=== PATIENT | female | born 1950 | race African-American/Black ===

== ENCOUNTER 2016-08-09 09:29 | Inpatient (IN) | payer OTHER ==
[~2016-08-09] VITALS: Ht 160 cm; Wt 117.0 kg
[~2016-08-09 09:29] MED LIST: AMLO10TA2 PO; AMOX1TAB61 PO; CARV25TA2 PO; CEFAZOLIN 2GM PREMIX 50 ML IV PRN; FERR-26 PO; FURO-68 PO; GABA-586 PO; HYDR-2868 PO; IBUP-1060 PO; INSU100I27 SQ; LISI-334 PO; LOVA20TA2 PO; OLME1TAB5 PO; POTA10CA53 PO
[2016-08-09] MEDS ORDERED: CYCL10TA2 PO (09:41)
[2016-08-09] MEDS ORDERED: INSU100V13 SQ (09:43)
[2016-08-09] MEDS ORDERED: INSU100C4 SQ (09:43)
[2016-08-09] MEDS ORDERED: RANI150T6 PO (09:46)
[2016-08-09] MEDS ORDERED: PRED20TA PO (09:46)
[2016-08-09] MEDS ORDERED: SULF1TAB23 PO (09:47)
[2016-08-09] MEDS ORDERED: ACET160S PO (09:47)
[2016-08-09] MEDS ORDERED: VENTOLIN HFA18 GM INH (09:49)
[2016-08-09] MEDS ORDERED: NEOSTIGMINE METHYLSULFATE 5 MG/5 ML SYRINGE. ONE (11:46)
[2016-08-09] MEDS ORDERED: ONDANSETRON PF 4 MG/2 ML VIAL. ONE (11:46)
[2016-08-09] MEDS ORDERED: DEXAMETHASONE SOD PHOS 20 MG/5 ML VIAL. ONE (11:46)
[2016-08-09] MEDS ORDERED: ROCURONIUM 50 MG/5 ML VIAL. ONE ×2 (11:46→14:39)
[2016-08-09] MEDS ORDERED: PROPOFOL 20 ML IV ONE (11:46)
[2016-08-09] MEDS ORDERED: LIDOCAINE 2% 100 MG/5 ML DISP.SYRIN. ONE (11:46)
[2016-08-09] MEDS ORDERED: FENTANYL PF 100 MCG/2 ML VIAL. ONE ×2 (11:46→17:26)
[2016-08-09] MEDS ORDERED: GLYCOPYRROLATE 1 MG/5 ML VIAL. ONE (11:48)
[2016-08-09] MEDS ORDERED: SURGICEL HEMOSTAT 4X8 EACH. ONE (12:09)
[2016-08-09] MEDS ORDERED: ESTROGENS, CONJ VAGINAL CREAM 30GM TUBE. ONE (12:09)
[2016-08-09] MEDS ORDERED: LIDOCAINE 1%/EPI 1:100,000 20 ML VIAL. ONE (12:09)
[2016-08-09] MEDS ORDERED: BUPIVACAINE-EPI 0.25%-1:200000 MPF 30 ML VIAL. ONE (12:09)
[2016-08-09] MEDS ORDERED: INSULIN ASPART 100 UNIT/ML 10ML VIAL. SQ ONE (13:00)
[2016-08-09 13:15] LABS: BASO # 0.1 x10^3/uL (0.0-0.2); BASO % 1 % (0-3); EOS % 1 % (0-3); HEMATOCRIT 34.7 % (36.0-47.0); LYMPH # 0.7 x10^3/uL (1.0-4.8); LYMPH % 9 % (24-48); MEAN CORPUSCULAR HEMOGLOBIN 28 pg (25-35); MEAN CORPUSCULAR HGB CONC 32 g/dL (31-37); MEAN CORPUSCULAR VOLUME 89 fL (79-100); MONO % 5 % (0-9); NEUT % 85 % (31-73); PLATELET COUNT 212 x10^3/uL (140-400); RED BLOOD COUNT 3.89 x10^6/uL (3.50-5.40); RED CELL DISTRIBUTION WIDTH 15.7 % (11.5-14.5); WHITE BLOOD COUNT 8.1 x10^3/uL (4.0-11.0)
[2016-08-09] MEDS ORDERED: ESMOLOL 100 MG/10 ML VIAL. IV ONE (13:52)
[2016-08-09] MEDS ORDERED: INSULIN REGULAR 100 UNIT/ML 10ML VIAL. ONE (14:23)
[2016-08-09] MEDS ORDERED: EPHEDRINE PF IN SALINE 50 MG/5 ML DISP.SYRIN. IV ONE (16:12)
[2016-08-09] MEDS ORDERED: DESFLURANE > 120 MINUTES IH ONE (16:24)
--- NOTE | 2016-08-09 16:43 | PDOC ---
BRIEF OPERATIVE NOTE Pre-Op Diagnosis PMB Post-Op Diagnosis SAme + fibroids and multiple adhesions Procedure Performed SANTHOSH & BSO Surgeon Dr. Vázquez Anesthesia Type: General Blood Loss 400 ml Specimens Obtained uterus, cervix, ольга. fallopian tubes and ovaries Findings enlarged, fibroid uterus, multiple abd wall and pelvic sidewall adhesions. Complications none Additional Remarks pt. ALEXANDRU Carbajal Jr, MD Aug 09, 2016 16:43
[2016-08-09] MEDS ORDERED: ONDANSETRON PF 4 MG/2 ML VIAL. IV PRN ×2 (16:45→17:45)
[2016-08-09] MEDS ORDERED: SIMETHICONE 80 MG TAB.CHEW PO PRN (16:45)
[2016-08-09] MEDS ORDERED: DIPHENHYDRAMINE HCL 25 MG CAPSULE PO PRN (16:45)
[2016-08-09] MEDS ORDERED: DEXTROSE 50% 25 GM / 50ML DISP.SYRIN. IV PRN ×2 (16:45)
[2016-08-09] MEDS ORDERED: 0.9 % SODIUM CHLORIDE 10 ML DISP.SYRIN. IV PRN (16:45)
[2016-08-09] MEDS ORDERED: DIPHENHYDRAMINE 50 MG/ML VIAL IV PRN (16:45)
[2016-08-09] MEDS ORDERED: ZOLPIDEM 5 MG TABLET. PO PRN (16:45)
[2016-08-09] MEDS ORDERED: PROCHLORPERAZINE 10 MG/2 ML VIAL. IV PRN ×2 (16:45→17:45)
[2016-08-09] MEDS: IV NORMAL SALINE 1000ML BAG 1,000 ML IV SCH ×2 (17:30→21:46)
[2016-08-09] MEDS ORDERED: IV RINGERS,LACTATED 1000ML 1,000 ML IV SCH (17:32)
[2016-08-09] MEDS: FENTANYL PF 100 MCG/2 ML VIAL. IV PRN ×2 (17:38→17:53)
[2016-08-09] MEDS: INSULIN ASPART 300 UNITS/3 ML INSULN.PEN SQ SCH (17:41)
[2016-08-09] MEDS ORDERED: LIDOCAINE 1% 1 ML SYRINGE. ID PRN (17:45)
[2016-08-09] MEDS ORDERED: MORPHINE SULFATE 2 MG/ML DISP.SYRIN. IV PRN (17:45)
[2016-08-09] MEDS ORDERED: FENTANYL PF 100 MCG/2 ML VIAL. IV PRN (17:45)
[2016-08-09] MEDS ORDERED: HYDROMORPHONE 2 MG/ML VIAL. IV PRN (17:45)
[2016-08-09 18:15] VITALS: BP 142/67
[2016-08-09 18:20] VITALS: BP 132/78
[2016-08-09] MEDS: KETOROLAC TROMETHAMINE 30 MG/ML SYRINGE. IV PRN (19:16)
[2016-08-09] MEDS: GABAPENTIN 300 MG CAPSULE. PO SCH (21:34)
[2016-08-09] MEDS: OXYCODONE/APAP 5/325 TABLET. PO PRN (21:35)
--- NOTE | 2016-08-09 22:19 | OP ---
DATE OF SURGERY: PREOPERATIVE DIAGNOSIS: Postmenopausal bleeding. POSTOPERATIVE DIAGNOSES: Postmenopausal bleeding plus fibroids and multiple abdominal adhesions. PROCEDURE: SANTHOSH and BSO. SURGEON: Alexandru Vázquez MD ANESTHESIA: GETA. ESTIMATED BLOOD LOSS: 400 mL COMPLICATIONS: None. FINDINGS: Enlarged fibroid uterus, multiple abdominal wall and pelvic sidewall adhesions. SUMMARY: A 66-year-old female who had postmenopausal bleeding and negative endometrial biopsy, requiring hysterectomy. The patient was counseled on LVH BSO. Risks, benefits and expectations and voiced a clear understanding to proceed. DESCRIPTION OF PROCEDURE: The patient was taken to surgery suite and placed in dorsal lithotomy position. She was prepped with Betadine solution for vaginal prep and ChloraPrep for abdominal prep. After adequate anesthesia, bivalve speculum was placed vaginally. The anterior lip of the cervix was grasped with a single tooth tenaculum. The PlayWith uterine manipulator was then placed through the cervix. The bivalve speculum was removed. Attention was then placed on the abdomen. A small transverse skin incision was made 3 fingerbreadths below the left costal margin with a scalpel. The Veress needle was then placed through the infraumbilical incision site. The abdomen was insufflated with 1 liter of CO2 gas. The 5-mm trocar was placed, however, we had difficulty entering into the abdominal cavity due to some adhesions that appeared to be present and did not appear to be intra-abdominal at that point. We also used the Visiport to make sure not to cause any type of bowel injury. The trocar was then removed. That incision site was reapproximated using 4-0 Vicryl suture in a subcuticular manner. Marcaine 0.25% with epinephrine was injected at that incision site. Decision was made to proceed vaginally. The bivalve speculum and single tooth tenaculum were removed. Yvette clamps were placed on the anterior and posterior lip of the cervix. Cervix was injected with 1% lidocaine with epinephrine in a circumferential manner. Bovie cautery was utilized to circumscribe the cervix. The vaginal mucosa was then dissected away from the lower uterine segment using a moist Ray-Lisha. The parametrial tissue was clamped bilaterally using curved Hermann clamps, cut and suture tied with 2-0 Vicryl suture. The posterior cul-de-sac was then entered sharply using curved [place] scissors. The long weighted speculum was placed. Uterosacral ligaments were clamped bilaterally, cut, and suture ligated. The cardinal ligaments were clamped bilaterally, cut, and suture ligated. Due to the size of the uterus and poor visibility, we then decided to proceed with abdominal route. A vertical skin incision was made 2 fingerbreadths above the pubic symphysis up to the umbilicus with the scalpel down to the fascia. The fascia was entered and excised using Bovie cautery along with curved [place]inas scissors. The peritoneum was grasped with 2 hemostats and entered sharply with Metzenbaum scissors. This incision was extended superiorly as well as inferiorly. There were multiple abdominal wall adhesions to the bowel which were meticulously dissected to free up the bowel as well as to free up the uterus. The uterus was a 16-week size uterus with multiple fibroids. There were multiple pelvic sidewall adhesions that were meticulously taken down with the Metzenbaum scissors. The Gualberto ring retractor was placed. The right round ligament was clamped with curved Hermann clamps, cut, and suture ligated. The right infundibulopelvic ligament was isolated, clamped twice with curved Hermann clamps, cut and suture ligated with 2-0 Vicryl suture. The left round ligament was then isolated, clamped, cut with curved Salinas scissors and suture ligated with 2-0 Vicryl suture. The left infundibulopelvic ligament was isolated, clamped with two Hermann clamps, cut and suture tied with 2-0 Vicryl suture as well. Additional adhesions were removed from the bowel as well as around the bladder area. The broad ligament was further dissected with sharp dissection. Two additional pedicles were clamped just adjacent to the uterus, cut and suture ligated. A portion of the uterus was removed for better visibility. One additional pedicle was taken just adjacent to the lower uterine segment bilaterally, cut, and suture ligated. The remaining part of the cervix and lower uterine segment were removed. A bubbaj-ef-nahig suture was placed on the left uterine artery for better hemostasis. Dr. Becerril was consulted and recommended no further dissection of the adhesions since they are not causing any type of bowel obstruction. The area was evaluated for any type of bleeding. There was good hemostasis. We were unable to close the vaginal cuff from above due to poor visibility. Therefore, the ring retractor was removed and mass closure using 0 looped PDS suture was performed incorporating the peritoneum and fascia. Subcutaneous tissue was reapproximated using 2-0 Vicryl suture in an interrupted fashion. The skin was reapproximated using sue. The Prevena wound VAC was then placed. Short weighted speculum and curved [place] was placed vaginally. The anterior and posterior vaginal cuff were grasped with long Allis clamps. The vaginal cuff was reapproximated using 2-0 Vicryl suture in a [id number] manner. Moist vaginal packing was placed. The patient tolerated the procedure well. During the intra-abdominal procedure, the ureters were palpated and no evidence of injury. The urine remained clear and good urine production throughout the case. Sponge and needle counts correct x 3. The patient was taken to recovery room in stable condition. AELXANDRU VÁZQUEZ MD DR: CHRISTIANA/graciela JOB#: [id number] / [id number]
[2016-08-09] MEDS: ALBUTEROL SULFATE 2.5 MG/3 ML NEBU. NEB PRN (22:48)
[2016-08-09 23:06] VITALS: BP 133/79
[2016-08-10] VITALS (8 sets, daily range): BP systolic 95–130; BP diastolic 46–74
[2016-08-10] MEDS: KETOROLAC TROMETHAMINE 30 MG/ML SYRINGE. IV PRN (01:12)
[2016-08-10] MEDS: IV NORMAL SALINE 1000ML BAG 1,000 ML IV SCH ×2 (01:37→06:27)
[2016-08-10] MEDS: GABAPENTIN 300 MG CAPSULE. PO SCH ×3 (06:30→21:15)
[2016-08-10] MEDS: OXYCODONE/APAP 5/325 TABLET. PO PRN ×3 (06:31→14:41)
[2016-08-10] MEDS: ALBUTEROL SULFATE 2.5 MG/3 ML NEBU. NEB PRN (06:51)
[2016-08-10 07:08] LABS: BASO % 0 % (0-3); EOS % 0 % (0-3); HEMATOCRIT 26.8 % (36.0-47.0); HEMOGLOBIN 8.1 g/dL (12.0-15.5); LYMPH % 8 % (24-48); MEAN CORPUSCULAR HEMOGLOBIN 28 pg (25-35); MEAN CORPUSCULAR HGB CONC 30 g/dL (31-37); MEAN CORPUSCULAR VOLUME 92 fL (79-100); MONO % 5 % (0-9); NEUT % 87 % (31-73); PLATELET COUNT 176 x10^3/uL (140-400); RED BLOOD COUNT 2.91 x10^6/uL (3.50-5.40); RED CELL DISTRIBUTION WIDTH 16.6 % (11.5-14.5); WHITE BLOOD COUNT 12.7 x10^3/uL (4.0-11.0)
[2016-08-10 07:21] LABS: CALCIUM 8.5 mg/dL (8.5-10.1); GFR 30.3; POTASSIUM 4.8 mmol/L (3.5-5.1)
--- NOTE | 2016-08-10 07:35 | PDOC ---
SURGICAL PROGRESS NOTE Subjective Pt. feeling well. She is tolerating liquids. Pain controlled. Discussed surgical findings. Vital Signs Vital Signs Date Time Temp Pulse Resp B/P Pulse Ox O2 Delivery O2 Flow Rate FiO2 08/10/16 06:51 98 Room Air 08/10/16 06:15 98.6 83 20 114/61 2.5 98.6 I&O Intake and Output 08/10/16 07:00 Intake Total 7250 ml Output Total 1520 ml Balance 5730 ml Intake Oral 500 ml IV Total 4200 ml Other 2550 ml Output Urine Total 1120 ml Estimated Blood Loss 400 ml PATIENT HAS A HANSON: Yes General: Alert, Oriented X3, Cooperative HEENT: Atraumatic Lungs: Clear to auscultation Heart: Regular rate Abdomen: Soft, No masses, Other (mild tenderness; hypoactive bowel sounds; Wound vac in place.) Extremities: No edema Psych/Mental Status: Mental status NL Labs Laboratory Tests Test 08/09/16 12:49 08/09/16 13:05 08/09/16 14:20 08/09/16 16:08 Glucose (Fingerstick) 269mg/dL (70-99) 286mg/dL (70-99) 270mg/dL (70-99) White Blood Count 8.1x10^3/uL (4.0-11.0) Red Blood Count 3.89x10^6/uL (3.50-5.40) Hemoglobin 11.0g/dL (12.0-15.5) Hematocrit 34.7% (36.0-47.0) Mean Corpuscular Volume 89fL (79-100) Mean Corpuscular Hemoglobin 28pg (25-35) Mean Corpuscular Hemoglobin Concent 32g/dL (31-37) Red Cell Distribution Width 15.7% (11.5-14.5) Platelet Count 212x10^3/uL (140-400) Neutrophils (%) (Auto) 85% (31-73) Lymphocytes (%) (Auto) 9% (24-48) Monocytes (%) (Auto) 5% (0-9) Eosinophils (%) (Auto) 1% (0-3) Basophils (%) (Auto) 1% (0-3) Neutrophils # (Auto) 6.9x10^3uL (1.8-7.7) Lymphocytes # (Auto) 0.7x10^3/uL (1.0-4.8) Monocytes # (Auto) 0.4x10^3/uL (0.0-1.1) Eosinophils # (Auto) 0.0x10^3/uL (0.0-0.7) Basophils # (Auto) 0.1x10^3/uL (0.0-0.2) Test 08/09/16 17:16 08/09/16 21:12 08/10/16 06:40 Glucose (Fingerstick) 195mg/dL (70-99) 170mg/dL (70-99) White Blood Count 12.7x10^3/uL (4.0-11.0) Red Blood Count 2.91x10^6/uL (3.50-5.40) Hemoglobin 8.1g/dL (12.0-15.5) Hematocrit 26.8% (36.0-47.0) Mean Corpuscular Volume 92fL (79-100) Mean Corpuscular Hemoglobin 28pg (25-35) Mean Corpuscular Hemoglobin Concent 30g/dL (31-37) Red Cell Distribution Width 16.6% (11.5-14.5) Platelet Count 176x10^3/uL (140-400) Neutrophils (%) (Auto) 87% (31-73) Lymphocytes (%) (Auto) 8% (24-48) Monocytes (%) (Auto) 5% (0-9) Eosinophils (%) (Auto) 0% (0-3) Basophils (%) (Auto) 0% (0-3) Neutrophils # (Auto) 11.0x10^3uL (1.8-7.7) Lymphocytes # (Auto) 1.0x10^3/uL (1.0-4.8) Monocytes # (Auto) 0.7x10^3/uL (0.0-1.1) Eosinophils # (Auto) 0.0x10^3/uL (0.0-0.7) Basophils # (Auto) 0.0x10^3/uL (0.0-0.2) Sodium Level 143mmol/L (136-145) Potassium Level 4.8mmol/L (3.5-5.1) Chloride Level 108mmol/L (98-107) Carbon Dioxide Level 26mmol/L (21-32) Anion Gap 9 (6-14) Blood Urea Nitrogen 25mg/dL (7-20) Creatinine 2.0mg/dL (0.6-1.0) Estimated GFR (Cockcroft-Gault) 30.3 Glucose Level 232mg/dL (70-99) Calcium Level 8.5mg/dL (8.5-10.1) Laboratory Tests Test 08/09/16 12:49 08/09/16 13:05 08/09/16 14:20 08/09/16 16:08 Glucose (Fingerstick) 269mg/dL (70-99) 286mg/dL (70-99) 270mg/dL (70-99) White Blood Count 8.1x10^3/uL (4.0-11.0) Red Blood Count 3.89x10^6/uL (3.50-5.40) Hemoglobin 11.0g/dL (12.0-15.5) Hematocrit 34.7% (36.0-47.0) Mean Corpuscular Volume 89fL (79-100) Mean Corpuscular Hemoglobin 28pg (25-35) Mean Corpuscular Hemoglobin Concent 32g/dL (31-37) Red Cell Distribution Width 15.7% (11.5-14.5) Platelet Count 212x10^3/uL (140-400) Neutrophils (%) (Auto) 85% (31-73) Lymphocytes (%) (Auto) 9% (24-48) Monocytes (%) (Auto) 5% (0-9) Eosinophils (%) (Auto) 1% (0-3) Basophils (%) (Auto) 1% (0-3) Neutrophils # (Auto) 6.9x10^3uL (1.8-7.7) Lymphocytes # (Auto) 0.7x10^3/uL (1.0-4.8) Monocytes # (Auto) 0.4x10^3/uL (0.0-1.1) Eosinophils # (Auto) 0.0x10^3/uL (0.0-0.7) Basophils # (Auto) 0.1x10^3/uL (0.0-0.2) Test 08/09/16 17:16 08/09/16 21:12 08/10/16 06:40 Glucose (Fingerstick) 195mg/dL (70-99) 170mg/dL (70-99) White Blood Count 12.7x10^3/uL (4.0-11.0) Red Blood Count 2.91x10^6/uL (3.50-5.40) Hemoglobin 8.1g/dL (12.0-15.5) Hematocrit 26.8% (36.0-47.0) Mean Corpuscular Volume 92fL (79-100) Mean Corpuscular Hemoglobin 28pg (25-35) Mean Corpuscular Hemoglobin Concent 30g/dL (31-37) Red Cell Distribution Width 16.6% (11.5-14.5) Platelet Count 176x10^3/uL (140-400) Neutrophils (%) (Auto) 87% (31-73) Lymphocytes (%) (Auto) 8% (24-48) Monocytes (%) (Auto) 5% (0-9) Eosinophils (%) (Auto) 0% (0-3) Basophils (%) (Auto) 0% (0-3) Neutrophils # (Auto) 11.0x10^3uL (1.8-7.7) Lymphocytes # (Auto) 1.0x10^3/uL (1.0-4.8) Monocytes # (Auto) 0.7x10^3/uL (0.0-1.1) Eosinophils # (Auto) 0.0x10^3/uL (0.0-0.7) Basophils # (Auto) 0.0x10^3/uL (0.0-0.2) Sodium Level 143mmol/L (136-145) Potassium Level 4.8mmol/L (3.5-5.1) Chloride Level 108mmol/L (98-107) Carbon Dioxide Level 26mmol/L (21-32) Anion Gap 9 (6-14) Blood Urea Nitrogen 25mg/dL (7-20) Creatinine 2.0mg/dL (0.6-1.0) Estimated GFR (Cockcroft-Gault) 30.3 Glucose Level 232mg/dL (70-99) Calcium Level 8.5mg/dL (8.5-10.1) Problem List Problems Medical Problems: (1) Fibroid uterus Status: Acute (2) Post-menopausal bleeding Status: Acute Assessment/Plan A: POD#1 s/p SANTHOSH & BSO P: Continue post op -care. Consult Dr. Hurt for diabetes and blood pressure management. Monitor urine output. Problems: ALEXANDRU NUNEZ Jr, MD Aug 10, 2016 07:35
[2016-08-10] MEDS: INSULIN ASPART 300 UNITS/3 ML INSULN.PEN SQ SCH ×3 (08:34→17:21)
[2016-08-10] MEDS: FUROSEMIDE 20 MG TABLET PO SCH ×2 (08:41→14:56)
[2016-08-10 15:21] LABS: ANISOCYTOSIS SLIGHT; HYPOCHROMIA SLIGHT; PLT ESTIMATE ADEQUATE (ADEQUATE); POLYCHROMASIA SLIGHT; TOXIC GRANULATION SLIGHT
[2016-08-10] MEDS ORDERED: FUROSEMIDE 20 MG/2 ML VIAL IVP ONE (16:15)
--- NOTE | 2016-08-10 16:22 | PDOC2 ---
CONSULT Date of Consult Date of Consult DATE: 08/10/16 TIME: 16:22 Past Medical History Cardiovascular: HTN, Hyperlipidemia Pulmonary: No pertinent hx CENTRAL NERVOUS SYSTEM: Other GI: Diverticulosis Heme/Onc: No pertinent hx Hepatobiliary: No pertinent hx Psych: No pertinent hx Musculoskeletal: Osteoarthritis Rheumatologic: No pertinent hx Infectious disease: No pertinent hx Renal/: No pertinent hx Endocrine: Diabetes Past Surgical History Past Surgical History: Colon Resection Family History Family History: Coronary Artery Disease Social History ALCOHOL: none Drugs: None Lives: with Family Current Problem List Problem List Problems Medical Problems: (1) Fibroid uterus Status: Acute (2) Post-menopausal bleeding Status: Acute Current Medications Current Medications Current Medications Cefazolin Sodium/ Dextrose 50 ml @ 100 mls/hr 1X PREOP PRN IV PRIOR TO PROCEDURE Last administered on 08/09/16 13:30; Start 08/09/16 at 06:00; Stop at 18:00; Status DC Sodium Chloride (Iv Sodium Chloride 0.9% 1000ml Bag) 1,000 ml @ 75 mls/hr [id number] IV Last administered on 08/10/16 06:27; Start 08/09/16 at 11:00 Dexamethasone Sodium Phosphate (Decadron) 20 mg STK-MED ONCE .ROUTE ; Start at 11:46; Stop 08/09/16 at 18:48; Status DC Ondansetron HCl 4 mg 4 mg STK-MED ONCE .ROUTE ; Start 08/09/16 at 11:46; Stop at 18:48; Status DC Propofol (Diprivan) 20 ml @ As Directed STK-MED ONCE IV ; Start 08/09/16 at 11: 46; Stop 08/09/16 at 18:48; Status DC Lidocaine HCl 100 mg STK-MED ONCE .ROUTE ; Start 08/09/16 at 11:46; Stop at 18:48; Status DC Fentanyl Citrate (Fentanyl 2ml Vial) 100 mcg STK-MED ONCE .ROUTE ; Start at 11:46; Stop 08/09/16 at 18:48; Status DC Neostigmine Methylsulfate 5 mg STK-MED ONCE .ROUTE ; Start 08/09/16 at 11:46; Stop 08/09/16 at 18:48; Status DC Rocuronium Buckner (Zemuron) 50 mg STK-MED ONCE .ROUTE ; Start 08/09/16 at 11:46 ; Stop 08/09/16 at 18:48; Status DC Glycopyrrolate (Robinul) 1 mg STK-MED ONCE .ROUTE ; Start 08/09/16 at 11:48; Stop 08/09/16 at 18:48; Status DC Cellulose 1 each STK-MED ONCE .ROUTE ; Start 08/09/16 at 12:09; Stop 08/09/16 at 18:48; Status DC Lidocaine/ Epinephrine (Xylocaine 1%-Epi 1:100,000) 20 ml STK-MED ONCE .ROUTE Last administered on 08/09/16 13:45; Start 08/09/16 at 12:09; Stop 08/09/16 at 18:48; Status DC Bupivacaine HCl/ Epinephrine Bitart (Sensorcaine-Epi 0.25%-1:264764 Mpf) 30 ml STK-MED ONCE .ROUTE Last administered on 08/09/16 13:45; Start 08/09/16 at 12: 09; Stop 08/09/16 at 18:48; Status DC Estrogens Conjugated (Premarin) 30 sohan STK-MED ONCE .ROUTE ; Start 08/09/16 at 12:09; Stop 08/09/16 at 18:48; Status DC Insulin Aspart (Novolog Vial) 4 unit 1X ONCE SQ Last administered on 12:58; Start 08/09/16 at 13:00; Stop 08/09/16 at 13:01; Status DC Esmolol HCl (Brevibloc) 100 mg STK-MED ONCE IV ; Start 08/09/16 at 13:52; Stop 08/09/16 at 18:48; Status DC Insulin Human Regular (Novolin R Vial) 100 unit STK-MED ONCE .ROUTE ; Start at 14:23; Stop 08/09/16 at 18:48; Status DC Rocuronium Buckner (Zemuron) 50 mg STK-MED ONCE .ROUTE ; Start 08/09/16 at 14:39 ; Stop 08/09/16 at 18:48; Status DC Ephedrine Sulfate 50 mg STK-MED ONCE IV ; Start 08/09/16 at 16:12; Stop at 18:48; Status DC Desflurane (Suprane) 90 ml STK-MED ONCE IH ; Start 08/09/16 at 16:24; Stop 08/09 at 18:48; Status DC Calcium Carbonate/ Glycine (Tums) 500 mg PRN Q3HRS PRN PO HEARTBURN / GAS; Start 08/09/16 at 16:45 Simethicone (Gas-X) 80 mg PRN AFTMEALHC PRN PO GAS / BLOATING; Start 08/09/16 at 16:45 Zolpidem Tartrate (Ambien) 5 mg PRN QHS PRN PO INSOMNIA, MAY REPEAT IN 1HR; Start 08/09/16 at 16:45 Diphenhydramine HCl (Benadryl) 25 mg PRN Q6HRS PRN PO ITCHING; Start 08/09/16 at 16:45 Diphenhydramine HCl (Benadryl) 25 mg PRN Q6HRS PRN IV ITCHING; Start 08/09/16 at 16:45 Sodium Chloride (Normal Saline Flush) 3 ml QSHIFT PRN IV AFTER MEDS AND BLOOD DRAWS; Start 08/09/16 at 16:45 Dextrose 12.5 gm PRN Q15MIN PRN IV SEE COMMENTS; Start 08/09/16 at 16:45; Status Cancel Oxycodone/ Acetaminophen (Percocet 5/325) 2 tab PRN Q4HRS PRN PO MODERATE PAIN , SEVERE PAIN Last administered on 08/10/16 14:41; Start 08/09/16 at 16:45 Ketorolac Tromethamine (Toradol) 30 mg PRN Q6HRS PRN IV PAIN Last administered on 08/10/16 01:12; Start 08/09/16 at 16:45; Stop 08/14/16 at 16:44 Gabapentin (Neurontin) 600 mg Q8HRS PO Last administered on 08/10/16 14:56; Start 08/09/16 at 17:00 Ondansetron HCl (Zofran) 4 mg PRN Q6HRS PRN IV NAUESA, 1ST CHOICE; Start at 16:45; Stop 08/09/16 at 18:48; Status DC Prochlorperazine Edisylate (Compazine) 5 mg PRN Q6HRS PRN IV N/V, 2nd Choice, MR X1; Start 08/09/16 at 16:45 Insulin Aspart (Novolog) 0-9 UNITS TIDWMEALS SQ Last administered on 08/10/16t 12:29; Start 08/09/16 at 17:00 Dextrose 12.5 gm PRN Q15MIN PRN IV SEE COMMENTS; Start 08/09/16 at 16:45 Fentanyl Citrate (Fentanyl 2ml Vial) 100 mcg STK-MED ONCE .ROUTE ; Start at 17:26; Stop 08/09/16 at 18:48; Status DC Ondansetron HCl (Zofran) 4 mg PRN Q6HRS PRN IV Nausea; Start 08/09/16 at 17:45 ; Stop 08/10/16 at 17:44 Fentanyl Citrate (Fentanyl 2ml Vial) 25 mcg PRN Q5MIN PRN IV MILD PAIN; Start 08/09/16 at 17:45; Stop 08/09/16 at 18:48; Status DC Fentanyl Citrate (Fentanyl 2ml Vial) 50 mcg PRN Q5MIN PRN IV MODERATE PAIN Last administered on 08/09/16t 17:53; Start 08/09/16 at 17:45; Stop 08/09/16 at 18:48; Status DC Morphine Sulfate 1 mg 1 mg PRN Q10MIN PRN IV SEVERE PAIN; Start 08/09/16 at 17: 45; Stop 08/09/16 at 18:48; Status DC Lactated Ringer's (Iv Lactated Ringers) 1,000 ml @ 0 mls/hr Q0M IV ; Start at 17:32; Stop 08/10/16 at 05:31; Status DC Lidocaine HCl 2 ml 1X PRN PRN ID IV START; Start 08/09/16 at 17:45; Stop at 18:48; Status DC Hydromorphone HCl (Dilaudid) 0.5 mg PRN Q10MIN PRN IV SEV PAIN,Second choice; Start 08/09/16 at 17:45; Stop 08/09/16 at 18:48; Status DC Prochlorperazine Edisylate (Compazine) 5 mg PACU PRN PRN IV NAUSEA; Start 08/09 at 17:45; Stop 08/09/16 at 18:48; Status DC Albuterol Sulfate (Ventolin Neb Soln) 2.5 mg PRN Q4HRS PRN NEB SHORTNESS OF BREATH Last administered on 08/10/16 06:51; Start 08/09/16 at 21:30 Furosemide (Lasix) 20 mg [id number] PO Last administered on 08/10/16 14:56; Start 08/10/16 at 09:00 Furosemide (Lasix) 20 mg 1X ONCE IVP ; Start 08/10/16 at 16:15; Stop 08/10/16 at 16:17; Status DC Active Scripts Active Klor-Con Sprinkle (Potassium Chloride) 10 Meq Capsule.er 20 Meq PO DAILY Lisinopril 20 Mg Tablet 1 Tab PO BID Ferrous Sulfate 325 Mg Tablet 325 Tab PO DAILY Gabapentin 300 Mg Capsule 600 Mg PO TID Lasix (Furosemide) 40 Mg Tablet 40 Mg PO BID Hydralazine Hcl 25 Mg Tablet 1 Tab PO TID Reported Ventolin Hfa Inhaler (Albuterol Sulfate) 18 Gm Hfa.aer.ad 2 Puff INH QID Acetaminophen 160 Mg/5 Ml Solution 325 Mg PO QID Bactrim 400-80 Mg Tablet (Sulfamethoxazole/Trimethoprim) 1 Each Tablet 1 Tab PO BID Zantac (Ranitidine Hcl) 150 Mg Tablet 150 Mg PO DAILY Prednisone 20 Mg Tablet 20 Mg PO DAILY Novolog (Insulin Aspart) 100 Unit/1 Ml Cartridge 8 Unit SQ TIDAC Levemir (Insulin Detemir) 100 Unit/1 Ml Vial 36 Unit SQ HS Cyclobenzaprine Hcl 10 Mg Tablet 10 Mg PO TID Amlodipine Besylate 10 Mg Tablet 10 Mg PO DAILY Ibuprofen 800 Mg Tablet 800 Mg PO PRN Q6HRS PRN Lovastatin 20 Mg Tablet 20 Mg PO HS Allergies Allergies: Coded Allergies: No Known Drug Allergies (Unverified , 04/02/16) Vitals VITALS Vital Signs Date Time Temp Pulse Resp B/P Pulse Ox O2 Delivery O2 Flow Rate FiO2 08/10/16 14:41 20 08/10/16 14:28 98.3 90 115/51 91 Nasal Cannula 2.0 98.3 Labs Labs Laboratory Tests Test 08/09/16 12:49 08/09/16 13:05 08/09/16 14:20 08/09/16 16:08 Glucose (Fingerstick) 269mg/dL (70-99) 286mg/dL (70-99) 270mg/dL (70-99) White Blood Count 8.1x10^3/uL (4.0-11.0) Red Blood Count 3.89x10^6/uL (3.50-5.40) Hemoglobin 11.0g/dL (12.0-15.5) Hematocrit 34.7% (36.0-47.0) Mean Corpuscular Volume 89fL (79-100) Mean Corpuscular Hemoglobin 28pg (25-35) Mean Corpuscular Hemoglobin Concent 32g/dL (31-37) Red Cell Distribution Width 15.7% (11.5-14.5) Platelet Count 212x10^3/uL (140-400) Neutrophils (%) (Auto) 85% (31-73) Lymphocytes (%) (Auto) 9% (24-48) Monocytes (%) (Auto) 5% (0-9) Eosinophils (%) (Auto) 1% (0-3) Basophils (%) (Auto) 1% (0-3) Neutrophils # (Auto) 6.9x10^3uL (1.8-7.7) Lymphocytes # (Auto) 0.7x10^3/uL (1.0-4.8) Monocytes # (Auto) 0.4x10^3/uL (0.0-1.1) Eosinophils # (Auto) 0.0x10^3/uL (0.0-0.7) Basophils # (Auto) 0.1x10^3/uL (0.0-0.2) Test 08/09/16 17:16 08/09/16 21:12 08/10/16 06:40 08/10/16 07:28 Glucose (Fingerstick) 195mg/dL (70-99) 170mg/dL (70-99) 245mg/dL (70-99) White Blood Count 12.7x10^3/uL (4.0-11.0) Red Blood Count 2.91x10^6/uL (3.50-5.40) Hemoglobin 8.1g/dL (12.0-15.5) Hematocrit 26.8% (36.0-47.0) Mean Corpuscular Volume 92fL (79-100) Mean Corpuscular Hemoglobin 28pg (25-35) Mean Corpuscular Hemoglobin Concent 30g/dL (31-37) Red Cell Distribution Width 16.6% (11.5-14.5) Platelet Count 176x10^3/uL (140-400) Neutrophils (%) (Auto) 87% (31-73) Lymphocytes (%) (Auto) 8% (24-48) Monocytes (%) (Auto) 5% (0-9) Eosinophils (%) (Auto) 0% (0-3) Basophils (%) (Auto) 0% (0-3) Neutrophils # (Auto) 11.0x10^3uL (1.8-7.7) Lymphocytes # (Auto) 1.0x10^3/uL (1.0-4.8) Monocytes # (Auto) 0.7x10^3/uL (0.0-1.1) Eosinophils # (Auto) 0.0x10^3/uL (0.0-0.7) Basophils # (Auto) 0.0x10^3/uL (0.0-0.2) Segmented Neutrophils % 76% (35-66) Band Neutrophils % 14% (0-9) Lymphocytes % 4% (24-48) Monocytes % 6% (0-10) Toxic Granulation Slight Platelet Estimate Adequate (ADEQUATE) Polychromasia Slight Hypochromasia Slight Anisocytosis Slight Sodium Level 143mmol/L (136-145) Potassium Level 4.8mmol/L (3.5-5.1) Chloride Level 108mmol/L (98-107) Carbon Dioxide Level 26mmol/L (21-32) Anion Gap 9 (6-14) Blood Urea Nitrogen 25mg/dL (7-20) Creatinine 2.0mg/dL (0.6-1.0) Estimated GFR (Cockcroft-Gault) 30.3 Glucose Level 232mg/dL (70-99) Calcium Level 8.5mg/dL (8.5-10.1) Test 08/10/16 11:37 Glucose (Fingerstick) 258mg/dL (70-99) Laboratory Tests Test 08/09/16 17:16 08/09/16 21:12 08/10/16 06:40 08/10/16 07:28 Glucose (Fingerstick) 195mg/dL (70-99) 170mg/dL (70-99) 245mg/dL (70-99) White Blood Count 12.7x10^3/uL (4.0-11.0) Red Blood Count 2.91x10^6/uL (3.50-5.40) Hemoglobin 8.1g/dL (12.0-15.5) Hematocrit 26.8% (36.0-47.0) Mean Corpuscular Volume 92fL (79-100) Mean Corpuscular Hemoglobin 28pg (25-35) Mean Corpuscular Hemoglobin Concent 30g/dL (31-37) Red Cell Distribution Width 16.6% (11.5-14.5) Platelet Count 176x10^3/uL (140-400) Neutrophils (%) (Auto) 87% (31-73) Lymphocytes (%) (Auto) 8% (24-48) Monocytes (%) (Auto) 5% (0-9) Eosinophils (%) (Auto) 0% (0-3) Basophils (%) (Auto) 0% (0-3) Neutrophils # (Auto) 11.0x10^3uL (1.8-7.7) Lymphocytes # (Auto) 1.0x10^3/uL (1.0-4.8) Monocytes # (Auto) 0.7x10^3/uL (0.0-1.1) Eosinophils # (Auto) 0.0x10^3/uL (0.0-0.7) Basophils # (Auto) 0.0x10^3/uL (0.0-0.2) Segmented Neutrophils % 76% (35-66) Band Neutrophils % 14% (0-9) Lymphocytes % 4% (24-48) Monocytes % 6% (0-10) Toxic Granulation Slight Platelet Estimate Adequate (ADEQUATE) Polychromasia Slight Hypochromasia Slight Anisocytosis Slight Sodium Level 143mmol/L (136-145) Potassium Level 4.8mmol/L (3.5-5.1) Chloride Level 108mmol/L (98-107) Carbon Dioxide Level 26mmol/L (21-32) Anion Gap 9 (6-14) Blood Urea Nitrogen 25mg/dL (7-20) Creatinine 2.0mg/dL (0.6-1.0) Estimated GFR (Cockcroft-Gault) 30.3 Glucose Level 232mg/dL (70-99) Calcium Level 8.5mg/dL (8.5-10.1) Test 08/10/16 11:37 Glucose (Fingerstick) 258mg/dL (70-99) TIFFANI MATHEW MD Aug 10, 2016 16:22
--- NOTE | 2016-08-10 16:30 | RAD ---
Examination: Single frontal view chest History: History of hypoxia, wheezing Comparison: 04/12/2016 Findings: Unchanged moderate cardiomegaly. There is prominence of bilateral interstitial lung markings likely congestive changes. Opacity identified in the right hilum grossly appears similar to prior exam. Impression: 1. Moderate cardiomegaly with mild prominent bilateral interstitial lung markings likely congestive changes. 2. Right hilar opacity likely known mass similar to prior exam.
[2016-08-10 17:11] LABS: BASO % 0 % (0-3); EOS % 0 % (0-3); HEMATOCRIT 24.7 % (36.0-47.0); HEMOGLOBIN 7.7 g/dL (12.0-15.5); LYMPH % 9 % (24-48); MEAN CORPUSCULAR HEMOGLOBIN 28 pg (25-35); MEAN CORPUSCULAR HGB CONC 31 g/dL (31-37); MEAN CORPUSCULAR VOLUME 91 fL (79-100); MONO % 5 % (0-9); NEUT % 85 % (31-73); PLATELET COUNT 171 x10^3/uL (140-400); RED BLOOD COUNT 2.72 x10^6/uL (3.50-5.40); WHITE BLOOD COUNT 11.5 x10^3/uL (4.0-11.0)
[2016-08-10 17:40] LABS: ALBUMIN 2.4 g/dL (3.4-5.0); ALBUMIN/GLOBULIN RATIO 0.8 (1.0-1.7); CALCIUM 8.3 mg/dL (8.5-10.1); CREATININE 2.4 mg/dL (0.6-1.0); GFR 24.5; POTASSIUM 4.4 mmol/L (3.5-5.1); TOTAL BILIRUBIN 0.2 mg/dL (0.2-1.0); TOTAL PROTEIN 5.5 g/dL (6.4-8.2)
[2016-08-10 17:41] LABS: MAGNESIUM 1.6 mg/dL (1.8-2.4); PHOSPHORUS 5.7 mg/dL (2.6-4.7)
[2016-08-10] MEDS: INSULIN DETEMIR 300 UNITS/3 ML INSULN.PEN. SQ SCH (21:20)
--- NOTE | 2016-08-11 00:01 | CONS ---
DATE OF CONSULTATION: REASON FOR CONSULTATION: Shortness of breath. HISTORY OF PRESENT ILLNESS: The patient is a 66-year-old -[place] woman with multiple medical problems including diastolic CHF, sarcoidosis, diabetes mellitus, hypertension, who presented initially for elective SANTHOSH/BSO. Procedure was undertaken yesterday by Dr. Vázquez without any complications. The patient tolerated the procedure well. However, in postop course today, she was noted to become progressively more short of breath with rhonchorous breath sounds, hypoxia, clear phlegm production. A consult was therefore called for acute hypoxic respiratory distress. PAST MEDICAL HISTORY: Diastolic CHF, recent echo with an EF of 60-65% in March, sarcoidosis diagnosed by lung biopsy in 03/2016, hypertension, hyperlipidemia, diabetes mellitus, borderline control, history of severe iron deficiency anemia. FAMILY HISTORY: Positive for CAD. SOCIAL HISTORY: No toxic habits. ALLERGIES: No known drug allergies. MEDICATIONS: MAR reviewed. REVIEW OF SYSTEMS: Positive for shortness of breath, cough with clear phlegm production. Denies any chest pain, any abdominal pain. Her pelvic incision is healing well. Denies any problems from there. Rest of organ system review was essentially negative. PHYSICAL EXAMINATION: VITAL SIGNS: From today show a blood pressure of 115/51, heart rate of 90, respiratory rate of 16. She is afebrile. Pulse ox at 91% on 2 liters. Of note, the pulse ox had been at 98-99 earlier today on the same setting. Blood pressure at admission 167/78. GENERAL: This is an obese 66-year-old -[place] woman, awake, alert, in no acute distress. HEENT: Shows no scleral icterus. NECK: Thick and short. LUNGS: Rhonchorous. No rales could be discerned. HEART: Has regular rate and rhythm. ABDOMEN: Has positive bowel sounds, soft. No tenderness in the upper quadrant. Incision is covered. EXTREMITIES: Show no edema, no clubbing, no cyanosis. SKIN: Warm, soft and dry. LABORATORY DATA: CBC from today with a WBC of 12.7, hemoglobin 8.1. Of note, preop hemoglobin had been 11.1, platelets of 176. Chemistries with a BUN and creatinine of 25 and 2; once again, preop work was 17 and 0.8. Electrolytes within normal limits, mildly elevated potassium at 4.8, glucose poorly controlled at 232 this morning, in the 200s since. ASSESSMENT AND PLAN: The patient is a 66-year-old woman undergoing elective total abdominal hysterectomy and bilateral salpingo-oophorectomy, which was successfully accomplished. Now, unfortunately, she has complications relating to her other chronic medical issues. Her breath sounds sound rather wet. We will obtain chest x-ray JEFF. Fluid status currently is about 6 liters positive. We will give her IV Lasix. Monitor creatinine closely as this is significantly above her usual baseline, but suspect related to diastolic congestive heart failure. The patient has a recent diagnosis of sarcoidosis for which she is on steroids and prophylactic Bactrim. We will continue that for the time being. She follows with Dr. Storey and Dr. Paul on an outpatient basis. We will notify in the a.m. Diabetes mellitus currently is very poorly controlled, most likely due to the addition of steroids. We will have to try to titrate her insulin regimen. Acute renal failure is most likely related to congestive heart failure. Should this not reverse, a Renal consult will be called in the morning. With further Lasix therapy, I suspect her hypokalemia will correct as well. Because the medical issues are rather complicated, we will transfer the patient to , admit to tele for closer monitoring and management. Thank you so much, Dr. Vázquez for consulting us. We will follow along with you. SANTY TANG MD DR: UR/nts JOB#: [id number] / [id number] Kip Bentley MD, DONALD MD MTDD
[2016-08-11 03:00] VITALS: BP 166/80
[2016-08-11 07:25] VITALS: BP 141/65
[2016-08-11] MEDS: INSULIN ASPART 300 UNITS/3 ML INSULN.PEN SQ SCH ×3 (08:00→17:05)
[2016-08-11 08:14] LABS: BASO % 0 % (0-3); EOS % 2 % (0-3); HEMATOCRIT 27.4 % (36.0-47.0); HEMOGLOBIN 8.5 g/dL (12.0-15.5); LYMPH % 10 % (24-48); MEAN CORPUSCULAR HEMOGLOBIN 28 pg (25-35); MEAN CORPUSCULAR HGB CONC 31 g/dL (31-37); MEAN CORPUSCULAR VOLUME 91 fL (79-100); MONO % 5 % (0-9); NEUT % 84 % (31-73); PLATELET COUNT 172 x10^3/uL (140-400); RED BLOOD COUNT 3.02 x10^6/uL (3.50-5.40); RED CELL DISTRIBUTION WIDTH 15.8 % (11.5-14.5); WHITE BLOOD COUNT 10.6 x10^3/uL (4.0-11.0)
[2016-08-11] MEDS ORDERED: ACETAMINOPHEN 325 MG TABLET. PO PRN (08:30)
[2016-08-11] MEDS ORDERED: MAGNESIUM SULFATE 2GM 50 ML IV ONE (08:30)
[2016-08-11 08:39] LABS: CALCIUM 8.3 mg/dL (8.5-10.1); CREATININE 2.1 mg/dL (0.6-1.0); GFR 28.6; MAGNESIUM 1.8 mg/dL (1.8-2.4); POTASSIUM 4.2 mmol/L (3.5-5.1)
[2016-08-11] MEDS: FUROSEMIDE 20 MG TABLET PO SCH ×2 (09:00→16:07)
[2016-08-11] MEDS: GABAPENTIN 300 MG CAPSULE. PO SCH (09:00)
--- NOTE | 2016-08-11 09:19 | RAD ---
Indication: Fever. Technique: Upright portable chest radiograph was obtained and compared to a study from one day earlier. Findings: There is increased right perihilar and infrahilar opacity. Interstitial prominence may be slightly improved. Heart is upper limits of normal in size. Leads overlie the patient. Impression: Increasing right perihilar and infrahilar opacity, likely pneumonia. Follow-up to document resolution is required.
[2016-08-11] MEDS: PIPERACILLIN/TAZOBACTAM 3.375 GM in IV NORMAL SALINE 50ML 50 ML IV SCH ×3 (09:55→18:11)
--- NOTE | 2016-08-11 10:18 | PDOC ---
PROGRESS NOTES Chief Complaint Chief Complaint - shortness of breath, acute hypoxic respiratory distress - post operative fever - uterine fibroids, post menopausal bleeding; s/p total abdominal hysterectomy bilateral salpingo-oopherectomy 08/09 - diastolic CHF, EF 60-65% - sarcoidosis - diabetes mellitus - hypertension History of Present Illness History of Present Illness Patient sitting up in bed when evaluated this AM. She was in no acute distress, but has had fevers through the night and morning. Temp of 102.9 when evaluated this AM. Pt O2 sat of 89% on BiPAP/CPAP. Discussed case with RN. Vitals Vitals Vital Signs Date Time Temp Pulse Resp B/P Pulse Ox O2 Delivery O2 Flow Rate FiO2 08/11/16 07:25 102.9 119 24 141/65 89 BiPAP/CPAP 2.0 102.9 Physical Exam General: Alert, Oriented X3, Cooperative Heart: Regular rate Lungs: Wheezing Abdomen: Soft, No masses, Other (mild tenderness; hypoactive bowel sounds; Wound vac in place.) Extremities: No edema Skin: No significant lesion Labs LABS Laboratory Tests Test 08/10/16 11:37 08/10/16 16:49 08/10/16 17:00 08/10/16 20:57 Glucose (Fingerstick) 258mg/dL (70-99) 223mg/dL (70-99) 222mg/dL (70-99) White Blood Count 11.5x10^3/uL (4.0-11.0) Red Blood Count 2.72x10^6/uL (3.50-5.40) Hemoglobin 7.7g/dL (12.0-15.5) Hematocrit 24.7% (36.0-47.0) Mean Corpuscular Volume 91fL (79-100) Mean Corpuscular Hemoglobin 28pg (25-35) Mean Corpuscular Hemoglobin Concent 31g/dL (31-37) Red Cell Distribution Width 16.0% (11.5-14.5) Platelet Count 171x10^3/uL (140-400) Neutrophils (%) (Auto) 85% (31-73) Lymphocytes (%) (Auto) 9% (24-48) Monocytes (%) (Auto) 5% (0-9) Eosinophils (%) (Auto) 0% (0-3) Basophils (%) (Auto) 0% (0-3) Neutrophils # (Auto) 9.8x10^3uL (1.8-7.7) Lymphocytes # (Auto) 1.0x10^3/uL (1.0-4.8) Monocytes # (Auto) 0.6x10^3/uL (0.0-1.1) Eosinophils # (Auto) 0.1x10^3/uL (0.0-0.7) Basophils # (Auto) 0.0x10^3/uL (0.0-0.2) Sodium Level 137mmol/L (136-145) Potassium Level 4.4mmol/L (3.5-5.1) Chloride Level 102mmol/L (98-107) Carbon Dioxide Level 26mmol/L (21-32) Anion Gap 9 (6-14) Blood Urea Nitrogen 28mg/dL (7-20) Creatinine 2.4mg/dL (0.6-1.0) Estimated GFR (Cockcroft-Gault) 24.5 BUN/Creatinine Ratio 12 (6-20) Glucose Level 249mg/dL (70-99) Calcium Level 8.3mg/dL (8.5-10.1) Phosphorus Level 5.7mg/dL (2.6-4.7) Magnesium Level 1.6mg/dL (1.8-2.4) Total Bilirubin 0.2mg/dL (0.2-1.0) Aspartate Amino Transf (AST/SGOT) 13U/L (15-37) Alanine Aminotransferase (ALT/SGPT) 20U/L (14-59) Alkaline Phosphatase 50U/L (46-116) Total Protein 5.5g/dL (6.4-8.2) Albumin 2.4g/dL (3.4-5.0) Albumin/Globulin Ratio 0.8 (1.0-1.7) Test 08/11/16 07:35 08/11/16 07:42 White Blood Count 10.6x10^3/uL (4.0-11.0) Red Blood Count 3.02x10^6/uL (3.50-5.40) Hemoglobin 8.5g/dL (12.0-15.5) Hematocrit 27.4% (36.0-47.0) Mean Corpuscular Volume 91fL (79-100) Mean Corpuscular Hemoglobin 28pg (25-35) Mean Corpuscular Hemoglobin Concent 31g/dL (31-37) Red Cell Distribution Width 15.8% (11.5-14.5) Platelet Count 172x10^3/uL (140-400) Neutrophils (%) (Auto) 84% (31-73) Lymphocytes (%) (Auto) 10% (24-48) Monocytes (%) (Auto) 5% (0-9) Eosinophils (%) (Auto) 2% (0-3) Basophils (%) (Auto) 0% (0-3) Neutrophils # (Auto) 8.9x10^3uL (1.8-7.7) Lymphocytes # (Auto) 1.0x10^3/uL (1.0-4.8) Monocytes # (Auto) 0.5x10^3/uL (0.0-1.1) Eosinophils # (Auto) 0.2x10^3/uL (0.0-0.7) Basophils # (Auto) 0.0x10^3/uL (0.0-0.2) Sodium Level 138mmol/L (136-145) Potassium Level 4.2mmol/L (3.5-5.1) Chloride Level 101mmol/L (98-107) Carbon Dioxide Level 27mmol/L (21-32) Anion Gap 10 (6-14) Blood Urea Nitrogen 29mg/dL (7-20) Creatinine 2.1mg/dL (0.6-1.0) Estimated GFR (Cockcroft-Gault) 28.6 Glucose Level 205mg/dL (70-99) Calcium Level 8.3mg/dL (8.5-10.1) Magnesium Level 1.8mg/dL (1.8-2.4) Glucose (Fingerstick) 206mg/dL (70-99) Review of Systems Review of Systems + fevers (T 102.9) + shortness of breath, cough productive of clear phlegm denies chest pain, palpitations Assessment and Plan Assessmemt and Plan ASSESSMENT: - shortness of breath, acute hypoxic respiratory distress - post operative fever; now 102.9 - uterine fibroids, post menopausal bleeding; s/p total abdominal hysterectomy bilateral salpingo-oopherectomy 3/16 - diastolic CHF, EF 60-65% - sarcoidosis - diabetes mellitus - hypertension PLAN: - consulting Pulmonology for respiratory symptoms and ID for post-op fevers (T 102.9) - CXR performed showing congestive changes, interstitial lung marking; r hilar opacity likely known mass similar to previous exam - cont Lasix - cont Zosyn; await ID input - cultures pending - repeat daily labs - PTOT - appreciate being asked to see the pt and for all subspecialist input Problems: Comment Review of Relevant I have reviewed the following items robert (where applicable) has been applied. Labs Laboratory Tests Test 08/09/16 12:49 08/09/16 13:05 08/09/16 14:20 08/09/16 16:08 Glucose (Fingerstick) 269mg/dL (70-99) 286mg/dL (70-99) 270mg/dL (70-99) White Blood Count 8.1x10^3/uL (4.0-11.0) Red Blood Count 3.89x10^6/uL (3.50-5.40) Hemoglobin 11.0g/dL (12.0-15.5) Hematocrit 34.7% (36.0-47.0) Mean Corpuscular Volume 89fL (79-100) Mean Corpuscular Hemoglobin 28pg (25-35) Mean Corpuscular Hemoglobin Concent 32g/dL (31-37) Red Cell Distribution Width 15.7% (11.5-14.5) Platelet Count 212x10^3/uL (140-400) Neutrophils (%) (Auto) 85% (31-73) Lymphocytes (%) (Auto) 9% (24-48) Monocytes (%) (Auto) 5% (0-9) Eosinophils (%) (Auto) 1% (0-3) Basophils (%) (Auto) 1% (0-3) Neutrophils # (Auto) 6.9x10^3uL (1.8-7.7) Lymphocytes # (Auto) 0.7x10^3/uL (1.0-4.8) Monocytes # (Auto) 0.4x10^3/uL (0.0-1.1) Eosinophils # (Auto) 0.0x10^3/uL (0.0-0.7) Basophils # (Auto) 0.1x10^3/uL (0.0-0.2) Test 08/09/16 17:16 08/09/16 21:12 08/10/16 06:40 08/10/16 07:28 Glucose (Fingerstick) 195mg/dL (70-99) 170mg/dL (70-99) 245mg/dL (70-99) White Blood Count 12.7x10^3/uL (4.0-11.0) Red Blood Count 2.91x10^6/uL (3.50-5.40) Hemoglobin 8.1g/dL (12.0-15.5) Hematocrit 26.8% (36.0-47.0) Mean Corpuscular Volume 92fL (79-100) Mean Corpuscular Hemoglobin 28pg (25-35) Mean Corpuscular Hemoglobin Concent 30g/dL (31-37) Red Cell Distribution Width 16.6% (11.5-14.5) Platelet Count 176x10^3/uL (140-400) Neutrophils (%) (Auto) 87% (31-73) Lymphocytes (%) (Auto) 8% (24-48) Monocytes (%) (Auto) 5% (0-9) Eosinophils (%) (Auto) 0% (0-3) Basophils (%) (Auto) 0% (0-3) Neutrophils # (Auto) 11.0x10^3uL (1.8-7.7) Lymphocytes # (Auto) 1.0x10^3/uL (1.0-4.8) Monocytes # (Auto) 0.7x10^3/uL (0.0-1.1) Eosinophils # (Auto) 0.0x10^3/uL (0.0-0.7) Basophils # (Auto) 0.0x10^3/uL (0.0-0.2) Segmented Neutrophils % 76% (35-66) Band Neutrophils % 14% (0-9) Lymphocytes % 4% (24-48) Monocytes % 6% (0-10) Toxic Granulation Slight Platelet Estimate Adequate (ADEQUATE) Polychromasia Slight Hypochromasia Slight Anisocytosis Slight Sodium Level 143mmol/L (136-145) Potassium Level 4.8mmol/L (3.5-5.1) Chloride Level 108mmol/L (98-107) Carbon Dioxide Level 26mmol/L (21-32) Anion Gap 9 (6-14) Blood Urea Nitrogen 25mg/dL (7-20) Creatinine 2.0mg/dL (0.6-1.0) Estimated GFR (Cockcroft-Gault) 30.3 Glucose Level 232mg/dL (70-99) Calcium Level 8.5mg/dL (8.5-10.1) Test 08/10/16 11:37 08/10/16 16:49 08/10/16 17:00 08/10/16 20:57 Glucose (Fingerstick) 258mg/dL (70-99) 223mg/dL (70-99) 222mg/dL (70-99) White Blood Count 11.5x10^3/uL (4.0-11.0) Red Blood Count 2.72x10^6/uL (3.50-5.40) Hemoglobin 7.7g/dL (12.0-15.5) Hematocrit 24.7% (36.0-47.0) Mean Corpuscular Volume 91fL (79-100) Mean Corpuscular Hemoglobin 28pg (25-35) Mean Corpuscular Hemoglobin Concent 31g/dL (31-37) Red Cell Distribution Width 16.0% (11.5-14.5) Platelet Count 171x10^3/uL (140-400) Neutrophils (%) (Auto) 85% (31-73) Lymphocytes (%) (Auto) 9% (24-48) Monocytes (%) (Auto) 5% (0-9) Eosinophils (%) (Auto) 0% (0-3) Basophils (%) (Auto) 0% (0-3) Neutrophils # (Auto) 9.8x10^3uL (1.8-7.7) Lymphocytes # (Auto) 1.0x10^3/uL (1.0-4.8) Monocytes # (Auto) 0.6x10^3/uL (0.0-1.1) Eosinophils # (Auto) 0.1x10^3/uL (0.0-0.7) Basophils # (Auto) 0.0x10^3/uL (0.0-0.2) Sodium Level 137mmol/L (136-145) Potassium Level 4.4mmol/L (3.5-5.1) Chloride Level 102mmol/L (98-107) Carbon Dioxide Level 26mmol/L (21-32) Anion Gap 9 (6-14) Blood Urea Nitrogen 28mg/dL (7-20) Creatinine 2.4mg/dL (0.6-1.0) Estimated GFR (Cockcroft-Gault) 24.5 BUN/Creatinine Ratio 12 (6-20) Glucose Level 249mg/dL (70-99) Calcium Level 8.3mg/dL (8.5-10.1) Phosphorus Level 5.7mg/dL (2.6-4.7) Magnesium Level 1.6mg/dL (1.8-2.4) Total Bilirubin 0.2mg/dL (0.2-1.0) Aspartate Amino Transf (AST/SGOT) 13U/L (15-37) Alanine Aminotransferase (ALT/SGPT) 20U/L (14-59) Alkaline Phosphatase 50U/L (46-116) Total Protein 5.5g/dL (6.4-8.2) Albumin 2.4g/dL (3.4-5.0) Albumin/Globulin Ratio 0.8 (1.0-1.7) Test 08/11/16 07:35 08/11/16 07:42 White Blood Count 10.6x10^3/uL (4.0-11.0) Red Blood Count 3.02x10^6/uL (3.50-5.40) Hemoglobin 8.5g/dL (12.0-15.5) Hematocrit 27.4% (36.0-47.0) Mean Corpuscular Volume 91fL (79-100) Mean Corpuscular Hemoglobin 28pg (25-35) Mean Corpuscular Hemoglobin Concent 31g/dL (31-37) Red Cell Distribution Width 15.8% (11.5-14.5) Platelet Count 172x10^3/uL (140-400) Neutrophils (%) (Auto) 84% (31-73) Lymphocytes (%) (Auto) 10% (24-48) Monocytes (%) (Auto) 5% (0-9) Eosinophils (%) (Auto) 2% (0-3) Basophils (%) (Auto) 0% (0-3) Neutrophils # (Auto) 8.9x10^3uL (1.8-7.7) Lymphocytes # (Auto) 1.0x10^3/uL (1.0-4.8) Monocytes # (Auto) 0.5x10^3/uL (0.0-1.1) Eosinophils # (Auto) 0.2x10^3/uL (0.0-0.7) Basophils # (Auto) 0.0x10^3/uL (0.0-0.2) Sodium Level 138mmol/L (136-145) Potassium Level 4.2mmol/L (3.5-5.1) Chloride Level 101mmol/L (98-107) Carbon Dioxide Level 27mmol/L (21-32) Anion Gap 10 (6-14) Blood Urea Nitrogen 29mg/dL (7-20) Creatinine 2.1mg/dL (0.6-1.0) Estimated GFR (Cockcroft-Gault) 28.6 Glucose Level 205mg/dL (70-99) Calcium Level 8.3mg/dL (8.5-10.1) Magnesium Level 1.8mg/dL (1.8-2.4) Glucose (Fingerstick) 206mg/dL (70-99) Laboratory Tests Test 08/10/16 11:37 08/10/16 16:49 08/10/16 17:00 08/10/16 20:57 Glucose (Fingerstick) 258mg/dL (70-99) 223mg/dL (70-99) 222mg/dL (70-99) White Blood Count 11.5x10^3/uL (4.0-11.0) Red Blood Count 2.72x10^6/uL (3.50-5.40) Hemoglobin 7.7g/dL (12.0-15.5) Hematocrit 24.7% (36.0-47.0) Mean Corpuscular Volume 91fL (79-100) Mean Corpuscular Hemoglobin 28pg (25-35) Mean Corpuscular Hemoglobin Concent 31g/dL (31-37) Red Cell Distribution Width 16.0% (11.5-14.5) Platelet Count 171x10^3/uL (140-400) Neutrophils (%) (Auto) 85% (31-73) Lymphocytes (%) (Auto) 9% (24-48) Monocytes (%) (Auto) 5% (0-9) Eosinophils (%) (Auto) 0% (0-3) Basophils (%) (Auto) 0% (0-3) Neutrophils # (Auto) 9.8x10^3uL (1.8-7.7) Lymphocytes # (Auto) 1.0x10^3/uL (1.0-4.8) Monocytes # (Auto) 0.6x10^3/uL (0.0-1.1) Eosinophils # (Auto) 0.1x10^3/uL (0.0-0.7) Basophils # (Auto) 0.0x10^3/uL (0.0-0.2) Sodium Level 137mmol/L (136-145) Potassium Level 4.4mmol/L (3.5-5.1) Chloride Level 102mmol/L (98-107) Carbon Dioxide Level 26mmol/L (21-32) Anion Gap 9 (6-14) Blood Urea Nitrogen 28mg/dL (7-20) Creatinine 2.4mg/dL (0.6-1.0) Estimated GFR (Cockcroft-Gault) 24.5 BUN/Creatinine Ratio 12 (6-20) Glucose Level 249mg/dL (70-99) Calcium Level 8.3mg/dL (8.5-10.1) Phosphorus Level 5.7mg/dL (2.6-4.7) Magnesium Level 1.6mg/dL (1.8-2.4) Total Bilirubin 0.2mg/dL (0.2-1.0) Aspartate Amino Transf (AST/SGOT) 13U/L (15-37) Alanine Aminotransferase (ALT/SGPT) 20U/L (14-59) Alkaline Phosphatase 50U/L (46-116) Total Protein 5.5g/dL (6.4-8.2) Albumin 2.4g/dL (3.4-5.0) Albumin/Globulin Ratio 0.8 (1.0-1.7) Test 08/11/16 07:35 08/11/16 07:42 White Blood Count 10.6x10^3/uL (4.0-11.0) Red Blood Count 3.02x10^6/uL (3.50-5.40) Hemoglobin 8.5g/dL (12.0-15.5) Hematocrit 27.4% (36.0-47.0) Mean Corpuscular Volume 91fL (79-100) Mean Corpuscular Hemoglobin 28pg (25-35) Mean Corpuscular Hemoglobin Concent 31g/dL (31-37) Red Cell Distribution Width 15.8% (11.5-14.5) Platelet Count 172x10^3/uL (140-400) Neutrophils (%) (Auto) 84% (31-73) Lymphocytes (%) (Auto) 10% (24-48) Monocytes (%) (Auto) 5% (0-9) Eosinophils (%) (Auto) 2% (0-3) Basophils (%) (Auto) 0% (0-3) Neutrophils # (Auto) 8.9x10^3uL (1.8-7.7) Lymphocytes # (Auto) 1.0x10^3/uL (1.0-4.8) Monocytes # (Auto) 0.5x10^3/uL (0.0-1.1) Eosinophils # (Auto) 0.2x10^3/uL (0.0-0.7) Basophils # (Auto) 0.0x10^3/uL (0.0-0.2) Sodium Level 138mmol/L (136-145) Potassium Level 4.2mmol/L (3.5-5.1) Chloride Level 101mmol/L (98-107) Carbon Dioxide Level 27mmol/L (21-32) Anion Gap 10 (6-14) Blood Urea Nitrogen 29mg/dL (7-20) Creatinine 2.1mg/dL (0.6-1.0) Estimated GFR (Cockcroft-Gault) 28.6 Glucose Level 205mg/dL (70-99) Calcium Level 8.3mg/dL (8.5-10.1) Magnesium Level 1.8mg/dL (1.8-2.4) Glucose (Fingerstick) 206mg/dL (70-99) Medications Current Medications Cefazolin Sodium/ Dextrose 50 ml @ 100 mls/hr 1X PREOP PRN IV PRIOR TO PROCEDURE Last administered on 08/09/16t 13:30; Start 08/09/16 at 06:00; Stop at 18:00; Status DC Sodium Chloride (Iv Sodium Chloride 0.9% 1000ml Bag) 1,000 ml @ 75 mls/hr [id number] IV Last administered on 08/10/16 06:27; Start 08/09/16 at 11:00; Stop 08/10/16 at 17:53; Status DC Dexamethasone Sodium Phosphate (Decadron) 20 mg STK-MED ONCE .ROUTE ; Start at 11:46; Stop 08/09/16 at 18:48; Status DC Ondansetron HCl 4 mg 4 mg STK-MED ONCE .ROUTE ; Start 08/09/16 at 11:46; Stop at 18:48; Status DC Propofol (Diprivan) 20 ml @ As Directed STK-MED ONCE IV ; Start 08/09/16 at 11: 46; Stop 08/09/16 at 18:48; Status DC Lidocaine HCl 100 mg STK-MED ONCE .ROUTE ; Start 08/09/16 at 11:46; Stop at 18:48; Status DC Fentanyl Citrate (Fentanyl 2ml Vial) 100 mcg STK-MED ONCE .ROUTE ; Start at 11:46; Stop 08/09/16 at 18:48; Status DC Neostigmine Methylsulfate 5 mg STK-MED ONCE .ROUTE ; Start 08/09/16 at 11:46; Stop 08/09/16 at 18:48; Status DC Rocuronium Dawson (Zemuron) 50 mg STK-MED ONCE .ROUTE ; Start 08/09/16 at 11:46 ; Stop 08/09/16 at 18:48; Status DC Glycopyrrolate (Robinul) 1 mg STK-MED ONCE .ROUTE ; Start 08/09/16 at 11:48; Stop 08/09/16 at 18:48; Status DC Cellulose 1 each STK-MED ONCE .ROUTE ; Start 08/09/16 at 12:09; Stop 08/09/16 at 18:48; Status DC Lidocaine/ Epinephrine (Xylocaine 1%-Epi 1:100,000) 20 ml STK-MED ONCE .ROUTE Last administered on 08/09/16 13:45; Start 08/09/16 at 12:09; Stop 08/09/16 at 18:48; Status DC Bupivacaine HCl/ Epinephrine Bitart (Sensorcaine-Epi 0.25%-1:112888 Mpf) 30 ml STK-MED ONCE .ROUTE Last administered on 08/09/16 13:45; Start 08/09/16 at 12: 09; Stop 08/09/16 at 18:48; Status DC Estrogens Conjugated (Premarin) 30 sohan STK-MED ONCE .ROUTE ; Start 08/09/16 at 12:09; Stop 08/09/16 at 18:48; Status DC Insulin Aspart (Novolog Vial) 4 unit 1X ONCE SQ Last administered on 12:58; Start 08/09/16 at 13:00; Stop 08/09/16 at 13:01; Status DC Esmolol HCl (Brevibloc) 100 mg STK-MED ONCE IV ; Start 08/09/16 at 13:52; Stop 08/09/16 at 18:48; Status DC Insulin Human Regular (Novolin R Vial) 100 unit STK-MED ONCE .ROUTE ; Start at 14:23; Stop 08/09/16 at 18:48; Status DC Rocuronium Dawson (Zemuron) 50 mg STK-MED ONCE .ROUTE ; Start 08/09/16 at 14:39 ; Stop 08/09/16 at 18:48; Status DC Ephedrine Sulfate 50 mg STK-MED ONCE IV ; Start 08/09/16 at 16:12; Stop at 18:48; Status DC Desflurane (Suprane) 90 ml STK-MED ONCE IH ; Start 08/09/16 at 16:24; Stop 08/09 at 18:48; Status DC Calcium Carbonate/ Glycine (Tums) 500 mg PRN Q3HRS PRN PO HEARTBURN / GAS; Start 08/09/16 at 16:45 Simethicone (Gas-X) 80 mg PRN AFTMEALHC PRN PO GAS / BLOATING; Start 08/09/16 at 16:45 Zolpidem Tartrate (Ambien) 5 mg PRN QHS PRN PO INSOMNIA, MAY REPEAT IN 1HR; Start 08/09/16 at 16:45 Diphenhydramine HCl (Benadryl) 25 mg PRN Q6HRS PRN PO ITCHING; Start 08/09/16 at 16:45 Diphenhydramine HCl (Benadryl) 25 mg PRN Q6HRS PRN IV ITCHING; Start 08/09/16 at 16:45 Sodium Chloride (Normal Saline Flush) 3 ml QSHIFT PRN IV AFTER MEDS AND BLOOD DRAWS; Start 08/09/16 at 16:45 Dextrose 12.5 gm PRN Q15MIN PRN IV SEE COMMENTS; Start 08/09/16 at 16:45; Status Cancel Oxycodone/ Acetaminophen (Percocet 5/325) 2 tab PRN Q4HRS PRN PO MODERATE PAIN , SEVERE PAIN Last administered on 08/10/16 14:41; Start 08/09/16 at 16:45 Ketorolac Tromethamine (Toradol) 30 mg PRN Q6HRS PRN IV PAIN Last administered on 08/10/16 01:12; Start 08/09/16 at 16:45; Stop 08/14/16 at 16:44 Gabapentin (Neurontin) 600 mg Q8HRS PO Last administered on 08/10/16 21:15; Start 08/09/16 at 17:00; Stop 08/10/16 at 22:59; Status DC Ondansetron HCl (Zofran) 4 mg PRN Q6HRS PRN IV NAUESA, 1ST CHOICE; Start at 16:45; Stop 08/09/16 at 18:48; Status DC Prochlorperazine Edisylate (Compazine) 5 mg PRN Q6HRS PRN IV N/V, 2nd Choice, MR X1; Start 08/09/16 at 16:45 Insulin Aspart (Novolog) 0-9 UNITS TIDWMEALS SQ Last administered on 08/10/16 17:21; Start 08/09/16 at 17:00 Dextrose 12.5 gm PRN Q15MIN PRN IV SEE COMMENTS; Start 08/09/16 at 16:45 Fentanyl Citrate (Fentanyl 2ml Vial) 100 mcg STK-MED ONCE .ROUTE ; Start at 17:26; Stop 08/09/16 at 18:48; Status DC Ondansetron HCl (Zofran) 4 mg PRN Q6HRS PRN IV Nausea; Start 08/09/16 at 17:45 ; Stop 08/10/16 at 17:44; Status DC Fentanyl Citrate (Fentanyl 2ml Vial) 25 mcg PRN Q5MIN PRN IV MILD PAIN; Start 08/09/16 at 17:45; Stop 08/09/16 at 18:48; Status DC Fentanyl Citrate (Fentanyl 2ml Vial) 50 mcg PRN Q5MIN PRN IV MODERATE PAIN Last administered on 08/09/16 17:53; Start 08/09/16 at 17:45; Stop 08/09/16 at 18:48; Status DC Morphine Sulfate 1 mg 1 mg PRN Q10MIN PRN IV SEVERE PAIN; Start 08/09/16 at 17: 45; Stop 08/09/16 at 18:48; Status DC Lactated Ringer's (Iv Lactated Ringers) 1,000 ml @ 0 mls/hr Q0M IV ; Start at 17:32; Stop 08/10/16 at 05:31; Status DC Lidocaine HCl 2 ml 1X PRN PRN ID IV START; Start 08/09/16 at 17:45; Stop at 18:48; Status DC Hydromorphone HCl (Dilaudid) 0.5 mg PRN Q10MIN PRN IV SEV PAIN,Second choice; Start 08/09/16 at 17:45; Stop 08/09/16 at 18:48; Status DC Prochlorperazine Edisylate (Compazine) 5 mg PACU PRN PRN IV NAUSEA; Start 08/09 at 17:45; Stop 08/09/16 at 18:48; Status DC Albuterol Sulfate (Ventolin Neb Soln) 2.5 mg PRN Q4HRS PRN NEB SHORTNESS OF BREATH Last administered on 08/10/16 06:51; Start 08/09/16 at 21:30 Furosemide (Lasix) 20 mg [id number] PO Last administered on 08/10/16 14:56; Start 08/10/16 at 09:00 Furosemide (Lasix) 20 mg 1X ONCE IVP Last administered on 08/10/16 16:28; Start 08/10/16 at 16:15; Stop 08/10/16 at 16:17; Status DC Insulin Detemir (Levemir) 10 units QHS SQ Last administered on 08/10/16 21:20 ; Start 08/10/16 at 21:00 Gabapentin (Neurontin) 600 mg DAILY PO ; Start 08/11/16 at 09:00 Acetaminophen 650 mg 650 mg PRN Q6HRS PRN PO MILD PAIN / TEMP; Start 08/11/16 at 08:30 Magnesium Sulfate/ Dextrose 50 ml @ 25 mls/hr 1X ONCE IV ; Start 08/11/16 at 08 :30; Stop 08/11/16 at 10:29 Piperacillin Sod/ Tazobactam Sod/ Sodium Chloride (Zosyn/Iv Sodium Chloride 0.9 % 50ml) 50 ml @ 100 mls/hr Q6HRS IV Last administered on 08/11/16 09:55; Start 08/11/16 at 08:30 Acetaminophen (Tylenol) 650 mg PRN Q6HRS PRN [place] MILD PAIN / TEMP; Start at 10:15; Status UNV Active Scripts Active Klor-Con Sprinkle (Potassium Chloride) 10 Meq Capsule.er 20 Meq PO DAILY Lisinopril 20 Mg Tablet 1 Tab PO BID Ferrous Sulfate 325 Mg Tablet 325 Tab PO DAILY Gabapentin 300 Mg Capsule 600 Mg PO TID Lasix (Furosemide) 40 Mg Tablet 40 Mg PO BID Hydralazine Hcl 25 Mg Tablet 1 Tab PO TID Reported Ventolin Hfa Inhaler (Albuterol Sulfate) 18 Gm Hfa.aer.ad 2 Puff INH QID Acetaminophen 160 Mg/5 Ml Solution 325 Mg PO QID Bactrim 400-80 Mg Tablet (Sulfamethoxazole/Trimethoprim) 1 Each Tablet 1 Tab PO BID Zantac (Ranitidine Hcl) 150 Mg Tablet 150 Mg PO DAILY Prednisone 20 Mg Tablet 20 Mg PO DAILY Novolog (Insulin Aspart) 100 Unit/1 Ml Cartridge 8 Unit SQ TIDAC Levemir (Insulin Detemir) 100 Unit/1 Ml Vial 36 Unit SQ HS Cyclobenzaprine Hcl 10 Mg Tablet 10 Mg PO TID Amlodipine Besylate 10 Mg Tablet 10 Mg PO DAILY Ibuprofen 800 Mg Tablet 800 Mg PO PRN Q6HRS PRN Lovastatin 20 Mg Tablet 20 Mg PO HS Vitals/I & O Vital Sign - Last 24 Hours 08/10/16 08/10/16 08/10/16 08/10/16 10:41 10:41 14:28 14:41 Temp 98.0 98.3 98.0 98.3 Pulse 88 90 Resp 20 B/P 95/54 115/51 Pulse Ox 93 91 O2 Delivery Room Air Nasal Cannula Nasal Cannula O2 Flow Rate 2.0 2.0 08/10/16 08/10/16 08/10/16 08/10/16 17:04 18:57 19:00 21:54 Temp 98.4 98.3 98.8 98.4 98.3 98.8 Pulse 86 90 87 Resp B/P 116/46 119/58 126/61 Pulse Ox 97 98 95 O2 Delivery Nasal Cannula Nasal Cannula Nasal Cannula O2 Flow Rate 2.0 2.0 2.0 08/10/16 08/10/16 08/11/16 08/11/16 23:00 23:30 02:37 03:00 Temp 98.8 100.4 98.8 100.4 Pulse 82 100 Resp 18 B/P 130/74 166/80 Pulse Ox 97 93 94 94 O2 Delivery BiPAP/CPAP BiPAP/CPAP 08/11/16 08/11/16 06:05 07:25 Temp 102.9 102.9 Pulse 119 Resp 24 B/P 141/65 Pulse Ox 89 O2 Delivery BiPAP/CPAP BiPAP/CPAP O2 Flow Rate 2.0 Intake and Output 08/10/16 08/10/16 08/11/16 15:00 23:00 07:00 Intake Total 250 ml 3378 ml 120 ml Output Total 410 ml Balance 250 ml 2968 ml 120 ml DESTINEE SANCHEZ III DO Aug 11, 2016 10:18
[2016-08-11] MEDS: ACETAMINOPHEN 650 MG SUPP.RECT. PR PRN ×2 (10:23→23:11)
[2016-08-11 10:28] LABS: BILIRUBIN,URINE NEGATIVE (NEG); GLUCOSE,URINE NEGATIVE (NEG); NITRITE,URINE NEGATIVE (NEG); PROTEIN,URINE 30 mg/dL (NEG-TRACE); UROBILINOGEN,URINE 0.2 mg/dL (0.2 mg/dL)
--- NOTE | 2016-08-11 10:30 | PDOC ---
Provider Note Provider Note [id number] acute on chronic resp fail fever ? pneumonia acute bronchospasm abnl cxr see orders CHRIS FRANCISCO MD Aug 11, 2016 10:30
[2016-08-11 10:40] LABS: BACTERIA,URINE FEW /HPF (0-FEW); RBC,URINE 20-40 /HPF (0-2)
--- NOTE | 2016-08-11 10:58 | CONS ---
DATE OF CONSULTATION: 08/11/2016 I was asked to see this 66-year-old lady for acute respiratory failure. HISTORY OF PRESENT ILLNESS: She is a lifelong nonsmoker. She is currently on CPAP. Is confused and is not able to give me any information. All of the information was obtained from chart and nursing staff. She had an earlier admission in 03/2016, which was found to have right hilar mass and mediastinal lymphadenopathy. She was discharged and supposed to have follow up visit with Dr. Paul. I am not sure if it is done although the nurses said there is a diagnosis of sarcoidosis for the patient. I do not see any record of it in [facility] notes. She underwent total hysterectomy and bilateral oophorectomy on 08/09/2016. She became hypoxemic and confused. She was placed on her CPAP 10 cm water pressure. Her O2 saturation was 90% on my arrival to her room. She is confused, she does not answer any of my questions. I changed her immediately to BiPAP 16/, rate of 18, FiO2 30% to keep O2 saturation 90%. I will do an ABG in 1 hour. She was sent home on oxygen apparently in March. PAST MEDICAL HISTORY: POLY, anemia, status post IUD removal, chronic respiratory failure, abnormal CT of the chest as mentioned as above with right hilar mass, lung nodule, and mediastinal lymphadenopathy. I note that the bronchoscopy in March did not show any endobronchial lesions. Diabetes mellitus. She is suffering from acute kidney injury during this hospitalization. SOCIAL HISTORY: She is a nonsmoker. FAMILY HISTORY: Positive for hypertension. ALLERGIES: No known drug allergies. MEDICATIONS: Currently she is on IV fluid, Zosyn, albuterol p.r.n., calcium, Lasix was given one time. REVIEW OF SYSTEMS: As mentioned as above. I have discussed the patient with RN, she has been confused this last night. Other systems are otherwise negative. PHYSICAL EXAMINATION: GENERAL: An obese lady on BiPAP. VITAL SIGNS: Her O2 saturation is 94%, respiratory rate is 24, heart rate 119, temperature 102.9. HEENT: She is normocephalic and atraumatic. Pupils equal, round, reactive to light. She has a full face BiPAP mask on. NECK: There is no JVD, lymphadenopathy or thyromegaly. CARDIOVASCULAR: Tachycardic. CHEST: Inspection is normal. LUNGS: There are bibasilar crackles and expiratory wheezing. ABDOMEN: Soft and obese, bowel sounds are diminished. EXTREMITIES: There is edema. LYMPHATICS: There is no lymphadenopathy. NEUROLOGIC: She is not answering my questions. SKIN: Chronic changes. LABORATORY DATA: I reviewed the following lab data: Chest x-ray shows right hilar mass and perihilar infiltrate. WBC 10.6, hemoglobin 8.5, platelets 172. Blood gas on 04/09; pH 7.32, pCO2 of 62, pO2 64. Sodium 138, potassium 4.2, chloride 101, CO2 of 27, glucose 205. BUN 29, creatinine 2.1. IMPRESSION: 1. Acute on chronic hypoxemic respiratory failure, multifactorial in etiology. 2. Abnormal chest x-ray. 3. Fever ? pneumonia. 4. Acute bronchospasm. 5. Right hilar mass, pulmonary nodule and mediastinal lymphadenopathy ? etiology. PLAN: 1. I need to discuss with Dr. Paul and with Dr. Storey to see if any workup is done as an outpatient for this patient. 2. Change CPAP to BiPAP 16/6, rate of 18, titrate FiO2 to keep her saturation 90%. Check ABG in 1 hour. 3. Monitor respiratory status very closely. We may need to transfer the patient to ICU. 4. Lower extremity venous Doppler. 5. I agree with antibiotics. 6. Panculture. 7. Starting bronchodilators. 8. Start inhaled corticosteroid. 9. Elevate head of bed. 10. The findings and recommendations were discussed with RN and RT. I will discuss with Dr. Hurt. Thank you very much for allowing me to participate in care of this very nice lady. CHRIS FRANCISCO M.D. : LAURO/graciela JOB#: [id number] / [id number] CARI
[2016-08-11] MEDS ORDERED: CEFTRIAXONE SODIUM 1 GM in IV NORMAL SALINE 50ML 50 ML IV SCH (11:00)
[2016-08-11] MEDS ORDERED: FUROSEMIDE 20 MG/2 ML VIAL IVP ONE (11:15)
[2016-08-11 11:25] VITALS: BP 113/58
[2016-08-11] MEDS: IPRATRPIUM/ALBUTEROL 0.5/2.5MG 3 ML NEBU. NEB SCH ×3 (12:00→21:53)
[2016-08-11] MEDS: BUDESONIDE 0.5 MG/2 ML NEBU NEB SCH ×2 (12:00→21:53)
[2016-08-11 12:27] LABS: HCO3 ABG 22 mmol/L (21-28); PCO2 ABG 43 mmHg (35-46); PH ABG 7.33 (7.35-7.45); PO2 ABG 62 mmHg (65-108); SAT O2 ABG 89 % (92-99)
[2016-08-11 12:29] LABS: FIO2 ABG 30
--- NOTE | 2016-08-11 13:18 | PDOC ---
Infectious Disease Note Vital Sign Vital Signs Vital Signs Date Time Temp Pulse Resp B/P Pulse Ox O2 Delivery O2 Flow Rate FiO2 08/11/16 12:01 93 BiPAP/CPAP 08/11/16 11:25 103.0 114 22 113/58 15.0 103.0 Labs Lab Laboratory Tests Test 08/10/16 16:49 08/10/16 17:00 08/10/16 20:57 08/11/16 07:35 Glucose (Fingerstick) 223mg/dL (70-99) 222mg/dL (70-99) White Blood Count 11.5x10^3/uL (4.0-11.0) 10.6x10^3/uL (4.0-11.0) Red Blood Count 2.72x10^6/uL (3.50-5.40) 3.02x10^6/uL (3.50-5.40) Hemoglobin 7.7g/dL (12.0-15.5) 8.5g/dL (12.0-15.5) Hematocrit 24.7% (36.0-47.0) 27.4% (36.0-47.0) Mean Corpuscular Volume 91fL (79-100) 91fL (79-100) Mean Corpuscular Hemoglobin 28pg (25-35) 28pg (25-35) Mean Corpuscular Hemoglobin Concent 31g/dL (31-37) 31g/dL (31-37) Red Cell Distribution Width 16.0% (11.5-14.5) 15.8% (11.5-14.5) Platelet Count 171x10^3/uL (140-400) 172x10^3/uL (140-400) Neutrophils (%) (Auto) 85% (31-73) 84% (31-73) Lymphocytes (%) (Auto) 9% (24-48) 10% (24-48) Monocytes (%) (Auto) 5% (0-9) 5% (0-9) Eosinophils (%) (Auto) 0% (0-3) 2% (0-3) Basophils (%) (Auto) 0% (0-3) 0% (0-3) Neutrophils # (Auto) 9.8x10^3uL (1.8-7.7) 8.9x10^3uL (1.8-7.7) Lymphocytes # (Auto) 1.0x10^3/uL (1.0-4.8) 1.0x10^3/uL (1.0-4.8) Monocytes # (Auto) 0.6x10^3/uL (0.0-1.1) 0.5x10^3/uL (0.0-1.1) Eosinophils # (Auto) 0.1x10^3/uL (0.0-0.7) 0.2x10^3/uL (0.0-0.7) Basophils # (Auto) 0.0x10^3/uL (0.0-0.2) 0.0x10^3/uL (0.0-0.2) Sodium Level 137mmol/L (136-145) 138mmol/L (136-145) Potassium Level 4.4mmol/L (3.5-5.1) 4.2mmol/L (3.5-5.1) Chloride Level 102mmol/L (98-107) 101mmol/L (98-107) Carbon Dioxide Level 26mmol/L (21-32) 27mmol/L (21-32) Anion Gap 9 (6-14) 10 (6-14) Blood Urea Nitrogen 28mg/dL (7-20) 29mg/dL (7-20) Creatinine 2.4mg/dL (0.6-1.0) 2.1mg/dL (0.6-1.0) Estimated GFR (Cockcroft-Gault) 24.5 28.6 BUN/Creatinine Ratio 12 (6-20) Glucose Level 249mg/dL (70-99) 205mg/dL (70-99) Calcium Level 8.3mg/dL (8.5-10.1) 8.3mg/dL (8.5-10.1) Phosphorus Level 5.7mg/dL (2.6-4.7) Magnesium Level 1.6mg/dL (1.8-2.4) 1.8mg/dL (1.8-2.4) Total Bilirubin 0.2mg/dL (0.2-1.0) Aspartate Amino Transf (AST/SGOT) 13U/L (15-37) Alanine Aminotransferase (ALT/SGPT) 20U/L (14-59) Alkaline Phosphatase 50U/L (46-116) Total Protein 5.5g/dL (6.4-8.2) Albumin 2.4g/dL (3.4-5.0) Albumin/Globulin Ratio 0.8 (1.0-1.7) Test 08/11/16 07:42 08/11/16 08:45 08/11/16 10:28 08/11/16 12:15 Glucose (Fingerstick) 206mg/dL (70-99) 225mg/dL (70-99) Urine Collection Type Unknown Urine Color Yellow Urine Clarity Clear Urine pH 5.0 Urine Specific [place] 1.015 Urine Protein 30mg/dL (NEG-TRACE) Urine Glucose (UA) Negativemg/dL (NEG) Urine Ketones (Stick) Negativemg/dL (NEG) Urine Blood Large (NEG) Urine Nitrite Negative (NEG) Urine Bilirubin Negative (NEG) Urine Urobilinogen Dipstick 0.2mg/dL (0.2 mg/dL) Urine Leukocyte Esterase Small (NEG) Urine RBC 20-40/HPF (0-2) Urine WBC 5-10/HPF (0-4) Urine Squamous Epithelial Cells None/LPF Urine Bacteria Few/HPF (0-FEW) O2 Saturation 89% (92-99) Arterial Blood pH 7.33 (7.35-7.45) Arterial Blood pCO2 at Patient Temp 43mmHg (35-46) Arterial Blood pO2 at Patient Temp 62mmHg (65-108) Arterial Blood HCO3 22mmol/L (21-28) Arterial Blood Base Excess -3mmol/L (-3-3) FiO2 30 Objective Assessment Fever. ? post-op vs infection Acute respiratory failure, on BiPAP. -hx hilar mass and lung nodules s/p bronch in Mar 2016 -hx sarcoidosis -hx POLY Acute kidney injury Acute encephalopathy s/p SANTHOSH and BSO, 08/09 Abdominal wound with vac in place Morbid obesity Plan Plan of Care Continue Zosyn Avoid vanc in light of renal failure f/u am labs and BC check lactic acid and procalcitonin d/w brother Thank you [id number] Attending Co-Sign The patient was seen and interviewed as well as examined at the bedside. The chart was reviewed. The case was discussed. Agree with the plan of care. add zyvox d/w family check cultures supportive care LANIEY REIS APRN Aug 11, 2016 13:18 AL DE LA TORRE MD Aug 11, 2016 14:18
[2016-08-11 15:00] VITALS: BP 145/63
--- NOTE | 2016-08-11 16:52 | RAD ---
PROCEDURE CT head without contrast. HISTORY New onset left arm weakness TECHNIQUE Noncontrast CT imaging was performed of the head. Exposure: One or more of the following individualized dose reduction techniques were utilized for this exam: 1. Automated exposure control. 2. Adjustment of the mA and/or kV according to patient size. 3. Use of iterative reconstruction technique. COMPARISON None FINDINGS No acute intracranial hemorrhage is identified. Lopez-white differentiation of the major vascular territories is preserved. There is no intra-axial mass effect, midline shift, extra-axial fluid collection. There is some irregularity of the left frontal calvarium likely on a old posttraumatic basis or due to previous surgery. There is likely very tiny lipoma along the anterior falx inferiorly. IMPRESSION 1. No acute intracranial abnormality is identified by CT. If there is suspicion for evolving or acute ischemia, followup CT or MRI may be beneficial. Critical results were called to patient's nurse Shari Meek August 11, 2016 at 16:51. Electronically signed by: Zurdo Lora MD (Aug 11, 2016 16:51:28)
--- NOTE | 2016-08-11 18:05 | RAD ---
PROCEDURE Bilateral lower extremity venous duplex ultrasound. HISTORY Lower extremity edema, short of air. TECHNIQUE Grayscale, color flow, and spectral waveform analysis was performed. COMPARISON None. FINDINGS All visualized vein segments are compressible with normal phasicity of waveform and augmentation. No thrombus or an grayscale or color imaging is apparent. IMPRESSION Exam is negative for deep vein thrombosis in either lower extremity. Electronically signed by: Mitchell Bowman MD (Aug 11, 2016 18:04:51)
[2016-08-11 19:00] VITALS: BP 115/56
[2016-08-11 22:58] VITALS: BP 110/52
[2016-08-11] MEDS: INSULIN DETEMIR 300 UNITS/3 ML INSULN.PEN. SQ SCH (23:19)
[2016-08-12] MEDS: PIPERACILLIN/TAZOBACTAM 3.375 GM in IV NORMAL SALINE 50ML 50 ML IV SCH ×5 (01:54→23:27)
[2016-08-12 03:00] VITALS: BP 115/50
[2016-08-12] MEDS: IPRATRPIUM/ALBUTEROL 0.5/2.5MG 3 ML NEBU. NEB SCH ×4 (06:02→19:53)
[2016-08-12] MEDS: BUDESONIDE 0.5 MG/2 ML NEBU NEB SCH ×2 (06:02→19:53)
[2016-08-12 07:00] VITALS: BP 148/70
[2016-08-12 07:49] LABS: BASO % 0 % (0-3); EOS % 1 % (0-3); HEMATOCRIT 26.4 % (36.0-47.0); LYMPH # 1.2 x10^3/uL (1.0-4.8); LYMPH % 7 % (24-48); MEAN CORPUSCULAR HEMOGLOBIN 28 pg (25-35); MEAN CORPUSCULAR HGB CONC 30 g/dL (31-37); MEAN CORPUSCULAR VOLUME 91 fL (79-100); MONO % 4 % (0-9); NEUT % 89 % (31-73); PLATELET COUNT 162 x10^3/uL (140-400); RED CELL DISTRIBUTION WIDTH 16.2 % (11.5-14.5); WHITE BLOOD COUNT 16.8 x10^3/uL (4.0-11.0)
--- NOTE | 2016-08-12 07:56 | PDOC ---
PROGRESS NOTES Chief Complaint Chief Complaint Persistent fevers Acute respiratory failure, on BiPAP. Chorinc Diastolic heart failure hx hilar mass and lung nodules s/p bronch in Mar 2016 hx sarcoidosis hx POLY Acute kidney injury Acute encephalopathy improving. s/p SANTHOSH and BSO, 08/09 Abdominal wound with vac in place Morbid obesity Plan on Zosyn and zyvox follow cx ID following Continue diuresis Monitor electrolytes PRN BIPAP Pulmonology following SSI DVT prophylaxis, Monitor WBC and hemoglobin Prognosis guarded. History of Present Illness History of Present Illness on bipap getting better no fever no chills. Vitals Vitals Vital Signs Date Time Temp Pulse Resp B/P Pulse Ox O2 Delivery O2 Flow Rate FiO2 08/12/16 06:03 BiPAP/CPAP 08/12/16 03:00 99.8 80 20 115/50 97 99.8 08/11/16 16:24 4.0 Physical Exam General: Alert, Oriented X3, Cooperative Heart: Regular rate Lungs: Wheezing Abdomen: Soft, No masses, Other (mild tenderness; hypoactive bowel sounds; Wound vac in place.) Extremities: No edema Skin: No significant lesion Labs LABS Laboratory Tests Test 08/11/16 08:45 08/11/16 10:28 08/11/16 12:15 08/11/16 14:28 Urine Collection Type Unknown Urine Color Yellow Urine Clarity Clear Urine pH 5.0 Urine Specific [place] 1.015 Urine Protein 30mg/dL (NEG-TRACE) Urine Glucose (UA) Negativemg/dL (NEG) Urine Ketones (Stick) Negativemg/dL (NEG) Urine Blood Large (NEG) Urine Nitrite Negative (NEG) Urine Bilirubin Negative (NEG) Urine Urobilinogen Dipstick 0.2mg/dL (0.2 mg/dL) Urine Leukocyte Esterase Small (NEG) Urine RBC 20-40/HPF (0-2) Urine WBC 5-10/HPF (0-4) Urine Squamous Epithelial Cells None/LPF Urine Bacteria Few/HPF (0-FEW) Glucose (Fingerstick) 225mg/dL (70-99) O2 Saturation 89% (92-99) Arterial Blood pH 7.33 (7.35-7.45) Arterial Blood pCO2 at Patient Temp 43mmHg (35-46) Arterial Blood pO2 at Patient Temp 62mmHg (65-108) Arterial Blood HCO3 22mmol/L (21-28) Arterial Blood Base Excess -3mmol/L (-3-3) FiO2 30 Lactic Acid Level 1.6mmol/L (0.4-2.0) Procalcitonin 6.80ng/mL (0.00-0.10) Test 08/11/16 16:55 Glucose (Fingerstick) 319mg/dL (70-99) Assessment and Plan Assessmemt and Plan Problems Medical Problems: (1) Fibroid uterus Status: Acute (2) Post-menopausal bleeding Status: Acute Problems: Comment Review of Relevant I have reviewed the following items robert (where applicable) has been applied. Labs Laboratory Tests Test 08/10/16 11:37 08/10/16 16:49 08/10/16 17:00 08/10/16 20:57 Glucose (Fingerstick) 258mg/dL (70-99) 223mg/dL (70-99) 222mg/dL (70-99) White Blood Count 11.5x10^3/uL (4.0-11.0) Red Blood Count 2.72x10^6/uL (3.50-5.40) Hemoglobin 7.7g/dL (12.0-15.5) Hematocrit 24.7% (36.0-47.0) Mean Corpuscular Volume 91fL (79-100) Mean Corpuscular Hemoglobin 28pg (25-35) Mean Corpuscular Hemoglobin Concent 31g/dL (31-37) Red Cell Distribution Width 16.0% (11.5-14.5) Platelet Count 171x10^3/uL (140-400) Neutrophils (%) (Auto) 85% (31-73) Lymphocytes (%) (Auto) 9% (24-48) Monocytes (%) (Auto) 5% (0-9) Eosinophils (%) (Auto) 0% (0-3) Basophils (%) (Auto) 0% (0-3) Neutrophils # (Auto) 9.8x10^3uL (1.8-7.7) Lymphocytes # (Auto) 1.0x10^3/uL (1.0-4.8) Monocytes # (Auto) 0.6x10^3/uL (0.0-1.1) Eosinophils # (Auto) 0.1x10^3/uL (0.0-0.7) Basophils # (Auto) 0.0x10^3/uL (0.0-0.2) Sodium Level 137mmol/L (136-145) Potassium Level 4.4mmol/L (3.5-5.1) Chloride Level 102mmol/L (98-107) Carbon Dioxide Level 26mmol/L (21-32) Anion Gap 9 (6-14) Blood Urea Nitrogen 28mg/dL (7-20) Creatinine 2.4mg/dL (0.6-1.0) Estimated GFR (Cockcroft-Gault) 24.5 BUN/Creatinine Ratio 12 (6-20) Glucose Level 249mg/dL (70-99) Calcium Level 8.3mg/dL (8.5-10.1) Phosphorus Level 5.7mg/dL (2.6-4.7) Magnesium Level 1.6mg/dL (1.8-2.4) Total Bilirubin 0.2mg/dL (0.2-1.0) Aspartate Amino Transf (AST/SGOT) 13U/L (15-37) Alanine Aminotransferase (ALT/SGPT) 20U/L (14-59) Alkaline Phosphatase 50U/L (46-116) Total Protein 5.5g/dL (6.4-8.2) Albumin 2.4g/dL (3.4-5.0) Albumin/Globulin Ratio 0.8 (1.0-1.7) Test 08/11/16 07:35 08/11/16 07:42 08/11/16 08:45 08/11/16 10:28 White Blood Count 10.6x10^3/uL (4.0-11.0) Red Blood Count 3.02x10^6/uL (3.50-5.40) Hemoglobin 8.5g/dL (12.0-15.5) Hematocrit 27.4% (36.0-47.0) Mean Corpuscular Volume 91fL (79-100) Mean Corpuscular Hemoglobin 28pg (25-35) Mean Corpuscular Hemoglobin Concent 31g/dL (31-37) Red Cell Distribution Width 15.8% (11.5-14.5) Platelet Count 172x10^3/uL (140-400) Neutrophils (%) (Auto) 84% (31-73) Lymphocytes (%) (Auto) 10% (24-48) Monocytes (%) (Auto) 5% (0-9) Eosinophils (%) (Auto) 2% (0-3) Basophils (%) (Auto) 0% (0-3) Neutrophils # (Auto) 8.9x10^3uL (1.8-7.7) Lymphocytes # (Auto) 1.0x10^3/uL (1.0-4.8) Monocytes # (Auto) 0.5x10^3/uL (0.0-1.1) Eosinophils # (Auto) 0.2x10^3/uL (0.0-0.7) Basophils # (Auto) 0.0x10^3/uL (0.0-0.2) Sodium Level 138mmol/L (136-145) Potassium Level 4.2mmol/L (3.5-5.1) Chloride Level 101mmol/L (98-107) Carbon Dioxide Level 27mmol/L (21-32) Anion Gap 10 (6-14) Blood Urea Nitrogen 29mg/dL (7-20) Creatinine 2.1mg/dL (0.6-1.0) Estimated GFR (Cockcroft-Gault) 28.6 Glucose Level 205mg/dL (70-99) Calcium Level 8.3mg/dL (8.5-10.1) Magnesium Level 1.8mg/dL (1.8-2.4) Glucose (Fingerstick) 206mg/dL (70-99) 225mg/dL (70-99) Urine Collection Type Unknown Urine Color Yellow Urine Clarity Clear Urine pH 5.0 Urine Specific [place] 1.015 Urine Protein 30mg/dL (NEG-TRACE) Urine Glucose (UA) Negativemg/dL (NEG) Urine Ketones (Stick) Negativemg/dL (NEG) Urine Blood Large (NEG) Urine Nitrite Negative (NEG) Urine Bilirubin Negative (NEG) Urine Urobilinogen Dipstick 0.2mg/dL (0.2 mg/dL) Urine Leukocyte Esterase Small (NEG) Urine RBC 20-40/HPF (0-2) Urine WBC 5-10/HPF (0-4) Urine Squamous Epithelial Cells None/LPF Urine Bacteria Few/HPF (0-FEW) Test 08/11/16 12:15 3/18/17 14:28 08/11/16 16:55 O2 Saturation 89% (92-99) Arterial Blood pH 7.33 (7.35-7.45) Arterial Blood pCO2 at Patient Temp 43mmHg (35-46) Arterial Blood pO2 at Patient Temp 62mmHg (65-108) Arterial Blood HCO3 22mmol/L (21-28) Arterial Blood Base Excess -3mmol/L (-3-3) FiO2 30 Lactic Acid Level 1.6mmol/L (0.4-2.0) Procalcitonin 6.80ng/mL (0.00-0.10) Glucose (Fingerstick) 319mg/dL (70-99) Laboratory Tests Test 08/11/16 08:45 08/11/16 10:28 08/11/16 12:15 08/11/16 14:28 Urine Collection Type Unknown Urine Color Yellow Urine Clarity Clear Urine pH 5.0 Urine Specific [place] 1.015 Urine Protein 30mg/dL (NEG-TRACE) Urine Glucose (UA) Negativemg/dL (NEG) Urine Ketones (Stick) Negativemg/dL (NEG) Urine Blood Large (NEG) Urine Nitrite Negative (NEG) Urine Bilirubin Negative (NEG) Urine Urobilinogen Dipstick 0.2mg/dL (0.2 mg/dL) Urine Leukocyte Esterase Small (NEG) Urine RBC 20-40/HPF (0-2) Urine WBC 5-10/HPF (0-4) Urine Squamous Epithelial Cells None/LPF Urine Bacteria Few/HPF (0-FEW) Glucose (Fingerstick) 225mg/dL (70-99) O2 Saturation 89% (92-99) Arterial Blood pH 7.33 (7.35-7.45) Arterial Blood pCO2 at Patient Temp 43mmHg (35-46) Arterial Blood pO2 at Patient Temp 62mmHg (65-108) Arterial Blood HCO3 22mmol/L (21-28) Arterial Blood Base Excess -3mmol/L (-3-3) FiO2 30 Lactic Acid Level 1.6mmol/L (0.4-2.0) Procalcitonin 6.80ng/mL (0.00-0.10) Test 08/11/16 16:55 Glucose (Fingerstick) 319mg/dL (70-99) Medications Current Medications Cefazolin Sodium/ Dextrose 50 ml @ 100 mls/hr 1X PREOP PRN IV PRIOR TO PROCEDURE Last administered on 08/09/16 13:30; Start 08/09/16 at 06:00; Stop at 18:00; Status DC Sodium Chloride (Iv Sodium Chloride 0.9% 1000ml Bag) 1,000 ml @ 75 mls/hr [id number] IV Last administered on 08/10/16 06:27; Start 08/09/16 at 11:00; Stop 08/10/16 at 17:53; Status DC Dexamethasone Sodium Phosphate (Decadron) 20 mg STK-MED ONCE .ROUTE ; Start at 11:46; Stop 08/09/16 at 18:48; Status DC Ondansetron HCl 4 mg 4 mg STK-MED ONCE .ROUTE ; Start 08/09/16 at 11:46; Stop at 18:48; Status DC Propofol (Diprivan) 20 ml @ As Directed STK-MED ONCE IV ; Start 08/09/16 at 11: 46; Stop 08/09/16 at 18:48; Status DC Lidocaine HCl 100 mg STK-MED ONCE .ROUTE ; Start 08/09/16 at 11:46; Stop at 18:48; Status DC Fentanyl Citrate (Fentanyl 2ml Vial) 100 mcg STK-MED ONCE .ROUTE ; Start at 11:46; Stop 08/09/16 at 18:48; Status DC Neostigmine Methylsulfate 5 mg STK-MED ONCE .ROUTE ; Start 08/09/16 at 11:46; Stop 08/09/16 at 18:48; Status DC Rocuronium [place] (Zemuron) 50 mg STK-MED ONCE .ROUTE ; Start 08/09/16 at 11:46 ; Stop 08/09/16 at 18:48; Status DC Glycopyrrolate (Robinul) 1 mg STK-MED ONCE .ROUTE ; Start 08/09/16 at 11:48; Stop 08/09/16 at 18:48; Status DC Cellulose 1 each STK-MED ONCE .ROUTE ; Start 08/09/16 at 12:09; Stop 08/09/16 at 18:48; Status DC Lidocaine/ Epinephrine (Xylocaine 1%-Epi 1:100,000) 20 ml STK-MED ONCE .ROUTE Last administered on 08/09/16 13:45; Start 08/09/16 at 12:09; Stop 08/09/16 at 18:48; Status DC Bupivacaine HCl/ Epinephrine Bitart (Sensorcaine-Epi 0.25%-1:[id number] Mpf) 30 ml STK-MED ONCE .ROUTE Last administered on 08/09/16 13:45; Start 08/09/16 at 12: 09; Stop 08/09/16 at 18:48; Status DC Estrogens Conjugated (Premarin) 30 sohan STK-MED ONCE .ROUTE ; Start 08/09/16 at 12:09; Stop 08/09/16 at 18:48; Status DC Insulin Aspart (Novolog Vial) 4 unit 1X ONCE SQ Last administered on 12:58; Start 08/09/16 at 13:00; Stop 08/09/16 at 13:01; Status DC Esmolol HCl (Brevibloc) 100 mg STK-MED ONCE IV ; Start 08/09/16 at 13:52; Stop 08/09/16 at 18:48; Status DC Insulin Human Regular (Novolin R Vial) 100 unit STK-MED ONCE .ROUTE ; Start at 14:23; Stop 08/09/16 at 18:48; Status DC Rocuronium [place] (Zemuron) 50 mg STK-MED ONCE .ROUTE ; Start 08/09/16 at 14:39 ; Stop 08/09/16 at 18:48; Status DC Ephedrine Sulfate 50 mg STK-MED ONCE IV ; Start 08/09/16 at 16:12; Stop at 18:48; Status DC Desflurane (Suprane) 90 ml STK-MED ONCE IH ; Start 08/09/16 at 16:24; Stop 08/09 at 18:48; Status DC Calcium Carbonate/ Glycine (Tums) 500 mg PRN Q3HRS PRN PO HEARTBURN / GAS; Start 08/09/16 at 16:45 Simethicone (Gas-X) 80 mg PRN AFTMEALHC PRN PO GAS / BLOATING; Start 08/09/16 at 16:45 Zolpidem Tartrate (Ambien) 5 mg PRN QHS PRN PO INSOMNIA, MAY REPEAT IN 1HR; Start 08/09/16 at 16:45 Diphenhydramine HCl (Benadryl) 25 mg PRN Q6HRS PRN PO ITCHING; Start 08/09/16 at 16:45 Diphenhydramine HCl (Benadryl) 25 mg PRN Q6HRS PRN IV ITCHING; Start 08/09/16 at 16:45 Sodium Chloride (Normal Saline Flush) 3 ml QSHIFT PRN IV AFTER MEDS AND BLOOD DRAWS; Start 08/09/16 at 16:45 Dextrose 12.5 gm PRN Q15MIN PRN IV SEE COMMENTS; Start 08/09/16 at 16:45; Status Cancel Oxycodone/ Acetaminophen (Percocet 5/325) 2 tab PRN Q4HRS PRN PO MODERATE PAIN , SEVERE PAIN Last administered on 08/10/16 14:41; Start 08/09/16 at 16:45 Ketorolac Tromethamine (Toradol) 30 mg PRN Q6HRS PRN IV PAIN Last administered on 08/10/16 01:12; Start 08/09/16 at 16:45; Stop 08/14/16 at 16:44 Gabapentin (Neurontin) 600 mg Q8HRS PO Last administered on 08/10/16 21:15; Start 08/09/16 at 17:00; Stop 08/10/16 at 22:59; Status DC Ondansetron HCl (Zofran) 4 mg PRN Q6HRS PRN IV NAUESA, 1ST CHOICE; Start at 16:45; Stop 08/09/16 at 18:48; Status DC Prochlorperazine Edisylate (Compazine) 5 mg PRN Q6HRS PRN IV N/V, 2nd Choice, MR X1; Start 08/09/16 at 16:45 Insulin Aspart (Novolog) 0-9 UNITS TIDWMEALS SQ Last administered on 08/11/16t 17:05; Start 08/09/16 at 17:00 Dextrose 12.5 gm PRN Q15MIN PRN IV SEE COMMENTS; Start 08/09/16 at 16:45 Fentanyl Citrate (Fentanyl 2ml Vial) 100 mcg STK-MED ONCE .ROUTE ; Start at 17:26; Stop 08/09/16 at 18:48; Status DC Ondansetron HCl (Zofran) 4 mg PRN Q6HRS PRN IV Nausea; Start 08/09/16 at 17:45 ; Stop 08/10/16 at 17:44; Status DC Fentanyl Citrate (Fentanyl 2ml Vial) 25 mcg PRN Q5MIN PRN IV MILD PAIN; Start 08/09/16 at 17:45; Stop 08/09/16 at 18:48; Status DC Fentanyl Citrate (Fentanyl 2ml Vial) 50 mcg PRN Q5MIN PRN IV MODERATE PAIN Last administered on 08/09/16 17:53; Start 08/09/16 at 17:45; Stop 08/09/16 at 18:48; Status DC Morphine Sulfate 1 mg 1 mg PRN Q10MIN PRN IV SEVERE PAIN; Start 08/09/16 at 17: 45; Stop 08/09/16 at 18:48; Status DC Lactated Ringer's (Iv Lactated Ringers) 1,000 ml @ 0 mls/hr Q0M IV ; Start at 17:32; Stop 08/10/16 at 05:31; Status DC Lidocaine HCl 2 ml 1X PRN PRN ID IV START; Start 08/09/16 at 17:45; Stop at 18:48; Status DC Hydromorphone HCl (Dilaudid) 0.5 mg PRN Q10MIN PRN IV SEV PAIN,Second choice; Start 08/09/16 at 17:45; Stop 08/09/16 at 18:48; Status DC Prochlorperazine Edisylate (Compazine) 5 mg PACU PRN PRN IV NAUSEA; Start 08/09 at 17:45; Stop 08/09/16 at 18:48; Status DC Albuterol Sulfate (Ventolin Neb Soln) 2.5 mg PRN Q4HRS PRN NEB SHORTNESS OF BREATH Last administered on 08/10/16 06:51; Start 08/09/16 at 21:30 Furosemide (Lasix) 20 mg [id number] PO Last administered on 08/11/16 16:07; Start 08/10/16 at 09:00 Furosemide (Lasix) 20 mg 1X ONCE IVP Last administered on 08/10/16 16:28; Start 08/10/16 at 16:15; Stop 08/10/16 at 16:17; Status DC Insulin Detemir (Levemir) 10 units QHS SQ Last administered on 08/11/16 23:19 ; Start 08/10/16 at 21:00 Gabapentin (Neurontin) 600 mg DAILY PO ; Start 08/11/16 at 09:00 Acetaminophen 650 mg 650 mg PRN Q6HRS PRN PO MILD PAIN / TEMP; Start 08/11/16 at 08:30 Magnesium Sulfate/ Dextrose 50 ml @ 25 mls/hr 1X ONCE IV ; Start 08/11/16 at 08 :30; Stop 08/11/16 at 11:07; Status DC Piperacillin Sod/ Tazobactam Sod/ Sodium Chloride (Zosyn/Iv Sodium Chloride 0.9 % 50ml) 50 ml @ 100 mls/hr Q6HRS IV Last administered on 08/12/16 06:35; Start 08/11/16 at 08:30 Acetaminophen (Tylenol) 650 mg PRN Q6HRS PRN MD MILD PAIN / TEMP Last administered on 08/11/16 23:11; Start 08/11/16 at 10:15 Albuterol/ Ipratropium (Duoneb) 3 ml RTQID NEB Last administered on 08/12/16 06:02; Start 08/11/16 at 12:00 Budesonide 0.5 mg 0.5 mg RTBID NEB Last administered on 08/12/16 06:02; Start 08/11/16 at 20:00 Ceftriaxone Sodium/Sodium Chloride (Rocephin/Iv Sodium Chloride 0.9% 50ml) 50 ml @ 100 mls/hr Q24H IV ; Start 08/11/16 at 11:00; Stop 08/11/16 at 11:00; Status DC Furosemide 20 mg 20 mg 1X ONCE IVP Last administered on 08/11/16 11:27; Start 08/11/16 at 11:15; Stop 08/11/16 at 11:20; Status DC Linezolid (Zyvox Premix) 300 ml @ 300 mls/hr Q12HR IV Last administered on 23:07; Start 08/11/16 at 14:30 Active Scripts Active Klor-Con Sprinkle (Potassium Chloride) 10 Meq Capsule.er 20 Meq PO DAILY Lisinopril 20 Mg Tablet 1 Tab PO BID Ferrous Sulfate 325 Mg Tablet 325 Tab PO DAILY Gabapentin 300 Mg Capsule 600 Mg PO TID Lasix (Furosemide) 40 Mg Tablet 40 Mg PO BID Hydralazine Hcl 25 Mg Tablet 1 Tab PO TID Reported Ventolin Hfa Inhaler (Albuterol Sulfate) 18 Gm Hfa.aer.ad 2 Puff INH QID Acetaminophen 160 Mg/5 Ml Solution 325 Mg PO QID Bactrim 400-80 Mg Tablet (Sulfamethoxazole/Trimethoprim) 1 Each Tablet 1 Tab PO BID Zantac (Ranitidine Hcl) 150 Mg Tablet 150 Mg PO DAILY Prednisone 20 Mg Tablet 20 Mg PO DAILY Novolog (Insulin Aspart) 100 Unit/1 Ml Cartridge 8 Unit SQ TIDAC Levemir (Insulin Detemir) 100 Unit/1 Ml Vial 36 Unit SQ HS Cyclobenzaprine Hcl 10 Mg Tablet 10 Mg PO TID Amlodipine Besylate 10 Mg Tablet 10 Mg PO DAILY Ibuprofen 800 Mg Tablet 800 Mg PO PRN Q6HRS PRN Lovastatin 20 Mg Tablet 20 Mg PO HS Vitals/I & O Vital Sign - Last 24 Hours 08/11/16 08/11/16 08/11/16 08/11/16 08:00 11:25 12:01 15:00 Temp 103.0 99.6 103.0 99.6 Pulse 114 100 Resp 22 16 B/P 113/58 145/63 Pulse Ox 94 93 3 O2 Delivery Bi-pap BiPAP/CPAP BiPAP/CPAP Nasal Cannula O2 Flow Rate 15.0 08/11/16 08/11/16 08/11/16 08/11/16 16:24 19:00 20:00 21:55 Temp 99.9 99.9 Pulse 105 Resp 20 B/P 115/56 Pulse Ox 92 93 O2 Delivery Nasal Cannula BiPAP/CPAP Bi-pap BiPAP/CPAP O2 Flow Rate 4.0 08/11/16 08/11/16 08/12/16 08/12/16 21:55 22:58 00:01 01:06 Temp 100.8 100.8 Pulse 103 Resp 20 B/P 110/52 Pulse Ox 93 94 93 O2 Delivery BiPAP/CPAP Room Air BiPAP/CPAP BiPAP/CPAP 3/19/08/12/16 08/12/16 08/12/16 03:00 03:26 05:04 06:03 Temp 99.8 99.8 Pulse 80 Resp 20 B/P 115/50 Pulse Ox 97 O2 Delivery BiPAP/CPAP BiPAP/CPAP BiPAP/CPAP BiPAP/CPAP Intake and Output 08/11/16 08/11/16 08/12/16 15:00 23:00 07:00 Intake Total 250 ml 565 ml 350 ml Output Total 250 ml Balance 250 ml 565 ml 100 ml TIFFANI MATHEW MD Aug 12, 2016 07:56
[2016-08-12] MEDS: INSULIN ASPART 300 UNITS/3 ML INSULN.PEN SQ SCH ×3 (08:00→17:13)
[2016-08-12 08:06] LABS: CALCIUM 8.5 mg/dL (8.5-10.1); CREATININE 2.6 mg/dL (0.6-1.0); GFR 22.4; POTASSIUM 4.6 mmol/L (3.5-5.1)
--- NOTE | 2016-08-12 08:42 | PDOC ---
PULMONARY PROGRESS NOTES Subjective on bipap, more alert, has sob, cough, abd pain Vitals Vital Signs Date Time Temp Pulse Resp B/P Pulse Ox O2 Delivery O2 Flow Rate FiO2 08/12/16 06:03 BiPAP/CPAP 08/12/16 03:00 99.8 80 20 115/50 97 99.8 08/11/16 16:24 4.0 Comments ros discussed w rn, as mentioned as above other sys otherwise neg General: Alert, No acute distress HEENT: Other (nc, at perrl, bipap mask on, ) Lungs: Wheezing Cardiovascular: S1, S2 Abdomen: Soft, Non-tender, Other (no mass) Neuro Exam: Alert Extremities: Other (edema) Skin: Warm Labs Laboratory Tests Test 08/10/16 11:37 08/10/16 16:49 08/10/16 17:00 08/10/16 20:57 Glucose (Fingerstick) 258mg/dL (70-99) 223mg/dL (70-99) 222mg/dL (70-99) White Blood Count 11.5x10^3/uL (4.0-11.0) Red Blood Count 2.72x10^6/uL (3.50-5.40) Hemoglobin 7.7g/dL (12.0-15.5) Hematocrit 24.7% (36.0-47.0) Mean Corpuscular Volume 91fL (79-100) Mean Corpuscular Hemoglobin 28pg (25-35) Mean Corpuscular Hemoglobin Concent 31g/dL (31-37) Red Cell Distribution Width 16.0% (11.5-14.5) Platelet Count 171x10^3/uL (140-400) Neutrophils (%) (Auto) 85% (31-73) Lymphocytes (%) (Auto) 9% (24-48) Monocytes (%) (Auto) 5% (0-9) Eosinophils (%) (Auto) 0% (0-3) Basophils (%) (Auto) 0% (0-3) Neutrophils # (Auto) 9.8x10^3uL (1.8-7.7) Lymphocytes # (Auto) 1.0x10^3/uL (1.0-4.8) Monocytes # (Auto) 0.6x10^3/uL (0.0-1.1) Eosinophils # (Auto) 0.1x10^3/uL (0.0-0.7) Basophils # (Auto) 0.0x10^3/uL (0.0-0.2) Sodium Level 137mmol/L (136-145) Potassium Level 4.4mmol/L (3.5-5.1) Chloride Level 102mmol/L (98-107) Carbon Dioxide Level 26mmol/L (21-32) Anion Gap 9 (6-14) Blood Urea Nitrogen 28mg/dL (7-20) Creatinine 2.4mg/dL (0.6-1.0) Estimated GFR (Cockcroft-Gault) 24.5 BUN/Creatinine Ratio 12 (6-20) Glucose Level 249mg/dL (70-99) Calcium Level 8.3mg/dL (8.5-10.1) Phosphorus Level 5.7mg/dL (2.6-4.7) Magnesium Level 1.6mg/dL (1.8-2.4) Total Bilirubin 0.2mg/dL (0.2-1.0) Aspartate Amino Transf (AST/SGOT) 13U/L (15-37) Alanine Aminotransferase (ALT/SGPT) 20U/L (14-59) Alkaline Phosphatase 50U/L (46-116) Total Protein 5.5g/dL (6.4-8.2) Albumin 2.4g/dL (3.4-5.0) Albumin/Globulin Ratio 0.8 (1.0-1.7) Test 08/11/16 07:35 08/11/16 07:42 08/11/16 08:45 08/11/16 10:28 White Blood Count 10.6x10^3/uL (4.0-11.0) Red Blood Count 3.02x10^6/uL (3.50-5.40) Hemoglobin 8.5g/dL (12.0-15.5) Hematocrit 27.4% (36.0-47.0) Mean Corpuscular Volume 91fL (79-100) Mean Corpuscular Hemoglobin 28pg (25-35) Mean Corpuscular Hemoglobin Concent 31g/dL (31-37) Red Cell Distribution Width 15.8% (11.5-14.5) Platelet Count 172x10^3/uL (140-400) Neutrophils (%) (Auto) 84% (31-73) Lymphocytes (%) (Auto) 10% (24-48) Monocytes (%) (Auto) 5% (0-9) Eosinophils (%) (Auto) 2% (0-3) Basophils (%) (Auto) 0% (0-3) Neutrophils # (Auto) 8.9x10^3uL (1.8-7.7) Lymphocytes # (Auto) 1.0x10^3/uL (1.0-4.8) Monocytes # (Auto) 0.5x10^3/uL (0.0-1.1) Eosinophils # (Auto) 0.2x10^3/uL (0.0-0.7) Basophils # (Auto) 0.0x10^3/uL (0.0-0.2) Sodium Level 138mmol/L (136-145) Potassium Level 4.2mmol/L (3.5-5.1) Chloride Level 101mmol/L (98-107) Carbon Dioxide Level 27mmol/L (21-32) Anion Gap 10 (6-14) Blood Urea Nitrogen 29mg/dL (7-20) Creatinine 2.1mg/dL (0.6-1.0) Estimated GFR (Cockcroft-Gault) 28.6 Glucose Level 205mg/dL (70-99) Calcium Level 8.3mg/dL (8.5-10.1) Magnesium Level 1.8mg/dL (1.8-2.4) Glucose (Fingerstick) 206mg/dL (70-99) 225mg/dL (70-99) Urine Collection Type Unknown Urine Color Yellow Urine Clarity Clear Urine pH 5.0 Urine Specific [place] 1.015 Urine Protein 30mg/dL (NEG-TRACE) Urine Glucose (UA) Negativemg/dL (NEG) Urine Ketones (Stick) Negativemg/dL (NEG) Urine Blood Large (NEG) Urine Nitrite Negative (NEG) Urine Bilirubin Negative (NEG) Urine Urobilinogen Dipstick 0.2mg/dL (0.2 mg/dL) Urine Leukocyte Esterase Small (NEG) Urine RBC 20-40/HPF (0-2) Urine WBC 5-10/HPF (0-4) Urine Squamous Epithelial Cells None/LPF Urine Bacteria Few/HPF (0-FEW) Test 08/11/16 12:15 08/11/16 14:28 08/11/16 16:55 08/12/16 06:40 O2 Saturation 89% (92-99) Arterial Blood pH 7.33 (7.35-7.45) Arterial Blood pCO2 at Patient Temp 43mmHg (35-46) Arterial Blood pO2 at Patient Temp 62mmHg (65-108) Arterial Blood HCO3 22mmol/L (21-28) Arterial Blood Base Excess -3mmol/L (-3-3) FiO2 30 Lactic Acid Level 1.6mmol/L (0.4-2.0) Procalcitonin 6.80ng/mL (0.00-0.10) Glucose (Fingerstick) 319mg/dL (70-99) White Blood Count 16.8x10^3/uL (4.0-11.0) Red Blood Count 2.90x10^6/uL (3.50-5.40) Hemoglobin 8.0g/dL (12.0-15.5) Hematocrit 26.4% (36.0-47.0) Mean Corpuscular Volume 91fL (79-100) Mean Corpuscular Hemoglobin 28pg (25-35) Mean Corpuscular Hemoglobin Concent 30g/dL (31-37) Red Cell Distribution Width 16.2% (11.5-14.5) Platelet Count 162x10^3/uL (140-400) Neutrophils (%) (Auto) 89% (31-73) Lymphocytes (%) (Auto) 7% (24-48) Monocytes (%) (Auto) 4% (0-9) Eosinophils (%) (Auto) 1% (0-3) Basophils (%) (Auto) 0% (0-3) Neutrophils # (Auto) 14.8x10^3uL (1.8-7.7) Lymphocytes # (Auto) 1.2x10^3/uL (1.0-4.8) Monocytes # (Auto) 0.6x10^3/uL (0.0-1.1) Eosinophils # (Auto) 0.1x10^3/uL (0.0-0.7) Basophils # (Auto) 0.0x10^3/uL (0.0-0.2) Sodium Level 140mmol/L (136-145) Potassium Level 4.6mmol/L (3.5-5.1) Chloride Level 105mmol/L (98-107) Carbon Dioxide Level 26mmol/L (21-32) Anion Gap 9 (6-14) Blood Urea Nitrogen 40mg/dL (7-20) Creatinine 2.6mg/dL (0.6-1.0) Estimated GFR (Cockcroft-Gault) 22.4 Glucose Level 207mg/dL (70-99) Calcium Level 8.5mg/dL (8.5-10.1) Test 08/12/16 07:49 Glucose (Fingerstick) 190mg/dL (70-99) Laboratory Tests Test 08/11/16 08:45 08/11/16 10:28 08/11/16 12:15 08/11/16 14:28 Urine Collection Type Unknown Urine Color Yellow Urine Clarity Clear Urine pH 5.0 Urine Specific [place] 1.015 Urine Protein 30mg/dL (NEG-TRACE) Urine Glucose (UA) Negativemg/dL (NEG) Urine Ketones (Stick) Negativemg/dL (NEG) Urine Blood Large (NEG) Urine Nitrite Negative (NEG) Urine Bilirubin Negative (NEG) Urine Urobilinogen Dipstick 0.2mg/dL (0.2 mg/dL) Urine Leukocyte Esterase Small (NEG) Urine RBC 20-40/HPF (0-2) Urine WBC 5-10/HPF (0-4) Urine Squamous Epithelial Cells None/LPF Urine Bacteria Few/HPF (0-FEW) Glucose (Fingerstick) 225mg/dL (70-99) O2 Saturation 89% (92-99) Arterial Blood pH 7.33 (7.35-7.45) Arterial Blood pCO2 at Patient Temp 43mmHg (35-46) Arterial Blood pO2 at Patient Temp 62mmHg (65-108) Arterial Blood HCO3 22mmol/L (21-28) Arterial Blood Base Excess -3mmol/L (-3-3) FiO2 30 Lactic Acid Level 1.6mmol/L (0.4-2.0) Procalcitonin 6.80ng/mL (0.00-0.10) Test 08/11/16 16:55 08/12/16 06:40 08/12/16 07:49 Glucose (Fingerstick) 319mg/dL (70-99) 190mg/dL (70-99) White Blood Count 16.8x10^3/uL (4.0-11.0) Red Blood Count 2.90x10^6/uL (3.50-5.40) Hemoglobin 8.0g/dL (12.0-15.5) Hematocrit 26.4% (36.0-47.0) Mean Corpuscular Volume 91fL (79-100) Mean Corpuscular Hemoglobin 28pg (25-35) Mean Corpuscular Hemoglobin Concent 30g/dL (31-37) Red Cell Distribution Width 16.2% (11.5-14.5) Platelet Count 162x10^3/uL (140-400) Neutrophils (%) (Auto) 89% (31-73) Lymphocytes (%) (Auto) 7% (24-48) Monocytes (%) (Auto) 4% (0-9) Eosinophils (%) (Auto) 1% (0-3) Basophils (%) (Auto) 0% (0-3) Neutrophils # (Auto) 14.8x10^3uL (1.8-7.7) Lymphocytes # (Auto) 1.2x10^3/uL (1.0-4.8) Monocytes # (Auto) 0.6x10^3/uL (0.0-1.1) Eosinophils # (Auto) 0.1x10^3/uL (0.0-0.7) Basophils # (Auto) 0.0x10^3/uL (0.0-0.2) Sodium Level 140mmol/L (136-145) Potassium Level 4.6mmol/L (3.5-5.1) Chloride Level 105mmol/L (98-107) Carbon Dioxide Level 26mmol/L (21-32) Anion Gap 9 (6-14) Blood Urea Nitrogen 40mg/dL (7-20) Creatinine 2.6mg/dL (0.6-1.0) Estimated GFR (Cockcroft-Gault) 22.4 Glucose Level 207mg/dL (70-99) Calcium Level 8.5mg/dL (8.5-10.1) Medications Active Scripts Medications Dose Route/Sig Days Date Category Ventolin Hfa Inhaler (Albuterol Sulfate) 18 Gm Hfa.aer.ad 2 Puff INH QID 08/09/16 Reported Acetaminophen 160 Mg/5 Ml Solution 325 Mg PO QID 08/09/16 Reported Bactrim 400-80 Mg Tablet (Sulfamethoxazole/Trimethoprim) 1 Each Tablet 1 Tab PO BID 08/09/16 Reported Zantac (Ranitidine Hcl) 150 Mg Tablet 150 Mg PO DAILY 08/09/16 Reported Prednisone 20 Mg Tablet 20 Mg PO DAILY 08/09/16 Reported Novolog (Insulin Aspart) 100 Unit/1 Ml Cartridge 8 Unit SQ TIDAC 08/09/16 Reported Levemir (Insulin Detemir) 100 Unit/1 Ml Vial 36 Unit SQ HS 08/09/16 Reported Cyclobenzaprine Hcl 10 Mg Tablet 10 Mg PO TID 08/09/16 Reported Klor-Con Sprinkle (Potassium Chloride) 10 Meq Capsule.er 20 Meq PO DAILY 04/06/16 Rx Lisinopril 20 Mg Tablet 1 Tab PO BID 04/06/16 Rx Ferrous Sulfate 325 Mg Tablet 325 Tab PO DAILY 04/06/16 Rx Gabapentin 300 Mg Capsule 600 Mg PO TID 04/06/16 Rx Lasix (Furosemide) 40 Mg Tablet 40 Mg PO BID 04/06/16 Rx Hydralazine Hcl 25 Mg Tablet 1 Tab PO TID 04/06/16 Rx Amlodipine Besylate 10 Mg Tablet 10 Mg PO DAILY 03/28/16 Reported Ibuprofen 800 Mg Tablet 800 Mg PO PRN Q6HRS PRN 03/28/16 Reported Lovastatin 20 Mg Tablet 20 Mg PO HS 03/28/16 Reported Comments cxr reviewed, Increasing right perihilar and infrahilar opacity, likely pneumonia. Impression . IMPRESSION: 1. Acute on chronic hypoxemic respiratory failure, multifactorial in etiology. 2. Abnormal chest x-ray. 3. Fever ? pneumonia. 4. Acute bronchospasm. 5. Right hilar mass, pulmonary nodule and mediastinal lymphadenopathy ? etiology. Plan . PLAN: 1. I need to discuss with Dr. Paul and with Dr. Storey to see if any workup is done as an outpatient for this patient. 2. cont BiPAP /, rate of 18, titrate FiO2 to keep her saturation 90%. 3. Monitor respiratory status very closely. 4. neg Lower extremity venous Doppler. 5. antibiotics. id on case 6. fu Panculture. 7. bronchodilators. 8. inhaled corticosteroid. 9. Elevate head of bed. 10. The findings and recommendations were discussed with RN and RT and her son in details. CHRIS FRANCISCO MD Aug 12, 2016 08:42
[2016-08-12] MEDS: GABAPENTIN 300 MG CAPSULE. PO SCH (09:00)
[2016-08-12] MEDS: FUROSEMIDE 20 MG TABLET PO SCH ×2 (10:00→14:55)
[2016-08-12 11:00] VITALS: BP 144/73
[2016-08-12] MEDS: OXYCODONE/APAP 5/325 TABLET. PO PRN ×2 (11:54→19:06)
--- NOTE | 2016-08-12 12:05 | PDOC ---
Infectious Disease Note Subjective Subjective c/o abdominal pain, nonspecific + fevers Remains on BiPAP. less O2 demand. FiO2 35% ROS ROS GEN: Denies chills CV: Denies chest pain RESP: Denies shortness of air, cough GI: Denies n/v/d Vital Sign Vital Signs Vital Signs Date Time Temp Pulse Resp B/P Pulse Ox O2 Delivery O2 Flow Rate FiO2 08/12/16 11:42 BiPAP/CPAP 08/12/16 07:00 100.0 95 14 148/70 96 3.0 100.0 Physical Exam PHYSICAL EXAM GENERAL: Propped up in bed, on BiPAP LUNGS: Congested HEART: S1S2, no gallop, no murmur ABD: Obese, hypoactive BS, soft, NT. Wound vac in place. No area redness or induration EXT: BLE trace edema PARTNER CCO: Sleepiy, decrease attention span, nods to questions SKIN: No rash IV: ok Labs Lab Laboratory Tests Test 08/11/16 12:15 08/11/16 14:28 08/11/16 16:55 08/12/16 06:40 O2 Saturation 89% (92-99) Arterial Blood pH 7.33 (7.35-7.45) Arterial Blood pCO2 at Patient Temp 43mmHg (35-46) Arterial Blood pO2 at Patient Temp 62mmHg (65-108) Arterial Blood HCO3 22mmol/L (21-28) Arterial Blood Base Excess -3mmol/L (-3-3) FiO2 30 Lactic Acid Level 1.6mmol/L (0.4-2.0) Procalcitonin 6.80ng/mL (0.00-0.10) Glucose (Fingerstick) 319mg/dL (70-99) White Blood Count 16.8x10^3/uL (4.0-11.0) Red Blood Count 2.90x10^6/uL (3.50-5.40) Hemoglobin 8.0g/dL (12.0-15.5) Hematocrit 26.4% (36.0-47.0) Mean Corpuscular Volume 91fL (79-100) Mean Corpuscular Hemoglobin 28pg (25-35) Mean Corpuscular Hemoglobin Concent 30g/dL (31-37) Red Cell Distribution Width 16.2% (11.5-14.5) Platelet Count 162x10^3/uL (140-400) Neutrophils (%) (Auto) 89% (31-73) Lymphocytes (%) (Auto) 7% (24-48) Monocytes (%) (Auto) 4% (0-9) Eosinophils (%) (Auto) 1% (0-3) Basophils (%) (Auto) 0% (0-3) Neutrophils # (Auto) 14.8x10^3uL (1.8-7.7) Lymphocytes # (Auto) 1.2x10^3/uL (1.0-4.8) Monocytes # (Auto) 0.6x10^3/uL (0.0-1.1) Eosinophils # (Auto) 0.1x10^3/uL (0.0-0.7) Basophils # (Auto) 0.0x10^3/uL (0.0-0.2) Sodium Level 140mmol/L (136-145) Potassium Level 4.6mmol/L (3.5-5.1) Chloride Level 105mmol/L (98-107) Carbon Dioxide Level 26mmol/L (21-32) Anion Gap 9 (6-14) Blood Urea Nitrogen 40mg/dL (7-20) Creatinine 2.6mg/dL (0.6-1.0) Estimated GFR (Cockcroft-Gault) 22.4 Glucose Level 207mg/dL (70-99) Calcium Level 8.5mg/dL (8.5-10.1) Test 08/12/16 07:49 08/12/16 11:34 Glucose (Fingerstick) 190mg/dL (70-99) 225mg/dL (70-99) Micro BLOOD CULTURE Preliminary NO GROWTH AFTER 1 DAY Objective Assessment Fever. ? post-op vs infection Leukocytosis Acute respiratory failure, on BiPAP. -hx hilar mass and lung nodules s/p bronch in Mar 2016 -hx sarcoidosis -hx POLY Acute kidney injury Acute encephalopathy s/p SANTHOSH and BSO, 08/09 Abdominal wound with vac in place Morbid obesity Plan Plan of Care Zyvox and Zosyn Avoid vanc in light of renal failure Monitor WBC, Cr and temp Lactic acid 1.8 Attending Co-Sign The patient was seen and interviewed as well as examined at the bedside. The chart was reviewed. The case was discussed. Agree with the plan of care. LAINEY RESI APRN Aug 12, 2016 12:05 AL DE LA TORRE MD Aug 12, 2016 12:22
[2016-08-12 15:00] VITALS: BP 133/59
--- NOTE | 2016-08-12 17:09 | CARD ---
APPROVED REPORT EXAM: Two-dimensional and M-mode echocardiogram with Doppler and color Doppler. Other Information Quality : Average INDICATION Hypoxia, R/O CHF 2D DIMENSIONS Left Atrium(2D)4.0 (1.6-4.0cm)IVSd1.2 (0.7-1.1cm) Aortic Root(2D)3.1 (2.0-3.7cm)LVDd4.4 (3.9-5.9cm) LVOT Diameter2.1 (1.8-2.4cm)PWd1.2 (0.7-1.1cm) LA Tlmkvo53 (18-58mL)LVDs2.7 (2.5-4.0cm) FS (%) 38.7 %SV60.8 ml LVEF(%)69.2 (>50%) M-Mode DIMENSIONS Aortic Cusp Exc1.48 (1.5-2.0cm) Aortic Valve AoV Peak Sergey.215.2cm/sAoV VTI32.9cm AO Peak GR.18.5mmHgAO Mean GR.12mmHg Mitral Valve MV E Cqfkrwyp85.0cm/sMV E Peak Gr.2mmHg MV DECEL [id number] A Gxbadlik90.3cm/s MV RUM10pmK/A Ratio0.8 MV A [id number] (PHT)3.79cm2 TDI Lateral E' P. V8.37cm/sMedial E' P. V5.53cm/s E/Lateral E'8.6E/Medial E'13.0 Pulmonary Valve PV Peak Yigyosdq454.4cm/s Tricuspid Valve TR P. [id number]/sTR Peak Gr.29mmHg LEFT VENTRICLE The left ventricle is normal size. There is borderline left ventricular hypertrophy. The left ventric ular systolic function is normal and the ejection fraction is within normal range. EF 65% There is no rmal LV segmental wall motion. Tissue Doppler imaging reveals mild left ventricular diastolic dysfunc tion. RIGHT VENTRICLE The right ventricle is normal size. There is normal right ventricular wall thickness. The right ventr icular systolic function is normal. ATRIA The left atrium size is normal. The right atrium size is normal. The interatrial septum is intact wit h no evidence for an atrial septal defect or patent foramen ovale as noted on 2-D or Doppler imaging. AORTIC VALVE The aortic valve is normal in structure and function. Doppler and Color Flow revealed no significant aortic regurgitation. There is no significant aortic valvular stenosis. There is no aortic valvular v egetation. MITRAL VALVE The mitral valve is normal in structure and function. There is no evidence of mitral valve prolapse. There is no mitral valve stenosis. Doppler and Color-flow revealed trace mitral regurgitation. TRICUSPID VALVE The tricuspid valve is normal in structure and function. Doppler and Color Flow revealed mild tricusp id regurgitation. There is no tricuspid valve prolapse or vegetation. There is no tricuspid valve boby nosis. PULMONIC VALVE Doppler and Color Flow revealed no pulmonic valvular regurgitation. There is no pulmonic valvular boby nosis. GREAT VESSELS The aortic root is normal in size. The ascending aorta is normal in size. The IVC is normal in size a nd collapses >50% with inspiration. PERICARDIAL EFFUSION There is no pleural effusion. There is no evidence of significant pericardial effusion. Critical Notification Critical Value: No <Conclusion> The left ventricular systolic function is normal and the ejection fraction is within normal range. EF 65% There is normal LV segmental wall motion. Tissue Doppler imaging reveals mild left ventricular diastolic dysfunction.
--- NOTE | 2016-08-12 18:56 | PDOC2 ---
NEUROLOGY CONSULT Date of Admission Date of Admission Full Report Dictated DATE: 08/12/16 TIME: 18:54 Current Medications Current Medications Current Medications Cefazolin Sodium/ Dextrose 50 ml @ 100 mls/hr 1X PREOP PRN IV PRIOR TO PROCEDURE Last administered on 08/09/16 13:30; Start 08/09/16 at 06:00; Stop at 18:00; Status DC Sodium Chloride (Iv Sodium Chloride 0.9% 1000ml Bag) 1,000 ml @ 75 mls/hr [id number] IV Last administered on 08/10/16 06:27; Start 08/09/16 at 11:00; Stop 08/10/16 at 17:53; Status DC Dexamethasone Sodium Phosphate (Decadron) 20 mg STK-MED ONCE .ROUTE ; Start at 11:46; Stop 08/09/16 at 18:48; Status DC Ondansetron HCl 4 mg 4 mg STK-MED ONCE .ROUTE ; Start 08/09/16 at 11:46; Stop at 18:48; Status DC Propofol (Diprivan) 20 ml @ As Directed STK-MED ONCE IV ; Start 08/09/16 at 11: 46; Stop 08/09/16 at 18:48; Status DC Lidocaine HCl 100 mg STK-MED ONCE .ROUTE ; Start 08/09/16 at 11:46; Stop at 18:48; Status DC Fentanyl Citrate (Fentanyl 2ml Vial) 100 mcg STK-MED ONCE .ROUTE ; Start at 11:46; Stop 08/09/16 at 18:48; Status DC Neostigmine Methylsulfate 5 mg STK-MED ONCE .ROUTE ; Start 08/09/16 at 11:46; Stop 08/09/16 at 18:48; Status DC Rocuronium [place] (Zemuron) 50 mg STK-MED ONCE .ROUTE ; Start 08/09/16 at 11:46 ; Stop 08/09/16 at 18:48; Status DC Glycopyrrolate (Robinul) 1 mg STK-MED ONCE .ROUTE ; Start 08/09/16 at 11:48; Stop 08/09/16 at 18:48; Status DC Cellulose 1 each STK-MED ONCE .ROUTE ; Start 08/09/16 at 12:09; Stop 08/09/16 at 18:48; Status DC Lidocaine/ Epinephrine (Xylocaine 1%-Epi 1:100,000) 20 ml STK-MED ONCE .ROUTE Last administered on 08/09/16 13:45; Start 08/09/16 at 12:09; Stop 08/09/16 at 18:48; Status DC Bupivacaine HCl/ Epinephrine Bitart (Sensorcaine-Epi 0.25%-1:752259 Mpf) 30 ml STK-MED ONCE .ROUTE Last administered on 08/09/16 13:45; Start 08/09/16 at 12: 09; Stop 08/09/16 at 18:48; Status DC Estrogens Conjugated (Premarin) 30 sohan STK-MED ONCE .ROUTE ; Start 08/09/16 at 12:09; Stop 08/09/16 at 18:48; Status DC Insulin Aspart (Novolog Vial) 4 unit 1X ONCE SQ Last administered on 12:58; Start 08/09/16 at 13:00; Stop 08/09/16 at 13:01; Status DC Esmolol HCl (Brevibloc) 100 mg STK-MED ONCE IV ; Start 08/09/16 at 13:52; Stop 08/09/16 at 18:48; Status DC Insulin Human Regular (Novolin R Vial) 100 unit STK-MED ONCE .ROUTE ; Start at 14:23; Stop 08/09/16 at 18:48; Status DC Rocuronium [place] (Zemuron) 50 mg STK-MED ONCE .ROUTE ; Start 08/09/16 at 14:39 ; Stop 08/09/16 at 18:48; Status DC Ephedrine Sulfate 50 mg STK-MED ONCE IV ; Start 08/09/16 at 16:12; Stop at 18:48; Status DC Desflurane (Suprane) 90 ml STK-MED ONCE IH ; Start 08/09/16 at 16:24; Stop 08/09 at 18:48; Status DC Calcium Carbonate/ Glycine (Tums) 500 mg PRN Q3HRS PRN PO HEARTBURN / GAS; Start 08/09/16 at 16:45 Simethicone (Gas-X) 80 mg PRN AFTMEALHC PRN PO GAS / BLOATING; Start 08/09/16 at 16:45 Zolpidem Tartrate (Ambien) 5 mg PRN QHS PRN PO INSOMNIA, MAY REPEAT IN 1HR; Start 08/09/16 at 16:45 Diphenhydramine HCl (Benadryl) 25 mg PRN Q6HRS PRN PO ITCHING; Start 08/09/16 at 16:45 Diphenhydramine HCl (Benadryl) 25 mg PRN Q6HRS PRN IV ITCHING; Start 08/09/16 at 16:45 Sodium Chloride (Normal Saline Flush) 3 ml QSHIFT PRN IV AFTER MEDS AND BLOOD DRAWS; Start 08/09/16 at 16:45 Dextrose 12.5 gm PRN Q15MIN PRN IV SEE COMMENTS; Start 08/09/16 at 16:45; Status Cancel Oxycodone/ Acetaminophen (Percocet 5/325) 2 tab PRN Q4HRS PRN PO MODERATE PAIN , SEVERE PAIN Last administered on 08/12/16 11:54; Start 08/09/16 at 16:45 Ketorolac Tromethamine (Toradol) 30 mg PRN Q6HRS PRN IV PAIN Last administered on 08/10/16 01:12; Start 08/09/16 at 16:45; Stop 08/14/16 at 16:44 Gabapentin (Neurontin) 600 mg Q8HRS PO Last administered on 08/10/16 21:15; Start 08/09/16 at 17:00; Stop 08/10/16 at 22:59; Status DC Ondansetron HCl (Zofran) 4 mg PRN Q6HRS PRN IV NAUESA, 1ST CHOICE; Start at 16:45; Stop 08/09/16 at 18:48; Status DC Prochlorperazine Edisylate (Compazine) 5 mg PRN Q6HRS PRN IV N/V, 2nd Choice, MR X1; Start 08/09/16 at 16:45 Insulin Aspart (Novolog) 0-9 UNITS TIDWMEALS SQ Last administered on 08/12/16 17:13; Start 08/09/16 at 17:00 Dextrose 12.5 gm PRN Q15MIN PRN IV SEE COMMENTS; Start 08/09/16 at 16:45 Fentanyl Citrate (Fentanyl 2ml Vial) 100 mcg STK-MED ONCE .ROUTE ; Start at 17:26; Stop 08/09/16 at 18:48; Status DC Ondansetron HCl (Zofran) 4 mg PRN Q6HRS PRN IV Nausea; Start 08/09/16 at 17:45 ; Stop 08/10/16 at 17:44; Status DC Fentanyl Citrate (Fentanyl 2ml Vial) 25 mcg PRN Q5MIN PRN IV MILD PAIN; Start 08/09/16 at 17:45; Stop 08/09/16 at 18:48; Status DC Fentanyl Citrate (Fentanyl 2ml Vial) 50 mcg PRN Q5MIN PRN IV MODERATE PAIN Last administered on 08/09/16 17:53; Start 08/09/16 at 17:45; Stop 08/09/16 at 18:48; Status DC Morphine Sulfate 1 mg 1 mg PRN Q10MIN PRN IV SEVERE PAIN; Start 08/09/16 at 17: 45; Stop 08/09/16 at 18:48; Status DC Lactated Ringer's (Iv Lactated Ringers) 1,000 ml @ 0 mls/hr Q0M IV ; Start at 17:32; Stop 08/10/16 at 05:31; Status DC Lidocaine HCl 2 ml 1X PRN PRN ID IV START; Start 08/09/16 at 17:45; Stop at 18:48; Status DC Hydromorphone HCl (Dilaudid) 0.5 mg PRN Q10MIN PRN IV SEV PAIN,Second choice; Start 08/09/16 at 17:45; Stop 08/09/16 at 18:48; Status DC Prochlorperazine Edisylate (Compazine) 5 mg PACU PRN PRN IV NAUSEA; Start 08/09 at 17:45; Stop 08/09/16 at 18:48; Status DC Albuterol Sulfate (Ventolin Neb Soln) 2.5 mg PRN Q4HRS PRN NEB SHORTNESS OF BREATH Last administered on 08/10/16 06:51; Start 08/09/16 at 21:30 Furosemide (Lasix) 20 mg [id number] PO Last administered on 08/12/16 14:55; Start 08/10/16 at 09:00 Furosemide (Lasix) 20 mg 1X ONCE IVP Last administered on 08/10/16 16:28; Start 08/10/16 at 16:15; Stop 08/10/16 at 16:17; Status DC Insulin Detemir (Levemir) 10 units QHS SQ Last administered on 08/11/16 23:19 ; Start 08/10/16 at 21:00 Gabapentin (Neurontin) 600 mg DAILY PO ; Start 08/11/16 at 09:00 Acetaminophen 650 mg 650 mg PRN Q6HRS PRN PO MILD PAIN / TEMP; Start 08/11/16 at 08:30 Magnesium Sulfate/ Dextrose 50 ml @ 25 mls/hr 1X ONCE IV ; Start 08/11/16 at 08 :30; Stop 08/11/16 at 11:07; Status DC Piperacillin Sod/ Tazobactam Sod/ Sodium Chloride (Zosyn/Iv Sodium Chloride 0.9 % 50ml) 50 ml @ 100 mls/hr Q6HRS IV Last administered on 08/12/16 18:11; Start 08/11/16 at 08:30 Acetaminophen (Tylenol) 650 mg PRN Q6HRS PRN ND MILD PAIN / TEMP Last administered on 08/11/16 23:11; Start 08/11/16 at 10:15 Albuterol/ Ipratropium (Duoneb) 3 ml RTQID NEB Last administered on 08/12/16 16:23; Start 08/11/16 at 12:00 Budesonide 0.5 mg 0.5 mg RTBID NEB Last administered on 08/12/16 06:02; Start 08/11/16 at 20:00 Ceftriaxone Sodium/Sodium Chloride (Rocephin/Iv Sodium Chloride 0.9% 50ml) 50 ml @ 100 mls/hr Q24H IV ; Start 08/11/16 at 11:00; Stop 08/11/16 at 11:00; Status DC Furosemide 20 mg 20 mg 1X ONCE IVP Last administered on 08/11/16 11:27; Start 08/11/16 at 11:15; Stop 08/11/16 at 11:20; Status DC Linezolid (Zyvox Premix) 300 ml @ 300 mls/hr Q12HR IV Last administered on 3/ 19/17at 09:30; Start 08/11/16 at 14:30 Active Scripts Active Klor-Con Sprinkle (Potassium Chloride) 10 Meq Capsule.er 20 Meq PO DAILY Lisinopril 20 Mg Tablet 1 Tab PO BID Ferrous Sulfate 325 Mg Tablet 325 Tab PO DAILY Gabapentin 300 Mg Capsule 600 Mg PO TID Lasix (Furosemide) 40 Mg Tablet 40 Mg PO BID Hydralazine Hcl 25 Mg Tablet 1 Tab PO TID Reported Ventolin Hfa Inhaler (Albuterol Sulfate) 18 Gm Hfa.aer.ad 2 Puff INH QID Acetaminophen 160 Mg/5 Ml Solution 325 Mg PO QID Bactrim 400-80 Mg Tablet (Sulfamethoxazole/Trimethoprim) 1 Each Tablet 1 Tab PO BID Zantac (Ranitidine Hcl) 150 Mg Tablet 150 Mg PO DAILY Prednisone 20 Mg Tablet 20 Mg PO DAILY Novolog (Insulin Aspart) 100 Unit/1 Ml Cartridge 8 Unit SQ TIDAC Levemir (Insulin Detemir) 100 Unit/1 Ml Vial 36 Unit SQ HS Cyclobenzaprine Hcl 10 Mg Tablet 10 Mg PO TID Amlodipine Besylate 10 Mg Tablet 10 Mg PO DAILY Ibuprofen 800 Mg Tablet 800 Mg PO PRN Q6HRS PRN Lovastatin 20 Mg Tablet 20 Mg PO HS Allergies Allergies: Coded Allergies: No Known Drug Allergies (Unverified , 04/02/16) Vitals VITALS Vital Signs Date Time Temp Pulse Resp B/P Pulse Ox O2 Delivery O2 Flow Rate FiO2 08/12/16 16:23 BiPAP/CPAP 08/12/16 15:00 98.8 88 14 133/59 100 3.0 98.8 Labs Labs Laboratory Tests Test 08/10/16 20:57 08/11/16 07:35 08/11/16 07:42 08/11/16 08:45 Glucose (Fingerstick) 222mg/dL (70-99) 206mg/dL (70-99) White Blood Count 10.6x10^3/uL (4.0-11.0) Red Blood Count 3.02x10^6/uL (3.50-5.40) Hemoglobin 8.5g/dL (12.0-15.5) Hematocrit 27.4% (36.0-47.0) Mean Corpuscular Volume 91fL (79-100) Mean Corpuscular Hemoglobin 28pg (25-35) Mean Corpuscular Hemoglobin Concent 31g/dL (31-37) Red Cell Distribution Width 15.8% (11.5-14.5) Platelet Count 172x10^3/uL (140-400) Neutrophils (%) (Auto) 84% (31-73) Lymphocytes (%) (Auto) 10% (24-48) Monocytes (%) (Auto) 5% (0-9) Eosinophils (%) (Auto) 2% (0-3) Basophils (%) (Auto) 0% (0-3) Neutrophils # (Auto) 8.9x10^3uL (1.8-7.7) Lymphocytes # (Auto) 1.0x10^3/uL (1.0-4.8) Monocytes # (Auto) 0.5x10^3/uL (0.0-1.1) Eosinophils # (Auto) 0.2x10^3/uL (0.0-0.7) Basophils # (Auto) 0.0x10^3/uL (0.0-0.2) Sodium Level 138mmol/L (136-145) Potassium Level 4.2mmol/L (3.5-5.1) Chloride Level 101mmol/L (98-107) Carbon Dioxide Level 27mmol/L (21-32) Anion Gap 10 (6-14) Blood Urea Nitrogen 29mg/dL (7-20) Creatinine 2.1mg/dL (0.6-1.0) Estimated GFR (Cockcroft-Gault) 28.6 Glucose Level 205mg/dL (70-99) Calcium Level 8.3mg/dL (8.5-10.1) Magnesium Level 1.8mg/dL (1.8-2.4) Urine Collection Type Unknown Urine Color Yellow Urine Clarity Clear Urine pH 5.0 Urine Specific [place] 1.015 Urine Protein 30mg/dL (NEG-TRACE) Urine Glucose (UA) Negativemg/dL (NEG) Urine Ketones (Stick) Negativemg/dL (NEG) Urine Blood Large (NEG) Urine Nitrite Negative (NEG) Urine Bilirubin Negative (NEG) Urine Urobilinogen Dipstick 0.2mg/dL (0.2 mg/dL) Urine Leukocyte Esterase Small (NEG) Urine RBC 20-40/HPF (0-2) Urine WBC 5-10/HPF (0-4) Urine Squamous Epithelial Cells None/LPF Urine Bacteria Few/HPF (0-FEW) Test 08/11/16 10:28 08/11/16 12:15 08/11/16 14:28 08/11/16 16:55 Glucose (Fingerstick) 225mg/dL (70-99) 319mg/dL (70-99) O2 Saturation 89% (92-99) Arterial Blood pH 7.33 (7.35-7.45) Arterial Blood pCO2 at Patient Temp 43mmHg (35-46) Arterial Blood pO2 at Patient Temp 62mmHg (65-108) Arterial Blood HCO3 22mmol/L (21-28) Arterial Blood Base Excess -3mmol/L (-3-3) FiO2 30 Lactic Acid Level 1.6mmol/L (0.4-2.0) Procalcitonin 6.80ng/mL (0.00-0.10) Test 08/12/16 06:40 08/12/16 07:49 08/12/16 11:34 08/12/16 16:21 White Blood Count 16.8x10^3/uL (4.0-11.0) Red Blood Count 2.90x10^6/uL (3.50-5.40) Hemoglobin 8.0g/dL (12.0-15.5) Hematocrit 26.4% (36.0-47.0) Mean Corpuscular Volume 91fL (79-100) Mean Corpuscular Hemoglobin 28pg (25-35) Mean Corpuscular Hemoglobin Concent 30g/dL (31-37) Red Cell Distribution Width 16.2% (11.5-14.5) Platelet Count 162x10^3/uL (140-400) Neutrophils (%) (Auto) 89% (31-73) Lymphocytes (%) (Auto) 7% (24-48) Monocytes (%) (Auto) 4% (0-9) Eosinophils (%) (Auto) 1% (0-3) Basophils (%) (Auto) 0% (0-3) Neutrophils # (Auto) 14.8x10^3uL (1.8-7.7) Lymphocytes # (Auto) 1.2x10^3/uL (1.0-4.8) Monocytes # (Auto) 0.6x10^3/uL (0.0-1.1) Eosinophils # (Auto) 0.1x10^3/uL (0.0-0.7) Basophils # (Auto) 0.0x10^3/uL (0.0-0.2) Sodium Level 140mmol/L (136-145) Potassium Level 4.6mmol/L (3.5-5.1) Chloride Level 105mmol/L (98-107) Carbon Dioxide Level 26mmol/L (21-32) Anion Gap 9 (6-14) Blood Urea Nitrogen 40mg/dL (7-20) Creatinine 2.6mg/dL (0.6-1.0) Estimated GFR (Cockcroft-Gault) 22.4 Glucose Level 207mg/dL (70-99) Calcium Level 8.5mg/dL (8.5-10.1) Glucose (Fingerstick) 190mg/dL (70-99) 225mg/dL (70-99) 194mg/dL (70-99) Laboratory Tests Test 08/12/16 06:40 08/12/16 07:49 08/12/16 11:34 08/12/16 16:21 White Blood Count 16.8x10^3/uL (4.0-11.0) Red Blood Count 2.90x10^6/uL (3.50-5.40) Hemoglobin 8.0g/dL (12.0-15.5) Hematocrit 26.4% (36.0-47.0) Mean Corpuscular Volume 91fL (79-100) Mean Corpuscular Hemoglobin 28pg (25-35) Mean Corpuscular Hemoglobin Concent 30g/dL (31-37) Red Cell Distribution Width 16.2% (11.5-14.5) Platelet Count 162x10^3/uL (140-400) Neutrophils (%) (Auto) 89% (31-73) Lymphocytes (%) (Auto) 7% (24-48) Monocytes (%) (Auto) 4% (0-9) Eosinophils (%) (Auto) 1% (0-3) Basophils (%) (Auto) 0% (0-3) Neutrophils # (Auto) 14.8x10^3uL (1.8-7.7) Lymphocytes # (Auto) 1.2x10^3/uL (1.0-4.8) Monocytes # (Auto) 0.6x10^3/uL (0.0-1.1) Eosinophils # (Auto) 0.1x10^3/uL (0.0-0.7) Basophils # (Auto) 0.0x10^3/uL (0.0-0.2) Sodium Level 140mmol/L (136-145) Potassium Level 4.6mmol/L (3.5-5.1) Chloride Level 105mmol/L (98-107) Carbon Dioxide Level 26mmol/L (21-32) Anion Gap 9 (6-14) Blood Urea Nitrogen 40mg/dL (7-20) Creatinine 2.6mg/dL (0.6-1.0) Estimated GFR (Cockcroft-Gault) 22.4 Glucose Level 207mg/dL (70-99) Calcium Level 8.5mg/dL (8.5-10.1) Glucose (Fingerstick) 190mg/dL (70-99) 225mg/dL (70-99) 194mg/dL (70-99) Assessment/Plan Assessment/Plan Taniya Ma is a 66-year-old woman who underwent a total abdominal hysterectomy bilateral salpingo-oophorectomy on August 09, 2016. The surgery was complicated by postoperative pneumonia. She appears encephalopathic and has asterixis. Response time is slow and she is very spacey. There was concern she may have left arm weakness. I do see weakness in the left shoulder but not necessarily in the rest of the arm. This may be a problem with the shoulder itself. CT scan of the head was negative. Her effort towards the exam is quite limited. Neurology can reevaluate and if symptoms persist a follow-up CAT scan can be performed at a time interval. GINGER RIOS MD Aug 12, 2016 18:56
[2016-08-12 19:00] VITALS: BP 125/52
[2016-08-12] MEDS ORDERED: OXYCODONE/APAP 5/325 TABLET. PO PRN (19:45)
[2016-08-12] MEDS: POLYETHYLENE GLYCOL 3350 17 GM PACKET. PO SCH (20:35)
[2016-08-12] MEDS: INSULIN DETEMIR 300 UNITS/3 ML INSULN.PEN. SQ SCH (20:57)
[2016-08-12 22:43] VITALS: BP 122/59
[2016-08-13] VITALS (10 sets, daily range): BP systolic 133–163; BP diastolic 68–91
[2016-08-13] MEDS: PIPERACILLIN/TAZOBACTAM 3.375 GM in IV NORMAL SALINE 50ML 50 ML IV SCH (06:05)
[2016-08-13 06:24] LABS: BASO % 0 % (0-3); EOS % 2 % (0-3); HEMOGLOBIN 7.3 g/dL (12.0-15.5); LYMPH # 0.7 x10^3/uL (1.0-4.8); LYMPH % 5 % (24-48); MEAN CORPUSCULAR HEMOGLOBIN 28 pg (25-35); MEAN CORPUSCULAR HGB CONC 32 g/dL (31-37); MEAN CORPUSCULAR VOLUME 87 fL (79-100); MONO % 3 % (0-9); NEUT % 90 % (31-73); PLATELET COUNT 170 x10^3/uL (140-400); RED BLOOD COUNT 2.64 x10^6/uL (3.50-5.40); RED CELL DISTRIBUTION WIDTH 15.7 % (11.5-14.5); WHITE BLOOD COUNT 12.2 x10^3/uL (4.0-11.0)
[2016-08-13 06:54] LABS: CALCIUM 8.6 mg/dL (8.5-10.1); CREATININE 2.2 mg/dL (0.6-1.0); GFR 27.1; POTASSIUM 4.5 mmol/L (3.5-5.1)
[2016-08-13] MEDS: BUDESONIDE 0.5 MG/2 ML NEBU NEB SCH ×2 (07:16→20:48)
[2016-08-13] MEDS: IPRATRPIUM/ALBUTEROL 0.5/2.5MG 3 ML NEBU. NEB SCH ×4 (07:16→20:48)
[2016-08-13] MEDS: OXYCODONE/APAP 5/325 TABLET. PO PRN (08:19)
--- NOTE | 2016-08-13 08:23 | CONS ---
DATE OF CONSULTATION: 08/12/2016 REASON FOR CONSULTATION: Evaluate for left arm weakness. REFERRING PHYSICIAN: Dr. Jovan Vázquez. HISTORY OF PRESENT ILLNESS: The patient is a 66-year-old woman who underwent a total abdominal hysterectomy, bilateral salpingo oophorectomy on 08/09/2016. She was having abnormal uterine bleeding. The surgery went without incident, although she has had progressive difficulty with breathing and very loud breath sounds. She had hypoxic respiratory distress and Pulmonary was consulted. The nurse noted yesterday that she was not moving her left arm quite as well. The patient has been somewhat lethargic since the surgery. Her daughter was present and did provide some history. The patient herself is slow to respond and not a very valuable historian. She denies that she has ever had a previous stroke. She did undergo a CT scan of her head, which did not reveal an acute process. PAST MEDICAL HISTORY: 1. Diastolic congestive heart failure. 2. Sarcoidosis, diagnosed by lung biopsy in 03/2016. 3. Hypertension. 4. Hyperlipidemia. 5. Diabetes mellitus. 6. Iron deficiency anemia. 7. Acute kidney injury this hospital stay. 8. Obstructive sleep apnea. 9. Abnormal chest CAT scan with right hilar mass and lung nodule and mediastinal lymphadenopathy. ALLERGIES: No known allergies to drugs. CURRENT MEDICATIONS: Pulmicort by nebulizer twice per day, linezolid every 12 hours, DuoNeb 4 times per day, Tylenol as needed, gabapentin 600 mg daily, piperacillin/tazobactam 3.375 grams every 6 hours, insulin, furosemide 20 mg twice per day, Ventolin nebulized every 4 hours as needed, Compazine as needed, Toradol as needed, oxycodone 5/325, two tablets every 4 hours as needed, Benadryl as needed, zolpidem as needed, simethicone as needed. FAMILY HISTORY: Pertinent for hypertension and coronary artery disease. SOCIAL HISTORY: She does not smoke tobacco or drink alcohol or use recreational drugs. Prior to the surgery, she lived alone. Occasionally, her granddaughter would live with her as well. She is a . REVIEW OF SYSTEMS: She does not complain of any headache or sudden change of vision. There has been no loss of hearing. She has had confusion and lethargy. She has had some shortness of breath. She has had a cough. She does not have chest pain. She does not complain of surgical pain at this time. She has had low-grade fever at times. She has not had a rash. She denies gastrointestinal or genitourinary complaints. She denies anxiety or depression. She denies confusion or hallucinations. She does have swelling in the feet and ankles. She is morbidly obese. She does not complain of numbness. She complains of feeling generalized weakness. PHYSICAL EXAMINATION: VITAL SIGNS: The blood pressure was 133/59, pulse 88, respirations 14, current temperature is 98.8 degrees axillary. Earlier today, she was 100 degrees axillary and on 08/11/2016, she had a peak temperature of 103 degrees axillary. Her weight was 258 pounds and height 63 inches with a calculated body mass index of 45.7. Oximetry was 100% on 3 liters nasal cannula at 3:00 p.m. today. GENERAL: She was sitting in a chair, semi-awake. Attention and concentration were impaired. Her fund of recent and remote knowledge was impaired. She appeared well groomed and well nourished. She was not oriented. There was delay when questions were asked to the answer and often had to be asked more than once to try to get her to respond or follow commands. NEUROLOGIC: Examination of the cranial nerves revealed visual whiting were full to confrontation. Extraocular movements were intact. The eyes were conjugate. Pursuit movements were smooth and saccadic eye movements were without dysmetria. Pupils were 3 mm and reactive. Funduscopic exam did not reveal papilledema, exudate or hemorrhage. Facial sensation was intact. The muscles of mastication and facial expression were powerful symmetrically. Hearing was intact to finger rub. The palate arches symmetrically and the tongue was midline with full range of motion. Sternocleidomastoid and trapezius were symmetric. Muscle bulk was symmetric. Tone was not spastic or rigid. She had prominent asterixis present bilaterally. She generally did not want to put out effort for power testing, but with coaching it was clear that she had good strength with supervisor sandblaster, finger abduction, elbow flexion and extension were fair and arm abduction was too fatiguing and she did not participate. She could raise both feet off the floor, but did not any longer participate in strength testing. Reflexes were diminished throughout. Toes were not upgoing. Coordination testing with fine motor tapping and foot tapping was symmetric. She did not participate for [id number]. Sensory exam was intact to pain, light touch, proprioception, graphesthesia, cold, thermal and vibration in the upper extremities. In the feet, she did perceive sharp, cold thermal and vibration. Gait was not testable. NECK: Auscultation of the carotid arteries was difficult due to loud upper airway noise. HEART: Rhythm was regular without a murmur. EXTREMITIES: Peripheral pulses were symmetric in the upper extremities. She had edema of the feet and ankles. It was difficult to feel pulses in the feet. REVIEW OF LABORATORY DATA: CBC revealed an elevated white count of 16.8 with low hemoglobin of 8, hematocrit 26.4 and platelet count normal. Chemistry revealed normal electrolytes. BUN was 40 and creatinine 2.6. Glucose elevated at 207. Calcium was normal. Urinalysis was performed on 08/11/2016 revealing a large amount of blood, 0.2 urobilinogen, small amount of leukocyte esterase, 20-40 red cells, 5-10 white cells and no epithelial cells with a few bacteria. IMPRESSION: The patient is a 66-year-old woman with morbid obesity, poorly controlled diabetes, hypertension and a febrile illness following surgery. There was a concern she may have left arm weakness, but really the only weakness is in the shoulder and may be due to a specific shoulder issue. She is generally weak and does have metabolic disturbance with asterixis. This can be a consequence of toxic, infectious as well as metabolic disturbance. She did undergo a CT scan of her head yesterday, which did not reveal an acute process. She is not a candidate for an MRI because of her recent surgery and sue. Chest x-ray revealed evidence to support pneumonia. She appears quite encephalopathic in addition to having asterixis. This is often a reversible process if the strain can be relieved, which in this situation would be the surgery, renal failure, hypoxia, pneumonia among other problems. RECOMMENDATIONS: I would continue with underlying supportive care. We can reevaluate and if there seems to be deficits that persist, a followup CAT scan can be performed with an interval of 3 days to look for a change. I appreciate being involved in her care. GINGER RIOS MD DR: AUTUMN/graciela JOB#: [id number] / [id number] YOGI Fabian MD, DONALD MD SHI, FERILYN MD
--- NOTE | 2016-08-13 08:27 | CONS ---
DATE OF CONSULTATION: 08/11/2016 REQUESTING PHYSICIAN: Dr. Hurt. REASON FOR CONSULTATION: Postop fever. HISTORY OF PRESENT ILLNESS: This patient is a 66-year-old -[place] female with history of morbid obesity with a BMI of 45.7, sarcoidosis and diastolic heart failure. She also has a history of postmenopausal bleeding with a negative endometrial biopsy. On 08/09/2016, she underwent a total abdominal hysterectomy and bilateral salpingo-oophorectomy. She was found to have enlarged fibroids and multiple abdominal wall and pelvic sidewall adhesions. Postoperatively, she developed acute confusion and hypoxia, requiring BiPAP. A chest x-ray showed mild prominent bilateral interstitial lung markings, likely congestive changes; as well as a right hilar opacity, likely known mass, similar to prior exam. The patient does have a history of a hilar mass with lung nodules, where she underwent a bronchoscopy in 03/2016. It is not clear whether or not she has had a pulmonary followup. Nevertheless, earlier this morning, she spiked a fever of 102.9. A repeat chest x-ray showed increased right perihilar and infrahilar opacity, concerning for pneumonia. The patient remains on BiPAP. She arouses easily to verbal stimuli. However, her attention span is decreased. She nods to a few questions and tries to speak, though her voice is muffled with the mask on. Denies headache. She has a little sore throat. Denies chest discomfort. Denies abdominal pain or nausea. Denies chills or aches. PAST MEDICAL HISTORY: Morbid obesity, diastolic heart failure, sarcoidosis, diabetes mellitus type 2, hypertension, iron deficiency, obstructive sleep apnea and arthritis. PAST SURGICAL HISTORY: 1. Partial colectomy. 2. Retained IUD, status post removal. FAMILY HISTORY: Positive for breast cancer, lung cancer, coronary artery disease and hypertension. SOCIAL HISTORY: Nonsmoker. ALLERGIES: No known drug allergies. MEDICATIONS: Piperacillin/tazobactam. A one-time dose of dexamethasone, 08/09/2016. Other medications are available and have been reviewed on the J[facility]. PHYSICAL EXAMINATION: GENERAL: An -[place] female, propped up in bed, on BiPAP. VITAL SIGNS: Temperature is 103.0, blood pressure 113/58, heart rate 114, respiratory rate 22, pulse oximetry is 93% on BiPAP. Weight is 258 pounds. HEENT: Normal conjunctivae. Oral mucosa is dry. LUNGS: Diminished aeration. Nonlabored. HEART: Normal S1 and S2. ABDOMEN: Obese, hypoactive bowel sounds, soft, and nontender. Abdominal wound VAC in place. GENITOURINARY: Keys in place. EXTREMITIES: Bilateral lower extremity trace edema. No cyanosis. NEUROLOGIC: Arouses to verbal stimuli. Nods to a few questions. Attention span decreased. SKIN: Without rash. Warm to touch. LABORATORY DATA: Today's WBC is 10.6, hemoglobin 8.5 and platelet count 172,000. Electrolytes are unremarkable, creatinine 2.1, BUN 29, glucose 205, total bilirubin 0.2, AST 13, ALT 20 and albumin 2.4. Urinalysis unremarkable for infection. Blood cultures pending. Chest x-ray per HPI. IMPRESSION: 1. Fever. 2. Acute respiratory failure. 3. Acute kidney injury. 4. Acute encephalopathy. 5. Status post total abdominal hysterectomy and bilateral salpingo-oophorectomy on 08/09/2016. 6. Abdominal wound. PLAN: Continue the Piperacillin/tazobactam. Avoid vancomycin in light of renal failure. Monitor laboratory values and await blood cultures. Check lactic acid. Supportive care. Thank you, Dr. Hurt, for asking us to participate in this patient's care. Should you have further questions or concerns, please call. AL DE LA TORRE MD DR: [email or web address]/graciela JOB#: [id number] / [id number]
[2016-08-13] MEDS: INSULIN ASPART 300 UNITS/3 ML INSULN.PEN SQ SCH ×3 (08:28→17:05)
[2016-08-13] MEDS: FUROSEMIDE 20 MG TABLET PO SCH ×2 (09:18→14:13)
[2016-08-13] MEDS: GABAPENTIN 300 MG CAPSULE. PO SCH (09:18)
[2016-08-13] MEDS: POLYETHYLENE GLYCOL 3350 17 GM PACKET. PO SCH ×2 (09:18→21:20)
--- NOTE | 2016-08-13 10:44 | PDOC ---
Infectious Disease Note Subjective Subjective feeling better ROS ROS GEN: Denies fevers, chills, sweats HEENT: Denies blurred vision, sore throat CV: Denies chest pain RESP: Denies shortness of air, cough GI: Denies n/v/d NEURO: Denies confusion, dizziness Vital Sign Vital Signs Vital Signs Date Time Temp Pulse Resp B/P Pulse Ox O2 Delivery O2 Flow Rate FiO2 08/13/16 07:17 98 BiPAP/CPAP 08/13/16 07:00 98.8 84 20 150/72 98.8 08/12/16 15:00 3.0 Physical Exam PHYSICAL EXAM GENERAL: NAD, Alert HEENT: PERRL, OC/OP NECK: Supple, no JVD, no LN LUNGS: Clear HEART: S1S2, no gallop, no murmur ABD: Soft, NT, no organomegaly, no rebound EXT: No edema, no cyanosis SOUS [employer]: Alert, oriented x 3, no focal neurologic deficit SKIN: No rash IV: ok Labs Lab Laboratory Tests Test 08/12/16 11:34 08/12/16 16:21 08/12/16 20:52 08/13/16 05:50 Glucose (Fingerstick) 225mg/dL (70-99) 194mg/dL (70-99) 204mg/dL (70-99) White Blood Count 12.2x10^3/uL (4.0-11.0) Red Blood Count 2.64x10^6/uL (3.50-5.40) Hemoglobin 7.3g/dL (12.0-15.5) Hematocrit 23.0% (36.0-47.0) Mean Corpuscular Volume 87fL (79-100) Mean Corpuscular Hemoglobin 28pg (25-35) Mean Corpuscular Hemoglobin Concent 32g/dL (31-37) Red Cell Distribution Width 15.7% (11.5-14.5) Platelet Count 170x10^3/uL (140-400) Neutrophils (%) (Auto) 90% (31-73) Lymphocytes (%) (Auto) 5% (24-48) Monocytes (%) (Auto) 3% (0-9) Eosinophils (%) (Auto) 2% (0-3) Basophils (%) (Auto) 0% (0-3) Neutrophils # (Auto) 10.9x10^3uL (1.8-7.7) Lymphocytes # (Auto) 0.7x10^3/uL (1.0-4.8) Monocytes # (Auto) 0.4x10^3/uL (0.0-1.1) Eosinophils # (Auto) 0.2x10^3/uL (0.0-0.7) Basophils # (Auto) 0.0x10^3/uL (0.0-0.2) Sodium Level 144mmol/L (136-145) Potassium Level 4.5mmol/L (3.5-5.1) Chloride Level 104mmol/L (98-107) Carbon Dioxide Level 30mmol/L (21-32) Anion Gap 10 (6-14) Blood Urea Nitrogen 37mg/dL (7-20) Creatinine 2.2mg/dL (0.6-1.0) Estimated GFR (Cockcroft-Gault) 27.1 Glucose Level 183mg/dL (70-99) Calcium Level 8.6mg/dL (8.5-10.1) Test 08/13/16 07:30 Glucose (Fingerstick) 164mg/dL (70-99) Micro culture neg Objective Assessment Fever. ? post-op vs infection Leukocytosis Acute respiratory failure, on BiPAP. -hx hilar mass and lung nodules s/p bronch in Mar 2016 -hx sarcoidosis -hx POLY Acute kidney injury Acute encephalopathy s/p SANTHOSH and BSO, 08/09 Abdominal wound with vac in place Morbid obesity Plan Plan of Care change antibiotics to po augmentin pt/ot up in chair d/c AL Rascon MD Aug 13, 2016 10:44
[2016-08-13] MEDS: KETOROLAC TROMETHAMINE 30 MG/ML SYRINGE. IV PRN (11:00)
--- NOTE | 2016-08-13 12:17 | PDOC ---
PROGRESS NOTES Assessment Problems Medical Problems: (1) Fibroid uterus Status: Acute (2) Post-menopausal bleeding Status: Acute Metabolic encephalopathy, much better today. This may be due to the pneumonia and post-operative status Plan No additional logical studies at this time Will follow Subjective No complaints Objective Vital Signs Date Time Temp Pulse Resp B/P Pulse Ox O2 Delivery O2 Flow Rate FiO2 08/13/16 11:17 97 Nasal Cannula 4.0 08/13/16 10:52 98.8 99 20 150/77 98.8 Intake and Output 08/13/16 07:00 Intake Total 940 ml Output Total 1800 ml Balance -860 ml Intake Oral 240 ml IV Total 700 ml Output Urine Total 1800 ml PHYSICAL EXAM Alert. Oriented to time, place and person. PERRL. EOMI. CN: no focal findings. Muscle tone: normal. Muscle strength: 5/5 DTR: 1+ Plantar reflex: flexor Gait: not examined in bed. Sensory exam: no abnormal findings. No cerebellar signs elicited. No asterixis. Review of Relevant I have reviewed the following items robert (where applicable) has been applied. Labs Laboratory Tests Test 08/11/16 12:15 08/11/16 14:28 08/11/16 16:55 08/12/16 06:40 O2 Saturation 89% (92-99) Arterial Blood pH 7.33 (7.35-7.45) Arterial Blood pCO2 at Patient Temp 43mmHg (35-46) Arterial Blood pO2 at Patient Temp 62mmHg (65-108) Arterial Blood HCO3 22mmol/L (21-28) Arterial Blood Base Excess -3mmol/L (-3-3) FiO2 30 Lactic Acid Level 1.6mmol/L (0.4-2.0) Procalcitonin 6.80ng/mL (0.00-0.10) Glucose (Fingerstick) 319mg/dL (70-99) White Blood Count 16.8x10^3/uL (4.0-11.0) Red Blood Count 2.90x10^6/uL (3.50-5.40) Hemoglobin 8.0g/dL (12.0-15.5) Hematocrit 26.4% (36.0-47.0) Mean Corpuscular Volume 91fL (79-100) Mean Corpuscular Hemoglobin 28pg (25-35) Mean Corpuscular Hemoglobin Concent 30g/dL (31-37) Red Cell Distribution Width 16.2% (11.5-14.5) Platelet Count 162x10^3/uL (140-400) Neutrophils (%) (Auto) 89% (31-73) Lymphocytes (%) (Auto) 7% (24-48) Monocytes (%) (Auto) 4% (0-9) Eosinophils (%) (Auto) 1% (0-3) Basophils (%) (Auto) 0% (0-3) Neutrophils # (Auto) 14.8x10^3uL (1.8-7.7) Lymphocytes # (Auto) 1.2x10^3/uL (1.0-4.8) Monocytes # (Auto) 0.6x10^3/uL (0.0-1.1) Eosinophils # (Auto) 0.1x10^3/uL (0.0-0.7) Basophils # (Auto) 0.0x10^3/uL (0.0-0.2) Sodium Level 140mmol/L (136-145) Potassium Level 4.6mmol/L (3.5-5.1) Chloride Level 105mmol/L (98-107) Carbon Dioxide Level 26mmol/L (21-32) Anion Gap 9 (6-14) Blood Urea Nitrogen 40mg/dL (7-20) Creatinine 2.6mg/dL (0.6-1.0) Estimated GFR (Cockcroft-Gault) 22.4 Glucose Level 207mg/dL (70-99) Calcium Level 8.5mg/dL (8.5-10.1) Test 08/12/16 07:49 08/12/16 11:34 08/12/16 16:21 08/12/16 20:52 Glucose (Fingerstick) 190mg/dL (70-99) 225mg/dL (70-99) 194mg/dL (70-99) 204mg/dL (70-99) Test 08/13/16 05:50 08/13/16 07:30 08/13/16 11:26 White Blood Count 12.2x10^3/uL (4.0-11.0) Red Blood Count 2.64x10^6/uL (3.50-5.40) Hemoglobin 7.3g/dL (12.0-15.5) Hematocrit 23.0% (36.0-47.0) Mean Corpuscular Volume 87fL (79-100) Mean Corpuscular Hemoglobin 28pg (25-35) Mean Corpuscular Hemoglobin Concent 32g/dL (31-37) Red Cell Distribution Width 15.7% (11.5-14.5) Platelet Count 170x10^3/uL (140-400) Neutrophils (%) (Auto) 90% (31-73) Lymphocytes (%) (Auto) 5% (24-48) Monocytes (%) (Auto) 3% (0-9) Eosinophils (%) (Auto) 2% (0-3) Basophils (%) (Auto) 0% (0-3) Neutrophils # (Auto) 10.9x10^3uL (1.8-7.7) Lymphocytes # (Auto) 0.7x10^3/uL (1.0-4.8) Monocytes # (Auto) 0.4x10^3/uL (0.0-1.1) Eosinophils # (Auto) 0.2x10^3/uL (0.0-0.7) Basophils # (Auto) 0.0x10^3/uL (0.0-0.2) Sodium Level 144mmol/L (136-145) Potassium Level 4.5mmol/L (3.5-5.1) Chloride Level 104mmol/L (98-107) Carbon Dioxide Level 30mmol/L (21-32) Anion Gap 10 (6-14) Blood Urea Nitrogen 37mg/dL (7-20) Creatinine 2.2mg/dL (0.6-1.0) Estimated GFR (Cockcroft-Gault) 27.1 Glucose Level 183mg/dL (70-99) Calcium Level 8.6mg/dL (8.5-10.1) Glucose (Fingerstick) 164mg/dL (70-99) 167mg/dL (70-99) Laboratory Tests Test 08/12/16 16:21 08/12/16 20:52 08/13/16 05:50 08/13/16 07:30 Glucose (Fingerstick) 194mg/dL (70-99) 204mg/dL (70-99) 164mg/dL (70-99) White Blood Count 12.2x10^3/uL (4.0-11.0) Red Blood Count 2.64x10^6/uL (3.50-5.40) Hemoglobin 7.3g/dL (12.0-15.5) Hematocrit 23.0% (36.0-47.0) Mean Corpuscular Volume 87fL (79-100) Mean Corpuscular Hemoglobin 28pg (25-35) Mean Corpuscular Hemoglobin Concent 32g/dL (31-37) Red Cell Distribution Width 15.7% (11.5-14.5) Platelet Count 170x10^3/uL (140-400) Neutrophils (%) (Auto) 90% (31-73) Lymphocytes (%) (Auto) 5% (24-48) Monocytes (%) (Auto) 3% (0-9) Eosinophils (%) (Auto) 2% (0-3) Basophils (%) (Auto) 0% (0-3) Neutrophils # (Auto) 10.9x10^3uL (1.8-7.7) Lymphocytes # (Auto) 0.7x10^3/uL (1.0-4.8) Monocytes # (Auto) 0.4x10^3/uL (0.0-1.1) Eosinophils # (Auto) 0.2x10^3/uL (0.0-0.7) Basophils # (Auto) 0.0x10^3/uL (0.0-0.2) Sodium Level 144mmol/L (136-145) Potassium Level 4.5mmol/L (3.5-5.1) Chloride Level 104mmol/L (98-107) Carbon Dioxide Level 30mmol/L (21-32) Anion Gap 10 (6-14) Blood Urea Nitrogen 37mg/dL (7-20) Creatinine 2.2mg/dL (0.6-1.0) Estimated GFR (Cockcroft-Gault) 27.1 Glucose Level 183mg/dL (70-99) Calcium Level 8.6mg/dL (8.5-10.1) Test 08/13/16 11:26 Glucose (Fingerstick) 167mg/dL (70-99) Microbiology 08/11/16 Blood Culture - Preliminary, Resulted NO GROWTH AFTER 2 DAYS 08/11/16 Urine Culture - Preliminary, Resulted 08/11/16 Urine Culture Result 1 (GONZALO) - Preliminary, Resulted Medications Current Medications Cefazolin Sodium/ Dextrose 50 ml @ 100 mls/hr 1X PREOP PRN IV PRIOR TO PROCEDURE Last administered on 08/09/16 13:30; Start 08/09/16 at 06:00; Stop at 18:00; Status DC Sodium Chloride (Iv Sodium Chloride 0.9% 1000ml Bag) 1,000 ml @ 75 mls/hr [id number] IV Last administered on 08/10/16 06:27; Start 08/09/16 at 11:00; Stop 08/10/16 at 17:53; Status DC Dexamethasone Sodium Phosphate (Decadron) 20 mg STK-MED ONCE .ROUTE ; Start at 11:46; Stop 08/09/16 at 18:48; Status DC Ondansetron HCl 4 mg 4 mg STK-MED ONCE .ROUTE ; Start 08/09/16 at 11:46; Stop at 18:48; Status DC Propofol (Diprivan) 20 ml @ As Directed STK-MED ONCE IV ; Start 08/09/16 at 11: 46; Stop 08/09/16 at 18:48; Status DC Lidocaine HCl 100 mg STK-MED ONCE .ROUTE ; Start 08/09/16 at 11:46; Stop at 18:48; Status DC Fentanyl Citrate (Fentanyl 2ml Vial) 100 mcg STK-MED ONCE .ROUTE ; Start at 11:46; Stop 08/09/16 at 18:48; Status DC Neostigmine Methylsulfate 5 mg STK-MED ONCE .ROUTE ; Start 08/09/16 at 11:46; Stop 08/09/16 at 18:48; Status DC Rocuronium [place] (Zemuron) 50 mg STK-MED ONCE .ROUTE ; Start 08/09/16 at 11:46 ; Stop 08/09/16 at 18:48; Status DC Glycopyrrolate (Robinul) 1 mg STK-MED ONCE .ROUTE ; Start 08/09/16 at 11:48; Stop 08/09/16 at 18:48; Status DC Cellulose 1 each STK-MED ONCE .ROUTE ; Start 08/09/16 at 12:09; Stop 08/09/16 at 18:48; Status DC Lidocaine/ Epinephrine (Xylocaine 1%-Epi 1:100,000) 20 ml STK-MED ONCE .ROUTE Last administered on 08/09/16 13:45; Start 08/09/16 at 12:09; Stop 08/09/16 at 18:48; Status DC Bupivacaine HCl/ Epinephrine Bitart (Sensorcaine-Epi 0.25%-1:138636 Mpf) 30 ml STK-MED ONCE .ROUTE Last administered on 08/09/16 13:45; Start 08/09/16 at 12: 09; Stop 08/09/16 at 18:48; Status DC Estrogens Conjugated (Premarin) 30 sohan STK-MED ONCE .ROUTE ; Start 08/09/16 at 12:09; Stop 08/09/16 at 18:48; Status DC Insulin Aspart (Novolog Vial) 4 unit 1X ONCE SQ Last administered on 12:58; Start 08/09/16 at 13:00; Stop 08/09/16 at 13:01; Status DC Esmolol HCl (Brevibloc) 100 mg STK-MED ONCE IV ; Start 08/09/16 at 13:52; Stop 08/09/16 at 18:48; Status DC Insulin Human Regular (Novolin R Vial) 100 unit STK-MED ONCE .ROUTE ; Start at 14:23; Stop 08/09/16 at 18:48; Status DC Rocuronium [place] (Zemuron) 50 mg STK-MED ONCE .ROUTE ; Start 08/09/16 at 14:39 ; Stop 08/09/16 at 18:48; Status DC Ephedrine Sulfate 50 mg STK-MED ONCE IV ; Start 08/09/16 at 16:12; Stop at 18:48; Status DC Desflurane (Suprane) 90 ml STK-MED ONCE IH ; Start 08/09/16 at 16:24; Stop 08/09 at 18:48; Status DC Calcium Carbonate/ Glycine (Tums) 500 mg PRN Q3HRS PRN PO HEARTBURN / GAS; Start 08/09/16 at 16:45 Simethicone (Gas-X) 80 mg PRN AFTMEALHC PRN PO GAS / BLOATING; Start 08/09/16 at 16:45 Zolpidem Tartrate (Ambien) 5 mg PRN QHS PRN PO INSOMNIA, MAY REPEAT IN 1HR; Start 08/09/16 at 16:45 Diphenhydramine HCl (Benadryl) 25 mg PRN Q6HRS PRN PO ITCHING; Start 08/09/16 at 16:45 Diphenhydramine HCl (Benadryl) 25 mg PRN Q6HRS PRN IV ITCHING; Start 08/09/16 at 16:45 Sodium Chloride (Normal Saline Flush) 3 ml QSHIFT PRN IV AFTER MEDS AND BLOOD DRAWS; Start 08/09/16 at 16:45 Dextrose 12.5 gm PRN Q15MIN PRN IV SEE COMMENTS; Start 08/09/16 at 16:45; Status Cancel Oxycodone/ Acetaminophen (Percocet 5/325) 2 tab PRN Q4HRS PRN PO MODERATE PAIN , SEVERE PAIN Last administered on 08/13/16 08:19; Start 08/09/16 at 16:45 Ketorolac Tromethamine (Toradol) 30 mg PRN Q6HRS PRN IV PAIN Last administered on 08/13/16 11:00; Start 08/09/16 at 16:45; Stop 08/14/16 at 16:44 Gabapentin (Neurontin) 600 mg Q8HRS PO Last administered on 08/10/16 21:15; Start 08/09/16 at 17:00; Stop 08/10/16 at 22:59; Status DC Ondansetron HCl (Zofran) 4 mg PRN Q6HRS PRN IV NAUESA, 1ST CHOICE; Start at 16:45; Stop 08/09/16 at 18:48; Status DC Prochlorperazine Edisylate (Compazine) 5 mg PRN Q6HRS PRN IV N/V, 2nd Choice, MR X1; Start 08/09/16 at 16:45 Insulin Aspart (Novolog) 0-9 UNITS TIDWMEALS SQ Last administered on 08/13/16 08:28; Start 08/09/16 at 17:00 Dextrose 12.5 gm PRN Q15MIN PRN IV SEE COMMENTS; Start 08/09/16 at 16:45 Fentanyl Citrate (Fentanyl 2ml Vial) 100 mcg STK-MED ONCE .ROUTE ; Start at 17:26; Stop 08/09/16 at 18:48; Status DC Ondansetron HCl (Zofran) 4 mg PRN Q6HRS PRN IV Nausea; Start 08/09/16 at 17:45 ; Stop 08/10/16 at 17:44; Status DC Fentanyl Citrate (Fentanyl 2ml Vial) 25 mcg PRN Q5MIN PRN IV MILD PAIN; Start 08/09/16 at 17:45; Stop 08/09/16 at 18:48; Status DC Fentanyl Citrate (Fentanyl 2ml Vial) 50 mcg PRN Q5MIN PRN IV MODERATE PAIN Last administered on 08/09/16t 17:53; Start 08/09/16 at 17:45; Stop 08/09/16 at 18:48; Status DC Morphine Sulfate 1 mg 1 mg PRN Q10MIN PRN IV SEVERE PAIN; Start 08/09/16 at 17: 45; Stop 08/09/16 at 18:48; Status DC Lactated Ringer's (Iv Lactated Ringers) 1,000 ml @ 0 mls/hr Q0M IV ; Start at 17:32; Stop 08/10/16 at 05:31; Status DC Lidocaine HCl 2 ml 1X PRN PRN ID IV START; Start 08/09/16 at 17:45; Stop at 18:48; Status DC Hydromorphone HCl (Dilaudid) 0.5 mg PRN Q10MIN PRN IV SEV PAIN,Second choice; Start 08/09/16 at 17:45; Stop 08/09/16 at 18:48; Status DC Prochlorperazine Edisylate (Compazine) 5 mg PACU PRN PRN IV NAUSEA; Start 08/09 at 17:45; Stop 08/09/16 at 18:48; Status DC Albuterol Sulfate (Ventolin Neb Soln) 2.5 mg PRN Q4HRS PRN NEB SHORTNESS OF BREATH Last administered on 08/10/16t 06:51; Start 08/09/16 at 21:30 Furosemide (Lasix) 20 mg [id number] PO Last administered on 08/13/16 09:18; Start 08/10/16 at 09:00 Furosemide (Lasix) 20 mg 1X ONCE IVP Last administered on 08/10/16 16:28; Start 08/10/16 at 16:15; Stop 08/10/16 at 16:17; Status DC Insulin Detemir (Levemir) 10 units QHS SQ Last administered on 08/11/16 23:19 ; Start 08/10/16 at 21:00; Stop 08/12/16 at 19:45; Status DC Gabapentin (Neurontin) 600 mg DAILY PO Last administered on 08/13/16 09:18; Start 08/11/16 at 09:00 Acetaminophen 650 mg 650 mg PRN Q6HRS PRN PO MILD PAIN / TEMP; Start 08/11/16 at 08:30 Magnesium Sulfate/ Dextrose 50 ml @ 25 mls/hr 1X ONCE IV ; Start 08/11/16 at 08 :30; Stop 08/11/16 at 11:07; Status DC Piperacillin Sod/ Tazobactam Sod/ Sodium Chloride (Zosyn/Iv Sodium Chloride 0.9 % 50ml) 50 ml @ 100 mls/hr Q6HRS IV Last administered on 08/13/16 06:05; Start 08/11/16 at 08:30; Stop 08/13/16 at 10:45; Status DC Acetaminophen (Tylenol) 650 mg PRN Q6HRS PRN [place] MILD PAIN / TEMP Last administered on 08/11/16 23:11; Start 08/11/16 at 10:15 Albuterol/ Ipratropium (Duoneb) 3 ml RTQID NEB Last administered on 08/13/16 11:17; Start 08/11/16 at 12:00 Budesonide 0.5 mg 0.5 mg RTBID NEB Last administered on 08/13/16 07:16; Start 08/11/16 at 20:00 Ceftriaxone Sodium/Sodium Chloride (Rocephin/Iv Sodium Chloride 0.9% 50ml) 50 ml @ 100 mls/hr Q24H IV ; Start 08/11/16 at 11:00; Stop 08/11/16 at 11:00; Status DC Furosemide 20 mg 20 mg 1X ONCE IVP Last administered on 08/11/16 11:27; Start 08/11/16 at 11:15; Stop 08/11/16 at 11:20; Status DC Linezolid (Zyvox Premix) 300 ml @ 300 mls/hr Q12HR IV Last administered on 09:19; Start 08/11/16 at 14:30; Stop 08/13/16 at 10:45; Status DC Insulin Detemir (Levemir) 25 units QHS SQ Last administered on 08/12/16 20:57 ; Start 08/12/16 at 21:00 Polyethylene Glycol (miraLAX PACKET) 17 gm BID PO Last administered on 09:18; Start 08/12/16 at 21:00 Oxycodone/ Acetaminophen (Percocet 5/325) 1 tab PRN Q4HRS PRN PO PAIN; Start at 19:45 Amoxicillin/ Clavulanate Potassium (Augmentin 875/ 125mg) 1 tab BID PO ; Start 08/13/16 at 21:00 Active Scripts Active Klor-Con Sprinkle (Potassium Chloride) 10 Meq Capsule.er 20 Meq PO DAILY Lisinopril 20 Mg Tablet 1 Tab PO BID Ferrous Sulfate 325 Mg Tablet 325 Tab PO DAILY Gabapentin 300 Mg Capsule 600 Mg PO TID Lasix (Furosemide) 40 Mg Tablet 40 Mg PO BID Hydralazine Hcl 25 Mg Tablet 1 Tab PO TID Reported Ventolin Hfa Inhaler (Albuterol Sulfate) 18 Gm Hfa.aer.ad 2 Puff INH QID Acetaminophen 160 Mg/5 Ml Solution 325 Mg PO QID Bactrim 400-80 Mg Tablet (Sulfamethoxazole/Trimethoprim) 1 Each Tablet 1 Tab PO BID Zantac (Ranitidine Hcl) 150 Mg Tablet 150 Mg PO DAILY Prednisone 20 Mg Tablet 20 Mg PO DAILY Novolog (Insulin Aspart) 100 Unit/1 Ml Cartridge 8 Unit SQ TIDAC Levemir (Insulin Detemir) 100 Unit/1 Ml Vial 36 Unit SQ HS Cyclobenzaprine Hcl 10 Mg Tablet 10 Mg PO TID Amlodipine Besylate 10 Mg Tablet 10 Mg PO DAILY Ibuprofen 800 Mg Tablet 800 Mg PO PRN Q6HRS PRN Lovastatin 20 Mg Tablet 20 Mg PO HS Vitals/I & O Vital Sign - Last 24 Hours 08/12/16 08/12/16 08/12/16 08/12/16 15:00 16:23 19:00 19:56 Temp 98.8 98.3 98.8 98.3 Pulse 88 83 Resp 14 20 B/P 133/59 125/52 Pulse Ox 100 98 O2 Delivery Nasal Cannula BiPAP/CPAP BiPAP/CPAP BiPAP/CPAP O2 Flow Rate 3.0 08/12/16 08/12/16 08/12/16 08/12/16 19:56 20:00 22:08 22:43 Temp 98.4 98.4 Pulse 79 Resp 19 B/P 122/59 Pulse Ox 99 O2 Delivery BiPAP/CPAP Bi-pap BiPAP/CPAP BiPAP/CPAP 08/12/16 08/13/16 08/13/16 08/13/16 23:41 01:30 02:47 03:35 Temp 98.6 98.6 Pulse 86 Resp 24 B/P 133/68 Pulse Ox 99 O2 Delivery BiPAP/CPAP BiPAP/CPAP BiPAP/CPAP BiPAP/CPAP 08/13/16 08/13/16 08/13/16 08/13/16 07:00 07:17 10:52 11:17 Temp 98.8 98.8 98.8 98.8 Pulse 84 99 Resp 20 20 B/P 150/72 150/77 Pulse Ox 100 98 98 97 O2 Delivery BiPAP/CPAP BiPAP/CPAP Nasal Cannula Nasal Cannula O2 Flow Rate 4.0 4.0 Intake and Output 08/12/16 08/12/16 08/13/16 15:00 23:00 07:00 Intake Total 350 ml 540 ml 50 ml Output Total 950 ml 850 ml Balance 350 ml -410 ml -[address], 08/11: FINDINGS No acute intracranial hemorrhage is identified. Lopez-white differentiation of the major vascular territories is preserved. There is no intra-axial mass effect, midline shift, extra-axial fluid collection. There is some irregularity of the left frontal calvarium likely on a old posttraumatic basis or due to previous surgery. There is likely very tiny lipoma along the anterior falx inferiorly. IMPRESSION 1. No acute intracranial abnormality is identified by CT. If there is suspicion for evolving or acute ischemia, followup CT or MRI may be beneficial. Critical results were called to patient's nurse Shari Meek August 11, 2016 at 16:51. YOGI ADAMSON MD Aug 13, 2016 12:17
--- NOTE | 2016-08-13 12:24 | PDOC ---
PULMONARY PROGRESS NOTES Subjective PT FEELS BETTER NOT MORE SOA Vitals Vital Signs Date Time Temp Pulse Resp B/P Pulse Ox O2 Delivery O2 Flow Rate FiO2 08/13/16 11:17 97 Nasal Cannula 4.0 08/13/16 10:52 98.8 99 20 150/77 98.8 Comments ro ROS: No Nausea, No Chest Pain, No Abdominal Pain, No Increase Cough General: Alert, No acute distress HEENT: Other (nc, at perrl, bipap mask on, ) Lungs: Wheezing Cardiovascular: S1, S2 Abdomen: Soft, Non-tender, Other (no mass) Neuro Exam: Alert Extremities: Other (edema) Skin: Warm Labs Laboratory Tests Test 08/11/16 14:28 08/11/16 16:55 08/12/16 06:40 08/12/16 07:49 Lactic Acid Level 1.6mmol/L (0.4-2.0) Procalcitonin 6.80ng/mL (0.00-0.10) Glucose (Fingerstick) 319mg/dL (70-99) 190mg/dL (70-99) White Blood Count 16.8x10^3/uL (4.0-11.0) Red Blood Count 2.90x10^6/uL (3.50-5.40) Hemoglobin 8.0g/dL (12.0-15.5) Hematocrit 26.4% (36.0-47.0) Mean Corpuscular Volume 91fL (79-100) Mean Corpuscular Hemoglobin 28pg (25-35) Mean Corpuscular Hemoglobin Concent 30g/dL (31-37) Red Cell Distribution Width 16.2% (11.5-14.5) Platelet Count 162x10^3/uL (140-400) Neutrophils (%) (Auto) 89% (31-73) Lymphocytes (%) (Auto) 7% (24-48) Monocytes (%) (Auto) 4% (0-9) Eosinophils (%) (Auto) 1% (0-3) Basophils (%) (Auto) 0% (0-3) Neutrophils # (Auto) 14.8x10^3uL (1.8-7.7) Lymphocytes # (Auto) 1.2x10^3/uL (1.0-4.8) Monocytes # (Auto) 0.6x10^3/uL (0.0-1.1) Eosinophils # (Auto) 0.1x10^3/uL (0.0-0.7) Basophils # (Auto) 0.0x10^3/uL (0.0-0.2) Sodium Level 140mmol/L (136-145) Potassium Level 4.6mmol/L (3.5-5.1) Chloride Level 105mmol/L (98-107) Carbon Dioxide Level 26mmol/L (21-32) Anion Gap 9 (6-14) Blood Urea Nitrogen 40mg/dL (7-20) Creatinine 2.6mg/dL (0.6-1.0) Estimated GFR (Cockcroft-Gault) 22.4 Glucose Level 207mg/dL (70-99) Calcium Level 8.5mg/dL (8.5-10.1) Test 08/12/16 11:34 08/12/16 16:21 08/12/16 20:52 08/13/16 05:50 Glucose (Fingerstick) 225mg/dL (70-99) 194mg/dL (70-99) 204mg/dL (70-99) White Blood Count 12.2x10^3/uL (4.0-11.0) Red Blood Count 2.64x10^6/uL (3.50-5.40) Hemoglobin 7.3g/dL (12.0-15.5) Hematocrit 23.0% (36.0-47.0) Mean Corpuscular Volume 87fL (79-100) Mean Corpuscular Hemoglobin 28pg (25-35) Mean Corpuscular Hemoglobin Concent 32g/dL (31-37) Red Cell Distribution Width 15.7% (11.5-14.5) Platelet Count 170x10^3/uL (140-400) Neutrophils (%) (Auto) 90% (31-73) Lymphocytes (%) (Auto) 5% (24-48) Monocytes (%) (Auto) 3% (0-9) Eosinophils (%) (Auto) 2% (0-3) Basophils (%) (Auto) 0% (0-3) Neutrophils # (Auto) 10.9x10^3uL (1.8-7.7) Lymphocytes # (Auto) 0.7x10^3/uL (1.0-4.8) Monocytes # (Auto) 0.4x10^3/uL (0.0-1.1) Eosinophils # (Auto) 0.2x10^3/uL (0.0-0.7) Basophils # (Auto) 0.0x10^3/uL (0.0-0.2) Sodium Level 144mmol/L (136-145) Potassium Level 4.5mmol/L (3.5-5.1) Chloride Level 104mmol/L (98-107) Carbon Dioxide Level 30mmol/L (21-32) Anion Gap 10 (6-14) Blood Urea Nitrogen 37mg/dL (7-20) Creatinine 2.2mg/dL (0.6-1.0) Estimated GFR (Cockcroft-Gault) 27.1 Glucose Level 183mg/dL (70-99) Calcium Level 8.6mg/dL (8.5-10.1) Test 08/13/16 07:30 08/13/16 11:26 Glucose (Fingerstick) 164mg/dL (70-99) 167mg/dL (70-99) Laboratory Tests Test 08/12/16 16:21 08/12/16 20:52 08/13/16 05:50 08/13/16 07:30 Glucose (Fingerstick) 194mg/dL (70-99) 204mg/dL (70-99) 164mg/dL (70-99) White Blood Count 12.2x10^3/uL (4.0-11.0) Red Blood Count 2.64x10^6/uL (3.50-5.40) Hemoglobin 7.3g/dL (12.0-15.5) Hematocrit 23.0% (36.0-47.0) Mean Corpuscular Volume 87fL (79-100) Mean Corpuscular Hemoglobin 28pg (25-35) Mean Corpuscular Hemoglobin Concent 32g/dL (31-37) Red Cell Distribution Width 15.7% (11.5-14.5) Platelet Count 170x10^3/uL (140-400) Neutrophils (%) (Auto) 90% (31-73) Lymphocytes (%) (Auto) 5% (24-48) Monocytes (%) (Auto) 3% (0-9) Eosinophils (%) (Auto) 2% (0-3) Basophils (%) (Auto) 0% (0-3) Neutrophils # (Auto) 10.9x10^3uL (1.8-7.7) Lymphocytes # (Auto) 0.7x10^3/uL (1.0-4.8) Monocytes # (Auto) 0.4x10^3/uL (0.0-1.1) Eosinophils # (Auto) 0.2x10^3/uL (0.0-0.7) Basophils # (Auto) 0.0x10^3/uL (0.0-0.2) Sodium Level 144mmol/L (136-145) Potassium Level 4.5mmol/L (3.5-5.1) Chloride Level 104mmol/L (98-107) Carbon Dioxide Level 30mmol/L (21-32) Anion Gap 10 (6-14) Blood Urea Nitrogen 37mg/dL (7-20) Creatinine 2.2mg/dL (0.6-1.0) Estimated GFR (Cockcroft-Gault) 27.1 Glucose Level 183mg/dL (70-99) Calcium Level 8.6mg/dL (8.5-10.1) Test 08/13/16 11:26 Glucose (Fingerstick) 167mg/dL (70-99) Medications Active Scripts Medications Dose Route/Sig Days Date Category Ventolin Hfa Inhaler (Albuterol Sulfate) 18 Gm Hfa.aer.ad 2 Puff INH QID 08/09/16 Reported Acetaminophen 160 Mg/5 Ml Solution 325 Mg PO QID 08/09/16 Reported Bactrim 400-80 Mg Tablet (Sulfamethoxazole/Trimethoprim) 1 Each Tablet 1 Tab PO BID 08/09/16 Reported Zantac (Ranitidine Hcl) 150 Mg Tablet 150 Mg PO DAILY 08/09/16 Reported Prednisone 20 Mg Tablet 20 Mg PO DAILY 08/09/16 Reported Novolog (Insulin Aspart) 100 Unit/1 Ml Cartridge 8 Unit SQ TIDAC 08/09/16 Reported Levemir (Insulin Detemir) 100 Unit/1 Ml Vial 36 Unit SQ HS 08/09/16 Reported Cyclobenzaprine Hcl 10 Mg Tablet 10 Mg PO TID 08/09/16 Reported Klor-Con Sprinkle (Potassium Chloride) 10 Meq Capsule.er 20 Meq PO DAILY 04/06/16 Rx Lisinopril 20 Mg Tablet 1 Tab PO BID 04/06/16 Rx Ferrous Sulfate 325 Mg Tablet 325 Tab PO DAILY 04/06/16 Rx Gabapentin 300 Mg Capsule 600 Mg PO TID 04/06/16 Rx Lasix (Furosemide) 40 Mg Tablet 40 Mg PO BID 04/06/16 Rx Hydralazine Hcl 25 Mg Tablet 1 Tab PO TID 04/06/16 Rx Amlodipine Besylate 10 Mg Tablet 10 Mg PO DAILY 03/28/16 Reported Ibuprofen 800 Mg Tablet 800 Mg PO PRN Q6HRS PRN 03/28/16 Reported Lovastatin 20 Mg Tablet 20 Mg PO HS 03/28/16 Reported Comments cxr reviewed, Increasing right perihilar and infrahilar opacity, likely pneumonia. Impression . IMPRESSION: 1. Acute on chronic hypoxemic respiratory failure, multifactorial in etiology. 2. Abnormal chest x-ray. 3. Fever ? pneumonia. 4. Acute bronchospasm. 5. Right hilar mass, pulmonary nodule and mediastinal lymphadenopathy ? etiology. Plan . REVIEW OLD RECORDS FROM OFFICE PRN BIPAP 02 D/C WHEN OK WITH SURGERY SITA RICH MD Aug 13, 2016 12:24
--- NOTE | 2016-08-13 13:42 | PDOC ---
PROGRESS NOTES Chief Complaint Chief Complaint Acute respiratory failure, hypoxia, on 3l C Diastolic heart failure hx hilar mass and lung nodules s/p bronch in Mar 2016 hx sarcoidosis hx POLY Acute kidney injury Acute encephalopathy improving. s/p SANTHOSH and BSO, 08/09 Abdominal wound with vac in place Morbid obesity, BMI 45 History of Present Illness History of Present Illness on NC getting better no fever, abx changed to PO Hgb dropping slowly, will transfuse to help str and hypoxia Vitals Vitals Vital Signs Date Time Temp Pulse Resp B/P Pulse Ox O2 Delivery O2 Flow Rate FiO2 08/13/16 11:17 97 Nasal Cannula 4.0 08/13/16 10:52 98.8 99 20 150/77 98.8 Physical Exam General: Alert, Oriented X3, Cooperative Heart: Regular rate Lungs: Wheezing Abdomen: Soft, No masses, Other (mild tenderness; hypoactive bowel sounds; Wound vac in place.) Extremities: No clubbing, No edema Skin: No rashes, No significant lesion Labs LABS Laboratory Tests Test 08/12/16 16:21 08/12/16 20:52 08/13/16 05:50 08/13/16 07:30 Glucose (Fingerstick) 194mg/dL (70-99) 204mg/dL (70-99) 164mg/dL (70-99) White Blood Count 12.2x10^3/uL (4.0-11.0) Red Blood Count 2.64x10^6/uL (3.50-5.40) Hemoglobin 7.3g/dL (12.0-15.5) Hematocrit 23.0% (36.0-47.0) Mean Corpuscular Volume 87fL (79-100) Mean Corpuscular Hemoglobin 28pg (25-35) Mean Corpuscular Hemoglobin Concent 32g/dL (31-37) Red Cell Distribution Width 15.7% (11.5-14.5) Platelet Count 170x10^3/uL (140-400) Neutrophils (%) (Auto) 90% (31-73) Lymphocytes (%) (Auto) 5% (24-48) Monocytes (%) (Auto) 3% (0-9) Eosinophils (%) (Auto) 2% (0-3) Basophils (%) (Auto) 0% (0-3) Neutrophils # (Auto) 10.9x10^3uL (1.8-7.7) Lymphocytes # (Auto) 0.7x10^3/uL (1.0-4.8) Monocytes # (Auto) 0.4x10^3/uL (0.0-1.1) Eosinophils # (Auto) 0.2x10^3/uL (0.0-0.7) Basophils # (Auto) 0.0x10^3/uL (0.0-0.2) Sodium Level 144mmol/L (136-145) Potassium Level 4.5mmol/L (3.5-5.1) Chloride Level 104mmol/L (98-107) Carbon Dioxide Level 30mmol/L (21-32) Anion Gap 10 (6-14) Blood Urea Nitrogen 37mg/dL (7-20) Creatinine 2.2mg/dL (0.6-1.0) Estimated GFR (Cockcroft-Gault) 27.1 Glucose Level 183mg/dL (70-99) Calcium Level 8.6mg/dL (8.5-10.1) Test 08/13/16 11:26 Glucose (Fingerstick) 167mg/dL (70-99) Review of Systems Review of Systems no n.v.d no stool Assessment and Plan Assessmemt and Plan add stool softener PRBC transfusion today PT and OT dispo to SNU, not ready Problems Medical Problems: (1) Fibroid uterus Status: Acute (2) Post-menopausal bleeding Status: Acute Problems: Comment Review of Relevant I have reviewed the following items robert (where applicable) has been applied. Labs Laboratory Tests Test 08/11/16 14:28 08/11/16 16:55 08/12/16 06:40 08/12/16 07:49 Lactic Acid Level 1.6mmol/L (0.4-2.0) Procalcitonin 6.80ng/mL (0.00-0.10) Glucose (Fingerstick) 319mg/dL (70-99) 190mg/dL (70-99) White Blood Count 16.8x10^3/uL (4.0-11.0) Red Blood Count 2.90x10^6/uL (3.50-5.40) Hemoglobin 8.0g/dL (12.0-15.5) Hematocrit 26.4% (36.0-47.0) Mean Corpuscular Volume 91fL (79-100) Mean Corpuscular Hemoglobin 28pg (25-35) Mean Corpuscular Hemoglobin Concent 30g/dL (31-37) Red Cell Distribution Width 16.2% (11.5-14.5) Platelet Count 162x10^3/uL (140-400) Neutrophils (%) (Auto) 89% (31-73) Lymphocytes (%) (Auto) 7% (24-48) Monocytes (%) (Auto) 4% (0-9) Eosinophils (%) (Auto) 1% (0-3) Basophils (%) (Auto) 0% (0-3) Neutrophils # (Auto) 14.8x10^3uL (1.8-7.7) Lymphocytes # (Auto) 1.2x10^3/uL (1.0-4.8) Monocytes # (Auto) 0.6x10^3/uL (0.0-1.1) Eosinophils # (Auto) 0.1x10^3/uL (0.0-0.7) Basophils # (Auto) 0.0x10^3/uL (0.0-0.2) Sodium Level 140mmol/L (136-145) Potassium Level 4.6mmol/L (3.5-5.1) Chloride Level 105mmol/L (98-107) Carbon Dioxide Level 26mmol/L (21-32) Anion Gap 9 (6-14) Blood Urea Nitrogen 40mg/dL (7-20) Creatinine 2.6mg/dL (0.6-1.0) Estimated GFR (Cockcroft-Gault) 22.4 Glucose Level 207mg/dL (70-99) Calcium Level 8.5mg/dL (8.5-10.1) Test 08/12/16 11:34 08/12/16 16:21 08/12/16 20:52 08/13/16 05:50 Glucose (Fingerstick) 225mg/dL (70-99) 194mg/dL (70-99) 204mg/dL (70-99) White Blood Count 12.2x10^3/uL (4.0-11.0) Red Blood Count 2.64x10^6/uL (3.50-5.40) Hemoglobin 7.3g/dL (12.0-15.5) Hematocrit 23.0% (36.0-47.0) Mean Corpuscular Volume 87fL (79-100) Mean Corpuscular Hemoglobin 28pg (25-35) Mean Corpuscular Hemoglobin Concent 32g/dL (31-37) Red Cell Distribution Width 15.7% (11.5-14.5) Platelet Count 170x10^3/uL (140-400) Neutrophils (%) (Auto) 90% (31-73) Lymphocytes (%) (Auto) 5% (24-48) Monocytes (%) (Auto) 3% (0-9) Eosinophils (%) (Auto) 2% (0-3) Basophils (%) (Auto) 0% (0-3) Neutrophils # (Auto) 10.9x10^3uL (1.8-7.7) Lymphocytes # (Auto) 0.7x10^3/uL (1.0-4.8) Monocytes # (Auto) 0.4x10^3/uL (0.0-1.1) Eosinophils # (Auto) 0.2x10^3/uL (0.0-0.7) Basophils # (Auto) 0.0x10^3/uL (0.0-0.2) Sodium Level 144mmol/L (136-145) Potassium Level 4.5mmol/L (3.5-5.1) Chloride Level 104mmol/L (98-107) Carbon Dioxide Level 30mmol/L (21-32) Anion Gap 10 (6-14) Blood Urea Nitrogen 37mg/dL (7-20) Creatinine 2.2mg/dL (0.6-1.0) Estimated GFR (Cockcroft-Gault) 27.1 Glucose Level 183mg/dL (70-99) Calcium Level 8.6mg/dL (8.5-10.1) Test 08/13/16 07:30 08/13/16 11:26 Glucose (Fingerstick) 164mg/dL (70-99) 167mg/dL (70-99) Laboratory Tests Test 08/12/16 16:21 08/12/16 20:52 08/13/16 05:50 08/13/16 07:30 Glucose (Fingerstick) 194mg/dL (70-99) 204mg/dL (70-99) 164mg/dL (70-99) White Blood Count 12.2x10^3/uL (4.0-11.0) Red Blood Count 2.64x10^6/uL (3.50-5.40) Hemoglobin 7.3g/dL (12.0-15.5) Hematocrit 23.0% (36.0-47.0) Mean Corpuscular Volume 87fL (79-100) Mean Corpuscular Hemoglobin 28pg (25-35) Mean Corpuscular Hemoglobin Concent 32g/dL (31-37) Red Cell Distribution Width 15.7% (11.5-14.5) Platelet Count 170x10^3/uL (140-400) Neutrophils (%) (Auto) 90% (31-73) Lymphocytes (%) (Auto) 5% (24-48) Monocytes (%) (Auto) 3% (0-9) Eosinophils (%) (Auto) 2% (0-3) Basophils (%) (Auto) 0% (0-3) Neutrophils # (Auto) 10.9x10^3uL (1.8-7.7) Lymphocytes # (Auto) 0.7x10^3/uL (1.0-4.8) Monocytes # (Auto) 0.4x10^3/uL (0.0-1.1) Eosinophils # (Auto) 0.2x10^3/uL (0.0-0.7) Basophils # (Auto) 0.0x10^3/uL (0.0-0.2) Sodium Level 144mmol/L (136-145) Potassium Level 4.5mmol/L (3.5-5.1) Chloride Level 104mmol/L (98-107) Carbon Dioxide Level 30mmol/L (21-32) Anion Gap 10 (6-14) Blood Urea Nitrogen 37mg/dL (7-20) Creatinine 2.2mg/dL (0.6-1.0) Estimated GFR (Cockcroft-Gault) 27.1 Glucose Level 183mg/dL (70-99) Calcium Level 8.6mg/dL (8.5-10.1) Test 08/13/16 11:26 Glucose (Fingerstick) 167mg/dL (70-99) Microbiology 08/11/16 Blood Culture - Preliminary, Resulted NO GROWTH AFTER 2 DAYS 08/11/16 Urine Culture - Preliminary, Resulted 08/11/16 Urine Culture Result 1 (GONZALO) - Preliminary, Resulted Medications Current Medications Cefazolin Sodium/ Dextrose 50 ml @ 100 mls/hr 1X PREOP PRN IV PRIOR TO PROCEDURE Last administered on 08/09/16 13:30; Start 08/09/16 at 06:00; Stop at 18:00; Status DC Sodium Chloride (Iv Sodium Chloride 0.9% 1000ml Bag) 1,000 ml @ 75 mls/hr [id number] IV Last administered on 08/10/16 06:27; Start 08/09/16 at 11:00; Stop 08/10/16 at 17:53; Status DC Dexamethasone Sodium Phosphate (Decadron) 20 mg STK-MED ONCE .ROUTE ; Start at 11:46; Stop 08/09/16 at 18:48; Status DC Ondansetron HCl 4 mg 4 mg STK-MED ONCE .ROUTE ; Start 08/09/16 at 11:46; Stop at 18:48; Status DC Propofol (Diprivan) 20 ml @ As Directed STK-MED ONCE IV ; Start 08/09/16 at 11: 46; Stop 08/09/16 at 18:48; Status DC Lidocaine HCl 100 mg STK-MED ONCE .ROUTE ; Start 08/09/16 at 11:46; Stop at 18:48; Status DC Fentanyl Citrate (Fentanyl 2ml Vial) 100 mcg STK-MED ONCE .ROUTE ; Start at 11:46; Stop 08/09/16 at 18:48; Status DC Neostigmine Methylsulfate 5 mg STK-MED ONCE .ROUTE ; Start 08/09/16 at 11:46; Stop 08/09/16 at 18:48; Status DC Rocuronium [place] (Zemuron) 50 mg STK-MED ONCE .ROUTE ; Start 08/09/16 at 11:46 ; Stop 08/09/16 at 18:48; Status DC Glycopyrrolate (Robinul) 1 mg STK-MED ONCE .ROUTE ; Start 08/09/16 at 11:48; Stop 08/09/16 at 18:48; Status DC Cellulose 1 each STK-MED ONCE .ROUTE ; Start 08/09/16 at 12:09; Stop 08/09/16 at 18:48; Status DC Lidocaine/ Epinephrine (Xylocaine 1%-Epi 1:100,000) 20 ml STK-MED ONCE .ROUTE Last administered on 08/09/16 13:45; Start 08/09/16 at 12:09; Stop 08/09/16 at 18:48; Status DC Bupivacaine HCl/ Epinephrine Bitart (Sensorcaine-Epi 0.25%-1:268373 Mpf) 30 ml STK-MED ONCE .ROUTE Last administered on 08/09/16 13:45; Start 08/09/16 at 12: 09; Stop 08/09/16 at 18:48; Status DC Estrogens Conjugated (Premarin) 30 sohan STK-MED ONCE .ROUTE ; Start 08/09/16 at 12:09; Stop 08/09/16 at 18:48; Status DC Insulin Aspart (Novolog Vial) 4 unit 1X ONCE SQ Last administered on 12:58; Start 08/09/16 at 13:00; Stop 08/09/16 at 13:01; Status DC Esmolol HCl (Brevibloc) 100 mg STK-MED ONCE IV ; Start 08/09/16 at 13:52; Stop 08/09/16 at 18:48; Status DC Insulin Human Regular (Novolin R Vial) 100 unit STK-MED ONCE .ROUTE ; Start at 14:23; Stop 08/09/16 at 18:48; Status DC Rocuronium [place] (Zemuron) 50 mg STK-MED ONCE .ROUTE ; Start 08/09/16 at 14:39 ; Stop 08/09/16 at 18:48; Status DC Ephedrine Sulfate 50 mg STK-MED ONCE IV ; Start 08/09/16 at 16:12; Stop at 18:48; Status DC Desflurane (Suprane) 90 ml STK-MED ONCE IH ; Start 08/09/16 at 16:24; Stop 08/09 at 18:48; Status DC Calcium Carbonate/ Glycine (Tums) 500 mg PRN Q3HRS PRN PO HEARTBURN / GAS; Start 08/09/16 at 16:45 Simethicone (Gas-X) 80 mg PRN AFTMEALHC PRN PO GAS / BLOATING; Start 08/09/16 at 16:45 Zolpidem Tartrate (Ambien) 5 mg PRN QHS PRN PO INSOMNIA, MAY REPEAT IN 1HR; Start 08/09/16 at 16:45 Diphenhydramine HCl (Benadryl) 25 mg PRN Q6HRS PRN PO ITCHING; Start 08/09/16 at 16:45 Diphenhydramine HCl (Benadryl) 25 mg PRN Q6HRS PRN IV ITCHING; Start 08/09/16 at 16:45 Sodium Chloride (Normal Saline Flush) 3 ml QSHIFT PRN IV AFTER MEDS AND BLOOD DRAWS; Start 08/09/16 at 16:45 Dextrose 12.5 gm PRN Q15MIN PRN IV SEE COMMENTS; Start 08/09/16 at 16:45; Status Cancel Oxycodone/ Acetaminophen (Percocet 5/325) 2 tab PRN Q4HRS PRN PO MODERATE PAIN , SEVERE PAIN Last administered on 08/13/16 08:19; Start 08/09/16 at 16:45 Ketorolac Tromethamine (Toradol) 30 mg PRN Q6HRS PRN IV PAIN Last administered on 08/13/16 11:00; Start 08/09/16 at 16:45; Stop 08/14/16 at 16:44 Gabapentin (Neurontin) 600 mg Q8HRS PO Last administered on 08/10/16 21:15; Start 08/09/16 at 17:00; Stop 08/10/16 at 22:59; Status DC Ondansetron HCl (Zofran) 4 mg PRN Q6HRS PRN IV NAUESA, 1ST CHOICE; Start at 16:45; Stop 08/09/16 at 18:48; Status DC Prochlorperazine Edisylate (Compazine) 5 mg PRN Q6HRS PRN IV N/V, 2nd Choice, MR X1; Start 08/09/16 at 16:45 Insulin Aspart (Novolog) 0-9 UNITS TIDWMEALS SQ Last administered on 08/13/16t 08:28; Start 08/09/16 at 17:00 Dextrose 12.5 gm PRN Q15MIN PRN IV SEE COMMENTS; Start 08/09/16 at 16:45 Fentanyl Citrate (Fentanyl 2ml Vial) 100 mcg STK-MED ONCE .ROUTE ; Start at 17:26; Stop 08/09/16 at 18:48; Status DC Ondansetron HCl (Zofran) 4 mg PRN Q6HRS PRN IV Nausea; Start 08/09/16 at 17:45 ; Stop 08/10/16 at 17:44; Status DC Fentanyl Citrate (Fentanyl 2ml Vial) 25 mcg PRN Q5MIN PRN IV MILD PAIN; Start 08/09/16 at 17:45; Stop 08/09/16 at 18:48; Status DC Fentanyl Citrate (Fentanyl 2ml Vial) 50 mcg PRN Q5MIN PRN IV MODERATE PAIN Last administered on 08/09/16t 17:53; Start 08/09/16 at 17:45; Stop 08/09/16 at 18:48; Status DC Morphine Sulfate 1 mg 1 mg PRN Q10MIN PRN IV SEVERE PAIN; Start 08/09/16 at 17: 45; Stop 08/09/16 at 18:48; Status DC Lactated Ringer's (Iv Lactated Ringers) 1,000 ml @ 0 mls/hr Q0M IV ; Start at 17:32; Stop 08/10/16 at 05:31; Status DC Lidocaine HCl 2 ml 1X PRN PRN ID IV START; Start 08/09/16 at 17:45; Stop at 18:48; Status DC Hydromorphone HCl (Dilaudid) 0.5 mg PRN Q10MIN PRN IV SEV PAIN,Second choice; Start 08/09/16 at 17:45; Stop 08/09/16 at 18:48; Status DC Prochlorperazine Edisylate (Compazine) 5 mg PACU PRN PRN IV NAUSEA; Start 08/09 at 17:45; Stop 08/09/16 at 18:48; Status DC Albuterol Sulfate (Ventolin Neb Soln) 2.5 mg PRN Q4HRS PRN NEB SHORTNESS OF BREATH Last administered on 08/10/16 06:51; Start 08/09/16 at 21:30 Furosemide (Lasix) 20 mg [id number] PO Last administered on 08/13/16 09:18; Start 08/10/16 at 09:00 Furosemide (Lasix) 20 mg 1X ONCE IVP Last administered on 08/10/16 16:28; Start 08/10/16 at 16:15; Stop 08/10/16 at 16:17; Status DC Insulin Detemir (Levemir) 10 units QHS SQ Last administered on 08/11/16 23:19 ; Start 08/10/16 at 21:00; Stop 08/12/16 at 19:45; Status DC Gabapentin (Neurontin) 600 mg DAILY PO Last administered on 08/13/16 09:18; Start 08/11/16 at 09:00 Acetaminophen 650 mg 650 mg PRN Q6HRS PRN PO MILD PAIN / TEMP; Start 08/11/16 at 08:30 Magnesium Sulfate/ Dextrose 50 ml @ 25 mls/hr 1X ONCE IV ; Start 08/11/16 at 08 :30; Stop 08/11/16 at 11:07; Status DC Piperacillin Sod/ Tazobactam Sod/ Sodium Chloride (Zosyn/Iv Sodium Chloride 0.9 % 50ml) 50 ml @ 100 mls/hr Q6HRS IV Last administered on 08/13/16 06:05; Start 08/11/16 at 08:30; Stop 08/13/16 at 10:45; Status DC Acetaminophen (Tylenol) 650 mg PRN Q6HRS PRN IL MILD PAIN / TEMP Last administered on 08/11/16 23:11; Start 08/11/16 at 10:15 Albuterol/ Ipratropium (Duoneb) 3 ml RTQID NEB Last administered on 08/13/16 11:17; Start 08/11/16 at 12:00 Budesonide 0.5 mg 0.5 mg RTBID NEB Last administered on 08/13/16 07:16; Start 08/11/16 at 20:00 Ceftriaxone Sodium/Sodium Chloride (Rocephin/Iv Sodium Chloride 0.9% 50ml) 50 ml @ 100 mls/hr Q24H IV ; Start 08/11/16 at 11:00; Stop 08/11/16 at 11:00; Status DC Furosemide 20 mg 20 mg 1X ONCE IVP Last administered on 08/11/16 11:27; Start 08/11/16 at 11:15; Stop 08/11/16 at 11:20; Status DC Linezolid (Zyvox Premix) 300 ml @ 300 mls/hr Q12HR IV Last administered on 09:19; Start 08/11/16 at 14:30; Stop 08/13/16 at 10:45; Status DC Insulin Detemir (Levemir) 25 units QHS SQ Last administered on 08/12/16 20:57 ; Start 08/12/16 at 21:00 Polyethylene Glycol (miraLAX PACKET) 17 gm BID PO Last administered on 09:18; Start 08/12/16 at 21:00 Oxycodone/ Acetaminophen (Percocet 5/325) 1 tab PRN Q4HRS PRN PO PAIN; Start at 19:45 Amoxicillin/ Clavulanate Potassium (Augmentin 875/ 125mg) 1 tab BID PO ; Start 08/13/16 at 21:00 Active Scripts Active Klor-Con Sprinkle (Potassium Chloride) 10 Meq Capsule.er 20 Meq PO DAILY Lisinopril 20 Mg Tablet 1 Tab PO BID Ferrous Sulfate 325 Mg Tablet 325 Tab PO DAILY Gabapentin 300 Mg Capsule 600 Mg PO TID Lasix (Furosemide) 40 Mg Tablet 40 Mg PO BID Hydralazine Hcl 25 Mg Tablet 1 Tab PO TID Reported Ventolin Hfa Inhaler (Albuterol Sulfate) 18 Gm Hfa.aer.ad 2 Puff INH QID Acetaminophen 160 Mg/5 Ml Solution 325 Mg PO QID Bactrim 400-80 Mg Tablet (Sulfamethoxazole/Trimethoprim) 1 Each Tablet 1 Tab PO BID Zantac (Ranitidine Hcl) 150 Mg Tablet 150 Mg PO DAILY Prednisone 20 Mg Tablet 20 Mg PO DAILY Novolog (Insulin Aspart) 100 Unit/1 Ml Cartridge 8 Unit SQ TIDAC Levemir (Insulin Detemir) 100 Unit/1 Ml Vial 36 Unit SQ HS Cyclobenzaprine Hcl 10 Mg Tablet 10 Mg PO TID Amlodipine Besylate 10 Mg Tablet 10 Mg PO DAILY Ibuprofen 800 Mg Tablet 800 Mg PO PRN Q6HRS PRN Lovastatin 20 Mg Tablet 20 Mg PO HS Vitals/I & O Vital Sign - Last 24 Hours 08/12/16 08/12/16 08/12/16 08/12/16 15:00 16:23 19:00 19:56 Temp 98.8 98.3 98.8 98.3 Pulse 88 83 Resp 14 20 B/P 133/59 125/52 Pulse Ox 100 98 O2 Delivery Nasal Cannula BiPAP/CPAP BiPAP/CPAP BiPAP/CPAP O2 Flow Rate 3.0 08/12/16 08/12/16 08/12/16 08/12/16 19:56 20:00 22:08 22:43 Temp 98.4 98.4 Pulse 79 Resp 19 B/P 122/59 Pulse Ox 99 O2 Delivery BiPAP/CPAP Bi-pap BiPAP/CPAP BiPAP/CPAP 08/12/16 08/13/16 08/13/16 08/13/16 23:41 01:30 02:47 03:35 Temp 98.6 98.6 Pulse 86 Resp 24 B/P 133/68 Pulse Ox 99 O2 Delivery BiPAP/CPAP BiPAP/CPAP BiPAP/CPAP BiPAP/CPAP 08/13/16 08/13/16 08/13/16 08/13/16 07:00 07:17 10:52 11:17 Temp 98.8 98.8 98.8 98.8 Pulse 84 99 Resp 20 20 B/P 150/72 150/77 Pulse Ox 100 98 98 97 O2 Delivery BiPAP/CPAP BiPAP/CPAP Nasal Cannula Nasal Cannula O2 Flow Rate 4.0 4.0 Intake and Output 08/12/16 08/12/16 08/13/16 15:00 23:00 07:00 Intake Total 350 ml 540 ml 50 ml Output Total 950 ml 850 ml Balance 350 ml -410 ml -800 ml QUIRINO ENGEL MD Aug 13, 2016 13:41
[2016-08-13] MEDS: CALCIUM CARBONATE 500 MG TAB.CHEW PO PRN ×2 (16:57→23:21)
[2016-08-13] MEDS: AMOXICILLIN/K CLAV 875/125MG TABLET. PO SCH (21:21)
[2016-08-13] MEDS: INSULIN DETEMIR 300 UNITS/3 ML INSULN.PEN. SQ SCH (21:37)
[2016-08-14] MEDS: OXYCODONE/APAP 5/325 TABLET. PO PRN ×2 (00:51→10:11)
[2016-08-14] MEDS: CALCIUM CARBONATE 500 MG TAB.CHEW PO PRN (03:12)
[2016-08-14 07:00] VITALS: BP 151/72
[2016-08-14] MEDS: INSULIN ASPART 300 UNITS/3 ML INSULN.PEN SQ SCH ×2 (08:00→12:15)
[2016-08-14] MEDS: IPRATRPIUM/ALBUTEROL 0.5/2.5MG 3 ML NEBU. NEB SCH ×3 (08:07→15:27)
[2016-08-14] MEDS: BUDESONIDE 0.5 MG/2 ML NEBU NEB SCH (08:07)
[2016-08-14 09:17] LABS: BASO % 0 % (0-3); EOS % 5 % (0-3); HEMATOCRIT 26.6 % (36.0-47.0); HEMOGLOBIN 8.6 g/dL (12.0-15.5); LYMPH # 0.9 x10^3/uL (1.0-4.8); LYMPH % 13 % (24-48); MEAN CORPUSCULAR HEMOGLOBIN 29 pg (25-35); MEAN CORPUSCULAR HGB CONC 32 g/dL (31-37); MEAN CORPUSCULAR VOLUME 88 fL (79-100); MONO % 5 % (0-9); NEUT % 77 % (31-73); PLATELET COUNT 201 x10^3/uL (140-400); RED BLOOD COUNT 3.02 x10^6/uL (3.50-5.40); RED CELL DISTRIBUTION WIDTH 15.6 % (11.5-14.5); WHITE BLOOD COUNT 6.8 x10^3/uL (4.0-11.0)
[2016-08-14 09:28] LABS: CALCIUM 9.3 mg/dL (8.5-10.1); CREATININE 1.6 mg/dL (0.6-1.0); GFR 39.1; POTASSIUM 4.4 mmol/L (3.5-5.1)
[2016-08-14] MEDS ORDERED: BISACODYL 10 MG SUPP.RECT PR PRN (09:30)
[2016-08-14] MEDS ORDERED: MAGNESIUM HYDROXIDE 2,400 MG/30 ML ORAL.SUSP. PO PRN (09:30)
[2016-08-14] MEDS ORDERED: LACTULOSE 20 GM/30 ML SOLUTION. PO PRN (09:30)
[2016-08-14] MEDS ORDERED: SENNOSIDES/DOCUSATE 8.6/50MG TABLET. PO SCH (10:00)
[2016-08-14] MEDS ORDERED: DOCUSATE SODIUM 100 MG CAPSULE PO SCH (10:00)
[2016-08-14] MEDS: AMOXICILLIN/K CLAV 875/125MG TABLET. PO SCH (10:10)
[2016-08-14] MEDS: FUROSEMIDE 20 MG TABLET PO SCH ×2 (10:10→15:18)
[2016-08-14] MEDS: GABAPENTIN 300 MG CAPSULE. PO SCH (10:10)
[2016-08-14] MEDS: POLYETHYLENE GLYCOL 3350 17 GM PACKET. PO SCH (10:11)
--- NOTE | 2016-08-14 10:39 | PDOC ---
Infectious Disease Note Subjective Subjective feeling better ROS ROS GEN: Denies fevers, chills, sweats HEENT: Denies blurred vision, sore throat CV: Denies chest pain RESP: Denies shortness of air, cough GI: Denies n/v/d NEURO: Denies confusion, dizziness MSK: Denies weakness, joint pain/swelling Vital Sign Vital Signs Vital Signs Date Time Temp Pulse Resp B/P Pulse Ox O2 Delivery O2 Flow Rate FiO2 08/14/16 10:11 Nasal Cannula 3.0 08/14/16 08:08 94 08/14/16 07:00 98.6 82 18 151/72 98.6 Physical Exam PHYSICAL EXAM GENERAL: NAD, Alert HEENT: PERRL, OC/OP NECK: Supple, no JVD, no LN LUNGS: Clear HEART: S1S2, no gallop, no murmur ABD: Soft, NT, no organomegaly, no rebound EXT: No edema, no cyanosis TRAILER DRIVER: Alert, oriented x 3, no focal neurologic deficit SKIN: No rash IV: ok Labs Lab Laboratory Tests Test 08/13/16 11:26 08/13/16 16:22 08/13/16 20:15 08/14/16 07:11 Glucose (Fingerstick) 167mg/dL (70-99) 185mg/dL (70-99) 131mg/dL (70-99) 136mg/dL (70-99) Test 08/14/16 08:50 White Blood Count 6.8x10^3/uL (4.0-11.0) Red Blood Count 3.02x10^6/uL (3.50-5.40) Hemoglobin 8.6g/dL (12.0-15.5) Hematocrit 26.6% (36.0-47.0) Mean Corpuscular Volume 88fL (79-100) Mean Corpuscular Hemoglobin 29pg (25-35) Mean Corpuscular Hemoglobin Concent 32g/dL (31-37) Red Cell Distribution Width 15.6% (11.5-14.5) Platelet Count 201x10^3/uL (140-400) Neutrophils (%) (Auto) 77% (31-73) Lymphocytes (%) (Auto) 13% (24-48) Monocytes (%) (Auto) 5% (0-9) Eosinophils (%) (Auto) 5% (0-3) Basophils (%) (Auto) 0% (0-3) Neutrophils # (Auto) 5.3x10^3uL (1.8-7.7) Lymphocytes # (Auto) 0.9x10^3/uL (1.0-4.8) Monocytes # (Auto) 0.4x10^3/uL (0.0-1.1) Eosinophils # (Auto) 0.3x10^3/uL (0.0-0.7) Basophils # (Auto) 0.0x10^3/uL (0.0-0.2) Sodium Level 145mmol/L (136-145) Potassium Level 4.4mmol/L (3.5-5.1) Chloride Level 107mmol/L (98-107) Carbon Dioxide Level 31mmol/L (21-32) Anion Gap 7 (6-14) Blood Urea Nitrogen 30mg/dL (7-20) Creatinine 1.6mg/dL (0.6-1.0) Estimated GFR (Cockcroft-Gault) 39.1 Glucose Level 143mg/dL (70-99) Calcium Level 9.3mg/dL (8.5-10.1) Micro culture neg Objective Assessment Fever. ? post-op vs infection Leukocytosis Acute respiratory failure, on BiPAP. -hx hilar mass and lung nodules s/p bronch in Mar 2016 -hx sarcoidosis -hx POLY Acute kidney injury Acute encephalopathy s/p SANTHOSH and BSO, 08/09 Abdominal wound with vac in place Morbid obesity Plan Plan of Care po augmentin pt/ot up in chair AL DE LA TORRE MD Aug 14, 2016 10:38
[2016-08-14 10:42] VITALS: BP 145/74
--- NOTE | 2016-08-14 10:45 | PDOC ---
PULMONARY PROGRESS NOTES Subjective PT FEELS BETTER NOT MORE SOA Vitals Vital Signs Date Time Temp Pulse Resp B/P Pulse Ox O2 Delivery O2 Flow Rate FiO2 08/14/16 10:11 Nasal Cannula 3.0 08/14/16 08:08 94 08/14/16 07:00 98.6 82 18 151/72 98.6 Comments ro ROS: No Nausea, No Chest Pain, No Abdominal Pain, No Increase Cough General: Alert, No acute distress HEENT: Other (nc, at perrl, bipap mask on, ) Lungs: Wheezing Cardiovascular: S1, S2 Abdomen: Soft, Non-tender, Other (no mass) Neuro Exam: Alert Extremities: Other (edema) Skin: Warm Labs Laboratory Tests Test 08/12/16 11:34 08/12/16 16:21 08/12/16 20:52 08/13/16 05:50 Glucose (Fingerstick) 225mg/dL (70-99) 194mg/dL (70-99) 204mg/dL (70-99) White Blood Count 12.2x10^3/uL (4.0-11.0) Red Blood Count 2.64x10^6/uL (3.50-5.40) Hemoglobin 7.3g/dL (12.0-15.5) Hematocrit 23.0% (36.0-47.0) Mean Corpuscular Volume 87fL (79-100) Mean Corpuscular Hemoglobin 28pg (25-35) Mean Corpuscular Hemoglobin Concent 32g/dL (31-37) Red Cell Distribution Width 15.7% (11.5-14.5) Platelet Count 170x10^3/uL (140-400) Neutrophils (%) (Auto) 90% (31-73) Lymphocytes (%) (Auto) 5% (24-48) Monocytes (%) (Auto) 3% (0-9) Eosinophils (%) (Auto) 2% (0-3) Basophils (%) (Auto) 0% (0-3) Neutrophils # (Auto) 10.9x10^3uL (1.8-7.7) Lymphocytes # (Auto) 0.7x10^3/uL (1.0-4.8) Monocytes # (Auto) 0.4x10^3/uL (0.0-1.1) Eosinophils # (Auto) 0.2x10^3/uL (0.0-0.7) Basophils # (Auto) 0.0x10^3/uL (0.0-0.2) Sodium Level 144mmol/L (136-145) Potassium Level 4.5mmol/L (3.5-5.1) Chloride Level 104mmol/L (98-107) Carbon Dioxide Level 30mmol/L (21-32) Anion Gap 10 (6-14) Blood Urea Nitrogen 37mg/dL (7-20) Creatinine 2.2mg/dL (0.6-1.0) Estimated GFR (Cockcroft-Gault) 27.1 Glucose Level 183mg/dL (70-99) Calcium Level 8.6mg/dL (8.5-10.1) Test 08/13/16 07:30 08/13/16 11:26 08/13/16 16:22 08/13/16 20:15 Glucose (Fingerstick) 164mg/dL (70-99) 167mg/dL (70-99) 185mg/dL (70-99) 131mg/dL (70-99) Test 08/14/16 07:11 08/14/16 08:50 Glucose (Fingerstick) 136mg/dL (70-99) White Blood Count 6.8x10^3/uL (4.0-11.0) Red Blood Count 3.02x10^6/uL (3.50-5.40) Hemoglobin 8.6g/dL (12.0-15.5) Hematocrit 26.6% (36.0-47.0) Mean Corpuscular Volume 88fL (79-100) Mean Corpuscular Hemoglobin 29pg (25-35) Mean Corpuscular Hemoglobin Concent 32g/dL (31-37) Red Cell Distribution Width 15.6% (11.5-14.5) Platelet Count 201x10^3/uL (140-400) Neutrophils (%) (Auto) 77% (31-73) Lymphocytes (%) (Auto) 13% (24-48) Monocytes (%) (Auto) 5% (0-9) Eosinophils (%) (Auto) 5% (0-3) Basophils (%) (Auto) 0% (0-3) Neutrophils # (Auto) 5.3x10^3uL (1.8-7.7) Lymphocytes # (Auto) 0.9x10^3/uL (1.0-4.8) Monocytes # (Auto) 0.4x10^3/uL (0.0-1.1) Eosinophils # (Auto) 0.3x10^3/uL (0.0-0.7) Basophils # (Auto) 0.0x10^3/uL (0.0-0.2) Sodium Level 145mmol/L (136-145) Potassium Level 4.4mmol/L (3.5-5.1) Chloride Level 107mmol/L (98-107) Carbon Dioxide Level 31mmol/L (21-32) Anion Gap 7 (6-14) Blood Urea Nitrogen 30mg/dL (7-20) Creatinine 1.6mg/dL (0.6-1.0) Estimated GFR (Cockcroft-Gault) 39.1 Glucose Level 143mg/dL (70-99) Calcium Level 9.3mg/dL (8.5-10.1) Laboratory Tests Test 08/13/16 11:26 08/13/16 16:22 08/13/16 20:15 08/14/16 07:11 Glucose (Fingerstick) 167mg/dL (70-99) 185mg/dL (70-99) 131mg/dL (70-99) 136mg/dL (70-99) Test 08/14/16 08:50 White Blood Count 6.8x10^3/uL (4.0-11.0) Red Blood Count 3.02x10^6/uL (3.50-5.40) Hemoglobin 8.6g/dL (12.0-15.5) Hematocrit 26.6% (36.0-47.0) Mean Corpuscular Volume 88fL (79-100) Mean Corpuscular Hemoglobin 29pg (25-35) Mean Corpuscular Hemoglobin Concent 32g/dL (31-37) Red Cell Distribution Width 15.6% (11.5-14.5) Platelet Count 201x10^3/uL (140-400) Neutrophils (%) (Auto) 77% (31-73) Lymphocytes (%) (Auto) 13% (24-48) Monocytes (%) (Auto) 5% (0-9) Eosinophils (%) (Auto) 5% (0-3) Basophils (%) (Auto) 0% (0-3) Neutrophils # (Auto) 5.3x10^3uL (1.8-7.7) Lymphocytes # (Auto) 0.9x10^3/uL (1.0-4.8) Monocytes # (Auto) 0.4x10^3/uL (0.0-1.1) Eosinophils # (Auto) 0.3x10^3/uL (0.0-0.7) Basophils # (Auto) 0.0x10^3/uL (0.0-0.2) Sodium Level 145mmol/L (136-145) Potassium Level 4.4mmol/L (3.5-5.1) Chloride Level 107mmol/L (98-107) Carbon Dioxide Level 31mmol/L (21-32) Anion Gap 7 (6-14) Blood Urea Nitrogen 30mg/dL (7-20) Creatinine 1.6mg/dL (0.6-1.0) Estimated GFR (Cockcroft-Gault) 39.1 Glucose Level 143mg/dL (70-99) Calcium Level 9.3mg/dL (8.5-10.1) Medications Active Scripts Medications Dose Route/Sig Days Date Category Ventolin Hfa Inhaler (Albuterol Sulfate) 18 Gm Hfa.aer.ad 2 Puff INH QID 08/09/16 Reported Acetaminophen 160 Mg/5 Ml Solution 325 Mg PO QID 08/09/16 Reported Bactrim 400-80 Mg Tablet (Sulfamethoxazole/Trimethoprim) 1 Each Tablet 1 Tab PO BID 08/09/16 Reported Zantac (Ranitidine Hcl) 150 Mg Tablet 150 Mg PO DAILY 08/09/16 Reported Prednisone 20 Mg Tablet 20 Mg PO DAILY 08/09/16 Reported Novolog (Insulin Aspart) 100 Unit/1 Ml Cartridge 8 Unit SQ TIDAC 08/09/16 Reported Levemir (Insulin Detemir) 100 Unit/1 Ml Vial 36 Unit SQ HS 08/09/16 Reported Cyclobenzaprine Hcl 10 Mg Tablet 10 Mg PO TID 08/09/16 Reported Klor-Con Sprinkle (Potassium Chloride) 10 Meq Capsule.er 20 Meq PO DAILY 04/06/16 Rx Lisinopril 20 Mg Tablet 1 Tab PO BID 04/06/16 Rx Ferrous Sulfate 325 Mg Tablet 325 Tab PO DAILY 04/06/16 Rx Gabapentin 300 Mg Capsule 600 Mg PO TID 04/06/16 Rx Lasix (Furosemide) 40 Mg Tablet 40 Mg PO BID 04/06/16 Rx Hydralazine Hcl 25 Mg Tablet 1 Tab PO TID 04/06/16 Rx Amlodipine Besylate 10 Mg Tablet 10 Mg PO DAILY 03/28/16 Reported Ibuprofen 800 Mg Tablet 800 Mg PO PRN Q6HRS PRN 03/28/16 Reported Lovastatin 20 Mg Tablet 20 Mg PO HS 03/28/16 Reported Comments cxr reviewed, Increasing right perihilar and infrahilar opacity, likely pneumonia. Impression . IMPRESSION: 1. Acute on chronic hypoxemic respiratory failure, multifactorial in etiology. 2. Abnormal chest x-ray. 3. Fever IMPROVED 4. Acute bronchospasm. 5. Right hilar mass, pulmonary nodule and mediastinal lymphadenopathy ? PREOPERATIVE DIAGNOSIS: Postmenopausal bleeding. POSTOPERATIVE DIAGNOSES: Postmenopausal bleeding plus fibroids and multiple abdominal adhesions. PROCEDURE: SANTHOSH and BSO. Plan . REVIEW OLD RECORDS FROM OFFICE, PT NOT SEEN IN OFFICE WILL HAVE FOLLOW UP CT CHEST AND MAKE DECISION OUPT PRN BIPAP 02 D/C HOME TODAY AND FOLLOW UP IN AUGUST SITA RICH MD Aug 14, 2016 10:45
--- NOTE | 2016-08-14 12:24 | PDOC ---
PROGRESS NOTES Chief Complaint Chief Complaint Acute respiratory failure, hypoxia, on 3l-4L CHROnic Diastolic heart failure hx hilar mass and lung nodules s/p bronch in Mar 2016 hx sarcoidosis hx POLY Acute kidney injury Acute encephalopathy improving. s/p SANTHOSH and BSO, 08/09 Abdominal wound with vac in place Morbid obesity, BMI 45 vaginal bleeding post hysterectomy with wound vac constipation plan: fu with pulm, id and ob pt is stable to be dced to SNF cont taper NC, bipap at night on insulin for dm2 cont ptot add stool softner cont sx wound care with wound vac cont augmentin as per ID THANKS FOR asking IPC for consult History of Present Illness History of Present Illness on NC, still 4L, which is new to pt. pt has home bipap getting better no fever, abx changed to PO augmentin Hgb dropping slowly, will transfuse to help str and hypoxia Vitals Vitals Vital Signs Date Time Temp Pulse Resp B/P Pulse Ox O2 Delivery O2 Flow Rate FiO2 08/14/16 11:25 100 Nasal Cannula 4.0 08/14/16 10:42 97.8 80 17 145/74 97.8 Physical Exam General: Alert, Oriented X3, Cooperative Heart: Regular rate Lungs: Wheezing Abdomen: Soft, No masses, Other (mild tenderness; hypoactive bowel sounds; Wound vac in place.) Extremities: No clubbing, No edema Skin: No rashes, No significant lesion Labs LABS Laboratory Tests Test 08/13/16 16:22 08/13/16 20:15 08/14/16 07:11 08/14/16 08:50 Glucose (Fingerstick) 185mg/dL (70-99) 131mg/dL (70-99) 136mg/dL (70-99) White Blood Count 6.8x10^3/uL (4.0-11.0) Red Blood Count 3.02x10^6/uL (3.50-5.40) Hemoglobin 8.6g/dL (12.0-15.5) Hematocrit 26.6% (36.0-47.0) Mean Corpuscular Volume 88fL (79-100) Mean Corpuscular Hemoglobin 29pg (25-35) Mean Corpuscular Hemoglobin Concent 32g/dL (31-37) Red Cell Distribution Width 15.6% (11.5-14.5) Platelet Count 201x10^3/uL (140-400) Neutrophils (%) (Auto) 77% (31-73) Lymphocytes (%) (Auto) 13% (24-48) Monocytes (%) (Auto) 5% (0-9) Eosinophils (%) (Auto) 5% (0-3) Basophils (%) (Auto) 0% (0-3) Neutrophils # (Auto) 5.3x10^3uL (1.8-7.7) Lymphocytes # (Auto) 0.9x10^3/uL (1.0-4.8) Monocytes # (Auto) 0.4x10^3/uL (0.0-1.1) Eosinophils # (Auto) 0.3x10^3/uL (0.0-0.7) Basophils # (Auto) 0.0x10^3/uL (0.0-0.2) Sodium Level 145mmol/L (136-145) Potassium Level 4.4mmol/L (3.5-5.1) Chloride Level 107mmol/L (98-107) Carbon Dioxide Level 31mmol/L (21-32) Anion Gap 7 (6-14) Blood Urea Nitrogen 30mg/dL (7-20) Creatinine 1.6mg/dL (0.6-1.0) Estimated GFR (Cockcroft-Gault) 39.1 Glucose Level 143mg/dL (70-99) Calcium Level 9.3mg/dL (8.5-10.1) Test 08/14/16 11:12 Glucose (Fingerstick) 180mg/dL (70-99) Review of Systems Review of Systems no fever, chills, chest pain Assessment and Plan Assessmemt and Plan Problems Medical Problems: (1) Fibroid uterus Status: Acute (2) Post-menopausal bleeding Status: Acute Problems: Comment Review of Relevant I have reviewed the following items robert (where applicable) has been applied. Labs Laboratory Tests Test 08/12/16 16:21 08/12/16 20:52 08/13/16 05:50 08/13/16 07:30 Glucose (Fingerstick) 194mg/dL (70-99) 204mg/dL (70-99) 164mg/dL (70-99) White Blood Count 12.2x10^3/uL (4.0-11.0) Red Blood Count 2.64x10^6/uL (3.50-5.40) Hemoglobin 7.3g/dL (12.0-15.5) Hematocrit 23.0% (36.0-47.0) Mean Corpuscular Volume 87fL (79-100) Mean Corpuscular Hemoglobin 28pg (25-35) Mean Corpuscular Hemoglobin Concent 32g/dL (31-37) Red Cell Distribution Width 15.7% (11.5-14.5) Platelet Count 170x10^3/uL (140-400) Neutrophils (%) (Auto) 90% (31-73) Lymphocytes (%) (Auto) 5% (24-48) Monocytes (%) (Auto) 3% (0-9) Eosinophils (%) (Auto) 2% (0-3) Basophils (%) (Auto) 0% (0-3) Neutrophils # (Auto) 10.9x10^3uL (1.8-7.7) Lymphocytes # (Auto) 0.7x10^3/uL (1.0-4.8) Monocytes # (Auto) 0.4x10^3/uL (0.0-1.1) Eosinophils # (Auto) 0.2x10^3/uL (0.0-0.7) Basophils # (Auto) 0.0x10^3/uL (0.0-0.2) Sodium Level 144mmol/L (136-145) Potassium Level 4.5mmol/L (3.5-5.1) Chloride Level 104mmol/L (98-107) Carbon Dioxide Level 30mmol/L (21-32) Anion Gap 10 (6-14) Blood Urea Nitrogen 37mg/dL (7-20) Creatinine 2.2mg/dL (0.6-1.0) Estimated GFR (Cockcroft-Gault) 27.1 Glucose Level 183mg/dL (70-99) Calcium Level 8.6mg/dL (8.5-10.1) Test 08/13/16 11:26 08/13/16 16:22 08/13/16 20:15 08/14/16 07:11 Glucose (Fingerstick) 167mg/dL (70-99) 185mg/dL (70-99) 131mg/dL (70-99) 136mg/dL (70-99) Test 08/14/16 08:50 08/14/16 11:12 White Blood Count 6.8x10^3/uL (4.0-11.0) Red Blood Count 3.02x10^6/uL (3.50-5.40) Hemoglobin 8.6g/dL (12.0-15.5) Hematocrit 26.6% (36.0-47.0) Mean Corpuscular Volume 88fL (79-100) Mean Corpuscular Hemoglobin 29pg (25-35) Mean Corpuscular Hemoglobin Concent 32g/dL (31-37) Red Cell Distribution Width 15.6% (11.5-14.5) Platelet Count 201x10^3/uL (140-400) Neutrophils (%) (Auto) 77% (31-73) Lymphocytes (%) (Auto) 13% (24-48) Monocytes (%) (Auto) 5% (0-9) Eosinophils (%) (Auto) 5% (0-3) Basophils (%) (Auto) 0% (0-3) Neutrophils # (Auto) 5.3x10^3uL (1.8-7.7) Lymphocytes # (Auto) 0.9x10^3/uL (1.0-4.8) Monocytes # (Auto) 0.4x10^3/uL (0.0-1.1) Eosinophils # (Auto) 0.3x10^3/uL (0.0-0.7) Basophils # (Auto) 0.0x10^3/uL (0.0-0.2) Sodium Level 145mmol/L (136-145) Potassium Level 4.4mmol/L (3.5-5.1) Chloride Level 107mmol/L (98-107) Carbon Dioxide Level 31mmol/L (21-32) Anion Gap 7 (6-14) Blood Urea Nitrogen 30mg/dL (7-20) Creatinine 1.6mg/dL (0.6-1.0) Estimated GFR (Cockcroft-Gault) 39.1 Glucose Level 143mg/dL (70-99) Calcium Level 9.3mg/dL (8.5-10.1) Glucose (Fingerstick) 180mg/dL (70-99) Laboratory Tests Test 08/13/16 16:22 08/13/16 20:15 08/14/16 07:11 08/14/16 08:50 Glucose (Fingerstick) 185mg/dL (70-99) 131mg/dL (70-99) 136mg/dL (70-99) White Blood Count 6.8x10^3/uL (4.0-11.0) Red Blood Count 3.02x10^6/uL (3.50-5.40) Hemoglobin 8.6g/dL (12.0-15.5) Hematocrit 26.6% (36.0-47.0) Mean Corpuscular Volume 88fL (79-100) Mean Corpuscular Hemoglobin 29pg (25-35) Mean Corpuscular Hemoglobin Concent 32g/dL (31-37) Red Cell Distribution Width 15.6% (11.5-14.5) Platelet Count 201x10^3/uL (140-400) Neutrophils (%) (Auto) 77% (31-73) Lymphocytes (%) (Auto) 13% (24-48) Monocytes (%) (Auto) 5% (0-9) Eosinophils (%) (Auto) 5% (0-3) Basophils (%) (Auto) 0% (0-3) Neutrophils # (Auto) 5.3x10^3uL (1.8-7.7) Lymphocytes # (Auto) 0.9x10^3/uL (1.0-4.8) Monocytes # (Auto) 0.4x10^3/uL (0.0-1.1) Eosinophils # (Auto) 0.3x10^3/uL (0.0-0.7) Basophils # (Auto) 0.0x10^3/uL (0.0-0.2) Sodium Level 145mmol/L (136-145) Potassium Level 4.4mmol/L (3.5-5.1) Chloride Level 107mmol/L (98-107) Carbon Dioxide Level 31mmol/L (21-32) Anion Gap 7 (6-14) Blood Urea Nitrogen 30mg/dL (7-20) Creatinine 1.6mg/dL (0.6-1.0) Estimated GFR (Cockcroft-Gault) 39.1 Glucose Level 143mg/dL (70-99) Calcium Level 9.3mg/dL (8.5-10.1) Test 08/14/16 11:12 Glucose (Fingerstick) 180mg/dL (70-99) Microbiology 08/11/16 Blood Culture - Preliminary, Resulted NO GROWTH AFTER 3 DAYS 08/11/16 Urine Culture - Final, Complete 08/11/16 Urine Culture Result 1 (GONZALO) - Final, Complete Medications Current Medications Cefazolin Sodium/ Dextrose 50 ml @ 100 mls/hr 1X PREOP PRN IV PRIOR TO PROCEDURE Last administered on 08/09/16 13:30; Start 08/09/16 at 06:00; Stop at 18:00; Status DC Sodium Chloride (Iv Sodium Chloride 0.9% 1000ml Bag) 1,000 ml @ 75 mls/hr [id number] IV Last administered on 08/10/16 06:27; Start 08/09/16 at 11:00; Stop 08/10/16 at 17:53; Status DC Dexamethasone Sodium Phosphate (Decadron) 20 mg STK-MED ONCE .ROUTE ; Start at 11:46; Stop 08/09/16 at 18:48; Status DC Ondansetron HCl 4 mg 4 mg STK-MED ONCE .ROUTE ; Start 08/09/16 at 11:46; Stop at 18:48; Status DC Propofol (Diprivan) 20 ml @ As Directed STK-MED ONCE IV ; Start 08/09/16 at 11: 46; Stop 08/09/16 at 18:48; Status DC Lidocaine HCl 100 mg STK-MED ONCE .ROUTE ; Start 08/09/16 at 11:46; Stop at 18:48; Status DC Fentanyl Citrate (Fentanyl 2ml Vial) 100 mcg STK-MED ONCE .ROUTE ; Start at 11:46; Stop 08/09/16 at 18:48; Status DC Neostigmine Methylsulfate 5 mg STK-MED ONCE .ROUTE ; Start 08/09/16 at 11:46; Stop 08/09/16 at 18:48; Status DC Rocuronium Wat[place] (Zemuron) 50 mg STK-MED ONCE .ROUTE ; Start 08/09/16 at 11:46 ; Stop 08/09/16 at 18:48; Status DC Glycopyrrolate (Robinul) 1 mg STK-MED ONCE .ROUTE ; Start 08/09/16 at 11:48; Stop 08/09/16 at 18:48; Status DC Cellulose 1 each STK-MED ONCE .ROUTE ; Start 08/09/16 at 12:09; Stop 08/09/16 at 18:48; Status DC Lidocaine/ Epinephrine (Xylocaine 1%-Epi 1:100,000) 20 ml STK-MED ONCE .ROUTE Last administered on 08/09/16 13:45; Start 08/09/16 at 12:09; Stop 08/09/16 at 18:48; Status DC Bupivacaine HCl/ Epinephrine Bitart (Sensorcaine-Epi 0.25%-1:271331 Mpf) 30 ml STK-MED ONCE .ROUTE Last administered on 08/09/16 13:45; Start 08/09/16 at 12: 09; Stop 08/09/16 at 18:48; Status DC Estrogens Conjugated (Premarin) 30 sohan STK-MED ONCE .ROUTE ; Start 08/09/16 at 12:09; Stop 08/09/16 at 18:48; Status DC Insulin Aspart (Novolog Vial) 4 unit 1X ONCE SQ Last administered on 12:58; Start 08/09/16 at 13:00; Stop 08/09/16 at 13:01; Status DC Esmolol HCl (Brevibloc) 100 mg STK-MED ONCE IV ; Start 08/09/16 at 13:52; Stop 08/09/16 at 18:48; Status DC Insulin Human Regular (Novolin R Vial) 100 unit STK-MED ONCE .ROUTE ; Start at 14:23; Stop 08/09/16 at 18:48; Status DC Rocuronium Wat[place] (Zemuron) 50 mg STK-MED ONCE .ROUTE ; Start 08/09/16 at 14:39 ; Stop 08/09/16 at 18:48; Status DC Ephedrine Sulfate 50 mg STK-MED ONCE IV ; Start 08/09/16 at 16:12; Stop at 18:48; Status DC Desflurane (Suprane) 90 ml STK-MED ONCE IH ; Start 08/09/16 at 16:24; Stop 08/09 at 18:48; Status DC Calcium Carbonate/ Glycine (Tums) 500 mg PRN Q3HRS PRN PO HEARTBURN / GAS Last administered on 08/14/16 03:12; Start 08/09/16 at 16:45 Simethicone (Gas-X) 80 mg PRN AFTMEALHC PRN PO GAS / BLOATING; Start 08/09/16 at 16:45 Zolpidem Tartrate (Ambien) 5 mg PRN QHS PRN PO INSOMNIA, MAY REPEAT IN 1HR; Start 08/09/16 at 16:45 Diphenhydramine HCl (Benadryl) 25 mg PRN Q6HRS PRN PO ITCHING Last administered on 08/13/16 19:30; Start 08/09/16 at 16:45 Diphenhydramine HCl (Benadryl) 25 mg PRN Q6HRS PRN IV ITCHING; Start 08/09/16 at 16:45 Sodium Chloride (Normal Saline Flush) 3 ml QSHIFT PRN IV AFTER MEDS AND BLOOD DRAWS; Start 08/09/16 at 16:45 Dextrose 12.5 gm PRN Q15MIN PRN IV SEE COMMENTS; Start 08/09/16 at 16:45; Status Cancel Oxycodone/ Acetaminophen (Percocet 5/325) 2 tab PRN Q4HRS PRN PO MODERATE PAIN , SEVERE PAIN Last administered on 08/14/16 10:11; Start 08/09/16 at 16:45 Ketorolac Tromethamine (Toradol) 30 mg PRN Q6HRS PRN IV PAIN Last administered on 08/13/16 11:00; Start 08/09/16 at 16:45; Stop 08/14/16 at 16:44 Gabapentin (Neurontin) 600 mg Q8HRS PO Last administered on 08/10/16 21:15; Start 08/09/16 at 17:00; Stop 08/10/16 at 22:59; Status DC Ondansetron HCl (Zofran) 4 mg PRN Q6HRS PRN IV NAUESA, 1ST CHOICE; Start at 16:45; Stop 08/09/16 at 18:48; Status DC Prochlorperazine Edisylate (Compazine) 5 mg PRN Q6HRS PRN IV N/V, 2nd Choice, MR X1 Last administered on 08/13/16 22:36; Start 08/09/16 at 16:45 Insulin Aspart (Novolog) 0-9 UNITS TIDWMEALS SQ Last administered on 08/14/16 12:15; Start 08/09/16 at 17:00 Dextrose 12.5 gm PRN Q15MIN PRN IV SEE COMMENTS; Start 08/09/16 at 16:45 Fentanyl Citrate (Fentanyl 2ml Vial) 100 mcg STK-MED ONCE .ROUTE ; Start at 17:26; Stop 08/09/16 at 18:48; Status DC Ondansetron HCl (Zofran) 4 mg PRN Q6HRS PRN IV Nausea; Start 08/09/16 at 17:45 ; Stop 08/10/16 at 17:44; Status DC Fentanyl Citrate (Fentanyl 2ml Vial) 25 mcg PRN Q5MIN PRN IV MILD PAIN; Start 08/09/16 at 17:45; Stop 08/09/16 at 18:48; Status DC Fentanyl Citrate (Fentanyl 2ml Vial) 50 mcg PRN Q5MIN PRN IV MODERATE PAIN Last administered on 08/09/16 17:53; Start 08/09/16 at 17:45; Stop 08/09/16 at 18:48; Status DC Morphine Sulfate 1 mg 1 mg PRN Q10MIN PRN IV SEVERE PAIN; Start 08/09/16 at 17: 45; Stop 08/09/16 at 18:48; Status DC Lactated Ringer's (Iv Lactated Ringers) 1,000 ml @ 0 mls/hr Q0M IV ; Start at 17:32; Stop 08/10/16 at 05:31; Status DC Lidocaine HCl 2 ml 1X PRN PRN ID IV START; Start 08/09/16 at 17:45; Stop at 18:48; Status DC Hydromorphone HCl (Dilaudid) 0.5 mg PRN Q10MIN PRN IV SEV PAIN,Second choice; Start 08/09/16 at 17:45; Stop 08/09/16 at 18:48; Status DC Prochlorperazine Edisylate (Compazine) 5 mg PACU PRN PRN IV NAUSEA; Start 08/09 at 17:45; Stop 08/09/16 at 18:48; Status DC Albuterol Sulfate (Ventolin Neb Soln) 2.5 mg PRN Q4HRS PRN NEB SHORTNESS OF BREATH Last administered on 08/10/16 06:51; Start 08/09/16 at 21:30 Furosemide (Lasix) 20 mg [id number] PO Last administered on 08/14/16 10:10; Start 08/10/16 at 09:00 Furosemide (Lasix) 20 mg 1X ONCE IVP Last administered on 08/10/16 16:28; Start 08/10/16 at 16:15; Stop 08/10/16 at 16:17; Status DC Insulin Detemir (Levemir) 10 units QHS SQ Last administered on 08/11/16 23:19 ; Start 08/10/16 at 21:00; Stop 08/12/16 at 19:45; Status DC Gabapentin (Neurontin) 600 mg DAILY PO Last administered on 08/14/16 10:10; Start 08/11/16 at 09:00 Acetaminophen 650 mg 650 mg PRN Q6HRS PRN PO MILD PAIN / TEMP; Start 08/11/16 at 08:30 Magnesium Sulfate/ Dextrose 50 ml @ 25 mls/hr 1X ONCE IV ; Start 08/11/16 at 08 :30; Stop 08/11/16 at 11:07; Status DC Piperacillin Sod/ Tazobactam Sod/ Sodium Chloride (Zosyn/Iv Sodium Chloride 0.9 % 50ml) 50 ml @ 100 mls/hr Q6HRS IV Last administered on 08/13/16 06:05; Start 08/11/16 at 08:30; Stop 08/13/16 at 10:45; Status DC Acetaminophen (Tylenol) 650 mg PRN Q6HRS PRN PA MILD PAIN / TEMP Last administered on 08/11/16 23:11; Start 08/11/16 at 10:15 Albuterol/ Ipratropium (Duoneb) 3 ml RTQID NEB Last administered on 08/14/16 11:25; Start 08/11/16 at 12:00 Budesonide 0.5 mg 0.5 mg RTBID NEB Last administered on 08/14/16 08:07; Start 08/11/16 at 20:00 Ceftriaxone Sodium/Sodium Chloride (Rocephin/Iv Sodium Chloride 0.9% 50ml) 50 ml @ 100 mls/hr Q24H IV ; Start 08/11/16 at 11:00; Stop 08/11/16 at 11:00; Status DC Furosemide 20 mg 20 mg 1X ONCE IVP Last administered on 08/11/16 11:27; Start 08/11/16 at 11:15; Stop 08/11/16 at 11:20; Status DC Linezolid (Zyvox Premix) 300 ml @ 300 mls/hr Q12HR IV Last administered on 09:19; Start 08/11/16 at 14:30; Stop 08/13/16 at 10:45; Status DC Insulin Detemir (Levemir) 25 units QHS SQ Last administered on 08/13/16 21:37 ; Start 08/12/16 at 21:00 Polyethylene Glycol (miraLAX PACKET) 17 gm BID PO Last administered on 10:11; Start 08/12/16 at 21:00 Oxycodone/ Acetaminophen (Percocet 5/325) 1 tab PRN Q4HRS PRN PO MILD TO MODERATE PAIN; Start 08/12/16 at 19:45 Amoxicillin/ Clavulanate Potassium (Augmentin 875/ 125mg) 1 tab BID PO Last administered on 08/14/16 10:10; Start 08/13/16 at 21:00 Senna/Docusate Sodium (Senna Plus) 1 tab BID PO Last administered on 08/14/16 10:10; Start 08/14/16 at 10:00 Docusate Sodium (Colace) 100 mg BID PO Last administered on 08/14/16 10:10; Start 08/14/16 at 10:00 Magnesium Hydroxide (Milk Of Magnesia) 2,400 mg PRN Q12HR PRN PO CONSTIPATION, 1ST CHOICE; Start 08/14/16 at 09:30 Lactulose 20 gm PRN Q12HR PRN PO CONSTIPATION, 2ND CHOICE; Start 08/14/16 at 09 :30 Bisacodyl (Dulcolax Supp) 10 mg PRN DAILY PRN PA CONSTIPATION; Start 08/14/16 at 09:30 Active Scripts Active Klor-Con Sprinkle (Potassium Chloride) 10 Meq Capsule.er 20 Meq PO DAILY Lisinopril 20 Mg Tablet 1 Tab PO BID Ferrous Sulfate 325 Mg Tablet 325 Tab PO DAILY Gabapentin 300 Mg Capsule 600 Mg PO TID Lasix (Furosemide) 40 Mg Tablet 40 Mg PO BID Hydralazine Hcl 25 Mg Tablet 1 Tab PO TID Reported Ventolin Hfa Inhaler (Albuterol Sulfate) 18 Gm Hfa.aer.ad 2 Puff INH QID Acetaminophen 160 Mg/5 Ml Solution 325 Mg PO QID Bactrim 400-80 Mg Tablet (Sulfamethoxazole/Trimethoprim) 1 Each Tablet 1 Tab PO BID Zantac (Ranitidine Hcl) 150 Mg Tablet 150 Mg PO DAILY Prednisone 20 Mg Tablet 20 Mg PO DAILY Novolog (Insulin Aspart) 100 Unit/1 Ml Cartridge 8 Unit SQ TIDAC Levemir (Insulin Detemir) 100 Unit/1 Ml Vial 36 Unit SQ HS Cyclobenzaprine Hcl 10 Mg Tablet 10 Mg PO TID Amlodipine Besylate 10 Mg Tablet 10 Mg PO DAILY Ibuprofen 800 Mg Tablet 800 Mg PO PRN Q6HRS PRN Lovastatin 20 Mg Tablet 20 Mg PO HS Vitals/I & O Vital Sign - Last 24 Hours 08/13/16 08/13/16 08/13/16 08/13/16 14:53 14:58 15:11 15:12 Temp 97.7 98.2 98.5 97.7 98.2 98.5 Pulse 91 90 88 Resp 18 B/P 150/88 151/76 156/73 Pulse Ox 96 97 O2 Delivery Nasal Cannula Nasal Cannula O2 Flow Rate 4.0 4.0 08/13/16 08/13/16 08/13/16 08/13/16 16:13 16:57 19:00 20:00 Temp 98.3 98.2 98.3 98.3 98.2 98.3 Pulse 88 89 87 Resp 18 18 18 B/P 152/72 155/71 159/82 Pulse Ox 97 O2 Delivery Nasal Cannula Nasal Cannula O2 Flow Rate 3.0 4.0 08/13/16 08/13/16 08/13/16 08/13/16 20:50 20:53 22:33 23:12 Temp 97.9 97.9 Pulse 87 Resp 18 B/P 163/91 Pulse Ox 97 97 99 96 O2 Delivery Nasal Cannula Nasal Cannula Nasal Cannula Nasal Cannula O2 Flow Rate 4.0 4.0 3.0 4.0 08/14/16 08/14/16 08/14/16 08/14/16 00:51 02:00 05:15 07:00 Temp 98.6 98.6 Pulse 82 Resp 19 20 18 B/P 151/72 Pulse Ox 96 96 98 99 O2 Delivery Nasal Cannula BiPAP/CPAP BiPAP/CPAP O2 Flow Rate 4.0 08/14/16 08/14/16 08/14/16 08/14/16 08:08 08:10 10:11 10:42 Temp 97.8 97.8 Pulse 80 Resp 17 B/P 145/74 Pulse Ox 94 96 O2 Delivery Nasal Cannula Nasal Cannula Nasal Cannula Nasal Cannula O2 Flow Rate 4.0 3.0 3.0 4.0 08/14/16 08/14/16 11:15 11:25 Pulse Ox 100 O2 Delivery Nasal Cannula Nasal Cannula O2 Flow Rate 3.0 4.0 Intake and Output 08/13/16 08/13/16 08/14/16 15:00 23:00 07:00 Intake Total 300 ml 610 ml 400 ml Output Total 1200 ml 100 ml Balance 300 ml -590 ml 300 ml SONYA SEWELL MD Aug 14, 2016 12:24
--- NOTE | 2016-08-14 14:08 | PDOC3 ---
Discharge Summary IPC Date of Admission: Aug 09, 2016 Discharge Date: Aug 14, 2016 Admitting Diagnosis Acute respiratory failure, hypoxia, on 3l-4L CHROnic Diastolic heart failure hx hilar mass and lung nodules s/p bronch in Mar 2016 hx sarcoidosis hx POLY Acute kidney injury Acute encephalopathy improving. s/p SANTHOSH and BSO, 08/09 Abdominal wound with vac in place Morbid obesity, BMI 45 vaginal bleeding post hysterectomy with wound vac on constipation Problems: Final Diagnosis CONSULTS pulm id Brief Hospital Course Ms. Ma is a 66 old F, pcp is dr. Villa, who did hysterectomy for vaginal bleeding for admission, IPC was consulted for IM management for resp failure and MARIO. I m not supposed to dc this pt as PCP, but dr. Villa has not seen this pt for 4days, and out of town, i am doing him a favour to dc this pt to SNF. I TALked to social services manager, should be an oB doc to dc pt, however, nobody can be reached in the office at this time point. pt is improving with nc on 4L now, home bipap, cough is better, on augmentin now. Cr also better. dc to snf, cont augmentin for another 3days. cont abd wound vac care, fu with ob next week. dc time 40min Patient History: FH: breast cancer 33 MOTHER Problems: Disposition snf CONDITION AT DISCHARGE: Improved Diet regular Scheduled Acetaminophen (Acetaminophen) 325 MG PO QID (Reported) Albuterol Sulfate (Ventolin Hfa Inhaler) 2 PUFF INH QID (Reported) Amlodipine Besylate (Amlodipine Besylate) 10 MG PO DAILY (Reported) Cyclobenzaprine Hcl (Cyclobenzaprine Hcl) 10 MG PO TID (Reported) Ferrous Sulfate (Ferrous Sulfate) 325 TAB PO DAILY Furosemide (Lasix) 40 MG PO BID Gabapentin (Gabapentin) 600 MG PO TID Hydralazine Hcl (Hydralazine Hcl) 1 TAB PO TID Insulin Aspart (Novolog) 8 UNIT SQ TIDAC (Reported) Insulin Detemir (Levemir) 36 UNIT SQ HS (Reported) Lisinopril (Lisinopril) 1 TAB PO BID Lovastatin (Lovastatin) 20 MG PO HS (Reported) Potassium Chloride (Klor-Con Sprinkle) 20 MEQ PO DAILY Prednisone (Prednisone) 20 MG PO DAILY (Reported) Ranitidine Hcl (Zantac) 150 MG PO DAILY (Reported) Sulfamethoxazole/Trimethoprim (Bactrim 400-80 Mg Tablet) 1 TAB PO BID (Reported ) Scheduled PRN Ibuprofen (Ibuprofen) 800 MG PO PRN Q6HRS PRN PRN INFLAMMATION (Reported) Follow Up ob next week SONYA SEWELL MD Aug 14, 2016 14:08
[2016-08-14] MEDS ORDERED: DOCU-27 PO (14:12)
[2016-08-14] MEDS ORDERED: SENN-22 PO (14:12)
[2016-08-14] MEDS ORDERED: AMOX1TAB11 PO (14:12)
[2016-08-14] MEDS ORDERED: OXYC1TAB7 PO (14:12)
[2016-08-14] MEDS ORDERED: FURO20TA3 PO (14:12)
[2016-08-14] MEDS ORDERED: INSU100I17 SQ (14:13)
[2016-08-14] MEDS ORDERED: INSU100I27 SQ (14:13)
[2016-08-14 14:54] VITALS: BP 145/78
--- NOTE | 2016-08-14 14:55 | PATHOLOGY ---
PATHOLOGY REPORT * * * * * * * * FINAL DIAGNOSIS: Uterus and attached bilateral fallopian tubes and ovaries, hysterectomy with bilateral salpingo-oophorectomy: - Leiomyomas, uterine corpus, subserosal and intramural, multiple, the largest of which measures 3.7 cm in greatest dimension, one of which shows infarction and calcification (uterine weight 566gm). - Atrophic endometrium showing chronic endometritis. - Adenomyosis, uterine corpus, focal. - Involutional changes of fallopian tube. - Organizing venous thrombus of adnexa, side indeterminant. - Involutional changes and focal adhesions of bilateral ovaries. COMMENT: There is no evidence of malignancy. (JPM:[id number]; d/t: 08/14/16) REPORT ELECTRONICALLY SIGNED BY: Jacob Doan M.D. DATE/TIME: 08/14/2016 14:51 * * * * * * * * GROSS PATHOLOGY: The specimen is received in formalin labeled "Taniya Ma, uterus, cervix, bilateral tubes and ovaries". Received is a 566 g, previous longitudinally incised uterus with attached cervix, measuring 14.8 x 12.9 x 9.5 cm upon reconstruction, with attached adnexa weighing 12 and 15 g. The adnexa cannot be oriented. The uterine serosa is pink-farr in appearance with a large amount of overlying adhesions. The 0.3 cm cervical os is surrounded by pink-gomez, smooth ectocervical mucosa. The cervical stump cannot be oriented, and one half is inked black. The cervical stump aspect is opened laterally to reveal a pale farr, corrugated endocervical canal measuring 4.7 cm in length. At the distal aspect of endocervical canal, there is a slight amount of farr-brown, granular endometrium present measuring 2.0 x 1.9 cm. The remainder the uterine corpus is opened laterally to reveal a triangular endometrial cavity measuring 5.1 cm in length by 2.2 cm in diameter. The remaining endometrium is light farr, glistening to light brown, granular in appearance measuring 0.1 cm in thickness. Serial sectioning reveals a farr-pink, trabeculated myometrium measuring up to 4.0 cm in thickness displaying multiple subserosal and intramural fibroids, some of which display hemorrhage and one of which displays calcifications, ranging in size from 0.8 to 3.7 cm. The 12 g adnexa consists of a non-fimbriated fallopian tube measuring 1.5 cm in length by 0.5 cm in diameter attached to a 2.6 x 1.8 x 1.7 cm ovary. Sectioning through the fallopian tube reveals a pinpoint to slightly patent lumen. Sectioning through the ovary reveals pale farr, normal ovarian stroma. The 15 g adnexa consists of a non-fimbriated fallopian tube measuring 3.3 cm in length by up to 0.7 cm in diameter attached to a 3.1 x 2.2 x 1.8 cm ovary. Sectioning through the fallopian tube reveals a patent lumen. Sectioning through the ovary reveals pale farr, normal ovarian stroma. The specimen is submitted representatively as follows: A1-A2 cervix and opposite cervix A3-A4 endomyometrium and opposite endomyometrium A5-A6 client support representative sections of fibroids, with cassettes A6 submitted following decalcification A7 12 g adnexa A8 15 g adnexa. (CAA; 08/13/2016) INITIAL CPT CODE(S): A; 87191, 37606 Professional services performed by [facility] [address] Technical services performed by [facility] at [address] [place] [address], [address] [address]. SPECIMEN(S) RECEIVED: A.Uterus, cervix, bilateral tubes and ovaries CLINICAL HISTORY: None provided PATIENT: TANIYA MA /AGE: 12 1950 (Age: 66) PATIENT #: [id number] ALT CASE #: SPECIMEN COLLECTION DATE: 08/09/2016 SPECIMEN RECEIVED DATE: 08/10/2016 [facility] [place] [address] - PHONE: [phone] * * * END OF REPORT * * *
== END 2016-08-14 17:20 | DRG 742 ==
LOC: SURG 09:29 → 3 NORTH 17:00 → 5 SOUTH 08-10 18:58
PROVIDERS: ADMIT Obstetrics & Gynecology; ATTEND Obstetrics & Gynecology
PROC: 0UTC0ZZ Resection of Cervix, Open Approach (ICD-10-PCS; 2016-08-09)
PROC: 0UT70ZZ Resection of Bilateral Fallopian Tubes, Open Approach (ICD-10-PCS; 2016-08-09)
PROC: 0UT20ZZ Resection of Bilateral Ovaries, Open Approach (ICD-10-PCS; 2016-08-09)
PROC: 0UT90ZZ Resection of Uterus, Open Approach (ICD-10-PCS; principal; 2016-08-09 11:30)
PROC: 30233N1 Transfusion of Nonautologous Red Blood Cells into Peripheral Vein, Percutaneous Approach (ICD-10-PCS; 2016-08-13)
DX: D25.9 Leiomyoma of uterus, unspecified (principal); G93.41 Metabolic encephalopathy; J18.9 Pneumonia, unspecified organism; J96.21 Acute and chronic respiratory failure with hypoxia; Z68.42 Body mass index [BMI] 45.0-49.9, adult; I50.32 Chronic diastolic (congestive) heart failure; N17.9 Acute kidney failure, unspecified; D86.9 Sarcoidosis, unspecified; E11.65 Type 2 diabetes mellitus with hyperglycemia; E66.01 Morbid (severe) obesity due to excess calories; E78.5 Hyperlipidemia, unspecified; E87.6 Hypokalemia; G47.33 Obstructive sleep apnea (adult) (pediatric); I11.0 Hypertensive heart disease with heart failure; J98.01 Acute bronchospasm; K59.00 Constipation, unspecified; K66.0 Peritoneal adhesions (postprocedural) (postinfection); R50.82 Postprocedural fever; Z80.1 Family history of malignant neoplasm of trachea, bronchus and lung; Z80.3 Family history of malignant neoplasm of breast; Z82.49 Family history of ischemic heart disease and other diseases of the circulatory system; Z86.73 Personal history of transient ischemic attack (TIA), and cerebral infarction without residual deficits; Z97.5 Presence of (intrauterine) contraceptive device
CPT/HCPCS: 36415; 36600; 70450; 71010; 80048; 80053; 81001; 82805; 82947; 83605; 83735; 84100; 84145; 85007; 85027; 86850; 86900; 86901; 86920; 87040; 87086; 88307; 88311; 93306; 93970; 94250; 94640; 94660; 94760; A4215; J0690; J0780; J1100; J1815; J1885; J2020; J2405; J2543; J2704; J2710; J3010; J3490; J7030; J7120; J7620; P9016; Q0163; 97110; 97530

== ENCOUNTER 2016-08-15 21:24 | Inpatient (IN) | payer OTHER ==
[~2016-08-15] VITALS: Ht 160 cm; Wt 115.7 kg
[~2016-08-15 21:24] MED LIST changes: +ACET160S PO; +AMOX1TAB11 PO; -CEFAZOLIN 2GM PREMIX 50 ML IV PRN; +CYCL10TA2 PO; +DOCU-27 PO; +FURO20TA3 PO; +INSU100C4 SQ; +INSU100I17 SQ; +INSU100V13 SQ; +OXYC1TAB7 PO; +PRED20TA PO; +RANI150T6 PO; +SENN-22 PO; +SULF1TAB23 PO; +VENTOLIN HFA18 GM INH
[2016-08-15] MEDS ORDERED: hydrALAZINE 20 MG/ML VIAL. IVP ONE (22:00)
[2016-08-15 22:28] LABS: CALCIUM 9.6 mg/dL (8.5-10.1); CREATININE 1.6 mg/dL (0.6-1.0); GFR 39.1; POTASSIUM 4.5 mmol/L (3.5-5.1)
[2016-08-15 22:34] LABS: ALBUMIN 1.9 g/dL (3.4-5.0); ALBUMIN/GLOBULIN RATIO 0.4 (1.0-1.7); TOTAL BILIRUBIN 0.1 mg/dL (0.2-1.0); TOTAL PROTEIN 6.4 g/dL (6.4-8.2)
[2016-08-15 22:47] LABS: BASO % 0 % (0-3); EOS % 3 % (0-3); HEMATOCRIT 25.7 % (36.0-47.0); HEMOGLOBIN 8.2 g/dL (12.0-15.5); LYMPH % 10 % (24-48); MEAN CORPUSCULAR HEMOGLOBIN 29 pg (25-35); MEAN CORPUSCULAR HGB CONC 32 g/dL (31-37); MEAN CORPUSCULAR VOLUME 89 fL (79-100); MONO % 5 % (0-9); NEUT % 83 % (31-73); PLATELET COUNT 232 x10^3/uL (140-400); RED BLOOD COUNT 2.88 x10^6/uL (3.50-5.40); RED CELL DISTRIBUTION WIDTH 15.6 % (11.5-14.5); WHITE BLOOD COUNT 10.4 x10^3/uL (4.0-11.0)
--- NOTE | 2016-08-15 22:58 | RAD ---
PROCEDURE CT head without contrast. HISTORY Altered mental status. TECHNIQUE Noncontrast CT head was obtained. One or more of the following individualized dose reduction techniques were utilized for this exam: 1. Automated exposure control. 2. Adjustment of the mA and/or kV according to patient's size. 3. Use of iterative reconstruction technique. COMPARISON August 11, 2016. FINDINGS The ventricles and sulci are within normal limits for age. There is no acute intracranial hemorrhage or extra-axial fluid collection. There is no mass effect or midline shift. Lopez-white differentiation is preserved. Deformity of the calvarium overlying the left frontal lobe again may be posttraumatic or postsurgical. It is similar to prior. There is no depressed skull fracture. Paranasal sinuses and mastoid air cells are clear. IMPRESSION No acute intracranial findings. Electronically signed by: Mitchell Bowman MD (Aug 15, 2016 22:57:56)
[2016-08-15] MEDS ORDERED: PIP/TAZO PER PHARMACY MC PRN (23:00)
[2016-08-15] MEDS ORDERED: PIPERACILLIN/TAZOBACTAM 4.5 GM in IV NORMAL SALINE 100ML 100 ML IV ONE (23:15)
--- NOTE | 2016-08-15 23:20 | PHYS DOC ---
Past Medical History Past Medical History: Anemia, CHF, Diabetes-Type II, High Cholesterol, Hypertension, Other Additional Past Medical Histor: sarcoidosis, obstructive sleep apnea, encephalopathy Past Surgical History: Colectomy, Hysterectomy, Other Alcohol Use: None Drug Use: None Adult General Chief Complaint Chief Complaint: ALTERED MENTAL STATUS HPI HPI Patient is a 66 year old who presents from [facility] with c/o AMS. Patient recently discharged from hospital after hysterectomy. She was sent over after staff felt that her mental status had changed. Patient is A&Ox3 at this time; her complaints include productive cough, wheezing, abdominal soreness. She denies fever. No headache. No other acute complaints. Review of Systems Review of Systems Constitutional: Denies fever or chills Eyes: Denies change in visual acuity or eye pain HENT: Denies nasal congestion or sore throat Respiratory: Productive cough, wheezing Cardiovascular: Denies chest pain GI: General abdominal soreness. Denies nausea, vomiting, bloody stools or diarrhea : Denies dysuria or hematuria Musculoskeletal: Denies back pain or joint pain Integument: Denies rash or skin lesions Neurologic: Denies headache, focal weakness or sensory changes Current Medications Current Medications Current Medications Medications (Trade) Dose Ordered Sig/Simi Start Time Stop Time Status Last Admin Dose Admin Acetaminophen (Tylenol) 650 mg PRN Q4HRS PRN 08/15/16 23:30 08/16/16 23:29 Dextrose 12.5 gm PRN Q15MIN PRN 08/15/16 23:30 Hydralazine HCl (Apresoline) 10 mg 1X ONCE 08/15/16 22:00 08/15/16 22:01 DC Insulin Aspart (Novolog) 0-7 UNITS TIDWMEALS 08/16/16 08:00 UNV Morphine Sulfate 2 mg PRN Q2HR PRN 08/15/16 23:30 08/16/16 23:29 Ondansetron HCl (Zofran) 4 mg PRN Q8HRS PRN 08/15/16 23:30 08/16/16 23:29 Piperacillin Sod/ Tazobactam Sod 4.5 gm/Sodium Chloride 100 ml @ 200 mls/hr 1X ONCE 08/15/16 23:15 08/15/16 23:44 DC 08/15/16 23:15 200 MLS/HR Piperacillin Sod/ Tazobactam Sod 1 each 1 each PRN DAILY PRN 08/15/16 23:00 UNV Vancomycin HCl (Vanco Per Pharmacy) 1 each PRN DAILY PRN 08/15/16 23:00 UNV Vancomycin HCl/ Sodium Chloride (Iv Sodium Chloride 0.9% 500ml Bag) 500 ml @ 250 mls/hr 1X ONCE 08/16/16 00:00 08/16/16 01:59 Allergies Allergies Allergies Coded Allergies Type Severity Reaction Last Updated Verified No Known Drug Allergies 04/02/16 No Physical Exam Physical Exam Constitutional: Well developed, well nourished, no acute distress, non-toxic appearance HENT: Normocephalic, atraumatic, bilateral external ears normal Eyes: PERRL, EOMI, conjunctiva normal, no discharge Neck: Normal range of motion, no stridor Cardiovascular: Heart rate normal, regular rhythm, no murmur Lungs & Thorax: Coarse breath sounds/crackles throughout Abdomen: Bowel sounds normal, soft, non-distended, no TTP Skin: Warm, dry, no erythema, no rash Extremities: No obvious deformity, no edema Neurologic: Somnolent but easily arousable, oriented X 3, GCS 15, CN II-XII grossly intact, strength intact and symmetrical throughout, sensation to light touch intact throughout Current Patient Data Vital Signs Vital Signs Date Time Temp Pulse Resp B/P Pulse Ox O2 Delivery O2 Flow Rate FiO2 08/15/16 21:25 99.0 103 16 206/82 99 Nasal Cannula 99.0 Lab Values Laboratory Tests Test 08/15/16 22:05 08/15/16 22:40 Sodium Level 147mmol/L (136-145) H Potassium Level 4.5mmol/L (3.5-5.1) Chloride Level 107mmol/L (98-107) Carbon Dioxide Level 36mmol/L (21-32) H Anion Gap 4 (6-14) L Blood Urea Nitrogen 21mg/dL (7-20) H Creatinine 1.6mg/dL (0.6-1.0) H Estimated GFR (Cockcroft-Gault) 39.1 BUN/Creatinine Ratio 13 (6-20) Glucose Level 192mg/dL (70-99) H Lactic Acid Level 0.5mmol/L (0.4-2.0) Calcium Level 9.6mg/dL (8.5-10.1) Total Bilirubin 0.1mg/dL (0.2-1.0) L Aspartate Amino Transferase (AST) 21U/L (15-37) Alanine Aminotransferase (ALT) 16U/L (14-59) Alkaline Phosphatase 71U/L (46-116) Troponin I Quantitative < 0.017ng/mL (0.000-0.055) QS-Pql-J-Type Natriuretic Peptide 440pg/mL (0-124) H Total Protein 6.4g/dL (6.4-8.2) Albumin 1.9g/dL (3.4-5.0) L Albumin/Globulin Ratio 0.4 (1.0-1.7) L White Blood Count 10.4x10^3/uL (4.0-11.0) # Red Blood Count 2.88x10^6/uL (3.50-5.40) L Hemoglobin 8.2g/dL (12.0-15.5) L Hematocrit 25.7% (36.0-47.0) L Mean Corpuscular Volume 89fL (79-100) Mean Corpuscular Hemoglobin 29pg (25-35) Mean Corpuscular Hemoglobin Concent 32g/dL (31-37) Red Cell Distribution Width 15.6% (11.5-14.5) H Platelet Count 232x10^3/uL (140-400) Neutrophils (%) (Auto) 83% (31-73) H Lymphocytes (%) (Auto) 10% (24-48) L Monocytes (%) (Auto) 5% (0-9) Eosinophils (%) (Auto) 3% (0-3) Basophils (%) (Auto) 0% (0-3) Neutrophils # (Auto) 8.6x10^3uL (1.8-7.7) H Lymphocytes # (Auto) 1.0x10^3/uL (1.0-4.8) Monocytes # (Auto) 0.5x10^3/uL (0.0-1.1) Eosinophils # (Auto) 0.3x10^3/uL (0.0-0.7) Basophils # (Auto) 0.0x10^3/uL (0.0-0.2) Laboratory Tests 08/15/16 22:40 Laboratory Tests 08/15/16 22:05 EKG EKG EKG (my read): sinus rhythm, rate 97, intervals wnl, nonspecific ST chages Radiology/Procedures Radiology/Procedures CT head: IMPRESSION No acute intracranial findings. CXR (my read): Persistent opacity R lower lung field Course & Med Decision Making Course & Med Decision Making Pertinent Labs and Imaging studies reviewed. (See chart for details) Patient is 66 year old female who presents with report of AMS as well as productive cough. Coarse breath sounds throughout, suspect pneumonia. Neuro exam benign except for mild somnolence. Will check EKG, CXR, CT head, labs to evaluate. Hydralazine ordered for elevated BP. EKG and imaging results as above. Labs notable for mild electrolyte abnormalities. No leukocytosis, however WBC higher than yesterday. Broad spectrum abx ordered to cover for HCAP. Discussed results with patient. Discussed with Dr. Nelson, will admit under her care for further evaluation and treatment. Dragon Disclaimer Dragon Disclaimer This electronic medical record was generated, in whole or in part, using a voice recognition dictation system. Departure Departure Impression: Primary Impression: Altered mental status Additional Impression: Pneumonia Disposition: ADMITTED INPATIENT Admitting Physician: Jennifer Nelson Condition: STABLE Referrals: NON,STAFF (PCP) Problem Qualifiers ALLY BURTON MD Aug 15, 2016 23:20
[2016-08-15] MEDS ORDERED: DEXTROSE 50% 25 GM / 50ML DISP.SYRIN. IV PRN (23:30)
[2016-08-15] MEDS ORDERED: ONDANSETRON PF 4 MG/2 ML VIAL. IV PRN (23:30)
[2016-08-16] VITALS (7 sets, daily range): BP systolic 113–187; BP diastolic 70–97
[2016-08-16] MEDS ORDERED: VANCOMYCIN 2 GM in IV NORMAL SALINE 500ML BAG 500 ML IV ONE ×2
[2016-08-16] MEDS: ACETAMINOPHEN 325 MG TABLET. PO PRN ×3 (00:42→21:08)
[2016-08-16] MEDS: MORPHINE SULFATE 2 MG/ML DISP.SYRIN. IV PRN ×2 (00:43→08:13)
--- NOTE | 2016-08-16 01:00 | ACF ---
Admission Forms Criteria MENTAL STATUS CHANGE Clinical Indications for Inpatient Care (Place 'X' for any and all applicable criteria): Ongoing inpatient care may be needed for ANY ONE of the following(1)(2)(3)(5)(6) : [ ]I. Suspected serious etiology (eg, medical disorder, [employer] event) of mental status change [ ]II. Danger to self or others not manageable at lower level of care [ ]III. Grave disability (eg, inability to perform self care necessary at lower level of care) [ ]IV. Agitation or inappropriate behavior interfering with care for primary condition (eg, attempting to discontinue lines or drains prematurely, unable to cooperate with respiratory care) [ ]V. Delirium [A] [D][E] as described by ANY ONE of the following(26): [ ]a) Delirium due to alcohol or sedative [F] withdrawal [ ]b) Delirium of uncertain etiology that has not responded to appropriate empiric treatment [ ]c) Delirium that prevents performance of a life-sustaining function (eg, feeding or hydrating oneself) [X]. General contraindications and/or Inappropriate clinical situations for Observational Care in patients with Mental Status Change, when ANY ONE of the following is required: [ ]a) Prediction of prolongation of LOS based on ANY ONE of the following may be considered as a contraindication for observational care 2, 3, 4, 5, 6, 7, 8, 9, 10, 11 [ ]i) Age > 65 yrs. [ ]ii) Patient arriving by ambulance [ ]iii) Patient with high acuity [ ]iv) Patient requiring vital sign monitoring [ ]v) Patient on IV medication [X]b) Systolic blood pressures 180mmHg 3,12 [ ]c) Patient with altered mental status including delirium and other alteration of consciousness, (3) [ ]d) Patient whose discharge disposition will be to a alf home or rehabilitation home should not be managed in Emergency Department Observation Unit. CMS rule requires 3 days hospital stay before such placement.3,13 [ ]e) Patient with failure to thrive due to broad array of etiologies 3,16,17 [ ]f) Inability to ambulate 3,14 Extended stay beyond goal length of stay for the primary condition may be needed until ALL of the following are present(3)(5): [ ]a) Underlying medical etiology of mental status change is absent, or has been established and adequately treated [ ]b) Danger to self or others is absent or manageable at lower level of care. [ ]c) Behavior crisis management, including physical or chemical restraints, is not required or available at lower level of car [ ]d) Substance or alcohol withdrawal is absent or manageable at lower level of care. [ ]e) Behavioral symptoms (eg, agitation, somnolence, inappropriate behavior) are absent, or are manageable at lower level of care. The original [facility] content created by [facility] [employer] has been revised. The portions of the content which have been revised are identified through the use of italic text or in bold, and [facility] has neither reviewed nor approved the modified material. All other unmodified content is copyright [employer] [facility]. Please see references footnoted in the original [facility] edition 2016 Admission Criteria Met?: Yes STORM RAUSCH Aug 16, 2016 00:59
[2016-08-16] MEDS: VANCOMYCIN PER PHARMACY MC PRN (01:17)
[2016-08-16 05:23] LABS: BASO % 0 % (0-3); EOS % 3 % (0-3); HEMATOCRIT 25.4 % (36.0-47.0); HEMOGLOBIN 8.2 g/dL (12.0-15.5); LYMPH # 1.1 x10^3/uL (1.0-4.8); LYMPH % 10 % (24-48); MEAN CORPUSCULAR HEMOGLOBIN 29 pg (25-35); MEAN CORPUSCULAR HGB CONC 32 g/dL (31-37); MEAN CORPUSCULAR VOLUME 89 fL (79-100); MONO % 5 % (0-9); NEUT % 81 % (31-73); PLATELET COUNT 248 x10^3/uL (140-400); RED BLOOD COUNT 2.87 x10^6/uL (3.50-5.40); RED CELL DISTRIBUTION WIDTH 15.7 % (11.5-14.5); WHITE BLOOD COUNT 10.9 x10^3/uL (4.0-11.0)
[2016-08-16 05:49] LABS: CALCIUM 9.3 mg/dL (8.5-10.1); CREATININE 1.5 mg/dL (0.6-1.0); GFR 42.2; POTASSIUM 4.6 mmol/L (3.5-5.1)
[2016-08-16] MEDS ORDERED: PIPERACILLIN/TAZOBACTAM 4.5 GM in IV NORMAL SALINE 100ML 100 ML IV SCH (06:00)
--- NOTE | 2016-08-16 06:50 | EKG ---
[facility] [address] [place] [address] Test Date: 2016-08-15 Test Time: 23:06:51 Pat Name: BRANDIE MEJIA Department: Room: Gender: F Asphalt Raker: : [id number] Requested By: ALLY BURTON Order Number: [id number] Reading MD: Measurements Intervals [place]fall Rate: 97 P: 54 MA: 172 QRS: 48 QRSD: 80 T: 15 QT: 328 QTc: 421 Interpretive Statements SINUS RHYTHM QRS(T) CONTOUR ABNORMALITY CONSIDER ANTEROLATERAL MYOCARDIAL DAMAGE POSSIBLY ABNORMAL ECG RI6.01 No previous ECG available for comparison
--- NOTE | 2016-08-16 07:35 | RAD ---
Indication productive cough and fever. A single view of the chest was obtained and is compared to a study 4 days earlier. Mild cardiomegaly is unchanged. There is no consolidated pneumonia seen. Right hilar prominence, probably reflecting pulmonary artery as demonstrated on the CT examination 03/30/2016 persists and appears similar. Significant pleural fluid is not seen. There is no pneumothorax. A significant change in the appearance of the chest is not seen. IMPRESSION: No definite acute or focal process. No significant change
[2016-08-16] MEDS: INSULIN ASPART 300 UNITS/3 ML INSULN.PEN SQ SCH ×3 (08:09→17:00)
[2016-08-16] MEDS ORDERED: MAGNESIUM HYDROXIDE 2,400 MG/30 ML ORAL.SUSP. PO ONE (10:15)
[2016-08-16] MEDS ORDERED: DOCUSATE SODIUM 100 MG CAPSULE PO PRN (10:15)
[2016-08-16] MEDS ORDERED: POLYETHYLENE GLYCOL 3350 17 GM PACKET. PO PRN (10:15)
[2016-08-16] MEDS ORDERED: POLYETHYLENE GLYCOL 3350 17 GM PACKET. PO ONE (10:15)
--- NOTE | 2016-08-16 10:17 | PDOC1 ---
History and Physical Date of Admission Date of Admission DATE: 08/16/16 TIME: 10:14 Identification/Chief Complaint Chief Complaint mental status change Source Source: Chart review, Patient History of Present Illness History of Present Illness Ms. Ma is a 66 year old who admit from [facility] with c/o AMS. She was DC 2 days ago, was here 5 days for uterine bleeding, saw Dr. Vázquez for Complete Hys, and had done well after surg. some ongoing anemia, dyspnea, 02 need. She was treated for PNA in the hospital, and DC on I saw her yesterday at the alf, her family and PT complained of new confusion. She had trouble writing numbers and was confused on the date. On my exam 08/15, she was AXO X4, and had normal str. remembered current events, and remembered me from the hospital. Lasix given, some dyspnea. Apparently, another event happened overnight, she was less responsive for a short time, she remembers awakening with the fire dept. in her room at [facility]. MS had changed before, she has no recollection, cannot elicit that she was more fatigued or had any change in sensation leading up to event. THis AM, she feels well, no complaint, some fatigue, breathing OK, cough not worsened, appears calm Past Medical History Cardiovascular: HTN, Hyperlipidemia Pulmonary: No pertinent hx CENTRAL NERVOUS SYSTEM: Other GI: Diverticulosis Heme/Onc: No pertinent hx Hepatobiliary: No pertinent hx Psych: No pertinent hx Musculoskeletal: Osteoarthritis Rheumatologic: No pertinent hx Infectious disease: No pertinent hx Renal/: No pertinent hx Endocrine: Diabetes Past Surgical History Past Surgical History: Colon Resection Family History Family History: Coronary Artery Disease Social History Smoke: No ALCOHOL: none Drugs: None Current Problem List Problem List Problems Medical Problems: (1) Altered mental status Status: Acute (2) Pneumonia Status: Acute Problems: Current Medications Current Medications Current Medications Hydralazine HCl (Apresoline) 10 mg 1X ONCE IVP Last administered on 08/16/16 00:44; Start 08/15/16 at 22:00; Stop 08/15/16 at 22:01; Status DC Vancomycin HCl (Vanco Per Pharmacy) 1 each PRN DAILY PRN MC SEE COMMENTS Last administered on 08/16/16 01:17; Start 08/15/16 at 23:00 Piperacillin Sod/ Tazobactam Sod 1 each 1 each PRN DAILY PRN MC SEE COMMENTS; Start 08/15/16 at 23:00 Piperacillin Sod/ Tazobactam Sod 4.5 gm/Sodium Chloride 100 ml @ 200 mls/hr 1X ONCE IV Last administered on 08/15/16 23:15; Start 08/15/16 at 23:15; Stop 08/15/16 at 23:44; Status DC Vancomycin HCl/ Sodium Chloride (Iv Sodium Chloride 0.9% 500ml Bag) 500 ml @ 250 mls/hr 1X ONCE IV Last administered on 08/16/16 00:44; Start 08/16/16 at 00:00; Stop 08/16/16 at 01:59; Status DC Ondansetron HCl (Zofran) 4 mg PRN Q8HRS PRN IV NAUSEA/VOMITING; Start 08/15/16 at 23:30; Stop 08/16/16 at 23:29 Morphine Sulfate 2 mg PRN Q2HR PRN IV PAIN Last administered on 08/16/16 08:13 ; Start 08/15/16 at 23:30; Stop 08/16/16 at 23:29 Acetaminophen (Tylenol) 650 mg PRN Q4HRS PRN PO FEVER Last administered on 08/16 08:13; Start 08/15/16 at 23:30; Stop 08/16/16 at 23:29 Insulin Aspart (Novolog) 0-7 UNITS TIDWMEALS SQ Last administered on 08/16/16 08:09; Start 08/16/16 at 08:00 Dextrose 12.5 gm 12.5 gm PRN Q15MIN PRN IV SEE COMMENTS; Start 08/15/16 at 23: 30 Piperacillin Sod/ Tazobactam Sod 4.5 gm/Sodium Chloride 100 ml @ 200 mls/hr Q8H IV Last administered on 08/16/16 05:41; Start 08/16/16 at 06:00 Vancomycin HCl/ Sodium Chloride (Iv Sodium Chloride 0.9% 500ml Bag) 500 ml @ 250 mls/hr Q24H IV ; Start 08/17/16 at 01:00 Vancomycin HCl 1 each 1X ONCE MC ; Start 08/18/16 at 00:30; Stop 08/18/16 at 00 :31 Active Scripts Active Levemir Flextouch (Insulin Detemir) 100 Unit/1 Ml Insuln.pen 25 Units SQ QHS 30 Days Novolog Flexpen (Insulin Aspart) 100 Unit/1 Ml Insuln.pen 0 Units SQ TIDWMEALS 30 Days Senna-Time S Tablet (Sennosides/Docusate Sodium) 1 Each Tablet 1 Tab PO BID Oxycodone-Acetaminophen 5-325 (Oxycodone Hcl/Acetaminophen) 1 Each Tablet 1 Tab PO PRN Q4HRS PRN Furosemide 20 Mg Tablet 20 Mg PO BID92 30 Days Colace (Docusate Sodium) 100 Mg Capsule 100 Mg PO BID 5 Days Amox Tr-K Clv 875-125 Mg Tab (Amoxicillin/Potassium Clav) 1 Each Tablet 1 Tab PO BID 3 Days Klor-Con Sprinkle (Potassium Chloride) 10 Meq Capsule.er 20 Meq PO DAILY Lisinopril 20 Mg Tablet 1 Tab PO BID Ferrous Sulfate 325 Mg Tablet 325 Tab PO DAILY Gabapentin 300 Mg Capsule 600 Mg PO TID Hydralazine Hcl 25 Mg Tablet 1 Tab PO TID Reported Ventolin Hfa Inhaler (Albuterol Sulfate) 18 Gm Hfa.aer.ad 2 Puff INH QID Acetaminophen 160 Mg/5 Ml Solution 325 Mg PO QID Bactrim 400-80 Mg Tablet (Sulfamethoxazole/Trimethoprim) 1 Each Tablet 1 Tab PO BID Zantac (Ranitidine Hcl) 150 Mg Tablet 150 Mg PO DAILY Prednisone 20 Mg Tablet 20 Mg PO DAILY Cyclobenzaprine Hcl 10 Mg Tablet 10 Mg PO TID Lovastatin 20 Mg Tablet 20 Mg PO HS Allergies Allergies: Coded Allergies: No Known Drug Allergies (Unverified , 04/02/16) ROS General: YES: Fatigue, No: Appetite, Chills, Night Sweats, Other PSYCHOLOGICAL ROS: No: Anxiety, Behavioral Disorder, Concentration difficultie , Decreased libido, Depression, Disorientation, Hallucinations, Hostility, Irritablity, Memory difficulties, Mood Swings, Obsessive thoughts, Other, Physical abuse, Sexual abuse, Sleep disturbances, Suicidal ideation Eyes: No Blurry vision, No Decreased vision, No Double vision, No Dry eyes, No Excessive tearing, No Eye Pain, No Itchy Eyes, No Loss of vision, No Other, No Photophobia, No Scotomata, No Uses contacts, No Uses glasses HEENT: No: Epistaxis, Heacaches, Hearing change, Nasal congestion, Nasal discharge, Oral lesions, Other, Sinus pain, Sneezing, Snoring, Sore Throat, Tinnitus, Vertigo, Visual Changes, Vocal changes Respiratory: No: Cough, Hemoptysis, Orthopnea, Other, Pleuritic Pain, SOB with excertion, Shortness of breath, Sputum Changes, Stridor, Tachypnea, Wheezing Cardiovascular: No Chest Pain, No Edema, No Lt Headedness, No Orthopnea, No Other, No Palpitations, No Paroxysmal Noc. Dyspnea Gastrointestinal: No Abdominal Pain, No Constipation, No Diarrhea, No Hematochezia, No Melena, No Nausea, No Other, No Vomiting Genitourinary: No , No , No , No , No , No , No , No Discharge, No Dysuria, No Flank Pain, No Frequency, No Hematuria, No Incontinence, No Other, No Pain, No Retention, No Urgency Musculoskeletal: No Gait Disturbance, No Joint Pain, No Joint Stiffness, No Joint Swelling, No Muscle Pain, No Muscular Weakness, No Other, No Pain In:, No Swelling In: Neurological: No Behavorial Changes, No Bowel/Bladder ControlChng, No Confusion , No Dizziness, No Gait Disturbance, No Headaches, No Impaired Coord/balance, No Memory Loss, No Numbness/Tingling, No Other, No Seizures, No Speech Problems , No Tremors, No Visual Changes, No Weakness Skin: No Acne, No Dry Skin, No Eczema, No Hair Changes, No Lumps, No Mole Changes, No Mottling, No Nail Changes, No Other, No Pruritus, No Rash, No Skin Lesion Changes Physical Exam General: Alert, Oriented X3, Cooperative, No acute distress HEENT: Atraumatic, PERRLA, Mucous membr. moist/pink Lungs: Clear to auscultation, Normal air movement Heart: no gallops, no murmurs Abdomen: Normal bowel sounds, Soft Male Genitals Exam: normal genitalia Rectal Exam: mass Extremities: No clubbing, No cyanosis, Other (2+ edema) Skin: No rashes Neuro: Normal speech, Sensation intact, Cranial nerves 3-12 NL Psych/Mental Status: Mood NL Vitals Vitals Vital Signs Date Time Temp Pulse Resp B/P Pulse Ox O2 Delivery O2 Flow Rate FiO2 08/16/16 08:43 98 Nasal Cannula 4.0 08/16/16 07:25 99.3 96 20 157/70 99.3 Labs Labs Laboratory Tests Test 08/15/16 22:05 08/15/16 22:40 08/16/16 05:10 08/16/16 07:25 Sodium Level 147mmol/L (136-145) 149mmol/L (136-145) Potassium Level 4.5mmol/L (3.5-5.1) 4.6mmol/L (3.5-5.1) Chloride Level 107mmol/L (98-107) 110mmol/L (98-107) Carbon Dioxide Level 36mmol/L (21-32) 33mmol/L (21-32) Anion Gap 4 (6-14) 6 (6-14) Blood Urea Nitrogen 21mg/dL (7-20) 20mg/dL (7-20) Creatinine 1.6mg/dL (0.6-1.0) 1.5mg/dL (0.6-1.0) Estimated GFR (Cockcroft-Gault) 39.1 42.2 BUN/Creatinine Ratio 13 (6-20) Glucose Level 192mg/dL (70-99) 176mg/dL (70-99) Lactic Acid Level 0.5mmol/L (0.4-2.0) Calcium Level 9.6mg/dL (8.5-10.1) 9.3mg/dL (8.5-10.1) Total Bilirubin 0.1mg/dL (0.2-1.0) Aspartate Amino Transf (AST/SGOT) 21U/L (15-37) Alanine Aminotransferase (ALT/SGPT) 16U/L (14-59) Alkaline Phosphatase 71U/L (46-116) Troponin I Quantitative < 0.017ng/mL (0.000-0.055) PQ-Vus-C-Type Natriuretic Peptide 440pg/mL (0-124) Total Protein 6.4g/dL (6.4-8.2) Albumin 1.9g/dL (3.4-5.0) Albumin/Globulin Ratio 0.4 (1.0-1.7) White Blood Count 10.4x10^3/uL (4.0-11.0) 10.9x10^3/uL (4.0-11.0) Red Blood Count 2.88x10^6/uL (3.50-5.40) 2.87x10^6/uL (3.50-5.40) Hemoglobin 8.2g/dL (12.0-15.5) 8.2g/dL (12.0-15.5) Hematocrit 25.7% (36.0-47.0) 25.4% (36.0-47.0) Mean Corpuscular Volume 89fL (79-100) 89fL (79-100) Mean Corpuscular Hemoglobin 29pg (25-35) 29pg (25-35) Mean Corpuscular Hemoglobin Concent 32g/dL (31-37) 32g/dL (31-37) Red Cell Distribution Width 15.6% (11.5-14.5) 15.7% (11.5-14.5) Platelet Count 232x10^3/uL (140-400) 248x10^3/uL (140-400) Neutrophils (%) (Auto) 83% (31-73) 81% (31-73) Lymphocytes (%) (Auto) 10% (24-48) 10% (24-48) Monocytes (%) (Auto) 5% (0-9) 5% (0-9) Eosinophils (%) (Auto) 3% (0-3) 3% (0-3) Basophils (%) (Auto) 0% (0-3) 0% (0-3) Neutrophils # (Auto) 8.6x10^3uL (1.8-7.7) 8.7x10^3uL (1.8-7.7) Lymphocytes # (Auto) 1.0x10^3/uL (1.0-4.8) 1.1x10^3/uL (1.0-4.8) Monocytes # (Auto) 0.5x10^3/uL (0.0-1.1) 0.6x10^3/uL (0.0-1.1) Eosinophils # (Auto) 0.3x10^3/uL (0.0-0.7) 0.4x10^3/uL (0.0-0.7) Basophils # (Auto) 0.0x10^3/uL (0.0-0.2) 0.0x10^3/uL (0.0-0.2) Glucose (Fingerstick) 154mg/dL (70-99) Laboratory Tests Test 08/15/16 22:05 08/15/16 22:40 08/16/16 05:10 08/16/16 07:25 Sodium Level 147mmol/L (136-145) 149mmol/L (136-145) Potassium Level 4.5mmol/L (3.5-5.1) 4.6mmol/L (3.5-5.1) Chloride Level 107mmol/L (98-107) 110mmol/L (98-107) Carbon Dioxide Level 36mmol/L (21-32) 33mmol/L (21-32) Anion Gap 4 (6-14) 6 (6-14) Blood Urea Nitrogen 21mg/dL (7-20) 20mg/dL (7-20) Creatinine 1.6mg/dL (0.6-1.0) 1.5mg/dL (0.6-1.0) Estimated GFR (Cockcroft-Gault) 39.1 42.2 BUN/Creatinine Ratio 13 (6-20) Glucose Level 192mg/dL (70-99) 176mg/dL (70-99) Lactic Acid Level 0.5mmol/L (0.4-2.0) Calcium Level 9.6mg/dL (8.5-10.1) 9.3mg/dL (8.5-10.1) Total Bilirubin 0.1mg/dL (0.2-1.0) Aspartate Amino Transf (AST/SGOT) 21U/L (15-37) Alanine Aminotransferase (ALT/SGPT) 16U/L (14-59) Alkaline Phosphatase 71U/L (46-116) Troponin I Quantitative < 0.017ng/mL (0.000-0.055) SZ-Hdu-Y-Type Natriuretic Peptide 440pg/mL (0-124) Total Protein 6.4g/dL (6.4-8.2) Albumin 1.9g/dL (3.4-5.0) Albumin/Globulin Ratio 0.4 (1.0-1.7) White Blood Count 10.4x10^3/uL (4.0-11.0) 10.9x10^3/uL (4.0-11.0) Red Blood Count 2.88x10^6/uL (3.50-5.40) 2.87x10^6/uL (3.50-5.40) Hemoglobin 8.2g/dL (12.0-15.5) 8.2g/dL (12.0-15.5) Hematocrit 25.7% (36.0-47.0) 25.4% (36.0-47.0) Mean Corpuscular Volume 89fL (79-100) 89fL (79-100) Mean Corpuscular Hemoglobin 29pg (25-35) 29pg (25-35) Mean Corpuscular Hemoglobin Concent 32g/dL (31-37) 32g/dL (31-37) Red Cell Distribution Width 15.6% (11.5-14.5) 15.7% (11.5-14.5) Platelet Count 232x10^3/uL (140-400) 248x10^3/uL (140-400) Neutrophils (%) (Auto) 83% (31-73) 81% (31-73) Lymphocytes (%) (Auto) 10% (24-48) 10% (24-48) Monocytes (%) (Auto) 5% (0-9) 5% (0-9) Eosinophils (%) (Auto) 3% (0-3) 3% (0-3) Basophils (%) (Auto) 0% (0-3) 0% (0-3) Neutrophils # (Auto) 8.6x10^3uL (1.8-7.7) 8.7x10^3uL (1.8-7.7) Lymphocytes # (Auto) 1.0x10^3/uL (1.0-4.8) 1.1x10^3/uL (1.0-4.8) Monocytes # (Auto) 0.5x10^3/uL (0.0-1.1) 0.6x10^3/uL (0.0-1.1) Eosinophils # (Auto) 0.3x10^3/uL (0.0-0.7) 0.4x10^3/uL (0.0-0.7) Basophils # (Auto) 0.0x10^3/uL (0.0-0.2) 0.0x10^3/uL (0.0-0.2) Glucose (Fingerstick) 154mg/dL (70-99) VTE Prophylaxis Ordered VTE Prophylaxis Devices: No VTE Pharmacological Prophylaxi: Yes Assessment/Plan Assessment/Plan acute hypoxia from recent pneumonia and chf CHF, stable distolic CHF accel HTN yesterday at [place], hydralazine was increased, vitals nowimproved transient mental status change X2, consult neuro, consider partial seizure I consulted Neuro, but now patient had fever, appears septic, consult ID blood cx last night, repeat now. fluid if tachcyardia return, accel htn on admit, additional fluid not given for that reason admitted QUIRINO ENGEL MD Aug 16, 2016 10:17
[2016-08-16] MEDS: OXYCODONE/APAP 5/325 TABLET. PO PRN (10:57)
[2016-08-16] MEDS ORDERED: AMOXICILLIN/K CLAV 875/125MG TABLET. PO SCH (11:00)
[2016-08-16] MEDS ORDERED: SMZ/TMP 400/80MG TABLET. PO SCH (11:00)
[2016-08-16] MEDS: IPRATRPIUM/ALBUTEROL 0.5/2.5MG 3 ML NEBU. NEB SCH ×3 (11:42→20:08)
[2016-08-16] MEDS ORDERED: ALBUTEROL SULFATE 2.5 MG/3 ML NEBU. NEB SCH (12:00)
[2016-08-16] MEDS ORDERED: INSULIN ASPART 300 UNITS/3 ML INSULN.PEN SQ SCH (12:00)
--- NOTE | 2016-08-16 12:12 | PDOC2 ---
STEPHEN VERA WHARF BUILDER 08/16/16 1212: CARDIAC CONSULT DATE OF CONSULT Date of Consult DATE: 08/16/16 TIME: 12:02 REASON FOR CONSULT Reason for Consult: HTN & tachycardia REFERRING PHYSICIAN Referring Physician: Dr Sugey Zepeda SOURCE Source: Chart review, Patient HISTORY OF PRESENT ILLNESS HISTORY OF PRESENT ILLNESS 66 year old female discharged from [facility] on 08/14/2016 to [facility] after undergoing SANTHOSH BSO on 08/09/2016. Patient with anemia 2015 related to retained IUD which was then removed. Persistent menorrhagia and then underwent surgery. Found to have large fibroids. Post-operative course complicated by acute renal failure, mild CHF, MARIO and encephalopathy. Went to for further rehabilitations. Family noted mental status changes there with physician confirming this as well. Was subsequently transferred back to [facility] Now demonstrating ST on telemetry and SBP > 200 POA to ER. SBP 140 -180 today with oral meds having been delayed. EKG without acute changes and with SR. NT-proBNP was 440. Reason for Visit: HTN and ST PAST MEDICAL HISTORY Cardiovascular: CHF (diastolic), HTN, Hyperlipidemia Pulmonary: Other (POLY with CPAP; right hilar mass and lung nodule; sarcoidosis diagnosed by lung biospy - [id number]) CENTRAL NERVOUS SYSTEM: Other (none) GI: Diverticulosis, Other (obesity) Heme/Onc: Anemia NOS (initially precipitated by menorrhagia due to retained IUD - persisted after IUD removed; now iron deficiency) Hepatobiliary: No pertinent hx Psych: No pertinent hx Musculoskeletal: Osteoarthritis Infectious disease: No pertinent hx ENT: No pertinent hx Renal/: Acute renal failure (immediately post-op after SANTHOSH BSO 08/09/2016) Endocrine: Diabetes (type II, poorly controlled) PAST SURGICAL HISTORY Past Surgical History: Hysterectomy (SANTHOSH BSO 08/09/2016), Colon Resection FAMILY HISTORY Family History: Cancer (breast in mother), Coronary Artery Disease SOCIAL HISTORY Smoke: No ALCOHOL: none Drugs: None Lives: Intermediate ([facility]) CURRENT MEDICATIONS CURRENT MEDICATIONS Current Medications Medications (Trade) Dose Ordered Sig/Simi Route PRN Reason Start Time Stop Time Status Last Admin Dose Admin Hydralazine HCl (Apresoline) 10 mg 1X ONCE IVP 08/15/16 22:00 08/15/16 22:01 DC 08/16/16 00:44 Vancomycin HCl 1 each 1 each PRN DAILY PRN MC SEE COMMENTS 08/15/16 23:00 08/16/16 01:17 Piperacillin Sod/ Tazobactam Sod 4.5 gm/Sodium Chloride 100 ml @ 200 mls/hr 1X ONCE IV 08/15/16 23:15 08/15/16 23:44 DC 08/15/16 23:15 Vancomycin HCl/ Sodium Chloride (Iv Sodium Chloride 0.9% 500ml Bag) 500 ml @ 250 mls/hr 1X ONCE IV 08/16/16 00:00 08/16/16 01:59 DC 08/16/16 00:44 Morphine Sulfate 2 mg PRN Q2HR PRN IV PAIN 08/15/16 23:30 08/16/16 23:29 08/16/16 08:13 Acetaminophen (Tylenol) 650 mg PRN Q4HRS PRN PO FEVER 08/15/16 23:30 08/16/16 23:29 08/16/16 08:13 Insulin Aspart 0-7 UNITS TIDWMEALS SQ 08/16/16 08:00 08/16/16 08:09 Piperacillin Sod/ Tazobactam Sod/ Sodium Chloride (Zosyn/Iv Sodium Chloride 0.9% 100ml) 100 ml @ 200 mls/hr Q8H IV 08/16/16 06:00 08/16/16 05:41 Polyethylene Glycol (miraLAX PACKET) 17 gm 1X ONCE PO 08/16/16 10:15 08/16/16 10:22 DC 08/16/16 10:30 Magnesium Hydroxide (Milk Of Magnesia) 2,400 mg 1X ONCE PO 08/16/16 10:15 08/16/16 10:22 DC 08/16/16 10:29 Oxycodone/ Acetaminophen (Percocet 5/325) 1 tab PRN Q4HRS PRN PO MODERATE PAIN, SEVERE PAIN 08/16/16 10:30 08/16/16 10:57 Albuterol/ Ipratropium (Duoneb) 3 ml RTQID NEB 08/16/16 12:00 08/16/16 11:42 ALLERGIES ALLERGIES: Coded Allergies: No Known Drug Allergies (Unverified , 04/02/16) ROS General: YES: Malaise PSYCHOLOGICAL ROS: No: Anxiety, Behavioral Disorder, Concentration difficultie , Decreased libido, Depression, Disorientation, Hallucinations, Hostility, Irritablity, Memory difficulties, Mood Swings, Obsessive thoughts, Other, Physical abuse, Sexual abuse, Sleep disturbances, Suicidal ideation Eyes: No Blurry vision, No Decreased vision, No Double vision, No Dry eyes, No Excessive tearing, No Eye Pain, No Itchy Eyes, No Loss of vision, No Other, No Photophobia, No Scotomata, No Uses contacts, No Uses glasses HEENT: No: Epistaxis, Heacaches, Hearing change, Nasal congestion, Nasal discharge, Oral lesions, Other, Sinus pain, Sneezing, Snoring, Sore Throat, Tinnitus, Vertigo, Visual Changes, Vocal changes ALLERGY AND IMMUNOLOGY: No: Hives, Insect Bite Sensitivity, Itchy/Watery Eyes, Nasal Congestion, Other, Post Nasal Drip, Seasonal Allergies Hematological and Lymphatic: YES: Bleeding Problems (associated with uterine fibroid), No: Blood Clots, Blood Transfusions, Brusing, Night Sweats, Other, Pallor, Swollen Lymph Nodes ENDOCRINE: No: Breast Changes, Galactorrhea, Hair Pattern Changes, Hot Flashes , Malaise/lethargy, Mood Swings, Other, Palpitations, Polydipsia/polyuria, Skin Changes, Temperature Intolerance, Unexpected Weight Changes Respiratory: No: Cough, Hemoptysis, Orthopnea, Other, Pleuritic Pain, SOB with excertion, Shortness of breath, Sputum Changes, Stridor, Tachypnea, Wheezing Cardiovascular: yes Edema Gastrointestinal: Yes Abdominal Pain (incisional ) Genitourinary: No , No , No , No , No , No , No , No Discharge, No Dysuria, No Flank Pain, No Frequency, No Hematuria, No Incontinence, No Other, No Pain, No Retention, No Urgency Musculoskeletal: No Gait Disturbance, No Joint Pain, No Joint Stiffness, No Joint Swelling, No Muscle Pain, No Muscular Weakness, No Other, No Pain In:, No Swelling In: Neurological: Yes Confusion, Yes Memory Loss Skin: No Acne, No Dry Skin, No Eczema, No Hair Changes, No Lumps, No Mole Changes, No Mottling, No Nail Changes, No Other, No Pruritus, No Rash, No Skin Lesion Changes PHYSICAL EXAM General: Alert, Oriented X3, Cooperative, No acute distress HEENT: Atraumatic, PERRLA Lungs: Other (basilar crackles posteriorly with expiratory wheezing throughout ) Heart: Regular rate (tachy- tele: ST), Normal S1, Normal S2, No murmurs, Other (no carotid bruits) Abdomen: Normal bowel sounds, Soft Extremities: No edema, Normal pulses Skin: No rashes Neuro: Normal speech, Sensation intact Psych/Mental Status: Mental status NL, Mood NL MUSCULOSKELETAL: Osteoarthritic changes both hands VITALS VITALS Vital Signs Date Time Temp Pulse Resp B/P Pulse Ox O2 Delivery O2 Flow Rate FiO2 08/16/16 11:43 96 Nasal Cannula 4.0 08/16/16 10:25 100.6 87 20 146/71 100.6 LABS Lab: Laboratory Tests Test 08/15/16 22:05 08/15/16 22:40 08/16/16 05:10 08/16/16 07:25 Sodium Level 147mmol/L (136-145) 149mmol/L (136-145) Potassium Level 4.5mmol/L (3.5-5.1) 4.6mmol/L (3.5-5.1) Chloride Level 107mmol/L (98-107) 110mmol/L (98-107) Carbon Dioxide Level 36mmol/L (21-32) 33mmol/L (21-32) Anion Gap 4 (6-14) 6 (6-14) Blood Urea Nitrogen 21mg/dL (7-20) 20mg/dL (7-20) Creatinine 1.6mg/dL (0.6-1.0) 1.5mg/dL (0.6-1.0) Estimated GFR (Cockcroft-Gault) 39.1 42.2 BUN/Creatinine Ratio 13 (6-20) Glucose Level 192mg/dL (70-99) 176mg/dL (70-99) Lactic Acid Level 0.5mmol/L (0.4-2.0) Calcium Level 9.6mg/dL (8.5-10.1) 9.3mg/dL (8.5-10.1) Total Bilirubin 0.1mg/dL (0.2-1.0) Aspartate Amino Transf (AST/SGOT) 21U/L (15-37) Alanine Aminotransferase (ALT/SGPT) 16U/L (14-59) Alkaline Phosphatase 71U/L (46-116) Troponin I Quantitative < 0.017ng/mL (0.000-0.055) ZY-Dbp-Q-Type Natriuretic Peptide 440pg/mL (0-124) Total Protein 6.4g/dL (6.4-8.2) Albumin 1.9g/dL (3.4-5.0) Albumin/Globulin Ratio 0.4 (1.0-1.7) White Blood Count 10.4x10^3/uL (4.0-11.0) 10.9x10^3/uL (4.0-11.0) Red Blood Count 2.88x10^6/uL (3.50-5.40) 2.87x10^6/uL (3.50-5.40) Hemoglobin 8.2g/dL (12.0-15.5) 8.2g/dL (12.0-15.5) Hematocrit 25.7% (36.0-47.0) 25.4% (36.0-47.0) Mean Corpuscular Volume 89fL (79-100) 89fL (79-100) Mean Corpuscular Hemoglobin 29pg (25-35) 29pg (25-35) Mean Corpuscular Hemoglobin Concent 32g/dL (31-37) 32g/dL (31-37) Red Cell Distribution Width 15.6% (11.5-14.5) 15.7% (11.5-14.5) Platelet Count 232x10^3/uL (140-400) 248x10^3/uL (140-400) Neutrophils (%) (Auto) 83% (31-73) 81% (31-73) Lymphocytes (%) (Auto) 10% (24-48) 10% (24-48) Monocytes (%) (Auto) 5% (0-9) 5% (0-9) Eosinophils (%) (Auto) 3% (0-3) 3% (0-3) Basophils (%) (Auto) 0% (0-3) 0% (0-3) Neutrophils # (Auto) 8.6x10^3uL (1.8-7.7) 8.7x10^3uL (1.8-7.7) Lymphocytes # (Auto) 1.0x10^3/uL (1.0-4.8) 1.1x10^3/uL (1.0-4.8) Monocytes # (Auto) 0.5x10^3/uL (0.0-1.1) 0.6x10^3/uL (0.0-1.1) Eosinophils # (Auto) 0.3x10^3/uL (0.0-0.7) 0.4x10^3/uL (0.0-0.7) Basophils # (Auto) 0.0x10^3/uL (0.0-0.2) 0.0x10^3/uL (0.0-0.2) Glucose (Fingerstick) 154mg/dL (70-99) Test 08/16/16 11:21 Glucose (Fingerstick) 130mg/dL (70-99) IMAGES IMAGES CXR: Mild cardiomegaly is unchanged. There is no consolidated pneumonia seen. Right hilar prominence, probably reflecting pulmonary artery as demonstrated on the CT examination 03/30/2016 persists and appears similar. Significant pleural fluid is not seen. There is no pneumothorax. A significant change in the appearance of the chest is not seen. IMPRESSION: No definite acute or focal process. No significant change EKG EKG [id number]: SR without acute changes ECHOCARDIOGRAM ECHOCARDIOGRAM : TTE: The left ventricular systolic function is normal and the ejection fraction is within normal range. EF 65% There is normal LV segmental wall motion. Tissue Doppler imaging reveals mild left ventricular diastolic dysfunction. ASSESSMENT/PLAN ASSESSMENT/PLAN 1. malignant HTN responded to furosemide and hydralazine given in ER resume usual meds if additional meds need; would add CCB, i.e. amlodipine or felodipine 2. tachycardia likely reactive, i.e.has fever and is anemic TSH WNL 03/2016 treat underlying issues 3. mental status changes appropriate recall during this conversation 4. chronic diastolic HF control BP continue diuretics 5. HLD continue statin therapy LDLs well controlled Problems: LISA PAGAN MD 08/17/16 0706: CARDIAC CONSULT ALLERGIES ALLERGIES: Coded Allergies: No Known Drug Allergies (Unverified , 04/02/16) ASSESSMENT/PLAN ASSESSMENT/PLAN Patient seen and examined 08/16/16. Agree with SENIOR SALES REPRESENTATIVE's assessment and plan. Blood pressure better controlled. Chronic diastolic heart failure well compensated. Sinus tachycardia physiologic secondary to fever and anemia. Continue treatment of underlying issues per IM. Thank you for the consultation. Problems: STEPHEN VERA APRN Aug 16, 2016 12:12 LISA PAGAN MD Aug 17, 2016 07:06
[2016-08-16] MEDS: SENNOSIDES/DOCUSATE 8.6/50MG TABLET. PO SCH ×2 (12:16→21:00)
[2016-08-16] MEDS: DOCUSATE SODIUM 100 MG CAPSULE PO SCH ×2 (12:16→21:00)
[2016-08-16] MEDS: CYCLOBENZAPRINE 10 MG TABLET. PO SCH ×3 (12:16→21:06)
[2016-08-16] MEDS: FUROSEMIDE 20 MG TABLET PO SCH ×2 (12:16→14:09)
[2016-08-16] MEDS: LISINOPRIL 20 MG TABLET PO SCH ×2 (12:17→21:08)
[2016-08-16] MEDS: PREDNISONE 20 MG TABLET PO SCH (12:17)
[2016-08-16] MEDS: FERROUS SULFATE 325 MG TABLET PO SCH (12:17)
[2016-08-16] MEDS: FAMOTIDINE 20 MG TABLET. PO SCH (12:17)
[2016-08-16] MEDS ORDERED: NON FORMULARY ITEM (Albuterol Sulfate (Ventolin Hfa Inhaler) 2 PUFF) INH SCH (13:00)
--- NOTE | 2016-08-16 13:27 | PDOC ---
Provider Note Provider Note dictated YAMILEX COMBS MD Aug 16, 2016 13:27
[2016-08-16] MEDS ORDERED: FUROSEMIDE 20 MG/2 ML VIAL IVP ONE (13:30)
[2016-08-16] MEDS: ACETAMINOPHEN 325 MG TABLET. PO SCH ×3 (14:08→21:00)
[2016-08-16] MEDS: HYDRALAZINE 25 MG TABLET PO SCH ×2 (14:09→21:06)
[2016-08-16] MEDS: PIPERACILLIN/TAZOBACTAM 3.375 GM in IV NORMAL SALINE 50ML 50 ML IV SCH ×3 (14:12→23:38)
--- NOTE | 2016-08-16 14:22 | CONS ---
DATE OF CONSULTATION: 08/16/2016 ATTENDING PHYSICIAN: José Luis Nelson M.D. REASON FOR CONSULTATION: Dyspnea, abnormal chest x-ray. HISTORY OF PRESENT ILLNESS: The patient is a 66-year-old female who was seen by us in March, at the time she had right hilar mass/adenopathy along with subcarinal adenopathy. She was supposed to follow up with us in the office and being evaluated as an outpatient with a PET scan as well. However, she never followed up. The patient now was admitted to [facility], in fact, she was here a week ago with hysterectomy. She was sent to [facility] and lasted there for 6-7 hours and brought back here with some altered mental status and weakness. There is also swelling in upper and lower extremities. The patient was noted to be confused on admission. At present, she is fully awake, following commands. She is currently on oxygen nasal cannula at 3 liters. She states that she was dismissed off of oxygen when she went to . She states that she was evaluated at regarding the right hilar mass/adenopathy and subcarinal adenopathy, and she said she had a biopsy, I assume it was via bronchoscopy, and she was told that she had sarcoidosis. She has been on prednisone 20 mg daily since last 2 months. She had a fever of 100.6 during this admission. I have reviewed the patient's chest x-ray that revealed unchanged right hilar adenopathy. There is no significant pleural effusion seen. Consultation requested for further evaluation and management. PAST MEDICAL HISTORY: Significant for: 1. Hypertension, history of hyperlipidemia, history of right hilar adenopathy and subcarinal adenopathy and recently diagnosed at with sarcoidosis, on chronic steroids. 2. History of recent hysterectomy. 3. Osteoarthritis. 4. Underlying obesity. PAST SURGICAL HISTORY: Colon resection. FAMILY HISTORY: Coronary artery disease. SOCIAL HISTORY: Nonsmoker. ALLERGIES: None. CURRENT MEDICATIONS: Reviewed, as listed in the MRAD including antibiotics, vancomycin, and Zosyn. REVIEW OF SYSTEMS: A 12-point system obtained, pertinent positives discussed in history of present illness, otherwise noncontributory. All systems that were negative were reviewed as well. PHYSICAL EXAMINATION: GENERAL: She is awake, following commands. VITAL SIGNS: T-max 100.6. Pulse ox is 96% on 4 liters. HEENT: Sclerae nonicteric. NECK: Supple. LUNGS: Diminished breath sounds. CARDIOVASCULAR: Regular rate and rhythm. ABDOMEN: Soft, obese. She has a wound VAC in the midline. EXTREMITIES: Bilateral pitting edema. LABORATORY DATA: Reviewed. White cell count 10.9, hemoglobin 8.2, and platelets are 248. BUN is 20, creatinine 1.5. IMPRESSION: 1. Acute hypoxic respiratory failure requiring 4 liters of oxygen. I suspect secondary to underlying obesity hypoventilation syndrome and some mild atelectasis. There appears to be mild vascular congestion and it could be related to some diastolic heart failure as well. She does have increased leg edema. Cannot exclude the possibility of mild pneumonia. 2. Fever of 100.6. She has a cough with only white sputum production. The source could be the abdomen. She had a recent hysterectomy. We will obtain CT abdomen and pelvis for further evaluation. 3. History of abnormal CT chest in March with a right hilar mass/adenopathy and subcarinal adenopathy and tiny lung nodules. She subsequently followed up at and underwent biopsy, I assume via bronchoscopy, and she was told that she has sarcoidosis and has been on prednisone 20 mg daily. 4. No significant history of tobacco use. 5. Underlying obesity. RECOMMENDATIONS: 1. Continue with present oxygen at 4 liters. 2. Mild diuresis to see an improvement in chest x-ray and mild diastolic heart failure. 3. Obtain noncontrast CT abdomen and pelvis to rule out any pockets of infection in the abdomen. 4. Continue broad-spectrum antibiotics. 5. Wean oxygen to keep saturation 94 and above. 6. Continue prednisone 20 mg daily as initiated at Clinic for sarcoidosis and she can follow up over there. 7. Continue bronchodilators. 8. Discussed with the patient's daughter and will follow along with you. YAMILEX COMBS MD DR: KAREL/graciela JOB#: [id number] / [id number]
[2016-08-16] MEDS ORDERED: IOHEXOL 240 MG/ML 50ML VIAL. PO ONE (14:45)
[2016-08-16] MEDS ORDERED: IOHEXOL 350 MG/ML 100ML VIAL. IV ONE ×2 (16:00)
--- NOTE | 2016-08-16 16:14 | PDOC2 ---
NEUROLOGY CONSULT Date of Admission Date of Admission DATE: 08/16/16 TIME: 16:05 Reason for Consult Reason for Consult: Altered mental status Referring Physician Referring Physician: Dr. Zepeda Source Source: Chart review, Patient History of Present Illness History of Present Illness The patient is a 66-year-old right-handed female whom I have already seen this week regarding altered mental status. Dr. Noe evaluated her for Neurology on 08/11. He diagnosed metabolic encephalopathy. Her difficulties began after hysterectomy on 08/09/16. She had complications of pneumonia, respiratory failure, and acute renal insufficiency as well as possible sepsis. When he first saw her she had asterixis and a negative head CT. MRI was precluded by the recent surgery and sue. When I saw her on 08/13 she was bright and alert with a nonfocal exam. She was discharged to [facility] but has continued to have intermittent confusion. She denies any history of stroke, seizure, or head injury. She feels fine mentally right now. Past Medical History Cardiovascular: CAD, HTN, Hyperlipidemia Pulmonary: Pneumonia, Other (sarcoidosis, hilar adenopathy, obstructive sleep apnea) GI: Diverticulosis Heme/Onc: Anemia NOS Renal/: Acute renal failure Endocrine: Diabetes Past Surgical History Past Surgical History: Hysterectomy, Colon Resection Family History Family History: Cancer Social History Social History , nonsmoker, nondrinker Current Medications Current Medications Current Medications Hydralazine HCl (Apresoline) 10 mg 1X ONCE IVP Last administered on 08/16/16 00:44; Start 08/15/16 at 22:00; Stop 08/15/16 at 22:01; Status DC Vancomycin HCl (Vanco Per Pharmacy) 1 each PRN DAILY PRN MC SEE COMMENTS Last administered on 08/16/16 01:17; Start 08/15/16 at 23:00 Piperacillin Sod/ Tazobactam Sod 1 each 1 each PRN DAILY PRN MC SEE COMMENTS; Start 08/15/16 at 23:00 Piperacillin Sod/ Tazobactam Sod 4.5 gm/Sodium Chloride 100 ml @ 200 mls/hr 1X ONCE IV Last administered on 08/15/16 23:15; Start 08/15/16 at 23:15; Stop 08/15/16 at 23:44; Status DC Vancomycin HCl/ Sodium Chloride (Iv Sodium Chloride 0.9% 500ml Bag) 500 ml @ 250 mls/hr 1X ONCE IV Last administered on 08/16/16 00:44; Start 08/16/16 at 00:00; Stop 08/16/16 at 01:59; Status DC Ondansetron HCl (Zofran) 4 mg PRN Q8HRS PRN IV NAUSEA/VOMITING; Start 08/15/16 at 23:30; Stop 08/16/16 at 23:29 Morphine Sulfate 2 mg PRN Q2HR PRN IV PAIN Last administered on 08/16/16 08:13 ; Start 08/15/16 at 23:30; Stop 08/16/16 at 23:29 Acetaminophen (Tylenol) 650 mg PRN Q4HRS PRN PO FEVER Last administered on 08/16 08:13; Start 08/15/16 at 23:30; Stop 08/16/16 at 23:29 Insulin Aspart (Novolog) 0-7 UNITS TIDWMEALS SQ Last administered on 08/16/16 08:09; Start 08/16/16 at 08:00; Stop 08/16/16 at 14:36; Status DC Dextrose 12.5 gm 12.5 gm PRN Q15MIN PRN IV SEE COMMENTS; Start 08/15/16 at 23: 30 Piperacillin Sod/ Tazobactam Sod 4.5 gm/Sodium Chloride 100 ml @ 200 mls/hr Q8H IV Last administered on 08/16/16 05:41; Start 08/16/16 at 06:00; Stop at 12:30; Status DC Vancomycin HCl/ Sodium Chloride (Iv Sodium Chloride 0.9% 500ml Bag) 500 ml @ 250 mls/hr Q24H IV ; Start 08/17/16 at 01:00 Vancomycin HCl 1 each 1X ONCE MC ; Start 08/18/16 at 00:30; Stop 08/18/16 at 00 :31 Polyethylene Glycol (miraLAX PACKET) 17 gm 1X ONCE PO Last administered on 10:30; Start 08/16/16 at 10:15; Stop 08/16/16 at 10:22; Status DC Polyethylene Glycol (miraLAX PACKET) 17 gm PRN BID PRN PO CONSTIPATION; Start 08/16/16 at 10:15 Docusate Sodium (Colace) 100 mg PRN DAILY PRN PO CONSTIPATION; Start 08/16/16 at 10:15 Docusate Sodium (Colace) 100 mg DAILY PO ; Start 08/17/16 at 09:00; Stop at 09:00; Status DC Magnesium Hydroxide (Milk Of Magnesia) 2,400 mg 1X ONCE PO Last administered on 08/16/16 10:29; Start 08/16/16 at 10:15; Stop 08/16/16 at 10:22; Status DC Amoxicillin/ Clavulanate Potassium (Augmentin 875/ 125mg) 1 tab BID PO Last administered on 08/16/16 12:16; Start 08/16/16 at 11:00; Stop 08/16/16 at 12:24 ; Status DC Cyclobenzaprine HCl (Flexeril) 10 mg TID PO Last administered on 08/16/16 14: 08; Start 08/16/16 at 11:00 Docusate Sodium (Colace) 100 mg BID PO Last administered on 08/16/16 12:16; Start 08/16/16 at 11:00 Ferrous Sulfate (Feosol) 325 mg DAILYWBKFT PO Last administered on 08/16/16 12 :17; Start 08/16/16 at 11:30 Furosemide (Lasix) 20 mg BID92 PO Last administered on 08/16/16 14:09; Start 08/16/16 at 11:00 Hydralazine HCl (Apresoline) 25 mg TID PO Last administered on 08/16/16 14:09 ; Start 08/16/16 at 14:00 Insulin Aspart (Novolog) TIDWMEALS SQ ; Start 08/16/16 at 12:00 Insulin Detemir (Levemir) 25 units QHS SQ ; Start 08/16/16 at 21:00 Lisinopril (Prinivil) 20 mg BID PO Last administered on 08/16/16 12:17; Start 08/16/16 at 11:00 Oxycodone/ Acetaminophen (Percocet 5/325) 1 tab PRN Q4HRS PRN PO MODERATE PAIN , SEVERE PAIN Last administered on 08/16/16 10:57; Start 08/16/16 at 10:30 Prednisone (Prednisone) 20 mg DAILY PO Last administered on 08/16/16 12:17; Start 08/16/16 at 11:00 Senna/Docusate Sodium (Senna Plus) 1 tab BID PO Last administered on 08/16/16 12:16; Start 08/16/16 at 11:00 Trimethoprim/ Sulfamethoxazole (Bactrim Ss) 1 tab BID PO Last administered on 14:10; Start 08/16/16 at 11:00; Stop 08/16/16 at 14:37; Status DC Acetaminophen (Tylenol) 325 mg QID PO Last administered on 08/16/16 14:08; Start 08/16/16 at 13:00 Non-Formulary Medication 2 puff QID INH FOR ASTHMA; Start 08/16/16 at 13:00; Stop 08/16/16 at 13:00; Status DC Atorvastatin Calcium (Lipitor) 5 mg QHS PO ; Start 08/16/16 at 21:00 Famotidine (Pepcid) 20 mg DAILY PO Last administered on 08/16/16 12:17; Start 08/16/16 at 11:00 Albuterol/ Ipratropium (Duoneb) 3 ml RTQID NEB Last administered on 08/16/16 15:47; Start 08/16/16 at 12:00 Albuterol Sulfate 2.5 mg 2.5 mg RTQID NEB ; Start 08/16/16 at 12:00; Stop at 12:00; Status DC Piperacillin Sod/ Tazobactam Sod/ Sodium Chloride (Zosyn/Iv Sodium Chloride 0.9 % 50ml) 50 ml @ 100 mls/hr Q6HRS IV Last administered on 08/16/16 14:12; Start 08/16/16 at 13:00 Furosemide (Lasix) 20 mg 1X ONCE IVP Last administered on 08/16/16 14:09; Start 08/16/16 at 13:30; Stop 08/16/16 at 13:31; Status DC Iohexol (Omnipaque 240 Mg/ml) 30 ml 1X ONCE PO ; Start 08/16/16 at 14:45; Stop 08/16/16 at 14:46; Status DC Iohexol (Omnipaque 350 Mg/ml) 90 ml 1X ONCE IV ; Start 08/16/16 at 16:00; Stop 08/16/16 at 16:02; Status DC Iohexol (Omnipaque 350 Mg/ml) 90 ml 1X ONCE IV ; Start 08/16/16 at 16:00; Stop 08/16/16 at 16:02; Status DC Info (Do NOT chart on this entry -- for MONITORING) 1 each PRN DAILY PRN MC SEE COMMENTS; Start 08/16/16 at 16:15; Stop 08/18/16 at 16:14 Active Scripts Active Levemir Flextouch (Insulin Detemir) 100 Unit/1 Ml Insuln.pen 25 Units SQ QHS 30 Days Novolog Flexpen (Insulin Aspart) 100 Unit/1 Ml Insuln.pen 0 Units SQ TIDWMEALS 30 Days Senna-Time S Tablet (Sennosides/Docusate Sodium) 1 Each Tablet 1 Tab PO BID Oxycodone-Acetaminophen 5-325 (Oxycodone Hcl/Acetaminophen) 1 Each Tablet 1 Tab PO PRN Q4HRS PRN Furosemide 20 Mg Tablet 20 Mg PO BID92 30 Days Colace (Docusate Sodium) 100 Mg Capsule 100 Mg PO BID 5 Days Amox Tr-K Clv 875-125 Mg Tab (Amoxicillin/Potassium Clav) 1 Each Tablet 1 Tab PO BID 3 Days Klor-Con Sprinkle (Potassium Chloride) 10 Meq Capsule.er 20 Meq PO DAILY Lisinopril 20 Mg Tablet 1 Tab PO BID Ferrous Sulfate 325 Mg Tablet 325 Tab PO DAILY Gabapentin 300 Mg Capsule 600 Mg PO TID Hydralazine Hcl 25 Mg Tablet 1 Tab PO TID Reported Ventolin Hfa Inhaler (Albuterol Sulfate) 18 Gm Hfa.aer.ad 2 Puff INH QID Acetaminophen 160 Mg/5 Ml Solution 325 Mg PO QID Bactrim 400-80 Mg Tablet (Sulfamethoxazole/Trimethoprim) 1 Each Tablet 1 Tab PO BID Zantac (Ranitidine Hcl) 150 Mg Tablet 150 Mg PO DAILY Prednisone 20 Mg Tablet 20 Mg PO DAILY Cyclobenzaprine Hcl 10 Mg Tablet 10 Mg PO TID Lovastatin 20 Mg Tablet 20 Mg PO HS Allergies Allergies: Coded Allergies: No Known Drug Allergies (Unverified , 04/02/16) ROS Review of System She has had recent fevers, dyspnea, dysuria, otherwise a 14 point review of systems is negative. Physical Exam Physical Examination PHYSICAL EXAMINATION: Vital signs: see above. General appearance is normal and in no acute distress. HEENT: Normocephalic and nontraumatic. Eyes, nose, ears, and throat are unremarkable. Neck is supple. No lymphadenopathy. No bruits are heard over the carotid artery. No crepitus. NEUROLOGICAL EXAMINATION: Mental Status Examination: Alert. Oriented to time, place, and person. Answers questions and follows commends. Pupils are equal round and reactive to light and accommodation. Funduscopic exam: No papilledema. Extraocular movements are intact. Visual field exam shows no defect on the direct confrontation. No motor or sensory deficits on the facial exam. Uvula in the midline and the soft palate elevated symmetrically. No deviation of the tongue to any direction. Gross hearing is normal. Shoulder shrug normal. Muscle tone is normal. Muscle strength is 5. Deep tendon reflexes are 1+ all around. Plantar reflex is with flexion response bilaterally. Beyjlt-ng-[id number] test performance is accurate. Alternative movements are accurate. Gait not tested ( at home she gets around with a cane). Sensory exam shows no deficits. No cerebellar signs are elicited. Vitals VITALS Vital Signs Date Time Temp Pulse Resp B/P Pulse Ox O2 Delivery O2 Flow Rate FiO2 08/16/16 15:49 Nasal Cannula 4.0 08/16/16 14:09 91 181/83 08/16/16 11:43 96 08/16/16 10:25 100.6 20 100.6 Labs Labs Laboratory Tests Test 08/15/16 22:05 08/15/16 22:40 08/16/16 05:10 08/16/16 07:25 Sodium Level 147mmol/L (136-145) 149mmol/L (136-145) Potassium Level 4.5mmol/L (3.5-5.1) 4.6mmol/L (3.5-5.1) Chloride Level 107mmol/L (98-107) 110mmol/L (98-107) Carbon Dioxide Level 36mmol/L (21-32) 33mmol/L (21-32) Anion Gap 4 (6-14) 6 (6-14) Blood Urea Nitrogen 21mg/dL (7-20) 20mg/dL (7-20) Creatinine 1.6mg/dL (0.6-1.0) 1.5mg/dL (0.6-1.0) Estimated GFR (Cockcroft-Gault) 39.1 42.2 BUN/Creatinine Ratio 13 (6-20) Glucose Level 192mg/dL (70-99) 176mg/dL (70-99) Lactic Acid Level 0.5mmol/L (0.4-2.0) Calcium Level 9.6mg/dL (8.5-10.1) 9.3mg/dL (8.5-10.1) Total Bilirubin 0.1mg/dL (0.2-1.0) Aspartate Amino Transf (AST/SGOT) 21U/L (15-37) Alanine Aminotransferase (ALT/SGPT) 16U/L (14-59) Alkaline Phosphatase 71U/L (46-116) Troponin I Quantitative < 0.017ng/mL (0.000-0.055) SV-Iap-G-Type Natriuretic Peptide 440pg/mL (0-124) Total Protein 6.4g/dL (6.4-8.2) Albumin 1.9g/dL (3.4-5.0) Albumin/Globulin Ratio 0.4 (1.0-1.7) White Blood Count 10.4x10^3/uL (4.0-11.0) 10.9x10^3/uL (4.0-11.0) Red Blood Count 2.88x10^6/uL (3.50-5.40) 2.87x10^6/uL (3.50-5.40) Hemoglobin 8.2g/dL (12.0-15.5) 8.2g/dL (12.0-15.5) Hematocrit 25.7% (36.0-47.0) 25.4% (36.0-47.0) Mean Corpuscular Volume 89fL (79-100) 89fL (79-100) Mean Corpuscular Hemoglobin 29pg (25-35) 29pg (25-35) Mean Corpuscular Hemoglobin Concent 32g/dL (31-37) 32g/dL (31-37) Red Cell Distribution Width 15.6% (11.5-14.5) 15.7% (11.5-14.5) Platelet Count 232x10^3/uL (140-400) 248x10^3/uL (140-400) Neutrophils (%) (Auto) 83% (31-73) 81% (31-73) Lymphocytes (%) (Auto) 10% (24-48) 10% (24-48) Monocytes (%) (Auto) 5% (0-9) 5% (0-9) Eosinophils (%) (Auto) 3% (0-3) 3% (0-3) Basophils (%) (Auto) 0% (0-3) 0% (0-3) Neutrophils # (Auto) 8.6x10^3uL (1.8-7.7) 8.7x10^3uL (1.8-7.7) Lymphocytes # (Auto) 1.0x10^3/uL (1.0-4.8) 1.1x10^3/uL (1.0-4.8) Monocytes # (Auto) 0.5x10^3/uL (0.0-1.1) 0.6x10^3/uL (0.0-1.1) Eosinophils # (Auto) 0.3x10^3/uL (0.0-0.7) 0.4x10^3/uL (0.0-0.7) Basophils # (Auto) 0.0x10^3/uL (0.0-0.2) 0.0x10^3/uL (0.0-0.2) Procalcitonin 1.58ng/mL (0.00-0.10) Glucose (Fingerstick) 154mg/dL (70-99) Test 08/16/16 11:21 Glucose (Fingerstick) 130mg/dL (70-99) Laboratory Tests Test 08/15/16 22:05 08/15/16 22:40 08/16/16 05:10 08/16/16 07:25 Sodium Level 147mmol/L (136-145) 149mmol/L (136-145) Potassium Level 4.5mmol/L (3.5-5.1) 4.6mmol/L (3.5-5.1) Chloride Level 107mmol/L (98-107) 110mmol/L (98-107) Carbon Dioxide Level 36mmol/L (21-32) 33mmol/L (21-32) Anion Gap 4 (6-14) 6 (6-14) Blood Urea Nitrogen 21mg/dL (7-20) 20mg/dL (7-20) Creatinine 1.6mg/dL (0.6-1.0) 1.5mg/dL (0.6-1.0) Estimated GFR (Cockcroft-Gault) 39.1 42.2 BUN/Creatinine Ratio 13 (6-20) Glucose Level 192mg/dL (70-99) 176mg/dL (70-99) Lactic Acid Level 0.5mmol/L (0.4-2.0) Calcium Level 9.6mg/dL (8.5-10.1) 9.3mg/dL (8.5-10.1) Total Bilirubin 0.1mg/dL (0.2-1.0) Aspartate Amino Transf (AST/SGOT) 21U/L (15-37) Alanine Aminotransferase (ALT/SGPT) 16U/L (14-59) Alkaline Phosphatase 71U/L (46-116) Troponin I Quantitative < 0.017ng/mL (0.000-0.055) JK-Hta-E-Type Natriuretic Peptide 440pg/mL (0-124) Total Protein 6.4g/dL (6.4-8.2) Albumin 1.9g/dL (3.4-5.0) Albumin/Globulin Ratio 0.4 (1.0-1.7) White Blood Count 10.4x10^3/uL (4.0-11.0) 10.9x10^3/uL (4.0-11.0) Red Blood Count 2.88x10^6/uL (3.50-5.40) 2.87x10^6/uL (3.50-5.40) Hemoglobin 8.2g/dL (12.0-15.5) 8.2g/dL (12.0-15.5) Hematocrit 25.7% (36.0-47.0) 25.4% (36.0-47.0) Mean Corpuscular Volume 89fL (79-100) 89fL (79-100) Mean Corpuscular Hemoglobin 29pg (25-35) 29pg (25-35) Mean Corpuscular Hemoglobin Concent 32g/dL (31-37) 32g/dL (31-37) Red Cell Distribution Width 15.6% (11.5-14.5) 15.7% (11.5-14.5) Platelet Count 232x10^3/uL (140-400) 248x10^3/uL (140-400) Neutrophils (%) (Auto) 83% (31-73) 81% (31-73) Lymphocytes (%) (Auto) 10% (24-48) 10% (24-48) Monocytes (%) (Auto) 5% (0-9) 5% (0-9) Eosinophils (%) (Auto) 3% (0-3) 3% (0-3) Basophils (%) (Auto) 0% (0-3) 0% (0-3) Neutrophils # (Auto) 8.6x10^3uL (1.8-7.7) 8.7x10^3uL (1.8-7.7) Lymphocytes # (Auto) 1.0x10^3/uL (1.0-4.8) 1.1x10^3/uL (1.0-4.8) Monocytes # (Auto) 0.5x10^3/uL (0.0-1.1) 0.6x10^3/uL (0.0-1.1) Eosinophils # (Auto) 0.3x10^3/uL (0.0-0.7) 0.4x10^3/uL (0.0-0.7) Basophils # (Auto) 0.0x10^3/uL (0.0-0.2) 0.0x10^3/uL (0.0-0.2) Procalcitonin 1.58ng/mL (0.00-0.10) Glucose (Fingerstick) 154mg/dL (70-99) Test 08/16/16 11:21 Glucose (Fingerstick) 130mg/dL (70-99) Images Images CT head: COMPARISON August 11, 2016. FINDINGS The ventricles and sulci are within normal limits for age. There is no acute intracranial hemorrhage or extra-axial fluid collection. There is no mass effect or midline shift. Lopez-white differentiation is preserved. Deformity of the calvarium overlying the left frontal lobe again may be posttraumatic or postsurgical. It is similar to prior. There is no depressed skull fracture. Paranasal sinuses and mastoid air cells are clear. IMPRESSION No acute intracranial findings. Assessment/Plan Assessment/Plan Impression: Metabolic encephalopathy most likely she has a sepsis syndrome, she has also had some hypoxia and hypertension. I find no evidence of stroke, seizure activity, or central nervous system infection. Again, she is quite lucid now. She has now had 2 CT scans in the past week and has now seen two separate neurologistd. Recommendations: Treat medical problems I am holding off on electroencephalogram and other neurological studies. I will follow along with you. Thank you for letting me help with the patient's care. YOGI ADAMSON MD Aug 16, 2016 16:14
[2016-08-16] MEDS ORDERED: CONTRAST GIVEN MC PRN (16:15)
[2016-08-16] MEDS: ATORVASTATIN CALCIUM 10 MG TABLET. PO SCH (21:06)
[2016-08-16] MEDS: INSULIN DETEMIR 300 UNITS/3 ML INSULN.PEN. SQ SCH (21:28)
[2016-08-17] VITALS (7 sets, daily range): BP systolic 159–188; BP diastolic 88–114
[2016-08-17] MEDS: VANCOMYCIN 1.75 GM in IV NORMAL SALINE 500ML BAG 500 ML IV SCH (00:15)
[2016-08-17] MEDS: PIPERACILLIN/TAZOBACTAM 3.375 GM in IV NORMAL SALINE 50ML 50 ML IV SCH ×3 (05:28→17:09)
[2016-08-17] MEDS: OXYCODONE/APAP 5/325 TABLET. PO PRN ×2 (06:18→10:41)
[2016-08-17] MEDS: IPRATRPIUM/ALBUTEROL 0.5/2.5MG 3 ML NEBU. NEB SCH ×4 (07:04→19:35)
[2016-08-17] MEDS: INSULIN ASPART 300 UNITS/3 ML INSULN.PEN SQ SCH ×3 (08:19→17:17)
[2016-08-17] MEDS: HYDRALAZINE 25 MG TABLET PO SCH ×3 (08:22→21:57)
[2016-08-17] MEDS: CYCLOBENZAPRINE 10 MG TABLET. PO SCH ×3 (08:23→21:54)
[2016-08-17] MEDS: FAMOTIDINE 20 MG TABLET. PO SCH (08:24)
[2016-08-17] MEDS: FUROSEMIDE 20 MG TABLET PO SCH ×2 (08:24→13:31)
[2016-08-17] MEDS: PREDNISONE 20 MG TABLET PO SCH (08:25)
[2016-08-17] MEDS: LISINOPRIL 20 MG TABLET PO SCH ×2 (08:26→21:59)
[2016-08-17] MEDS: SENNOSIDES/DOCUSATE 8.6/50MG TABLET. PO SCH ×2 (08:26→21:56)
[2016-08-17] MEDS: ACETAMINOPHEN 325 MG TABLET. PO SCH ×4 (08:27→21:54)
[2016-08-17] MEDS: DOCUSATE SODIUM 100 MG CAPSULE PO SCH ×2 (08:27→21:53)
[2016-08-17] MEDS: FERROUS SULFATE 325 MG TABLET PO SCH (08:28)
[2016-08-17] MEDS ORDERED: DOCUSATE SODIUM 100 MG CAPSULE PO SCH (09:00)
--- NOTE | 2016-08-17 10:00 | PDOC ---
PROGRESS NOTES Assessment Problems Medical Problems: (1) Altered mental status Status: Acute (2) Pneumonia Status: Acute Metabolic encephalopathy Plan Will follow, weekend neurology rounder will see only PRN Subjective no complaints, "I think my problem is this wound won't heal." Objective Vital Signs Date Time Temp Pulse Resp B/P Pulse Ox O2 Delivery O2 Flow Rate FiO2 08/17/16 08:26 88 179/88 08/17/16 08:00 Room Air 08/17/16 07:05 91 08/17/16 07:00 98.4 20 3.0 98.4 Intake and Output 08/17/16 07:00 Intake Total 940 ml Output Total 2000 ml Balance -1060 ml Intake Oral 390 ml IV Total 550 ml Output Urine Total 2000 ml # Voids 3 # Bowel Movements 3 PHYSICAL EXAM Alert. Oriented to time, place and person. PERRL. EOMI. CN: no focal findings. Muscle tone: normal. Muscle strength: 4/5 DTR: 1+ Plantar reflex: flexor Gait: not examined in bed. Sensory exam: no abnormal findings. No cerebellar signs elicited. Review of Relevant I have reviewed the following items robert (where applicable) has been applied. Labs Laboratory Tests Test 08/15/16 22:05 08/15/16 22:40 08/16/16 05:10 08/16/16 07:25 Sodium Level 147mmol/L (136-145) 149mmol/L (136-145) Potassium Level 4.5mmol/L (3.5-5.1) 4.6mmol/L (3.5-5.1) Chloride Level 107mmol/L (98-107) 110mmol/L (98-107) Carbon Dioxide Level 36mmol/L (21-32) 33mmol/L (21-32) Anion Gap 4 (6-14) 6 (6-14) Blood Urea Nitrogen 21mg/dL (7-20) 20mg/dL (7-20) Creatinine 1.6mg/dL (0.6-1.0) 1.5mg/dL (0.6-1.0) Estimated GFR (Cockcroft-Gault) 39.1 42.2 BUN/Creatinine Ratio 13 (6-20) Glucose Level 192mg/dL (70-99) 176mg/dL (70-99) Lactic Acid Level 0.5mmol/L (0.4-2.0) Calcium Level 9.6mg/dL (8.5-10.1) 9.3mg/dL (8.5-10.1) Total Bilirubin 0.1mg/dL (0.2-1.0) Aspartate Amino Transf (AST/SGOT) 21U/L (15-37) Alanine Aminotransferase (ALT/SGPT) 16U/L (14-59) Alkaline Phosphatase 71U/L (46-116) Troponin I Quantitative < 0.017ng/mL (0.000-0.055) DM-Lxc-L-Type Natriuretic Peptide 440pg/mL (0-124) Total Protein 6.4g/dL (6.4-8.2) Albumin 1.9g/dL (3.4-5.0) Albumin/Globulin Ratio 0.4 (1.0-1.7) White Blood Count 10.4x10^3/uL (4.0-11.0) 10.9x10^3/uL (4.0-11.0) Red Blood Count 2.88x10^6/uL (3.50-5.40) 2.87x10^6/uL (3.50-5.40) Hemoglobin 8.2g/dL (12.0-15.5) 8.2g/dL (12.0-15.5) Hematocrit 25.7% (36.0-47.0) 25.4% (36.0-47.0) Mean Corpuscular Volume 89fL (79-100) 89fL (79-100) Mean Corpuscular Hemoglobin 29pg (25-35) 29pg (25-35) Mean Corpuscular Hemoglobin Concent 32g/dL (31-37) 32g/dL (31-37) Red Cell Distribution Width 15.6% (11.5-14.5) 15.7% (11.5-14.5) Platelet Count 232x10^3/uL (140-400) 248x10^3/uL (140-400) Neutrophils (%) (Auto) 83% (31-73) 81% (31-73) Lymphocytes (%) (Auto) 10% (24-48) 10% (24-48) Monocytes (%) (Auto) 5% (0-9) 5% (0-9) Eosinophils (%) (Auto) 3% (0-3) 3% (0-3) Basophils (%) (Auto) 0% (0-3) 0% (0-3) Neutrophils # (Auto) 8.6x10^3uL (1.8-7.7) 8.7x10^3uL (1.8-7.7) Lymphocytes # (Auto) 1.0x10^3/uL (1.0-4.8) 1.1x10^3/uL (1.0-4.8) Monocytes # (Auto) 0.5x10^3/uL (0.0-1.1) 0.6x10^3/uL (0.0-1.1) Eosinophils # (Auto) 0.3x10^3/uL (0.0-0.7) 0.4x10^3/uL (0.0-0.7) Basophils # (Auto) 0.0x10^3/uL (0.0-0.2) 0.0x10^3/uL (0.0-0.2) Procalcitonin 1.58ng/mL (0.00-0.10) Glucose (Fingerstick) 154mg/dL (70-99) Test 08/16/16 11:21 08/16/16 16:07 08/16/16 20:46 08/17/16 08:00 Glucose (Fingerstick) 130mg/dL (70-99) 188mg/dL (70-99) 233mg/dL (70-99) 173mg/dL (70-99) Laboratory Tests Test 08/16/16 11:21 08/16/16 16:07 08/16/16 20:46 08/17/16 08:00 Glucose (Fingerstick) 130mg/dL (70-99) 188mg/dL (70-99) 233mg/dL (70-99) 173mg/dL (70-99) Microbiology 08/15/16 Blood Culture - Preliminary, Resulted NO GROWTH AFTER 1 DAY Medications Current Medications Hydralazine HCl (Apresoline) 10 mg 1X ONCE IVP Last administered on 08/16/16t 00:44; Start 08/15/16 at 22:00; Stop 08/15/16 at 22:01; Status DC Vancomycin HCl (Vanco Per Pharmacy) 1 each PRN DAILY PRN MC SEE COMMENTS Last administered on 08/16/16 01:17; Start 08/15/16 at 23:00 Piperacillin Sod/ Tazobactam Sod 1 each 1 each PRN DAILY PRN MC SEE COMMENTS; Start 08/15/16 at 23:00 Piperacillin Sod/ Tazobactam Sod 4.5 gm/Sodium Chloride 100 ml @ 200 mls/hr 1X ONCE IV Last administered on 08/15/16 23:15; Start 08/15/16 at 23:15; Stop 08/15/16 at 23:44; Status DC Vancomycin HCl/ Sodium Chloride (Iv Sodium Chloride 0.9% 500ml Bag) 500 ml @ 250 mls/hr 1X ONCE IV Last administered on 08/16/16 00:44; Start 08/16/16 at 00:00; Stop 08/16/16 at 01:59; Status DC Ondansetron HCl (Zofran) 4 mg PRN Q8HRS PRN IV NAUSEA/VOMITING; Start 08/15/16 at 23:30; Stop 08/16/16 at 23:29; Status DC Morphine Sulfate 2 mg PRN Q2HR PRN IV PAIN Last administered on 08/16/16 08:13 ; Start 08/15/16 at 23:30; Stop 08/16/16 at 23:29; Status DC Acetaminophen (Tylenol) 650 mg PRN Q4HRS PRN PO FEVER Last administered on 08/16 21:08; Start 08/15/16 at 23:30; Stop 08/16/16 at 23:29; Status DC Insulin Aspart (Novolog) 0-7 UNITS TIDWMEALS SQ Last administered on 08/16/16 08:09; Start 08/16/16 at 08:00; Stop 08/16/16 at 14:36; Status DC Dextrose 12.5 gm 12.5 gm PRN Q15MIN PRN IV SEE COMMENTS; Start 08/15/16 at 23: 30 Piperacillin Sod/ Tazobactam Sod 4.5 gm/Sodium Chloride 100 ml @ 200 mls/hr Q8H IV Last administered on 08/16/16 05:41; Start 08/16/16 at 06:00; Stop at 12:30; Status DC Vancomycin HCl/ Sodium Chloride (Iv Sodium Chloride 0.9% 500ml Bag) 500 ml @ 250 mls/hr Q24H IV Last administered on 08/17/16 00:15; Start 08/17/16 at 01: 00 Vancomycin HCl 1 each 1X ONCE MC ; Start 08/18/16 at 00:30; Stop 08/18/16 at 00 :31 Polyethylene Glycol (miraLAX PACKET) 17 gm 1X ONCE PO Last administered on 10:30; Start 08/16/16 at 10:15; Stop 08/16/16 at 10:22; Status DC Polyethylene Glycol (miraLAX PACKET) 17 gm PRN BID PRN PO CONSTIPATION; Start 08/16/16 at 10:15 Docusate Sodium (Colace) 100 mg PRN DAILY PRN PO CONSTIPATION; Start 08/16/16 at 10:15 Docusate Sodium (Colace) 100 mg DAILY PO ; Start 08/17/16 at 09:00; Stop at 09:00; Status DC Magnesium Hydroxide (Milk Of Magnesia) 2,400 mg 1X ONCE PO Last administered on 08/16/16 10:29; Start 08/16/16 at 10:15; Stop 08/16/16 at 10:22; Status DC Amoxicillin/ Clavulanate Potassium (Augmentin 875/ 125mg) 1 tab BID PO Last administered on 08/16/16 12:16; Start 08/16/16 at 11:00; Stop 08/16/16 at 12:24 ; Status DC Cyclobenzaprine HCl (Flexeril) 10 mg TID PO Last administered on 08/17/16 08: 23; Start 08/16/16 at 11:00 Docusate Sodium (Colace) 100 mg BID PO Last administered on 08/17/16 08:27; Start 08/16/16 at 11:00 Ferrous Sulfate (Feosol) 325 mg DAILYWBKFT PO Last administered on 08/17/16 08 :28; Start 08/16/16 at 11:30 Furosemide (Lasix) 20 mg BID92 PO Last administered on 08/17/16 08:24; Start 08/16/16 at 11:00 Hydralazine HCl (Apresoline) 25 mg TID PO Last administered on 08/17/16 08:22 ; Start 08/16/16 at 14:00 Insulin Aspart (Novolog) TIDWMEALS SQ ; Start 08/16/16 at 12:00; Stop 08/16/16 at 18:09; Status DC Insulin Detemir (Levemir) 25 units QHS SQ Last administered on 08/16/16 21:28 ; Start 08/16/16 at 21:00 Lisinopril (Prinivil) 20 mg BID PO Last administered on 08/17/16 08:26; Start 08/16/16 at 11:00 Oxycodone/ Acetaminophen (Percocet 5/325) 1 tab PRN Q4HRS PRN PO MODERATE PAIN , SEVERE PAIN Last administered on 08/17/16 06:18; Start 08/16/16 at 10:30 Prednisone (Prednisone) 20 mg DAILY PO Last administered on 08/17/16 08:25; Start 08/16/16 at 11:00 Senna/Docusate Sodium (Senna Plus) 1 tab BID PO Last administered on 08/17/16 08:26; Start 08/16/16 at 11:00 Trimethoprim/ Sulfamethoxazole (Bactrim Ss) 1 tab BID PO Last administered on 14:10; Start 08/16/16 at 11:00; Stop 08/16/16 at 14:37; Status DC Acetaminophen (Tylenol) 325 mg QID PO Last administered on 08/17/16 08:27; Start 08/16/16 at 13:00 Non-Formulary Medication 2 puff QID INH FOR ASTHMA; Start 08/16/16 at 13:00; Stop 08/16/16 at 13:00; Status DC Atorvastatin Calcium (Lipitor) 5 mg QHS PO Last administered on 08/16/16 21:06 ; Start 08/16/16 at 21:00 Famotidine (Pepcid) 20 mg DAILY PO Last administered on 08/17/16 08:24; Start 08/16/16 at 11:00 Albuterol/ Ipratropium (Duoneb) 3 ml RTQID NEB Last administered on 08/17/16 07:04; Start 08/16/16 at 12:00 Albuterol Sulfate 2.5 mg 2.5 mg RTQID NEB ; Start 08/16/16 at 12:00; Stop at 12:00; Status DC Piperacillin Sod/ Tazobactam Sod/ Sodium Chloride (Zosyn/Iv Sodium Chloride 0.9 % 50ml) 50 ml @ 100 mls/hr Q6HRS IV Last administered on 08/17/16 05:28; Start 08/16/16 at 13:00 Furosemide (Lasix) 20 mg 1X ONCE IVP Last administered on 08/16/16 14:09; Start 08/16/16 at 13:30; Stop 08/16/16 at 13:31; Status DC Iohexol (Omnipaque 240 Mg/ml) 30 ml 1X ONCE PO ; Start 08/16/16 at 14:45; Stop 08/16/16 at 14:46; Status DC Iohexol (Omnipaque 350 Mg/ml) 90 ml 1X ONCE IV ; Start 08/16/16 at 16:00; Stop 08/16/16 at 16:02; Status DC Iohexol (Omnipaque 350 Mg/ml) 90 ml 1X ONCE IV ; Start 08/16/16 at 16:00; Stop 08/16/16 at 16:02; Status DC Info (Do NOT chart on this entry -- for MONITORING) 1 each PRN DAILY PRN MC SEE COMMENTS; Start 08/16/16 at 16:15; Stop 08/18/16 at 16:14 Insulin Aspart (Novolog) 0-7 UNITS TIDWMEALS SQ Last administered on 08/17/16 08:19; Start 08/16/16 at 17:00 Active Scripts Active Levemir Flextouch (Insulin Detemir) 100 Unit/1 Ml Insuln.pen 25 Units SQ QHS 30 Days Novolog Flexpen (Insulin Aspart) 100 Unit/1 Ml Insuln.pen 0 Units SQ TIDWMEALS 30 Days Senna-Time S Tablet (Sennosides/Docusate Sodium) 1 Each Tablet 1 Tab PO BID Oxycodone-Acetaminophen 5-325 (Oxycodone Hcl/Acetaminophen) 1 Each Tablet 1 Tab PO PRN Q4HRS PRN Furosemide 20 Mg Tablet 20 Mg PO BID92 30 Days Colace (Docusate Sodium) 100 Mg Capsule 100 Mg PO BID 5 Days Amox Tr-K Clv 875-125 Mg Tab (Amoxicillin/Potassium Clav) 1 Each Tablet 1 Tab PO BID 3 Days Klor-Con Sprinkle (Potassium Chloride) 10 Meq Capsule.er 20 Meq PO DAILY Lisinopril 20 Mg Tablet 1 Tab PO BID Ferrous Sulfate 325 Mg Tablet 325 Tab PO DAILY Gabapentin 300 Mg Capsule 600 Mg PO TID Hydralazine Hcl 25 Mg Tablet 1 Tab PO TID Reported Ventolin Hfa Inhaler (Albuterol Sulfate) 18 Gm Hfa.aer.ad 2 Puff INH QID Acetaminophen 160 Mg/5 Ml Solution 325 Mg PO QID Bactrim 400-80 Mg Tablet (Sulfamethoxazole/Trimethoprim) 1 Each Tablet 1 Tab PO BID Zantac (Ranitidine Hcl) 150 Mg Tablet 150 Mg PO DAILY Prednisone 20 Mg Tablet 20 Mg PO DAILY Cyclobenzaprine Hcl 10 Mg Tablet 10 Mg PO TID Lovastatin 20 Mg Tablet 20 Mg PO HS Vitals/I & O Vital Sign - Last 24 Hours 08/16/16 08/16/16 08/16/16 08/16/16 10:25 10:57 11:43 11:57 Temp 100.6 100.6 Pulse 87 Resp 20 B/P 146/71 Pulse Ox 99 98 96 97 O2 Delivery Nasal Cannula Nasal Cannula Nasal Cannula O2 Flow Rate 4.0 4.0 4.0 08/16/16 08/16/16 08/16/16 08/16/16 12:17 14:09 14:35 15:49 Temp 100.2 100.2 Pulse 91 91 101 Resp 20 B/P 181/83 181/83 163/84 Pulse Ox 97 O2 Delivery Nasal Cannula Nasal Cannula O2 Flow Rate 4.0 4.0 08/16/16 08/16/16 08/16/16 08/16/16 19:00 20:00 20:07 21:06 Temp 100.9 100.9 Pulse 120 120 Resp 20 B/P 185/97 185/97 Pulse Ox 93 96 O2 Delivery Room Air Bi-pap Room Air 08/16/16 08/16/16 08/16/16 08/17/16 21:08 21:35 23:00 00:01 Temp 99.3 99.3 Pulse 120 93 Resp 20 B/P 185/97 149/77 Pulse Ox 98 O2 Delivery BiPAP/CPAP BiPAP/CPAP BiPAP/CPAP 08/17/16 08/17/16 08/17/16 08/17/16 01:03 03:08 03:55 06:18 Temp 97.0 97.0 Pulse 98 Resp 20 B/P 170/95 Pulse Ox 98 O2 Delivery BiPAP/CPAP BiPAP/CPAP BiPAP/CPAP Room Air 08/17/16 08/17/16 08/17/16 08/17/16 07:00 07:05 07:18 08:00 Temp 98.4 98.4 Pulse 100 Resp 20 B/P 179/88 Pulse Ox 94 91 O2 Delivery Nasal Cannula Room Air Room Air Room Air O2 Flow Rate 3.0 08/17/16 08/17/16 08:22 08:26 Pulse 88 88 B/P 179/88 179/88 Intake and Output 08/16/16 08/16/16 08/17/16 15:00 23:00 07:00 Intake Total 270 ml 120 ml 550 ml Output Total 1000 ml 1000 ml Balance -730 ml -880 ml 550 ml YOGI ADAMSON MD Aug 17, 2016 10:00
--- NOTE | 2016-08-17 10:15 | PDOC ---
Infectious Disease Note Subjective Subjective pt known to me, returned with encephalopathy and fever ROS ROS GEN: Denies fevers, chills, sweats HEENT: Denies blurred vision, sore throat CV: Denies chest pain RESP: Denies shortness of air, cough GI: Denies n/v/d NEURO: Denies confusion, dizziness MSK: Denies weakness, joint pain/swelling Vital Sign Vital Signs Vital Signs Date Time Temp Pulse Resp B/P Pulse Ox O2 Delivery O2 Flow Rate FiO2 08/17/16 08:26 88 179/88 08/17/16 08:00 Room Air 08/17/16 07:05 91 08/17/16 07:00 98.4 20 3.0 98.4 Physical Exam PHYSICAL EXAM GENERAL: NAD, Alert HEENT: PERRL, OC/OP NECK: Supple, no JVD, no LN LUNGS: Clear HEART: S1S2, no gallop, no murmur ABD: Soft, NT, no organomegaly, no rebound, incision good EXT: No edema, no cyanosis HAND TRUCKER: Alert, oriented x 3, no focal neurologic deficit SKIN: No rash IV: ok Labs Lab Laboratory Tests Test 08/16/16 11:21 08/16/16 16:07 08/16/16 20:46 08/17/16 08:00 Glucose (Fingerstick) 130mg/dL (70-99) 188mg/dL (70-99) 233mg/dL (70-99) 173mg/dL (70-99) Objective Assessment Fever. Acute respiratory failure, on BiPAP. -hx hilar mass and lung nodules s/p bronch in Mar 2016 -hx sarcoidosis -hx POLY Acute kidney injury Acute encephalopathy s/p SANTHSOH and BSO, 08/09 Abdominal wound with vac in place Morbid obesity Plan Plan of Care vanc and zosyn ct check cultures AL DE LA TORRE MD Aug 17, 2016 10:15
[2016-08-17] MEDS ORDERED: MORPHINE SULFATE 4 MG/ML DISP.SYRIN. IV PRN (10:45)
--- NOTE | 2016-08-17 11:31 | PDOC ---
PULMONARY PROGRESS NOTES Subjective on 02 used bipap last night, has abd pain, has cough, no runny nose. Vitals Vital Signs Date Time Temp Pulse Resp B/P Pulse Ox O2 Delivery O2 Flow Rate FiO2 08/17/16 10:57 83 Room Air 08/17/16 10:55 99.5 103 18 159/90 99.5 08/17/16 10:41 3.0 Comments ros as mentioned as above other sys otherwise neg ROS: No Nausea, No Chest Pain, No Increase Cough (nc at perrl. throat nose clear) General: Alert, No acute distress HEENT: Other Lungs: Crackles Cardiovascular: S1, S2 Abdomen: Soft, Non-tender, Other Neuro Exam: Alert, Oriented Extremities: Other (edema) Skin: Warm Labs Laboratory Tests Test 08/15/16 22:05 08/15/16 22:40 08/16/16 05:10 08/16/16 07:25 Sodium Level 147mmol/L (136-145) 149mmol/L (136-145) Potassium Level 4.5mmol/L (3.5-5.1) 4.6mmol/L (3.5-5.1) Chloride Level 107mmol/L (98-107) 110mmol/L (98-107) Carbon Dioxide Level 36mmol/L (21-32) 33mmol/L (21-32) Anion Gap 4 (6-14) 6 (6-14) Blood Urea Nitrogen 21mg/dL (7-20) 20mg/dL (7-20) Creatinine 1.6mg/dL (0.6-1.0) 1.5mg/dL (0.6-1.0) Estimated GFR (Cockcroft-Gault) 39.1 42.2 BUN/Creatinine Ratio 13 (6-20) Glucose Level 192mg/dL (70-99) 176mg/dL (70-99) Lactic Acid Level 0.5mmol/L (0.4-2.0) Calcium Level 9.6mg/dL (8.5-10.1) 9.3mg/dL (8.5-10.1) Total Bilirubin 0.1mg/dL (0.2-1.0) Aspartate Amino Transf (AST/SGOT) 21U/L (15-37) Alanine Aminotransferase (ALT/SGPT) 16U/L (14-59) Alkaline Phosphatase 71U/L (46-116) Troponin I Quantitative < 0.017ng/mL (0.000-0.055) FW-Yji-P-Type Natriuretic Peptide 440pg/mL (0-124) Total Protein 6.4g/dL (6.4-8.2) Albumin 1.9g/dL (3.4-5.0) Albumin/Globulin Ratio 0.4 (1.0-1.7) White Blood Count 10.4x10^3/uL (4.0-11.0) 10.9x10^3/uL (4.0-11.0) Red Blood Count 2.88x10^6/uL (3.50-5.40) 2.87x10^6/uL (3.50-5.40) Hemoglobin 8.2g/dL (12.0-15.5) 8.2g/dL (12.0-15.5) Hematocrit 25.7% (36.0-47.0) 25.4% (36.0-47.0) Mean Corpuscular Volume 89fL (79-100) 89fL (79-100) Mean Corpuscular Hemoglobin 29pg (25-35) 29pg (25-35) Mean Corpuscular Hemoglobin Concent 32g/dL (31-37) 32g/dL (31-37) Red Cell Distribution Width 15.6% (11.5-14.5) 15.7% (11.5-14.5) Platelet Count 232x10^3/uL (140-400) 248x10^3/uL (140-400) Neutrophils (%) (Auto) 83% (31-73) 81% (31-73) Lymphocytes (%) (Auto) 10% (24-48) 10% (24-48) Monocytes (%) (Auto) 5% (0-9) 5% (0-9) Eosinophils (%) (Auto) 3% (0-3) 3% (0-3) Basophils (%) (Auto) 0% (0-3) 0% (0-3) Neutrophils # (Auto) 8.6x10^3uL (1.8-7.7) 8.7x10^3uL (1.8-7.7) Lymphocytes # (Auto) 1.0x10^3/uL (1.0-4.8) 1.1x10^3/uL (1.0-4.8) Monocytes # (Auto) 0.5x10^3/uL (0.0-1.1) 0.6x10^3/uL (0.0-1.1) Eosinophils # (Auto) 0.3x10^3/uL (0.0-0.7) 0.4x10^3/uL (0.0-0.7) Basophils # (Auto) 0.0x10^3/uL (0.0-0.2) 0.0x10^3/uL (0.0-0.2) Procalcitonin 1.58ng/mL (0.00-0.10) Glucose (Fingerstick) 154mg/dL (70-99) Test 08/16/16 11:21 08/16/16 16:07 08/16/16 20:46 08/17/16 08:00 Glucose (Fingerstick) 130mg/dL (70-99) 188mg/dL (70-99) 233mg/dL (70-99) 173mg/dL (70-99) Test 08/17/16 10:51 Glucose (Fingerstick) 188mg/dL (70-99) Laboratory Tests Test 08/16/16 16:07 08/16/16 20:46 08/17/16 08:00 08/17/16 10:51 Glucose (Fingerstick) 188mg/dL (70-99) 233mg/dL (70-99) 173mg/dL (70-99) 188mg/dL (70-99) Medications Active Scripts Medications Dose Route/Sig Days Date Category Levemir Flextouch (Insulin Detemir) 100 Unit/1 Ml Insuln.pen 25 Units SQ QHS 30 08/14/16 Rx Novolog Flexpen (Insulin Aspart) 100 Unit/1 Ml Insuln.pen 0 Units SQ TIDWMEALS 30 08/14/16 Rx Senna-Time S Tablet (Sennosides/Docusate Sodium) 1 Each Tablet 1 Tab PO BID 08/14/16 Rx Oxycodone-Acetaminophen 5-325 (Oxycodone Hcl/Acetaminophen) 1 Each Tablet 1 Tab PO PRN Q4HRS PRN 08/14/16 Rx Furosemide 20 Mg Tablet 20 Mg PO BID92 30 08/14/16 Rx Colace (Docusate Sodium) 100 Mg Capsule 100 Mg PO BID 5 08/14/16 Rx Amox Tr-K Clv 875-125 Mg Tab (Amoxicillin/Potassium Clav) 1 Each Tablet 1 Tab PO BID 3 08/14/16 Rx Ventolin Hfa Inhaler (Albuterol Sulfate) 18 Gm Hfa.aer.ad 2 Puff INH QID 08/09/16 Reported Acetaminophen 160 Mg/5 Ml Solution 325 Mg PO QID 08/09/16 Reported Bactrim 400-80 Mg Tablet (Sulfamethoxazole/Trimethoprim) 1 Each Tablet 1 Tab PO BID 08/09/16 Reported Zantac (Ranitidine Hcl) 150 Mg Tablet 150 Mg PO DAILY 08/09/16 Reported Prednisone 20 Mg Tablet 20 Mg PO DAILY 08/09/16 Reported Cyclobenzaprine Hcl 10 Mg Tablet 10 Mg PO TID 08/09/16 Reported Klor-Con Sprinkle (Potassium Chloride) 10 Meq Capsule.er 20 Meq PO DAILY 04/06/16 Rx Lisinopril 20 Mg Tablet 1 Tab PO BID 04/06/16 Rx Ferrous Sulfate 325 Mg Tablet 325 Tab PO DAILY 04/06/16 Rx Gabapentin 300 Mg Capsule 600 Mg PO TID 04/06/16 Rx Hydralazine Hcl 25 Mg Tablet 1 Tab PO TID 04/06/16 Rx Lovastatin 20 Mg Tablet 20 Mg PO HS 03/28/16 Reported Comments cxr reviewed. Impression . IMPRESSION: 1. Acute hypoxic respiratory failure requiring 4 liters of oxygen. I suspect secondary to underlying obesity hypoventilation syndrome and some mild atelectasis. There appears to be mild vascular congestion and it could be related to some diastolic heart failure as well. She does have increased leg edema. Cannot exclude the possibility of mild pneumonia. 2. Fever of 100.6. She has a cough with only white sputum production. The source could be the abdomen. She had a recent hysterectomy. We will obtain CT abdomen and pelvis for further evaluation. 3. History of abnormal CT chest in March with a right hilar mass/adenopathy and subcarinal adenopathy and tiny lung nodules. She subsequently followed up at and underwent biopsy, I assume via bronchoscopy, and she was told that she has sarcoidosis and has been on prednisone 20 mg daily. 4. No significant history of tobacco use. 5. Underlying obesity. Plan . RECOMMENDATIONS: 1. Continue with present oxygen at 4 liters. 2. Mild diuresis to see an improvement in chest x-ray and mild diastolic heart failure. monitor k, cr 3. fu noncontrast CT abdomen and pelvis to rule out any pockets of infection in the abdomen. 4. Continue broad-spectrum antibiotics. id on case 5. Wean oxygen to keep saturation 94 and above. 6. Continue prednisone 20 mg daily as initiated at [facility] for sarcoidosis and she can follow up over there. 7. Continue bronchodilators. 8. cont bipap prn during day, cont at night Discussed with the pt and patient's daughter and will follow along with you. CHRIS FRANCISCO MD Aug 17, 2016 11:30
--- NOTE | 2016-08-17 12:37 | PDOC ---
CARDIO Progress Notes Date and Time Date of Service 08/17/2016 Time of Evaluation 1231 Subjective Subjective: No Chest Pain, No Palpitations, No Dizziness Vitals Vitals Vital Signs Date Time Temp Pulse Resp B/P Pulse Ox O2 Delivery O2 Flow Rate FiO2 08/17/16 11:41 83 Room Air 3.0 08/17/16 10:55 99.5 103 18 159/90 99.5 Weight Weight [ ] Input and Output Intake and Output Intake and Output 08/17/16 07:00 Intake Total 940 ml Output Total 2000 ml Balance -1060 ml Intake Oral 390 ml IV Total 550 ml Output Urine Total 2000 ml # Voids 3 # Bowel Movements 3 Laboratory Labs Laboratory Tests Test 08/16/16 16:07 08/16/16 20:46 08/17/16 08:00 08/17/16 10:51 Glucose (Fingerstick) 188mg/dL (70-99) 233mg/dL (70-99) 173mg/dL (70-99) 188mg/dL (70-99) Microbiology Micro Microbiology 08/16/16 Blood Culture - Preliminary, Resulted NO GROWTH AFTER 1 DAY Physical Exam HEENT: Neck Supple W Full Motion Chest: Symmetric LUNGS: Other (scattered basilar crackles) Heart: S1S2, RRR (tachy), other (tele: ST) Abdomen: Soft N/T Extremities: Other (1+ edema) Neurology: alert, oriented, follow commands Assessment Assessment 1. malignant HTN remains poorly controlled - add amlodipine daily 2. tachycardia likely reactive, i.e. fever and is anemic TSH WNL 03/2016 treat underlying issues 3. mental status changes appropriate recall during this conversation 4. chronic diastolic HF control BP continue diuretics 5. HLD continue statin therapy LDLs well controlled Will follow peripherally Please contact if assistance needed f/u in office 4 weeks after discharge STEPHEN VERA APRN Aug 17, 2016 12:37
[2016-08-17] MEDS ORDERED: AMLODIPINE BESYLATE 5 MG TABLET PO SCH (12:45)
--- NOTE | 2016-08-17 12:53 | PDOC ---
PROGRESS NOTES Chief Complaint Chief Complaint acute hypoxia w/ bronchitis, pickwickian, sepsis CHF, stable distolic CHF htn, metabolic encephalopathy, improved morbid obesity, BMI 47 anemia of acute blood loss, recent Total Hys, biopsy results are of no malignancy History of Present Illness History of Present Illness feels better more alert and active breathing better appetite still poor Vitals Vitals Vital Signs Date Time Temp Pulse Resp B/P Pulse Ox O2 Delivery O2 Flow Rate FiO2 08/17/16 11:41 83 Room Air 3.0 08/17/16 10:55 99.5 103 18 159/90 99.5 Physical Exam General: Alert, Oriented X3, Cooperative, No acute distress Heart: Regular rate (tachy- tele: ST), Normal S1, Normal S2, No murmurs, Other (no carotid bruits) Lungs: Crackles Abdomen: Normal bowel sounds, Soft Extremities: No edema, Normal pulses Skin: No rashes Labs LABS Laboratory Tests Test 08/16/16 16:07 08/16/16 20:46 08/17/16 08:00 08/17/16 10:51 Glucose (Fingerstick) 188mg/dL (70-99) 233mg/dL (70-99) 173mg/dL (70-99) 188mg/dL (70-99) Review of Systems Review of Systems no n.v.d some dyspnea still on 02 Assessment and Plan Assessmemt and Plan Problems Medical Problems: (1) Altered mental status Status: Acute (2) Pneumonia Status: Acute Problems: Comment Review of Relevant I have reviewed the following items robert (where applicable) has been applied. Labs Laboratory Tests Test 08/15/16 22:05 08/15/16 22:40 08/16/16 05:10 08/16/16 07:25 Sodium Level 147mmol/L (136-145) 149mmol/L (136-145) Potassium Level 4.5mmol/L (3.5-5.1) 4.6mmol/L (3.5-5.1) Chloride Level 107mmol/L (98-107) 110mmol/L (98-107) Carbon Dioxide Level 36mmol/L (21-32) 33mmol/L (21-32) Anion Gap 4 (6-14) 6 (6-14) Blood Urea Nitrogen 21mg/dL (7-20) 20mg/dL (7-20) Creatinine 1.6mg/dL (0.6-1.0) 1.5mg/dL (0.6-1.0) Estimated GFR (Cockcroft-Gault) 39.1 42.2 BUN/Creatinine Ratio 13 (6-20) Glucose Level 192mg/dL (70-99) 176mg/dL (70-99) Lactic Acid Level 0.5mmol/L (0.4-2.0) Calcium Level 9.6mg/dL (8.5-10.1) 9.3mg/dL (8.5-10.1) Total Bilirubin 0.1mg/dL (0.2-1.0) Aspartate Amino Transf (AST/SGOT) 21U/L (15-37) Alanine Aminotransferase (ALT/SGPT) 16U/L (14-59) Alkaline Phosphatase 71U/L (46-116) Troponin I Quantitative < 0.017ng/mL (0.000-0.055) QU-Usk-S-Type Natriuretic Peptide 440pg/mL (0-124) Total Protein 6.4g/dL (6.4-8.2) Albumin 1.9g/dL (3.4-5.0) Albumin/Globulin Ratio 0.4 (1.0-1.7) White Blood Count 10.4x10^3/uL (4.0-11.0) 10.9x10^3/uL (4.0-11.0) Red Blood Count 2.88x10^6/uL (3.50-5.40) 2.87x10^6/uL (3.50-5.40) Hemoglobin 8.2g/dL (12.0-15.5) 8.2g/dL (12.0-15.5) Hematocrit 25.7% (36.0-47.0) 25.4% (36.0-47.0) Mean Corpuscular Volume 89fL (79-100) 89fL (79-100) Mean Corpuscular Hemoglobin 29pg (25-35) 29pg (25-35) Mean Corpuscular Hemoglobin Concent 32g/dL (31-37) 32g/dL (31-37) Red Cell Distribution Width 15.6% (11.5-14.5) 15.7% (11.5-14.5) Platelet Count 232x10^3/uL (140-400) 248x10^3/uL (140-400) Neutrophils (%) (Auto) 83% (31-73) 81% (31-73) Lymphocytes (%) (Auto) 10% (24-48) 10% (24-48) Monocytes (%) (Auto) 5% (0-9) 5% (0-9) Eosinophils (%) (Auto) 3% (0-3) 3% (0-3) Basophils (%) (Auto) 0% (0-3) 0% (0-3) Neutrophils # (Auto) 8.6x10^3uL (1.8-7.7) 8.7x10^3uL (1.8-7.7) Lymphocytes # (Auto) 1.0x10^3/uL (1.0-4.8) 1.1x10^3/uL (1.0-4.8) Monocytes # (Auto) 0.5x10^3/uL (0.0-1.1) 0.6x10^3/uL (0.0-1.1) Eosinophils # (Auto) 0.3x10^3/uL (0.0-0.7) 0.4x10^3/uL (0.0-0.7) Basophils # (Auto) 0.0x10^3/uL (0.0-0.2) 0.0x10^3/uL (0.0-0.2) Procalcitonin 1.58ng/mL (0.00-0.10) Glucose (Fingerstick) 154mg/dL (70-99) Test 08/16/16 11:21 08/16/16 16:07 08/16/16 20:46 08/17/16 08:00 Glucose (Fingerstick) 130mg/dL (70-99) 188mg/dL (70-99) 233mg/dL (70-99) 173mg/dL (70-99) Test 08/17/16 10:51 Glucose (Fingerstick) 188mg/dL (70-99) Laboratory Tests Test 08/16/16 16:07 08/16/16 20:46 08/17/16 08:00 08/17/16 10:51 Glucose (Fingerstick) 188mg/dL (70-99) 233mg/dL (70-99) 173mg/dL (70-99) 188mg/dL (70-99) Microbiology 08/16/16 Blood Culture - Preliminary, Resulted NO GROWTH AFTER 1 DAY Medications Current Medications Hydralazine HCl (Apresoline) 10 mg 1X ONCE IVP Last administered on 08/16/16 00:44; Start 08/15/16 at 22:00; Stop 08/15/16 at 22:01; Status DC Vancomycin HCl (Vanco Per Pharmacy) 1 each PRN DAILY PRN MC SEE COMMENTS Last administered on 08/16/16 01:17; Start 08/15/16 at 23:00 Piperacillin Sod/ Tazobactam Sod 1 each 1 each PRN DAILY PRN MC SEE COMMENTS; Start 08/15/16 at 23:00 Piperacillin Sod/ Tazobactam Sod 4.5 gm/Sodium Chloride 100 ml @ 200 mls/hr 1X ONCE IV Last administered on 08/15/16 23:15; Start 08/15/16 at 23:15; Stop 08/15/16 at 23:44; Status DC Vancomycin HCl/ Sodium Chloride (Iv Sodium Chloride 0.9% 500ml Bag) 500 ml @ 250 mls/hr 1X ONCE IV Last administered on 08/16/16 00:44; Start 08/16/16 at 00:00; Stop 08/16/16 at 01:59; Status DC Ondansetron HCl (Zofran) 4 mg PRN Q8HRS PRN IV NAUSEA/VOMITING; Start 08/15/16 at 23:30; Stop 08/16/16 at 23:29; Status DC Morphine Sulfate 2 mg PRN Q2HR PRN IV PAIN Last administered on 08/16/16 08:13 ; Start 08/15/16 at 23:30; Stop 08/16/16 at 23:29; Status DC Acetaminophen (Tylenol) 650 mg PRN Q4HRS PRN PO FEVER Last administered on 08/16 21:08; Start 08/15/16 at 23:30; Stop 08/16/16 at 23:29; Status DC Insulin Aspart (Novolog) 0-7 UNITS TIDWMEALS SQ Last administered on 08/16/16 08:09; Start 08/16/16 at 08:00; Stop 08/16/16 at 14:36; Status DC Dextrose 12.5 gm 12.5 gm PRN Q15MIN PRN IV SEE COMMENTS; Start 08/15/16 at 23: 30 Piperacillin Sod/ Tazobactam Sod 4.5 gm/Sodium Chloride 100 ml @ 200 mls/hr Q8H IV Last administered on 08/16/16 05:41; Start 08/16/16 at 06:00; Stop at 12:30; Status DC Vancomycin HCl/ Sodium Chloride (Iv Sodium Chloride 0.9% 500ml Bag) 500 ml @ 250 mls/hr Q24H IV Last administered on 08/17/16 00:15; Start 08/17/16 at 01: 00 Vancomycin HCl 1 each 1X ONCE MC ; Start 08/18/16 at 00:30; Stop 08/18/16 at 00 :31 Polyethylene Glycol (miraLAX PACKET) 17 gm 1X ONCE PO Last administered on 10:30; Start 08/16/16 at 10:15; Stop 08/16/16 at 10:22; Status DC Polyethylene Glycol (miraLAX PACKET) 17 gm PRN BID PRN PO CONSTIPATION; Start 08/16/16 at 10:15 Docusate Sodium (Colace) 100 mg PRN DAILY PRN PO CONSTIPATION; Start 08/16/16 at 10:15 Docusate Sodium (Colace) 100 mg DAILY PO ; Start 08/17/16 at 09:00; Stop at 09:00; Status DC Magnesium Hydroxide (Milk Of Magnesia) 2,400 mg 1X ONCE PO Last administered on 08/16/16 10:29; Start 08/16/16 at 10:15; Stop 08/16/16 at 10:22; Status DC Amoxicillin/ Clavulanate Potassium (Augmentin 875/ 125mg) 1 tab BID PO Last administered on 08/16/16 12:16; Start 08/16/16 at 11:00; Stop 08/16/16 at 12:24 ; Status DC Cyclobenzaprine HCl (Flexeril) 10 mg TID PO Last administered on 08/17/16 08: 23; Start 08/16/16 at 11:00 Docusate Sodium (Colace) 100 mg BID PO Last administered on 08/17/16 08:27; Start 08/16/16 at 11:00 Ferrous Sulfate (Feosol) 325 mg DAILYWBKFT PO Last administered on 08/17/16 08 :28; Start 08/16/16 at 11:30 Furosemide (Lasix) 20 mg BID92 PO Last administered on 08/17/16 08:24; Start 08/16/16 at 11:00 Hydralazine HCl (Apresoline) 25 mg TID PO Last administered on 08/17/16 08:22 ; Start 08/16/16 at 14:00 Insulin Aspart (Novolog) TIDWMEALS SQ ; Start 08/16/16 at 12:00; Stop 08/16/16 at 18:09; Status DC Insulin Detemir (Levemir) 25 units QHS SQ Last administered on 08/16/16 21:28 ; Start 08/16/16 at 21:00 Lisinopril (Prinivil) 20 mg BID PO Last administered on 08/17/16 08:26; Start 08/16/16 at 11:00 Oxycodone/ Acetaminophen (Percocet 5/325) 1 tab PRN Q4HRS PRN PO MODERATE PAIN , SEVERE PAIN Last administered on 08/17/16 10:41; Start 08/16/16 at 10:30 Prednisone (Prednisone) 20 mg DAILY PO Last administered on 08/17/16 08:25; Start 08/16/16 at 11:00 Senna/Docusate Sodium (Senna Plus) 1 tab BID PO Last administered on 08/17/16 08:26; Start 08/16/16 at 11:00 Trimethoprim/ Sulfamethoxazole (Bactrim Ss) 1 tab BID PO Last administered on 14:10; Start 08/16/16 at 11:00; Stop 08/16/16 at 14:37; Status DC Acetaminophen (Tylenol) 325 mg QID PO Last administered on 08/17/16 08:27; Start 08/16/16 at 13:00 Non-Formulary Medication 2 puff QID INH FOR ASTHMA; Start 08/16/16 at 13:00; Stop 08/16/16 at 13:00; Status DC Atorvastatin Calcium (Lipitor) 5 mg QHS PO Last administered on 08/16/16 21:06 ; Start 08/16/16 at 21:00 Famotidine (Pepcid) 20 mg DAILY PO Last administered on 08/17/16 08:24; Start 08/16/16 at 11:00 Albuterol/ Ipratropium (Duoneb) 3 ml RTQID NEB Last administered on 08/17/16 10:56; Start 08/16/16 at 12:00 Albuterol Sulfate 2.5 mg 2.5 mg RTQID NEB ; Start 08/16/16 at 12:00; Stop at 12:00; Status DC Piperacillin Sod/ Tazobactam Sod/ Sodium Chloride (Zosyn/Iv Sodium Chloride 0.9 % 50ml) 50 ml @ 100 mls/hr Q6HRS IV Last administered on 08/17/16 11:16; Start 08/16/16 at 13:00 Furosemide (Lasix) 20 mg 1X ONCE IVP Last administered on 08/16/16 14:09; Start 08/16/16 at 13:30; Stop 08/16/16 at 13:31; Status DC Iohexol (Omnipaque 240 Mg/ml) 30 ml 1X ONCE PO ; Start 08/16/16 at 14:45; Stop 08/16/16 at 14:46; Status DC Iohexol (Omnipaque 350 Mg/ml) 90 ml 1X ONCE IV ; Start 08/16/16 at 16:00; Stop 08/16/16 at 16:02; Status DC Iohexol (Omnipaque 350 Mg/ml) 90 ml 1X ONCE IV ; Start 08/16/16 at 16:00; Stop 08/16/16 at 16:02; Status DC Info (Do NOT chart on this entry -- for MONITORING) 1 each PRN DAILY PRN MC SEE COMMENTS; Start 08/16/16 at 16:15; Stop 08/18/16 at 16:14 Insulin Aspart (Novolog) 0-7 UNITS TIDWMEALS SQ Last administered on 08/17/16 12:13; Start 08/16/16 at 17:00 Morphine Sulfate 4 mg PRN Q2HR PRN IV PAIN SEVERE; Start 08/17/16 at 10:45 Amlodipine Besylate (Norvasc) 5 mg DAILYWLUN PO ; Start 08/17/16 at 12:45 Active Scripts Active Levemir Flextouch (Insulin Detemir) 100 Unit/1 Ml Insuln.pen 25 Units SQ QHS 30 Days Novolog Flexpen (Insulin Aspart) 100 Unit/1 Ml Insuln.pen 0 Units SQ TIDWMEALS 30 Days Senna-Time S Tablet (Sennosides/Docusate Sodium) 1 Each Tablet 1 Tab PO BID Oxycodone-Acetaminophen 5-325 (Oxycodone Hcl/Acetaminophen) 1 Each Tablet 1 Tab PO PRN Q4HRS PRN Furosemide 20 Mg Tablet 20 Mg PO BID92 30 Days Colace (Docusate Sodium) 100 Mg Capsule 100 Mg PO BID 5 Days Amox Tr-K Clv 875-125 Mg Tab (Amoxicillin/Potassium Clav) 1 Each Tablet 1 Tab PO BID 3 Days Klor-Con Sprinkle (Potassium Chloride) 10 Meq Capsule.er 20 Meq PO DAILY Lisinopril 20 Mg Tablet 1 Tab PO BID Ferrous Sulfate 325 Mg Tablet 325 Tab PO DAILY Gabapentin 300 Mg Capsule 600 Mg PO TID Hydralazine Hcl 25 Mg Tablet 1 Tab PO TID Reported Ventolin Hfa Inhaler (Albuterol Sulfate) 18 Gm Hfa.aer.ad 2 Puff INH QID Acetaminophen 160 Mg/5 Ml Solution 325 Mg PO QID Bactrim 400-80 Mg Tablet (Sulfamethoxazole/Trimethoprim) 1 Each Tablet 1 Tab PO BID Zantac (Ranitidine Hcl) 150 Mg Tablet 150 Mg PO DAILY Prednisone 20 Mg Tablet 20 Mg PO DAILY Cyclobenzaprine Hcl 10 Mg Tablet 10 Mg PO TID Lovastatin 20 Mg Tablet 20 Mg PO HS Vitals/I & O Vital Sign - Last 24 Hours 08/16/16 08/16/16 08/16/16 08/16/16 14:09 14:35 15:49 19:00 Temp 100.2 100.9 100.2 100.9 Pulse 91 101 120 Resp 20 20 B/P 181/83 163/84 185/97 Pulse Ox 97 93 O2 Delivery Nasal Cannula Nasal Cannula Room Air O2 Flow Rate 4.0 4.0 08/16/16 08/16/16 08/16/16 08/16/16 20:00 20:07 21:06 21:08 Pulse 120 120 B/P 185/97 185/97 Pulse Ox 96 O2 Delivery Bi-pap Room Air 08/16/16 08/16/16 08/17/16 08/17/16 21:35 23:00 00:01 01:03 Temp 99.3 99.3 Pulse 93 Resp 20 B/P 149/77 Pulse Ox 98 O2 Delivery BiPAP/CPAP BiPAP/CPAP BiPAP/CPAP BiPAP/CPAP 08/17/16 08/17/16 08/17/16 08/17/16 03:08 03:55 06:18 07:00 Temp 97.0 98.4 97.0 98.4 Pulse 98 100 Resp 20 20 B/P 170/95 179/88 Pulse Ox 98 94 O2 Delivery BiPAP/CPAP BiPAP/CPAP Room Air Nasal Cannula O2 Flow Rate 3.0 08/17/16 08/17/16 08/17/16 08/17/16 07:05 08:00 08:22 08:26 Pulse 88 88 B/P 179/88 179/88 Pulse Ox 91 O2 Delivery Room Air Room Air 08/17/16 08/17/16 08/17/16 08/17/16 10:41 10:55 10:57 11:41 Temp 99.5 99.5 Pulse 103 Resp 18 18 B/P 159/90 Pulse Ox 91 83 83 O2 Delivery Room Air Room Air Room Air Room Air O2 Flow Rate 3.0 3.0 Intake and Output 08/16/16 08/16/16 08/17/16 15:00 23:00 07:00 Intake Total 270 ml 120 ml 550 ml Output Total 1000 ml 1000 ml Balance -730 ml -880 ml 550 ml QUIRINO ENGEL MD Aug 17, 2016 12:53
[2016-08-17] MEDS: VANCOMYCIN PER PHARMACY MC PRN (13:01)
--- NOTE | 2016-08-17 13:49 | PDOC2 ---
CONSULT Date of Consult Date of Consult DATE: 08/17/16 TIME: 13:42 Reason for Consult Reason for Consult: wound care Referring Physician Referring Physician: Dr. Zepeda Identification/Chief Complaint Chief Complaint fatigue and fever Source Source: Chart review, Patient History of Present Illness Reason for Visit: 66 y/o presented from [facility] due to fatigue and wound care. She also had fever. She is currently being treated with IV abx and breathing treatments. She had SANTHOSH &BSO 8 days ago. Past Medical History Cardiovascular: CAD, HTN, Hyperlipidemia Pulmonary: Pneumonia, Other (sarcoidosis, hilar adenopathy, obstructive sleep apnea) CENTRAL NERVOUS SYSTEM: Other (none) GI: Diverticulosis Heme/Onc: Anemia NOS Hepatobiliary: No pertinent hx Psych: No pertinent hx Musculoskeletal: Osteoarthritis Rheumatologic: No pertinent hx Infectious disease: No pertinent hx ENT: No pertinent hx Renal/: Acute renal failure Endocrine: Diabetes Past Surgical History Past Surgical History: Hysterectomy, Colon Resection Family History Family History: Cancer (breast in mother), Coronary Artery Disease Social History No ALCOHOL: none Drugs: None Lives: Jail ([facility]) Current Problem List Problem List Problems Medical Problems: (1) Altered mental status Status: Acute (2) Pneumonia Status: Acute Current Medications Current Medications Current Medications Hydralazine HCl (Apresoline) 10 mg 1X ONCE IVP Last administered on 08/16/16 00:44; Start 08/15/16 at 22:00; Stop 08/15/16 at 22:01; Status DC Vancomycin HCl (Vanco Per Pharmacy) 1 each PRN DAILY PRN MC SEE COMMENTS Last administered on 08/17/16 13:01; Start 08/15/16 at 23:00 Piperacillin Sod/ Tazobactam Sod 1 each 1 each PRN DAILY PRN MC SEE COMMENTS; Start 08/15/16 at 23:00 Piperacillin Sod/ Tazobactam Sod 4.5 gm/Sodium Chloride 100 ml @ 200 mls/hr 1X ONCE IV Last administered on 08/15/16 23:15; Start 08/15/16 at 23:15; Stop 08/15/16 at 23:44; Status DC Vancomycin HCl/ Sodium Chloride (Iv Sodium Chloride 0.9% 500ml Bag) 500 ml @ 250 mls/hr 1X ONCE IV Last administered on 08/16/16 00:44; Start 08/16/16 at 00:00; Stop 08/16/16 at 01:59; Status DC Ondansetron HCl (Zofran) 4 mg PRN Q8HRS PRN IV NAUSEA/VOMITING; Start 08/15/16 at 23:30; Stop 08/16/16 at 23:29; Status DC Morphine Sulfate 2 mg PRN Q2HR PRN IV PAIN Last administered on 08/16/16 08:13 ; Start 08/15/16 at 23:30; Stop 08/16/16 at 23:29; Status DC Acetaminophen (Tylenol) 650 mg PRN Q4HRS PRN PO FEVER Last administered on 08/16 21:08; Start 08/15/16 at 23:30; Stop 08/16/16 at 23:29; Status DC Insulin Aspart (Novolog) 0-7 UNITS TIDWMEALS SQ Last administered on 08/16/16 08:09; Start 08/16/16 at 08:00; Stop 08/16/16 at 14:36; Status DC Dextrose 12.5 gm 12.5 gm PRN Q15MIN PRN IV SEE COMMENTS; Start 08/15/16 at 23: 30 Piperacillin Sod/ Tazobactam Sod 4.5 gm/Sodium Chloride 100 ml @ 200 mls/hr Q8H IV Last administered on 08/16/16 05:41; Start 08/16/16 at 06:00; Stop at 12:30; Status DC Vancomycin HCl/ Sodium Chloride (Iv Sodium Chloride 0.9% 500ml Bag) 500 ml @ 250 mls/hr Q24H IV Last administered on 08/17/16 00:15; Start 08/17/16 at 01: 00 Vancomycin HCl 1 each 1X ONCE MC ; Start 08/18/16 at 00:30; Stop 08/18/16 at 00 :31 Polyethylene Glycol (miraLAX PACKET) 17 gm 1X ONCE PO Last administered on 10:30; Start 08/16/16 at 10:15; Stop 08/16/16 at 10:22; Status DC Polyethylene Glycol (miraLAX PACKET) 17 gm PRN BID PRN PO CONSTIPATION; Start 08/16/16 at 10:15 Docusate Sodium (Colace) 100 mg PRN DAILY PRN PO CONSTIPATION; Start 08/16/16 at 10:15 Docusate Sodium (Colace) 100 mg DAILY PO ; Start 08/17/16 at 09:00; Stop at 09:00; Status DC Magnesium Hydroxide (Milk Of Magnesia) 2,400 mg 1X ONCE PO Last administered on 08/16/16 10:29; Start 08/16/16 at 10:15; Stop 08/16/16 at 10:22; Status DC Amoxicillin/ Clavulanate Potassium (Augmentin 875/ 125mg) 1 tab BID PO Last administered on 08/16/16 12:16; Start 08/16/16 at 11:00; Stop 08/16/16 at 12:24 ; Status DC Cyclobenzaprine HCl (Flexeril) 10 mg TID PO Last administered on 08/17/16 13: 30; Start 08/16/16 at 11:00 Docusate Sodium (Colace) 100 mg BID PO Last administered on 08/17/16 08:27; Start 08/16/16 at 11:00 Ferrous Sulfate (Feosol) 325 mg DAILYWBKFT PO Last administered on 08/17/16 08 :28; Start 08/16/16 at 11:30 Furosemide (Lasix) 20 mg BID92 PO Last administered on 08/17/16 13:31; Start 08/16/16 at 11:00 Hydralazine HCl (Apresoline) 25 mg TID PO Last administered on 08/17/16 13:29 ; Start 08/16/16 at 14:00 Insulin Aspart (Novolog) TIDWMEALS SQ ; Start 08/16/16 at 12:00; Stop 08/16/16 at 18:09; Status DC Insulin Detemir (Levemir) 25 units QHS SQ Last administered on 08/16/16 21:28 ; Start 08/16/16 at 21:00 Lisinopril (Prinivil) 20 mg BID PO Last administered on 08/17/16 08:26; Start 08/16/16 at 11:00 Oxycodone/ Acetaminophen (Percocet 5/325) 1 tab PRN Q4HRS PRN PO MODERATE PAIN , SEVERE PAIN Last administered on 08/17/16 10:41; Start 08/16/16 at 10:30 Prednisone (Prednisone) 20 mg DAILY PO Last administered on 08/17/16 08:25; Start 08/16/16 at 11:00 Senna/Docusate Sodium (Senna Plus) 1 tab BID PO Last administered on 08/17/16 08:26; Start 08/16/16 at 11:00 Trimethoprim/ Sulfamethoxazole (Bactrim Ss) 1 tab BID PO Last administered on 14:10; Start 08/16/16 at 11:00; Stop 08/16/16 at 14:37; Status DC Acetaminophen (Tylenol) 325 mg QID PO Last administered on 08/17/16 13:27; Start 08/16/16 at 13:00 Non-Formulary Medication 2 puff QID INH FOR ASTHMA; Start 08/16/16 at 13:00; Stop 08/16/16 at 13:00; Status DC Atorvastatin Calcium (Lipitor) 5 mg QHS PO Last administered on 08/16/16 21:06 ; Start 08/16/16 at 21:00 Famotidine (Pepcid) 20 mg DAILY PO Last administered on 08/17/16 08:24; Start 08/16/16 at 11:00 Albuterol/ Ipratropium (Duoneb) 3 ml RTQID NEB Last administered on 08/17/16 10:56; Start 08/16/16 at 12:00 Albuterol Sulfate 2.5 mg 2.5 mg RTQID NEB ; Start 08/16/16 at 12:00; Stop at 12:00; Status DC Piperacillin Sod/ Tazobactam Sod/ Sodium Chloride (Zosyn/Iv Sodium Chloride 0.9 % 50ml) 50 ml @ 100 mls/hr Q6HRS IV Last administered on 08/17/16 11:16; Start 08/16/16 at 13:00 Furosemide (Lasix) 20 mg 1X ONCE IVP Last administered on 08/16/16 14:09; Start 08/16/16 at 13:30; Stop 08/16/16 at 13:31; Status DC Iohexol (Omnipaque 240 Mg/ml) 30 ml 1X ONCE PO ; Start 08/16/16 at 14:45; Stop 08/16/16 at 14:46; Status DC Iohexol (Omnipaque 350 Mg/ml) 90 ml 1X ONCE IV ; Start 08/16/16 at 16:00; Stop 08/16/16 at 16:02; Status DC Iohexol (Omnipaque 350 Mg/ml) 90 ml 1X ONCE IV ; Start 08/16/16 at 16:00; Stop 08/16/16 at 16:02; Status DC Info (Do NOT chart on this entry -- for MONITORING) 1 each PRN DAILY PRN MC SEE COMMENTS; Start 08/16/16 at 16:15; Stop 08/18/16 at 16:14 Insulin Aspart (Novolog) 0-7 UNITS TIDWMEALS SQ Last administered on 08/17/16 12:13; Start 08/16/16 at 17:00 Morphine Sulfate 4 mg PRN Q2HR PRN IV PAIN SEVERE; Start 08/17/16 at 10:45 Amlodipine Besylate (Norvasc) 5 mg DAILYWLUN PO Last administered on 08/17/16 13:33; Start 08/17/16 at 12:45 Active Scripts Active Levemir Flextouch (Insulin Detemir) 100 Unit/1 Ml Insuln.pen 25 Units SQ QHS 30 Days Novolog Flexpen (Insulin Aspart) 100 Unit/1 Ml Insuln.pen 0 Units SQ TIDWMEALS 30 Days Senna-Time S Tablet (Sennosides/Docusate Sodium) 1 Each Tablet 1 Tab PO BID Oxycodone-Acetaminophen 5-325 (Oxycodone Hcl/Acetaminophen) 1 Each Tablet 1 Tab PO PRN Q4HRS PRN Furosemide 20 Mg Tablet 20 Mg PO BID92 30 Days Colace (Docusate Sodium) 100 Mg Capsule 100 Mg PO BID 5 Days Amox Tr-K Clv 875-125 Mg Tab (Amoxicillin/Potassium Clav) 1 Each Tablet 1 Tab PO BID 3 Days Klor-Con Sprinkle (Potassium Chloride) 10 Meq Capsule.er 20 Meq PO DAILY Lisinopril 20 Mg Tablet 1 Tab PO BID Ferrous Sulfate 325 Mg Tablet 325 Tab PO DAILY Gabapentin 300 Mg Capsule 600 Mg PO TID Hydralazine Hcl 25 Mg Tablet 1 Tab PO TID Reported Ventolin Hfa Inhaler (Albuterol Sulfate) 18 Gm Hfa.aer.ad 2 Puff INH QID Acetaminophen 160 Mg/5 Ml Solution 325 Mg PO QID Bactrim 400-80 Mg Tablet (Sulfamethoxazole/Trimethoprim) 1 Each Tablet 1 Tab PO BID Zantac (Ranitidine Hcl) 150 Mg Tablet 150 Mg PO DAILY Prednisone 20 Mg Tablet 20 Mg PO DAILY Cyclobenzaprine Hcl 10 Mg Tablet 10 Mg PO TID Lovastatin 20 Mg Tablet 20 Mg PO HS Allergies Allergies: Coded Allergies: No Known Drug Allergies (Unverified , 04/02/16) ROS General: YES: Fatigue, Malaise, No: Appetite, Chills, Night Sweats, Other PSYCHOLOGICAL ROS: No: Anxiety, Behavioral Disorder, Concentration difficultie , Decreased libido, Depression, Disorientation, Hallucinations, Hostility, Irritablity, Memory difficulties, Mood Swings, Obsessive thoughts, Other, Physical abuse, Sexual abuse, Sleep disturbances, Suicidal ideation Eyes: No Blurry vision, No Decreased vision, No Double vision, No Dry eyes, No Excessive tearing, No Eye Pain, No Itchy Eyes, No Loss of vision, No Other, No Photophobia, No Scotomata, No Uses contacts, No Uses glasses HEENT: No: Epistaxis, Heacaches, Hearing change, Nasal congestion, Nasal discharge, Oral lesions, Other, Sinus pain, Sneezing, Snoring, Sore Throat, Tinnitus, Vertigo, Visual Changes, Vocal changes ALLERGY AND IMMUNOLOGY: No: Hives, Insect Bite Sensitivity, Itchy/Watery Eyes, Nasal Congestion, Other, Post Nasal Drip, Seasonal Allergies Hematological and Lymphatic: No: Bleeding Problems, Blood Clots, Blood Transfusions, Brusing, Night Sweats, Other, Pallor, Swollen Lymph Nodes ENDOCRINE: No: Breast Changes, Galactorrhea, Hair Pattern Changes, Hot Flashes , Malaise/lethargy, Mood Swings, Other, Palpitations, Polydipsia/polyuria, Skin Changes, Temperature Intolerance, Unexpected Weight Changes Breast: No New/Changing Breast Lumps, No Nipple changes, No Nipple discharge, No Other Respiratory: YES: Cough, SOB with excertion, No: Hemoptysis, Orthopnea, Other, Pleuritic Pain, Shortness of breath, Sputum Changes, Stridor, Tachypnea, Wheezing Cardiovascular: No Chest Pain, No Edema, No Lt Headedness, No Orthopnea, No Other, No Palpitations, No Paroxysmal Noc. Dyspnea Gastrointestinal: Yes Abdominal Pain, No Constipation, No Diarrhea, No Hematochezia, No Melena, No Nausea, No Other , No Vomiting Genitourinary: No , No , No , No , No , No , No , No Discharge, No Dysuria, No Flank Pain, No Frequency, No Hematuria, No Incontinence, No Other, No Pain, No Retention, No Urgency Skin: No Acne, No Dry Skin, No Eczema, No Hair Changes, No Lumps, No Mole Changes, No Mottling, No Nail Changes, No Other, No Pruritus, No Rash, No Skin Lesion Changes Physical Exam General: Alert, Oriented X3, Cooperative HEENT: Atraumatic Lungs: Normal air movement Heart: Regular rate Abdomen: Normal bowel sounds, Soft, No masses, Other (Dc removed. Steri strips applied. Incision site: clean, dry and intact. No evidence of infection.) Extremities: Other (edema +1 ольга.) Skin: No significant lesion Psych/Mental Status: Mental status NL Vitals VITALS Vital Signs Date Time Temp Pulse Resp B/P Pulse Ox O2 Delivery O2 Flow Rate FiO2 08/17/16 13:33 103 159/90 08/17/16 11:41 83 Room Air 3.0 08/17/16 10:55 99.5 18 99.5 Labs Labs Laboratory Tests Test 08/15/16 22:05 08/15/16 22:40 08/16/16 05:10 08/16/16 07:25 Sodium Level 147mmol/L (136-145) 149mmol/L (136-145) Potassium Level 4.5mmol/L (3.5-5.1) 4.6mmol/L (3.5-5.1) Chloride Level 107mmol/L (98-107) 110mmol/L (98-107) Carbon Dioxide Level 36mmol/L (21-32) 33mmol/L (21-32) Anion Gap 4 (6-14) 6 (6-14) Blood Urea Nitrogen 21mg/dL (7-20) 20mg/dL (7-20) Creatinine 1.6mg/dL (0.6-1.0) 1.5mg/dL (0.6-1.0) Estimated GFR (Cockcroft-Gault) 39.1 42.2 BUN/Creatinine Ratio 13 (6-20) Glucose Level 192mg/dL (70-99) 176mg/dL (70-99) Lactic Acid Level 0.5mmol/L (0.4-2.0) Calcium Level 9.6mg/dL (8.5-10.1) 9.3mg/dL (8.5-10.1) Total Bilirubin 0.1mg/dL (0.2-1.0) Aspartate Amino Transf (AST/SGOT) 21U/L (15-37) Alanine Aminotransferase (ALT/SGPT) 16U/L (14-59) Alkaline Phosphatase 71U/L (46-116) Troponin I Quantitative < 0.017ng/mL (0.000-0.055) GM-Quu-K-Type Natriuretic Peptide 440pg/mL (0-124) Total Protein 6.4g/dL (6.4-8.2) Albumin 1.9g/dL (3.4-5.0) Albumin/Globulin Ratio 0.4 (1.0-1.7) White Blood Count 10.4x10^3/uL (4.0-11.0) 10.9x10^3/uL (4.0-11.0) Red Blood Count 2.88x10^6/uL (3.50-5.40) 2.87x10^6/uL (3.50-5.40) Hemoglobin 8.2g/dL (12.0-15.5) 8.2g/dL (12.0-15.5) Hematocrit 25.7% (36.0-47.0) 25.4% (36.0-47.0) Mean Corpuscular Volume 89fL (79-100) 89fL (79-100) Mean Corpuscular Hemoglobin 29pg (25-35) 29pg (25-35) Mean Corpuscular Hemoglobin Concent 32g/dL (31-37) 32g/dL (31-37) Red Cell Distribution Width 15.6% (11.5-14.5) 15.7% (11.5-14.5) Platelet Count 232x10^3/uL (140-400) 248x10^3/uL (140-400) Neutrophils (%) (Auto) 83% (31-73) 81% (31-73) Lymphocytes (%) (Auto) 10% (24-48) 10% (24-48) Monocytes (%) (Auto) 5% (0-9) 5% (0-9) Eosinophils (%) (Auto) 3% (0-3) 3% (0-3) Basophils (%) (Auto) 0% (0-3) 0% (0-3) Neutrophils # (Auto) 8.6x10^3uL (1.8-7.7) 8.7x10^3uL (1.8-7.7) Lymphocytes # (Auto) 1.0x10^3/uL (1.0-4.8) 1.1x10^3/uL (1.0-4.8) Monocytes # (Auto) 0.5x10^3/uL (0.0-1.1) 0.6x10^3/uL (0.0-1.1) Eosinophils # (Auto) 0.3x10^3/uL (0.0-0.7) 0.4x10^3/uL (0.0-0.7) Basophils # (Auto) 0.0x10^3/uL (0.0-0.2) 0.0x10^3/uL (0.0-0.2) Procalcitonin 1.58ng/mL (0.00-0.10) Glucose (Fingerstick) 154mg/dL (70-99) Test 08/16/16 11:21 08/16/16 16:07 08/16/16 20:46 08/17/16 08:00 Glucose (Fingerstick) 130mg/dL (70-99) 188mg/dL (70-99) 233mg/dL (70-99) 173mg/dL (70-99) Test 08/17/16 10:51 Glucose (Fingerstick) 188mg/dL (70-99) Laboratory Tests Test 08/16/16 16:07 08/16/16 20:46 08/17/16 08:00 08/17/16 10:51 Glucose (Fingerstick) 188mg/dL (70-99) 233mg/dL (70-99) 173mg/dL (70-99) 188mg/dL (70-99) Assessment/Plan Assessment/Plan A: POD # 8 s/p SANTHOSH & BSO Fever and fatigue CHF DM Type 2 P: Continue current care. Continue wound care. Will follow. ALEXANDRU NUNEZ Jr, MD Aug 17, 2016 13:49
[2016-08-17] MEDS: OXYCODONE/APAP 7.5/325 TABLET. PO PRN (15:32)
[2016-08-17] MEDS: GUAIFENESIN DM 200MG/20MG 10 ML SYRUP. PO PRN (15:32)
--- NOTE | 2016-08-17 15:35 | RAD ---
CT of the abdomen and pelvis without contrast, 08/16/2016: History: Fever, recent hysterectomy Multidetector CT imaging was performed without IV contrast. Oral contrast material was administered for GI tract opacification. Comparison is made to a study from 09/24/2004. There is mild atelectasis/infiltrate medially in both lung bases. On the right this is chronic or recurrent while on the left this is new. There is no evidence of pleural fluid. The unopacified liver is unremarkable. No gallbladder abnormality is seen. No pancreatic abnormality is detected. The spleen is of normal size. The unopacified kidneys are unremarkable. The aorta is of normal caliber. No abdominal or pelvic adenopathy is seen. The uterus is surgically absent. The bowel loops are not significantly dilated. There is a moderate amount stool in the colon. Mild streaky increased density in the mesentery in the lower abdomen and pelvis is probably on a postsurgical basis. No free air or significant free fluid is evident in the abdomen or pelvis. No discrete abnormal fluid collection is seen to suggest abscess. Surgical skin clips overlie the lower abdomen and pelvis at the midline. There is mild underlying streaky increased density in the subcutaneous soft tissues compatible with postsurgical change. IMPRESSION: 1. Mild to moderate bibasilar atelectasis and/or pneumonitis. 2. Postsurgical changes in the lower abdomen and pelvis without evidence of abscess. PQRS Compliance Statement: One or more of the following individualized dose reduction techniques were utilized for this examination: 1. Automated exposure control 2. Adjustment of the mA and/or kV according to patient size 3. Use of iterative reconstruction technique
[2016-08-17] MEDS: BENZOCAINE/MENTHOL LOZENGE. PO PRN (15:37)
[2016-08-17] MEDS: INSULIN DETEMIR 300 UNITS/3 ML INSULN.PEN. SQ SCH (21:00)
[2016-08-17] MEDS: ATORVASTATIN CALCIUM 10 MG TABLET. PO SCH (21:54)
[2016-08-18] VITALS (8 sets, daily range): BP systolic 145–184; BP diastolic 85–103
[2016-08-18] MEDS: PIPERACILLIN/TAZOBACTAM 3.375 GM in IV NORMAL SALINE 50ML 50 ML IV SCH ×5 (00:32→23:52)
[2016-08-18] MEDS: LABETALOL 20 MG/4 ML DISP.SYRIN. IVP PRN ×3 (01:35→06:17)
[2016-08-18] MEDS: VANCOMYCIN PER PHARMACY MC PRN (02:42)
[2016-08-18] MEDS: VANCOMYCIN 1.75 GM in IV NORMAL SALINE 500ML BAG 500 ML IV SCH (03:56)
[2016-08-18] MEDS: ONDANSETRON PF 4 MG/2 ML VIAL. IV PRN ×2 (04:19→06:12)
[2016-08-18 04:56] LABS: BASO % 0 % (0-3); EOS % 0 % (0-3); HEMATOCRIT 25.5 % (36.0-47.0); LYMPH # 1.2 x10^3/uL (1.0-4.8); LYMPH % 12 % (24-48); MEAN CORPUSCULAR HEMOGLOBIN 28 pg (25-35); MEAN CORPUSCULAR HGB CONC 31 g/dL (31-37); MEAN CORPUSCULAR VOLUME 89 fL (79-100); MONO % 8 % (0-9); NEUT % 80 % (31-73); PLATELET COUNT 307 x10^3/uL (140-400); RED BLOOD COUNT 2.86 x10^6/uL (3.50-5.40); RED CELL DISTRIBUTION WIDTH 15.7 % (11.5-14.5); WHITE BLOOD COUNT 10.3 x10^3/uL (4.0-11.0)
[2016-08-18 05:28] LABS: CALCIUM 9.4 mg/dL (8.5-10.1); CREATININE 1.6 mg/dL (0.6-1.0); GFR 39.1; POTASSIUM 4.2 mmol/L (3.5-5.1)
[2016-08-18] MEDS: OXYCODONE/APAP 7.5/325 TABLET. PO PRN ×2 (06:17→11:19)
[2016-08-18] MEDS: IPRATRPIUM/ALBUTEROL 0.5/2.5MG 3 ML NEBU. NEB SCH ×4 (07:13→19:04)
--- NOTE | 2016-08-18 07:49 | PDOC ---
PULMONARY PROGRESS NOTES Subjective on 02 used bipap last night, has abd pain and n, has cough, no runny nose, sob is better Vitals Vital Signs Date Time Temp Pulse Resp B/P Pulse Ox O2 Delivery O2 Flow Rate FiO2 08/18/16 07:14 80 Nasal Cannula 2.0 08/18/16 06:17 90 169/86 08/18/16 02:00 98.1 20 98.1 Comments ros as mentioned as above other sys otherwise neg ROS: No Nausea, No Chest Pain, No Increase Cough (nc at perrl. throat nose clear) General: Alert, No acute distress HEENT: Other Lungs: Crackles Cardiovascular: S1, S2 Abdomen: Soft, Non-tender, Other Neuro Exam: Alert, Oriented Extremities: Other (edema) Skin: Warm Labs Laboratory Tests Test 08/16/16 11:21 08/16/16 16:07 08/16/16 20:46 08/17/16 08:00 Glucose (Fingerstick) 130mg/dL (70-99) 188mg/dL (70-99) 233mg/dL (70-99) 173mg/dL (70-99) Test 08/17/16 10:51 08/17/16 16:58 08/17/16 21:49 08/18/16 00:35 Glucose (Fingerstick) 188mg/dL (70-99) 213mg/dL (70-99) 180mg/dL (70-99) Vancomycin Level Trough 18.3mcg/mL (10.0-20.0) Vancomycin Last Dose Date Vancomycin Last Dose Time Test 08/18/16 04:00 White Blood Count 10.3x10^3/uL (4.0-11.0) Red Blood Count 2.86x10^6/uL (3.50-5.40) Hemoglobin 8.0g/dL (12.0-15.5) Hematocrit 25.5% (36.0-47.0) Mean Corpuscular Volume 89fL (79-100) Mean Corpuscular Hemoglobin 28pg (25-35) Mean Corpuscular Hemoglobin Concent 31g/dL (31-37) Red Cell Distribution Width 15.7% (11.5-14.5) Platelet Count 307x10^3/uL (140-400) Neutrophils (%) (Auto) 80% (31-73) Lymphocytes (%) (Auto) 12% (24-48) Monocytes (%) (Auto) 8% (0-9) Eosinophils (%) (Auto) 0% (0-3) Basophils (%) (Auto) 0% (0-3) Neutrophils # (Auto) 8.2x10^3uL (1.8-7.7) Lymphocytes # (Auto) 1.2x10^3/uL (1.0-4.8) Monocytes # (Auto) 0.8x10^3/uL (0.0-1.1) Eosinophils # (Auto) 0.0x10^3/uL (0.0-0.7) Basophils # (Auto) 0.0x10^3/uL (0.0-0.2) Sodium Level 145mmol/L (136-145) Potassium Level 4.2mmol/L (3.5-5.1) Chloride Level 104mmol/L (98-107) Carbon Dioxide Level 35mmol/L (21-32) Anion Gap 6 (6-14) Blood Urea Nitrogen 19mg/dL (7-20) Creatinine 1.6mg/dL (0.6-1.0) Estimated GFR (Cockcroft-Gault) 39.1 Glucose Level 150mg/dL (70-99) Calcium Level 9.4mg/dL (8.5-10.1) Laboratory Tests Test 08/17/16 08:00 08/17/16 10:51 08/17/16 16:58 08/17/16 21:49 Glucose (Fingerstick) 173mg/dL (70-99) 188mg/dL (70-99) 213mg/dL (70-99) 180mg/dL (70-99) Test 08/18/16 00:35 08/18/16 04:00 Vancomycin Level Trough 18.3mcg/mL (10.0-20.0) Vancomycin Last Dose Date Vancomycin Last Dose Time White Blood Count 10.3x10^3/uL (4.0-11.0) Red Blood Count 2.86x10^6/uL (3.50-5.40) Hemoglobin 8.0g/dL (12.0-15.5) Hematocrit 25.5% (36.0-47.0) Mean Corpuscular Volume 89fL (79-100) Mean Corpuscular Hemoglobin 28pg (25-35) Mean Corpuscular Hemoglobin Concent 31g/dL (31-37) Red Cell Distribution Width 15.7% (11.5-14.5) Platelet Count 307x10^3/uL (140-400) Neutrophils (%) (Auto) 80% (31-73) Lymphocytes (%) (Auto) 12% (24-48) Monocytes (%) (Auto) 8% (0-9) Eosinophils (%) (Auto) 0% (0-3) Basophils (%) (Auto) 0% (0-3) Neutrophils # (Auto) 8.2x10^3uL (1.8-7.7) Lymphocytes # (Auto) 1.2x10^3/uL (1.0-4.8) Monocytes # (Auto) 0.8x10^3/uL (0.0-1.1) Eosinophils # (Auto) 0.0x10^3/uL (0.0-0.7) Basophils # (Auto) 0.0x10^3/uL (0.0-0.2) Sodium Level 145mmol/L (136-145) Potassium Level 4.2mmol/L (3.5-5.1) Chloride Level 104mmol/L (98-107) Carbon Dioxide Level 35mmol/L (21-32) Anion Gap 6 (6-14) Blood Urea Nitrogen 19mg/dL (7-20) Creatinine 1.6mg/dL (0.6-1.0) Estimated GFR (Cockcroft-Gault) 39.1 Glucose Level 150mg/dL (70-99) Calcium Level 9.4mg/dL (8.5-10.1) Medications Active Scripts Medications Dose Route/Sig Days Date Category Levemir Flextouch (Insulin Detemir) 100 Unit/1 Ml Insuln.pen 25 Units SQ QHS 30 08/14/16 Rx Novolog Flexpen (Insulin Aspart) 100 Unit/1 Ml Insuln.pen 0 Units SQ TIDWMEALS 30 08/14/16 Rx Senna-Time S Tablet (Sennosides/Docusate Sodium) 1 Each Tablet 1 Tab PO BID 08/14/16 Rx Oxycodone-Acetaminophen 5-325 (Oxycodone Hcl/Acetaminophen) 1 Each Tablet 1 Tab PO PRN Q4HRS PRN 08/14/16 Rx Furosemide 20 Mg Tablet 20 Mg PO BID92 30 08/14/16 Rx Colace (Docusate Sodium) 100 Mg Capsule 100 Mg PO BID 5 08/14/16 Rx Amox Tr-K Clv 875-125 Mg Tab (Amoxicillin/Potassium Clav) 1 Each Tablet 1 Tab PO BID 3 08/14/16 Rx Ventolin Hfa Inhaler (Albuterol Sulfate) 18 Gm Hfa.aer.ad 2 Puff INH QID 08/09/16 Reported Acetaminophen 160 Mg/5 Ml Solution 325 Mg PO QID 08/09/16 Reported Bactrim 400-80 Mg Tablet (Sulfamethoxazole/Trimethoprim) 1 Each Tablet 1 Tab PO BID 08/09/16 Reported Zantac (Ranitidine Hcl) 150 Mg Tablet 150 Mg PO DAILY 08/09/16 Reported Prednisone 20 Mg Tablet 20 Mg PO DAILY 08/09/16 Reported Cyclobenzaprine Hcl 10 Mg Tablet 10 Mg PO TID 08/09/16 Reported Klor-Con Sprinkle (Potassium Chloride) 10 Meq Capsule.er 20 Meq PO DAILY 04/06/16 Rx Lisinopril 20 Mg Tablet 1 Tab PO BID 04/06/16 Rx Ferrous Sulfate 325 Mg Tablet 325 Tab PO DAILY 04/06/16 Rx Gabapentin 300 Mg Capsule 600 Mg PO TID 04/06/16 Rx Hydralazine Hcl 25 Mg Tablet 1 Tab PO TID 04/06/16 Rx Lovastatin 20 Mg Tablet 20 Mg PO HS 03/28/16 Reported Comments cxr reviewed. ct of abd reviewed. 1. Mild to moderate bibasilar atelectasis and/or pneumonitis. 2. Postsurgical changes in the lower abdomen and pelvis without evidence of abscess. Impression . IMPRESSION: 1. Acute hypoxic respiratory failure requiring 4 liters of oxygen. I suspect secondary to underlying obesity hypoventilation syndrome and some mild atelectasis. There appears to be mild vascular congestion and it could be related to some diastolic heart failure as well. She does have increased leg edema. Cannot exclude the possibility of mild pneumonia. 2. Fever of 100.6. She has a cough with only white sputum production. The source could be the abdomen. She had a recent hysterectomy. We will obtain CT abdomen and pelvis for further evaluation. 3. History of abnormal CT chest in March with a right hilar mass/adenopathy and subcarinal adenopathy and tiny lung nodules. She subsequently followed up at and underwent biopsy, I assume via bronchoscopy, and she was told that she has sarcoidosis and has been on prednisone 20 mg daily. 4. No significant history of tobacco use. 5. Underlying obesity. Plan . RECOMMENDATIONS: 1. 02 titration to keep sat 90% 2. Mild diuresis to see an improvement in chest x-ray and mild diastolic heart failure. monitor k, cr 3. fu noncontrast CT abdomen and pelvis to rule out any pockets of infection in the abdomen. 4. Continue broad-spectrum antibiotics. id on case 5. franki the importance do tx discussed. . 6. Continue prednisone 20 mg daily as initiated at Clinic for sarcoidosis and she can follow up over there. 7. Continue bronchodilators. 8. cont bipap prn during day, cont at night Discussed with the pt will follow along with you. CHRIS FRANCISCO MD Aug 18, 2016 07:49
[2016-08-18] MEDS: INSULIN ASPART 300 UNITS/3 ML INSULN.PEN SQ SCH ×3 (08:00→16:47)
[2016-08-18] MEDS: FERROUS SULFATE 325 MG TABLET PO SCH (08:40)
[2016-08-18] MEDS: HYDRALAZINE 25 MG TABLET PO SCH ×3 (08:41→21:00)
[2016-08-18] MEDS: DOCUSATE SODIUM 100 MG CAPSULE PO SCH ×2 (08:41→21:11)
[2016-08-18] MEDS: CYCLOBENZAPRINE 10 MG TABLET. PO SCH ×3 (08:41→21:11)
[2016-08-18] MEDS: ACETAMINOPHEN 325 MG TABLET. PO SCH ×4 (08:42→21:12)
[2016-08-18] MEDS: LISINOPRIL 20 MG TABLET PO SCH ×2 (08:42→21:12)
[2016-08-18] MEDS: FAMOTIDINE 20 MG TABLET. PO SCH (08:42)
[2016-08-18] MEDS: SENNOSIDES/DOCUSATE 8.6/50MG TABLET. PO SCH ×2 (08:42→21:12)
[2016-08-18] MEDS: PREDNISONE 20 MG TABLET PO SCH (08:42)
[2016-08-18] MEDS: FUROSEMIDE 20 MG TABLET PO SCH ×2 (08:42→13:52)
[2016-08-18] MEDS ORDERED: PROMETHAZINE 12.5 MG in IV NORMAL SALINE 50ML 50 ML IV PRN (09:45)
[2016-08-18] MEDS ORDERED: PROCHLORPERAZINE 10 MG/2 ML VIAL. IM PRN (09:45)
--- NOTE | 2016-08-18 10:37 | PDOC ---
Infectious Disease Note Subjective Subjective c/o N/V earlier, better now with sips of pop Some diarrhea also Less cough and SOA. BiPAP at night. currently on 2LNC ROS ROS GEN: Denies fevers, chills, sweats HEENT: Denies sore throat CV: Denies chest pain RESP: Denies shortness of air, cough NEURO: Denies confusion, dizziness Vital Sign Vital Signs Vital Signs Date Time Temp Pulse Resp B/P Pulse Ox O2 Delivery O2 Flow Rate FiO2 08/18/16 08:42 84 177/93 08/18/16 08:05 20 Nasal Cannula 3.0 08/18/16 07:50 98.1 98 98.1 Physical Exam PHYSICAL EXAM GENERAL: Up in chair,, relaxed appearance, NAD HEENT: PERRL, OC/OP clear NECK: Supple LUNGS: Diminished aeration bases, nonlabored. HEART: S1S2, no gallop, no murmur ABD: Obese, soft, NT, BS present. EXT: BLE trace edema. No cyanosis HAND SINGER: Alert, oriented x 3, no focal neurologic deficit SKIN: No rash IV: ok Labs Lab Laboratory Tests Test 08/17/16 10:51 08/17/16 16:58 08/17/16 21:49 08/18/16 00:35 Glucose (Fingerstick) 188mg/dL (70-99) 213mg/dL (70-99) 180mg/dL (70-99) Vancomycin Level Trough 18.3mcg/mL (10.0-20.0) Vancomycin Last Dose Date Vancomycin Last Dose Time Test 08/18/16 04:00 08/18/16 07:58 White Blood Count 10.3x10^3/uL (4.0-11.0) Red Blood Count 2.86x10^6/uL (3.50-5.40) Hemoglobin 8.0g/dL (12.0-15.5) Hematocrit 25.5% (36.0-47.0) Mean Corpuscular Volume 89fL (79-100) Mean Corpuscular Hemoglobin 28pg (25-35) Mean Corpuscular Hemoglobin Concent 31g/dL (31-37) Red Cell Distribution Width 15.7% (11.5-14.5) Platelet Count 307x10^3/uL (140-400) Neutrophils (%) (Auto) 80% (31-73) Lymphocytes (%) (Auto) 12% (24-48) Monocytes (%) (Auto) 8% (0-9) Eosinophils (%) (Auto) 0% (0-3) Basophils (%) (Auto) 0% (0-3) Neutrophils # (Auto) 8.2x10^3uL (1.8-7.7) Lymphocytes # (Auto) 1.2x10^3/uL (1.0-4.8) Monocytes # (Auto) 0.8x10^3/uL (0.0-1.1) Eosinophils # (Auto) 0.0x10^3/uL (0.0-0.7) Basophils # (Auto) 0.0x10^3/uL (0.0-0.2) Sodium Level 145mmol/L (136-145) Potassium Level 4.2mmol/L (3.5-5.1) Chloride Level 104mmol/L (98-107) Carbon Dioxide Level 35mmol/L (21-32) Anion Gap 6 (6-14) Blood Urea Nitrogen 19mg/dL (7-20) Creatinine 1.6mg/dL (0.6-1.0) Estimated GFR (Cockcroft-Gault) 39.1 Glucose Level 150mg/dL (70-99) Calcium Level 9.4mg/dL (8.5-10.1) Glucose (Fingerstick) 107mg/dL (70-99) CT abdomen/pelvis IMPRESSION: 1. Mild to moderate bibasilar atelectasis and/or pneumonitis. 2. Postsurgical changes in the lower abdomen and pelvis without evidence of abscess. Micro BC NGTD Objective Assessment Fever. better Acute respiratory failure, BiPAP. -hx hilar mass and lung nodules s/p bronch in Mar 2016 -hx sarcoidosis -hx POLY CKD Acute encephalopathy, improved s/p SANTHOSH and BSO, 08/09 Morbid obesity Plan Plan of Care vanc and Zosyn Vanco trough 18.3 f/u cultures Patient seen and examined. Chart reviewed in detail. Case d/w FIRE DISPATCHER.Agree with above plan LAINEY REIS APRN Aug 18, 2016 10:37 REYNA BRAN MD Aug 18, 2016 15:54
--- NOTE | 2016-08-18 10:43 | PDOC ---
ABDOUL VARGAS COSTING ANALYST 08/18/16 1043: CARDIO Progress Notes Date and Time Date of Service 08/18/2016 Time of Evaluation 1000 Subjective Subjective: No Chest Pain, No shortness of breath, No Palpitations, No Dizziness Vitals Vitals Vital Signs Date Time Temp Pulse Resp B/P Pulse Ox O2 Delivery O2 Flow Rate FiO2 08/18/16 09:30 82 20 173/85 96 Nasal Cannula 3.0 08/18/16 07:50 98.1 98.1 Weight Weight [ ] Input and Output Intake and Output Intake and Output 08/18/16 07:00 Intake Total 780 ml Balance 780 ml Intake Oral 780 ml # Voids 8 Laboratory Labs Laboratory Tests Test 08/17/16 10:51 08/17/16 16:58 08/17/16 21:49 08/18/16 00:35 Glucose (Fingerstick) 188mg/dL (70-99) 213mg/dL (70-99) 180mg/dL (70-99) Vancomycin Level Trough 18.3mcg/mL (10.0-20.0) Vancomycin Last Dose Date Vancomycin Last Dose Time Test 08/18/16 04:00 08/18/16 07:58 White Blood Count 10.3x10^3/uL (4.0-11.0) Red Blood Count 2.86x10^6/uL (3.50-5.40) Hemoglobin 8.0g/dL (12.0-15.5) Hematocrit 25.5% (36.0-47.0) Mean Corpuscular Volume 89fL (79-100) Mean Corpuscular Hemoglobin 28pg (25-35) Mean Corpuscular Hemoglobin Concent 31g/dL (31-37) Red Cell Distribution Width 15.7% (11.5-14.5) Platelet Count 307x10^3/uL (140-400) Neutrophils (%) (Auto) 80% (31-73) Lymphocytes (%) (Auto) 12% (24-48) Monocytes (%) (Auto) 8% (0-9) Eosinophils (%) (Auto) 0% (0-3) Basophils (%) (Auto) 0% (0-3) Neutrophils # (Auto) 8.2x10^3uL (1.8-7.7) Lymphocytes # (Auto) 1.2x10^3/uL (1.0-4.8) Monocytes # (Auto) 0.8x10^3/uL (0.0-1.1) Eosinophils # (Auto) 0.0x10^3/uL (0.0-0.7) Basophils # (Auto) 0.0x10^3/uL (0.0-0.2) Sodium Level 145mmol/L (136-145) Potassium Level 4.2mmol/L (3.5-5.1) Chloride Level 104mmol/L (98-107) Carbon Dioxide Level 35mmol/L (21-32) Anion Gap 6 (6-14) Blood Urea Nitrogen 19mg/dL (7-20) Creatinine 1.6mg/dL (0.6-1.0) Estimated GFR (Cockcroft-Gault) 39.1 Glucose Level 150mg/dL (70-99) Calcium Level 9.4mg/dL (8.5-10.1) Glucose (Fingerstick) 107mg/dL (70-99) Microbiology Micro Microbiology 08/16/16 Blood Culture - Preliminary, Resulted NO GROWTH AFTER 1 DAY Physical Exam HEENT: Neck Supple W Full Motion Chest: Symmetric LUNGS: Clear to Auscultation Heart: S1S2, RRR (SR), other (tele: ST) Abdomen: Soft N/T Extremities: Other (1+ edema bilaterally) Neurology: alert, oriented, follow commands Assessment Assessment 1. Malignant HTN Remains labile. Continue with lisinopril and will increase norvasc. Labetolol IV PRN 2. Asymptomatic SVT NOted with previous sinus tach. Noted x2 brief periods of atrial tach with aberrancy likely reactive in relation anemia and intermittent fever. Currently SR. treat underlying acute extracardiac conditions. Check Mg, replace as warranted. Recent TTE with normal wall motion/EF with no significant valvular disease. BB would be a consideration and outpt event monitoring if further episodes are persistent. 3. Chronic diastolic HF control BP continue diuretics 4. HLD continue statin therapy LDLs well controlled JULIET KELLY MD 08/18/16 1109: CARDIO Progress Notes Plan Plan Pt. seen and examined. Agree with above BIKE MECHANIC note. Reviewed Tele. Suspect atrial tachycardia with aberrant conduction Normal echo previously Supportive care. Normal cardiac exam. ABDOUL VARGAS COSTING ANALYST Aug 18, 2016 10:43 JULIET KELLY MD Aug 18, 2016 11:09
[2016-08-18] MEDS: AMLODIPINE BESYLATE 10 MG TABLET PO SCH (11:18)
[2016-08-18 13:15] LABS: NUCLEATED RBC 1
[2016-08-18 13:17] LABS: PLT ESTIMATE ADEQUATE (ADEQUATE); POLYCHROMASIA SLIGHT
--- NOTE | 2016-08-18 14:30 | PDOC ---
PROGRESS NOTES Chief Complaint Chief Complaint acute hypoxia w/ bronchitis, pickwickian, sepsis CHF, stable distolic CHF htn, metabolic encephalopathy, improved morbid obesity, BMI 47 anemia of acute blood loss, recent Total Hys, biopsy results are of no malignancy History of Present Illness History of Present Illness 550 cc of blackish emesis today Hgb slightly lower today at 8 BP ok Did not eat much lunch today Son asks if they will be able to provide BIPAP/CPAP at home PLAn: CHeck for gastroccult PPI iV now HH liberty again IF gastrooccult positive will need GI consult SW to make sure BIPAP/CPAP will be at [facility] upon dc Dw RN at bedside\ COnt ferrous sulfate Vitals Vitals Vital Signs Date Time Temp Pulse Resp B/P Pulse Ox O2 Delivery O2 Flow Rate FiO2 08/18/16 13:52 91 174/85 08/18/16 13:40 18 99 Nasal Cannula 3.0 08/18/16 11:35 98.1 98.1 Physical Exam General: Alert, Oriented X3, Cooperative Heart: Regular rate Lungs: Crackles Abdomen: Normal bowel sounds, Soft, No masses, Other ([place] removed. Steri strips applied. Incision site: clean, dry and intact. No evidence of infection.) Extremities: Other (edema +1 ольга.) Skin: No significant lesion Labs LABS Laboratory Tests Test 08/17/16 16:58 08/17/16 21:49 08/18/16 00:35 08/18/16 04:00 Glucose (Fingerstick) 213mg/dL (70-99) 180mg/dL (70-99) Vancomycin Level Trough 18.3mcg/mL (10.0-20.0) Vancomycin Last Dose Date Vancomycin Last Dose Time White Blood Count 10.3x10^3/uL (4.0-11.0) Red Blood Count 2.86x10^6/uL (3.50-5.40) Hemoglobin 8.0g/dL (12.0-15.5) Hematocrit 25.5% (36.0-47.0) Mean Corpuscular Volume 89fL (79-100) Mean Corpuscular Hemoglobin 28pg (25-35) Mean Corpuscular Hemoglobin Concent 31g/dL (31-37) Red Cell Distribution Width 15.7% (11.5-14.5) Platelet Count 307x10^3/uL (140-400) Neutrophils (%) (Auto) 80% (31-73) Lymphocytes (%) (Auto) 12% (24-48) Monocytes (%) (Auto) 8% (0-9) Eosinophils (%) (Auto) 0% (0-3) Basophils (%) (Auto) 0% (0-3) Neutrophils # (Auto) 8.2x10^3uL (1.8-7.7) Lymphocytes # (Auto) 1.2x10^3/uL (1.0-4.8) Monocytes # (Auto) 0.8x10^3/uL (0.0-1.1) Eosinophils # (Auto) 0.0x10^3/uL (0.0-0.7) Basophils # (Auto) 0.0x10^3/uL (0.0-0.2) Segmented Neutrophils % 62% (35-66) Band Neutrophils % 8% (0-9) Lymphocytes % 18% (24-48) Atypical Lymphocytes % (Manual) 2% (0-0) Monocytes % 7% (0-10) Metamyelocytes % 3% (0-0) Nucleated Red Blood Cells 1 Platelet Estimate Adequate (ADEQUATE) Giant Platelets Few Polychromasia Slight Sodium Level 145mmol/L (136-145) Potassium Level 4.2mmol/L (3.5-5.1) Chloride Level 104mmol/L (98-107) Carbon Dioxide Level 35mmol/L (21-32) Anion Gap 6 (6-14) Blood Urea Nitrogen 19mg/dL (7-20) Creatinine 1.6mg/dL (0.6-1.0) Estimated GFR (Cockcroft-Gault) 39.1 Glucose Level 150mg/dL (70-99) Calcium Level 9.4mg/dL (8.5-10.1) Magnesium Level 1.9mg/dL (1.8-2.4) Test 08/18/16 07:58 08/18/16 11:09 Glucose (Fingerstick) 107mg/dL (70-99) 94mg/dL (70-99) Review of Systems Review of Systems emesis today, no inc in SOA, FINANCIAL OPERATIONS CONSULTANT, abd pain Assessment and Plan Assessmemt and Plan Problems Medical Problems: (1) Altered mental status Status: Acute (2) Pneumonia Status: Acute Problems: Comment Review of Relevant I have reviewed the following items robert (where applicable) has been applied. Labs Laboratory Tests Test 08/16/16 16:07 08/16/16 20:46 08/17/16 08:00 08/17/16 10:51 Glucose (Fingerstick) 188mg/dL (70-99) 233mg/dL (70-99) 173mg/dL (70-99) 188mg/dL (70-99) Test 08/17/16 16:58 08/17/16 21:49 08/18/16 00:35 08/18/16 04:00 Glucose (Fingerstick) 213mg/dL (70-99) 180mg/dL (70-99) Vancomycin Level Trough 18.3mcg/mL (10.0-20.0) Vancomycin Last Dose Date Vancomycin Last Dose Time White Blood Count 10.3x10^3/uL (4.0-11.0) Red Blood Count 2.86x10^6/uL (3.50-5.40) Hemoglobin 8.0g/dL (12.0-15.5) Hematocrit 25.5% (36.0-47.0) Mean Corpuscular Volume 89fL (79-100) Mean Corpuscular Hemoglobin 28pg (25-35) Mean Corpuscular Hemoglobin Concent 31g/dL (31-37) Red Cell Distribution Width 15.7% (11.5-14.5) Platelet Count 307x10^3/uL (140-400) Neutrophils (%) (Auto) 80% (31-73) Lymphocytes (%) (Auto) 12% (24-48) Monocytes (%) (Auto) 8% (0-9) Eosinophils (%) (Auto) 0% (0-3) Basophils (%) (Auto) 0% (0-3) Neutrophils # (Auto) 8.2x10^3uL (1.8-7.7) Lymphocytes # (Auto) 1.2x10^3/uL (1.0-4.8) Monocytes # (Auto) 0.8x10^3/uL (0.0-1.1) Eosinophils # (Auto) 0.0x10^3/uL (0.0-0.7) Basophils # (Auto) 0.0x10^3/uL (0.0-0.2) Segmented Neutrophils % 62% (35-66) Band Neutrophils % 8% (0-9) Lymphocytes % 18% (24-48) Atypical Lymphocytes % (Manual) 2% (0-0) Monocytes % 7% (0-10) Metamyelocytes % 3% (0-0) Nucleated Red Blood Cells 1 Platelet Estimate Adequate (ADEQUATE) Giant Platelets Few Polychromasia Slight Sodium Level 145mmol/L (136-145) Potassium Level 4.2mmol/L (3.5-5.1) Chloride Level 104mmol/L (98-107) Carbon Dioxide Level 35mmol/L (21-32) Anion Gap 6 (6-14) Blood Urea Nitrogen 19mg/dL (7-20) Creatinine 1.6mg/dL (0.6-1.0) Estimated GFR (Cockcroft-Gault) 39.1 Glucose Level 150mg/dL (70-99) Calcium Level 9.4mg/dL (8.5-10.1) Magnesium Level 1.9mg/dL (1.8-2.4) Test 08/18/16 07:58 08/18/16 11:09 Glucose (Fingerstick) 107mg/dL (70-99) 94mg/dL (70-99) Laboratory Tests Test 08/17/16 16:58 08/17/16 21:49 08/18/16 00:35 08/18/16 04:00 Glucose (Fingerstick) 213mg/dL (70-99) 180mg/dL (70-99) Vancomycin Level Trough 18.3mcg/mL (10.0-20.0) Vancomycin Last Dose Date Vancomycin Last Dose Time White Blood Count 10.3x10^3/uL (4.0-11.0) Red Blood Count 2.86x10^6/uL (3.50-5.40) Hemoglobin 8.0g/dL (12.0-15.5) Hematocrit 25.5% (36.0-47.0) Mean Corpuscular Volume 89fL (79-100) Mean Corpuscular Hemoglobin 28pg (25-35) Mean Corpuscular Hemoglobin Concent 31g/dL (31-37) Red Cell Distribution Width 15.7% (11.5-14.5) Platelet Count 307x10^3/uL (140-400) Neutrophils (%) (Auto) 80% (31-73) Lymphocytes (%) (Auto) 12% (24-48) Monocytes (%) (Auto) 8% (0-9) Eosinophils (%) (Auto) 0% (0-3) Basophils (%) (Auto) 0% (0-3) Neutrophils # (Auto) 8.2x10^3uL (1.8-7.7) Lymphocytes # (Auto) 1.2x10^3/uL (1.0-4.8) Monocytes # (Auto) 0.8x10^3/uL (0.0-1.1) Eosinophils # (Auto) 0.0x10^3/uL (0.0-0.7) Basophils # (Auto) 0.0x10^3/uL (0.0-0.2) Segmented Neutrophils % 62% (35-66) Band Neutrophils % 8% (0-9) Lymphocytes % 18% (24-48) Atypical Lymphocytes % (Manual) 2% (0-0) Monocytes % 7% (0-10) Metamyelocytes % 3% (0-0) Nucleated Red Blood Cells 1 Platelet Estimate Adequate (ADEQUATE) Giant Platelets Few Polychromasia Slight Sodium Level 145mmol/L (136-145) Potassium Level 4.2mmol/L (3.5-5.1) Chloride Level 104mmol/L (98-107) Carbon Dioxide Level 35mmol/L (21-32) Anion Gap 6 (6-14) Blood Urea Nitrogen 19mg/dL (7-20) Creatinine 1.6mg/dL (0.6-1.0) Estimated GFR (Cockcroft-Gault) 39.1 Glucose Level 150mg/dL (70-99) Calcium Level 9.4mg/dL (8.5-10.1) Magnesium Level 1.9mg/dL (1.8-2.4) Test 08/18/16 07:58 08/18/16 11:09 Glucose (Fingerstick) 107mg/dL (70-99) 94mg/dL (70-99) Microbiology 08/16/16 Blood Culture - Preliminary, Resulted NO GROWTH AFTER 2 DAYS Medications Current Medications Hydralazine HCl (Apresoline) 10 mg 1X ONCE IVP Last administered on 08/16/16 00:44; Start 08/15/16 at 22:00; Stop 08/15/16 at 22:01; Status DC Vancomycin HCl (Vanco Per Pharmacy) 1 each PRN DAILY PRN MC SEE COMMENTS Last administered on 08/18/16 02:42; Start 08/15/16 at 23:00 Piperacillin Sod/ Tazobactam Sod 1 each 1 each PRN DAILY PRN MC SEE COMMENTS; Start 08/15/16 at 23:00 Piperacillin Sod/ Tazobactam Sod 4.5 gm/Sodium Chloride 100 ml @ 200 mls/hr 1X ONCE IV Last administered on 08/15/16 23:15; Start 08/15/16 at 23:15; Stop 08/15/16 at 23:44; Status DC Vancomycin HCl/ Sodium Chloride (Iv Sodium Chloride 0.9% 500ml Bag) 500 ml @ 250 mls/hr 1X ONCE IV Last administered on 08/16/16 00:44; Start 08/16/16 at 00:00; Stop 08/16/16 at 01:59; Status DC Ondansetron HCl (Zofran) 4 mg PRN Q8HRS PRN IV NAUSEA/VOMITING; Start 08/15/16 at 23:30; Stop 08/16/16 at 23:29; Status DC Morphine Sulfate 2 mg PRN Q2HR PRN IV PAIN Last administered on 08/16/16 08:13 ; Start 08/15/16 at 23:30; Stop 08/16/16 at 23:29; Status DC Acetaminophen (Tylenol) 650 mg PRN Q4HRS PRN PO FEVER Last administered on 08/16 21:08; Start 08/15/16 at 23:30; Stop 08/16/16 at 23:29; Status DC Insulin Aspart (Novolog) 0-7 UNITS TIDWMEALS SQ Last administered on 08/16/16 08:09; Start 08/16/16 at 08:00; Stop 08/16/16 at 14:36; Status DC Dextrose 12.5 gm 12.5 gm PRN Q15MIN PRN IV SEE COMMENTS; Start 08/15/16 at 23: 30 Piperacillin Sod/ Tazobactam Sod 4.5 gm/Sodium Chloride 100 ml @ 200 mls/hr Q8H IV Last administered on 08/16/16 05:41; Start 08/16/16 at 06:00; Stop at 12:30; Status DC Vancomycin HCl/ Sodium Chloride (Iv Sodium Chloride 0.9% 500ml Bag) 500 ml @ 250 mls/hr Q24H IV Last administered on 08/18/16 03:56; Start 08/17/16 at 01: 00 Vancomycin HCl 1 each 1X ONCE MC Last administered on 08/18/16 00:30; Start 08/18/16 at 00:30; Stop 08/18/16 at 00:31; Status DC Polyethylene Glycol (miraLAX PACKET) 17 gm 1X ONCE PO Last administered on 10:30; Start 08/16/16 at 10:15; Stop 08/16/16 at 10:22; Status DC Polyethylene Glycol (miraLAX PACKET) 17 gm PRN BID PRN PO CONSTIPATION; Start 08/16/16 at 10:15 Docusate Sodium (Colace) 100 mg PRN DAILY PRN PO CONSTIPATION; Start 08/16/16 at 10:15 Docusate Sodium (Colace) 100 mg DAILY PO ; Start 08/17/16 at 09:00; Stop at 09:00; Status DC Magnesium Hydroxide (Milk Of Magnesia) 2,400 mg 1X ONCE PO Last administered on 08/16/16 10:29; Start 08/16/16 at 10:15; Stop 08/16/16 at 10:22; Status DC Amoxicillin/ Clavulanate Potassium (Augmentin 875/ 125mg) 1 tab BID PO Last administered on 08/16/16 12:16; Start 08/16/16 at 11:00; Stop 08/16/16 at 12:24 ; Status DC Cyclobenzaprine HCl (Flexeril) 10 mg TID PO Last administered on 08/18/16 13: 50; Start 08/16/16 at 11:00 Docusate Sodium (Colace) 100 mg BID PO Last administered on 08/18/16 08:41; Start 08/16/16 at 11:00 Ferrous Sulfate (Feosol) 325 mg DAILYWBKFT PO Last administered on 08/18/16 08 :40; Start 08/16/16 at 11:30 Furosemide (Lasix) 20 mg BID92 PO Last administered on 08/18/16 13:52; Start 08/16/16 at 11:00 Hydralazine HCl (Apresoline) 25 mg TID PO Last administered on 08/18/16 13:52 ; Start 08/16/16 at 14:00 Insulin Aspart (Novolog) TIDWMEALS SQ ; Start 08/16/16 at 12:00; Stop 08/16/16 at 18:09; Status DC Insulin Detemir (Levemir) 25 units QHS SQ Last administered on 08/17/16 21:00 ; Start 08/16/16 at 21:00 Lisinopril (Prinivil) 20 mg BID PO Last administered on 08/18/16 08:42; Start 08/16/16 at 11:00 Oxycodone/ Acetaminophen (Percocet 5/325) 1 tab PRN Q4HRS PRN PO MODERATE PAIN , SEVERE PAIN Last administered on 08/17/16 10:41; Start 08/16/16 at 10:30; Stop 08/17/16 at 13:56; Status DC Prednisone (Prednisone) 20 mg DAILY PO Last administered on 08/18/16 08:42; Start 08/16/16 at 11:00 Senna/Docusate Sodium (Senna Plus) 1 tab BID PO Last administered on 08/18/16 08:42; Start 08/16/16 at 11:00 Trimethoprim/ Sulfamethoxazole (Bactrim Ss) 1 tab BID PO Last administered on 14:10; Start 08/16/16 at 11:00; Stop 08/16/16 at 14:37; Status DC Acetaminophen (Tylenol) 325 mg QID PO Last administered on 08/18/16 13:51; Start 08/16/16 at 13:00 Non-Formulary Medication 2 puff QID INH FOR ASTHMA; Start 08/16/16 at 13:00; Stop 08/16/16 at 13:00; Status DC Atorvastatin Calcium (Lipitor) 5 mg QHS PO Last administered on 08/17/16 21:54 ; Start 08/16/16 at 21:00 Famotidine (Pepcid) 20 mg DAILY PO Last administered on 08/18/16 08:42; Start 08/16/16 at 11:00 Albuterol/ Ipratropium (Duoneb) 3 ml RTQID NEB Last administered on 08/18/16 11:06; Start 08/16/16 at 12:00 Albuterol Sulfate 2.5 mg 2.5 mg RTQID NEB ; Start 08/16/16 at 12:00; Stop at 12:00; Status DC Piperacillin Sod/ Tazobactam Sod/ Sodium Chloride (Zosyn/Iv Sodium Chloride 0.9 % 50ml) 50 ml @ 100 mls/hr Q6HRS IV Last administered on 08/18/16 11:20; Start 08/16/16 at 13:00 Furosemide (Lasix) 20 mg 1X ONCE IVP Last administered on 08/16/16 14:09; Start 08/16/16 at 13:30; Stop 08/16/16 at 13:31; Status DC Iohexol (Omnipaque 240 Mg/ml) 30 ml 1X ONCE PO ; Start 08/16/16 at 14:45; Stop 08/16/16 at 14:46; Status DC Iohexol (Omnipaque 350 Mg/ml) 90 ml 1X ONCE IV ; Start 08/16/16 at 16:00; Stop 08/16/16 at 16:02; Status DC Iohexol (Omnipaque 350 Mg/ml) 90 ml 1X ONCE IV ; Start 08/16/16 at 16:00; Stop 08/16/16 at 16:02; Status DC Info (Do NOT chart on this entry -- for MONITORING) 1 each PRN DAILY PRN MC SEE COMMENTS; Start 08/16/16 at 16:15; Stop 08/18/16 at 16:14 Insulin Aspart (Novolog) 0-7 UNITS TIDWMEALS SQ Last administered on 08/17/16 17:17; Start 08/16/16 at 17:00 Morphine Sulfate 4 mg PRN Q2HR PRN IV PAIN SEVERE; Start 08/17/16 at 10:45 Amlodipine Besylate (Norvasc) 5 mg DAILYWLUN PO Last administered on 08/17/16 13:33; Start 08/17/16 at 12:45; Stop 08/18/16 at 10:43; Status DC Oxycodone/ Acetaminophen (Percocet 7.5/ 325) 1 tab PRN Q4HRS PRN PO PAIN Last administered on 08/18/16 11:19; Start 08/17/16 at 14:00 Guaifenesin (Robitussin Dm) 10 ml PRN Q6HRS PRN PO COUGH Last administered on 15:32; Start 08/17/16 at 15:15 Throat Lozenges (Cepacol Sore Throat Lozenge) 1 sandra PRN Q2HRS PRN PO SORE THROAT Last administered on 08/17/16 15:37; Start 08/17/16 at 15:15 Labetalol HCl (Normodyne) 10 mg PRN Q2HR PRN IVP HYPERTENSION, SEE COMMENTS Last administered on 08/18/16 06:17; Start 08/18/16 at 00:30 Ondansetron HCl (Zofran) 4 mg PRN Q6HRS PRN IV NAUSEA/VOMITING Last administered on 08/18/16 06:12; Start 08/18/16 at 03:30 Prochlorperazine Edisylate 10 mg 10 mg PRN Q6HRS PRN IM NAUSEA/VOMITING; Start 08/18/16 at 09:45 Promethazine HCl/ Sodium Chloride (Phenergan/Iv Sodium Chloride 0.9% 50ml) 50.5 ml @ 151.5 mls/ hr PRN Q6HRS PRN IV NAUSEA/VOMITING; Start 08/18/16 at 09:45 Amlodipine Besylate (Norvasc) 10 mg DAILYWLUN PO Last administered on 11:18; Start 08/18/16 at 12:00 Active Scripts Active Levemir Flextouch (Insulin Detemir) 100 Unit/1 Ml Insuln.pen 25 Units SQ QHS 30 Days Novolog Flexpen (Insulin Aspart) 100 Unit/1 Ml Insuln.pen 0 Units SQ TIDWMEALS 30 Days Senna-Time S Tablet (Sennosides/Docusate Sodium) 1 Each Tablet 1 Tab PO BID Oxycodone-Acetaminophen 5-325 (Oxycodone Hcl/Acetaminophen) 1 Each Tablet 1 Tab PO PRN Q4HRS PRN Furosemide 20 Mg Tablet 20 Mg PO BID92 30 Days Colace (Docusate Sodium) 100 Mg Capsule 100 Mg PO BID 5 Days Amox Tr-K Clv 875-125 Mg Tab (Amoxicillin/Potassium Clav) 1 Each Tablet 1 Tab PO BID 3 Days Klor-Con Sprinkle (Potassium Chloride) 10 Meq Capsule.er 20 Meq PO DAILY Lisinopril 20 Mg Tablet 1 Tab PO BID Ferrous Sulfate 325 Mg Tablet 325 Tab PO DAILY Gabapentin 300 Mg Capsule 600 Mg PO TID Hydralazine Hcl 25 Mg Tablet 1 Tab PO TID Reported Ventolin Hfa Inhaler (Albuterol Sulfate) 18 Gm Hfa.aer.ad 2 Puff INH QID Acetaminophen 160 Mg/5 Ml Solution 325 Mg PO QID Bactrim 400-80 Mg Tablet (Sulfamethoxazole/Trimethoprim) 1 Each Tablet 1 Tab PO BID Zantac (Ranitidine Hcl) 150 Mg Tablet 150 Mg PO DAILY Prednisone 20 Mg Tablet 20 Mg PO DAILY Cyclobenzaprine Hcl 10 Mg Tablet 10 Mg PO TID Lovastatin 20 Mg Tablet 20 Mg PO HS Vitals/I & O Vital Sign - Last 24 Hours 08/17/16 08/17/16 08/17/16 08/17/16 14:41 15:16 15:32 19:37 Temp 98.1 98.1 Pulse 96 Resp 20 B/P 181/96 Pulse Ox 85 94 94 89 O2 Delivery Room Air Nasal Cannula Room Air Nasal Cannula O2 Flow Rate 2.0 2.0 2.0 08/17/16 08/17/16 08/17/16 08/17/16 19:50 20:00 21:57 21:59 Temp 97.9 97.9 Pulse 103 103 103 Resp 20 B/P 177/89 177/89 177/89 Pulse Ox 91 O2 Delivery Room Air Room Air O2 Flow Rate 2.0 08/17/16 08/17/16 08/18/16 08/18/16 22:30 23:00 00:18 00:30 Temp 97.9 97.9 Pulse 108 97 90 Resp 20 B/P 188/114 180/95 184/103 Pulse Ox 98 O2 Delivery BiPAP/CPAP BiPAP/CPAP 08/18/16 08/18/16 08/18/16 08/18/16 01:35 02:00 04:19 05:22 Temp 98.1 98.1 Pulse 90 87 83 Resp 20 B/P 184/103 174/96 186/103 Pulse Ox 98 O2 Delivery BiPAP/CPAP BiPAP/CPAP 08/18/16 08/18/16 08/18/16 08/18/16 06:17 06:17 07:14 07:50 Temp 98.1 98.1 Pulse 90 84 Resp 20 B/P 169/86 177/93 Pulse Ox 80 98 O2 Delivery Nasal Cannula Nasal Cannula Nasal Cannula O2 Flow Rate 2.0 3.0 08/18/16 08/18/16 08/18/16 08/18/16 08:00 08:41 08:42 09:30 Pulse 84 84 82 Resp 20 B/P 177/93 177/93 173/85 Pulse Ox 96 O2 Delivery Room Air Nasal Cannula O2 Flow Rate 3.0 08/18/16 08/18/16 08/18/16 08/18/16 11:10 11:18 11:19 11:35 Temp 98.1 98.1 Pulse 80 80 Resp 18 18 B/P 170/91 170/91 Pulse Ox 91 99 99 O2 Delivery Nasal Cannula Nasal Cannula Nasal Cannula O2 Flow Rate 2.0 3.0 3.0 08/18/16 08/18/16 13:40 13:52 Pulse 91 Resp 18 B/P 174/85 Pulse Ox 99 O2 Delivery Nasal Cannula O2 Flow Rate 3.0 Intake and Output 08/17/16 08/17/16 08/18/16 15:00 23:00 07:00 Intake Total 180 ml 600 ml Balance 180 ml 600 ml NICOLAS CAMPA MD Aug 18, 2016 14:30
[2016-08-18 14:40] LABS: NEG OBC GOB NEG; POS OBC GOB POS
[2016-08-18] MEDS ORDERED: PANTOPRAZOLE IV PUSH 40 MG VIAL. IVP SCH (15:00)
[2016-08-18] MEDS: BENZOCAINE/MENTHOL LOZENGE. PO PRN (15:14)
[2016-08-18] MEDS: GUAIFENESIN DM 200MG/20MG 10 ML SYRUP. PO PRN (15:14)
[2016-08-18] MEDS ORDERED: PANTOPRAZOLE IV PUSH 40 MG VIAL. IVP ONE (15:45)
[2016-08-18] MEDS: PANTOPRAZOLE SODIUM IV 80 MG in IV NORMAL SALINE 100ML 100 ML IV SCH (15:50)
[2016-08-18 16:43] LABS: HEMATOCRIT 28.1 % (36.0-47.0); HEMOGLOBIN 8.9 g/dL (12.0-15.5)
--- NOTE | 2016-08-18 17:09 | PDOC ---
SURGICAL PROGRESS NOTE Subjective Pt. reports feeling better. Pain better controlled. She continues to have non productive cough that is improving. She had N/V x 1. Vital Signs Vital Signs Date Time Temp Pulse Resp B/P Pulse Ox O2 Delivery O2 Flow Rate FiO2 08/18/16 16:29 91 Nasal Cannula 2.0 08/18/16 15:17 97.9 88 18 162/92 97.9 I&O Intake and Output 08/18/16 07:00 Intake Total 780 ml Balance 780 ml Intake Oral 780 ml # Voids 8 PATIENT HAS A HANSON: No General: Alert, Oriented X3, Cooperative HEENT: Atraumatic Lungs: Normal air movement Heart: Regular rate Abdomen: Normal bowel sounds, Soft, No tenderness, Other (Incision Site: clean , dry and intact) Psych/Mental Status: Mental status NL Labs Laboratory Tests Test 08/16/16 20:46 08/17/16 08:00 08/17/16 10:51 08/17/16 16:58 Glucose (Fingerstick) 233mg/dL (70-99) 173mg/dL (70-99) 188mg/dL (70-99) 213mg/dL (70-99) Test 08/17/16 21:49 08/18/16 00:35 08/18/16 04:00 08/18/16 07:58 Glucose (Fingerstick) 180mg/dL (70-99) 107mg/dL (70-99) Vancomycin Level Trough 18.3mcg/mL (10.0-20.0) Vancomycin Last Dose Date Vancomycin Last Dose Time White Blood Count 10.3x10^3/uL (4.0-11.0) Red Blood Count 2.86x10^6/uL (3.50-5.40) Hemoglobin 8.0g/dL (12.0-15.5) Hematocrit 25.5% (36.0-47.0) Mean Corpuscular Volume 89fL (79-100) Mean Corpuscular Hemoglobin 28pg (25-35) Mean Corpuscular Hemoglobin Concent 31g/dL (31-37) Red Cell Distribution Width 15.7% (11.5-14.5) Platelet Count 307x10^3/uL (140-400) Neutrophils (%) (Auto) 80% (31-73) Lymphocytes (%) (Auto) 12% (24-48) Monocytes (%) (Auto) 8% (0-9) Eosinophils (%) (Auto) 0% (0-3) Basophils (%) (Auto) 0% (0-3) Neutrophils # (Auto) 8.2x10^3uL (1.8-7.7) Lymphocytes # (Auto) 1.2x10^3/uL (1.0-4.8) Monocytes # (Auto) 0.8x10^3/uL (0.0-1.1) Eosinophils # (Auto) 0.0x10^3/uL (0.0-0.7) Basophils # (Auto) 0.0x10^3/uL (0.0-0.2) Segmented Neutrophils % 62% (35-66) Band Neutrophils % 8% (0-9) Lymphocytes % 18% (24-48) Atypical Lymphocytes % (Manual) 2% (0-0) Monocytes % 7% (0-10) Metamyelocytes % 3% (0-0) Nucleated Red Blood Cells 1 Platelet Estimate Adequate (ADEQUATE) Giant Platelets Few Polychromasia Slight Sodium Level 145mmol/L (136-145) Potassium Level 4.2mmol/L (3.5-5.1) Chloride Level 104mmol/L (98-107) Carbon Dioxide Level 35mmol/L (21-32) Anion Gap 6 (6-14) Blood Urea Nitrogen 19mg/dL (7-20) Creatinine 1.6mg/dL (0.6-1.0) Estimated GFR (Cockcroft-Gault) 39.1 Glucose Level 150mg/dL (70-99) Calcium Level 9.4mg/dL (8.5-10.1) Magnesium Level 1.9mg/dL (1.8-2.4) Test 08/18/16 11:09 08/18/16 14:00 08/18/16 16:00 08/18/16 16:45 Glucose (Fingerstick) 94mg/dL (70-99) 129mg/dL (70-99) Gastric Fluid Occult Blood Positive (NEG) Hemoglobin 8.9g/dL (12.0-15.5) Hematocrit 28.1% (36.0-47.0) Mean Corpuscular Hemoglobin Concent 32g/dL (31-37) Laboratory Tests Test 08/17/16 21:49 08/18/16 00:35 08/18/16 04:00 08/18/16 07:58 Glucose (Fingerstick) 180mg/dL (70-99) 107mg/dL (70-99) Vancomycin Level Trough 18.3mcg/mL (10.0-20.0) Vancomycin Last Dose Date Vancomycin Last Dose Time White Blood Count 10.3x10^3/uL (4.0-11.0) Red Blood Count 2.86x10^6/uL (3.50-5.40) Hemoglobin 8.0g/dL (12.0-15.5) Hematocrit 25.5% (36.0-47.0) Mean Corpuscular Volume 89fL (79-100) Mean Corpuscular Hemoglobin 28pg (25-35) Mean Corpuscular Hemoglobin Concent 31g/dL (31-37) Red Cell Distribution Width 15.7% (11.5-14.5) Platelet Count 307x10^3/uL (140-400) Neutrophils (%) (Auto) 80% (31-73) Lymphocytes (%) (Auto) 12% (24-48) Monocytes (%) (Auto) 8% (0-9) Eosinophils (%) (Auto) 0% (0-3) Basophils (%) (Auto) 0% (0-3) Neutrophils # (Auto) 8.2x10^3uL (1.8-7.7) Lymphocytes # (Auto) 1.2x10^3/uL (1.0-4.8) Monocytes # (Auto) 0.8x10^3/uL (0.0-1.1) Eosinophils # (Auto) 0.0x10^3/uL (0.0-0.7) Basophils # (Auto) 0.0x10^3/uL (0.0-0.2) Segmented Neutrophils % 62% (35-66) Band Neutrophils % 8% (0-9) Lymphocytes % 18% (24-48) Atypical Lymphocytes % (Manual) 2% (0-0) Monocytes % 7% (0-10) Metamyelocytes % 3% (0-0) Nucleated Red Blood Cells 1 Platelet Estimate Adequate (ADEQUATE) Giant Platelets Few Polychromasia Slight Sodium Level 145mmol/L (136-145) Potassium Level 4.2mmol/L (3.5-5.1) Chloride Level 104mmol/L (98-107) Carbon Dioxide Level 35mmol/L (21-32) Anion Gap 6 (6-14) Blood Urea Nitrogen 19mg/dL (7-20) Creatinine 1.6mg/dL (0.6-1.0) Estimated GFR (Cockcroft-Gault) 39.1 Glucose Level 150mg/dL (70-99) Calcium Level 9.4mg/dL (8.5-10.1) Magnesium Level 1.9mg/dL (1.8-2.4) Test 08/18/16 11:09 08/18/16 14:00 08/18/16 16:00 08/18/16 16:45 Glucose (Fingerstick) 94mg/dL (70-99) 129mg/dL (70-99) Gastric Fluid Occult Blood Positive (NEG) Hemoglobin 8.9g/dL (12.0-15.5) Hematocrit 28.1% (36.0-47.0) Mean Corpuscular Hemoglobin Concent 32g/dL (31-37) Problem List Problems Medical Problems: (1) Altered mental status Status: Acute (2) Pneumonia Status: Acute Assessment/Plan s/p SANTHOSH & BSO Bronchitis: improving P: Continue current plan. Problems: ALEXANDRU NUNEZ Jr, MD Aug 18, 2016 17:09
[2016-08-18] MEDS: ATORVASTATIN CALCIUM 10 MG TABLET. PO SCH (21:11)
[2016-08-18] MEDS: INSULIN DETEMIR 300 UNITS/3 ML INSULN.PEN. SQ SCH (21:20)
[2016-08-19] MEDS: LABETALOL 20 MG/4 ML DISP.SYRIN. IVP PRN (00:06)
[2016-08-19] MEDS: VANCOMYCIN 1.75 GM in IV NORMAL SALINE 500ML BAG 500 ML IV SCH (00:16)
[2016-08-19] MEDS: PANTOPRAZOLE SODIUM IV 80 MG in IV NORMAL SALINE 100ML 100 ML IV SCH ×3 (00:46→21:53)
[2016-08-19 03:00] VITALS: BP 164/90
[2016-08-19 05:29] LABS: HEMATOCRIT 25.6 % (36.0-47.0); HEMOGLOBIN 8.2 g/dL (12.0-15.5)
[2016-08-19] MEDS: PIPERACILLIN/TAZOBACTAM 3.375 GM in IV NORMAL SALINE 50ML 50 ML IV SCH ×4 (06:00→22:58)
[2016-08-19 07:00] VITALS: BP 177/90
[2016-08-19] MEDS: INSULIN ASPART 300 UNITS/3 ML INSULN.PEN SQ SCH ×3 (07:21→16:28)
[2016-08-19] MEDS: IPRATRPIUM/ALBUTEROL 0.5/2.5MG 3 ML NEBU. NEB SCH ×4 (08:00→19:09)
[2016-08-19] MEDS: DOCUSATE SODIUM 100 MG CAPSULE PO SCH ×2 (08:18→20:55)
[2016-08-19] MEDS: FERROUS SULFATE 325 MG TABLET PO SCH (08:18)
[2016-08-19] MEDS: AMLODIPINE BESYLATE 10 MG TABLET PO SCH (08:18)
[2016-08-19] MEDS: ACETAMINOPHEN 325 MG TABLET. PO SCH ×4 (08:19→20:55)
[2016-08-19] MEDS: LISINOPRIL 20 MG TABLET PO SCH ×2 (08:19→20:55)
[2016-08-19] MEDS: PREDNISONE 20 MG TABLET PO SCH (08:19)
[2016-08-19] MEDS: SENNOSIDES/DOCUSATE 8.6/50MG TABLET. PO SCH ×2 (08:19→20:55)
[2016-08-19] MEDS: CYCLOBENZAPRINE 10 MG TABLET. PO SCH ×3 (08:19→20:55)
[2016-08-19] MEDS: BENZOCAINE/MENTHOL LOZENGE. PO PRN (08:20)
[2016-08-19] MEDS: GUAIFENESIN DM 200MG/20MG 10 ML SYRUP. PO PRN (08:20)
[2016-08-19] MEDS: HYDRALAZINE 25 MG TABLET PO SCH ×3 (08:20→20:56)
[2016-08-19] MEDS: FUROSEMIDE 20 MG TABLET PO SCH ×2 (09:08→14:06)
[2016-08-19] MEDS: ONDANSETRON PF 4 MG/2 ML VIAL. IV PRN (09:08)
--- NOTE | 2016-08-19 09:22 | PDOC ---
Infectious Disease Note Subjective Subjective Less N/V. Feeling ok ROS ROS GEN: Denies fevers, chills, sweats CV: Denies chest pain RESP: Denies shortness of air, cough GI: Denies n/v Vital Sign Vital Signs Vital Signs Date Time Temp Pulse Resp B/P Pulse Ox O2 Delivery O2 Flow Rate FiO2 08/19/16 08:27 91 Room Air 08/19/16 08:20 83 177/90 08/19/16 07:00 97.8 18 4.0 97.8 Physical Exam PHYSICAL EXAM GENERAL: Up in chair,, relaxed appearance, NAD HEENT: PERRL, OC/OP clear NECK: Supple LUNGS: Diminished aeration bases, nonlabored. HEART: S1S2, no gallop, no murmur ABD: Obese, soft, NT, BS present. Lower abdominal incision well-approx. steri- strips intact. No redness, induration or drainage. EXT: BLE trace edema. No cyanosis KNIFE GLAZER: Alert, oriented x 3, no focal neurologic deficit SKIN: No rash Labs Lab Laboratory Tests Test 08/18/16 11:09 08/18/16 14:00 08/18/16 16:00 08/18/16 16:45 Glucose (Fingerstick) 94mg/dL (70-99) 129mg/dL (70-99) Gastric Fluid Occult Blood Positive (NEG) Hemoglobin 8.9g/dL (12.0-15.5) Hematocrit 28.1% (36.0-47.0) Mean Corpuscular Hemoglobin Concent 32g/dL (31-37) Test 08/18/16 20:44 08/19/16 04:03 08/19/16 07:11 08/19/16 07:51 Glucose (Fingerstick) 138mg/dL (70-99) 68mg/dL (70-99) 85mg/dL (70-99) Hemoglobin 8.2g/dL (12.0-15.5) Hematocrit 25.6% (36.0-47.0) Mean Corpuscular Hemoglobin Concent 32g/dL (31-37) Micro BC NGTD Objective Assessment Fever. better Acute respiratory failure, BiPAP. -hx hilar mass and lung nodules s/p bronch in Mar 2016 -hx sarcoidosis -hx POLY CKD Acute encephalopathy, improved s/p SANTHOSH and BSO, 08/09 Morbid obesity Plan Plan of Care nichole and Maxwell Vanco trough 18.3 f/u cultures Patient seen and examined. Chart reviewed. Case discussed with BENEFITS DIRECTOR. CT result viewed. Agree with above plan. LAINEY REIS APRN Aug 19, 2016 09:22 REYNA BRAN MD Aug 19, 2016 16:17
[2016-08-19] MEDS: OXYCODONE/APAP 7.5/325 TABLET. PO PRN ×2 (10:02→20:55)
[2016-08-19 10:31] VITALS: BP 167/87
--- NOTE | 2016-08-19 11:08 | PDOC ---
PULMONARY PROGRESS NOTES Subjective on 02 used bipap last night, has abd pain, has cough, nasal congestion, sob is better Vitals Vital Signs Date Time Temp Pulse Resp B/P Pulse Ox O2 Delivery O2 Flow Rate FiO2 08/19/16 10:58 18 Nasal Cannula 2.0 08/19/16 10:31 97.8 88 167/87 93 97.8 Comments ros as mentioned as above other sys otherwise neg ROS: No Nausea, No Chest Pain, No Increase Cough (nc at perrl. throat nose clear) General: Alert, No acute distress HEENT: Other Lungs: Crackles Cardiovascular: S1, S2 Abdomen: Soft, Non-tender, Other Neuro Exam: Alert, Oriented Extremities: Other (edema) Skin: Warm Labs Laboratory Tests Test 08/17/16 16:58 08/17/16 21:49 08/18/16 00:35 08/18/16 04:00 Glucose (Fingerstick) 213mg/dL (70-99) 180mg/dL (70-99) Vancomycin Level Trough 18.3mcg/mL (10.0-20.0) Vancomycin Last Dose Date Vancomycin Last Dose Time White Blood Count 10.3x10^3/uL (4.0-11.0) Red Blood Count 2.86x10^6/uL (3.50-5.40) Hemoglobin 8.0g/dL (12.0-15.5) Hematocrit 25.5% (36.0-47.0) Mean Corpuscular Volume 89fL (79-100) Mean Corpuscular Hemoglobin 28pg (25-35) Mean Corpuscular Hemoglobin Concent 31g/dL (31-37) Red Cell Distribution Width 15.7% (11.5-14.5) Platelet Count 307x10^3/uL (140-400) Neutrophils (%) (Auto) 80% (31-73) Lymphocytes (%) (Auto) 12% (24-48) Monocytes (%) (Auto) 8% (0-9) Eosinophils (%) (Auto) 0% (0-3) Basophils (%) (Auto) 0% (0-3) Neutrophils # (Auto) 8.2x10^3uL (1.8-7.7) Lymphocytes # (Auto) 1.2x10^3/uL (1.0-4.8) Monocytes # (Auto) 0.8x10^3/uL (0.0-1.1) Eosinophils # (Auto) 0.0x10^3/uL (0.0-0.7) Basophils # (Auto) 0.0x10^3/uL (0.0-0.2) Segmented Neutrophils % 62% (35-66) Band Neutrophils % 8% (0-9) Lymphocytes % 18% (24-48) Atypical Lymphocytes % (Manual) 2% (0-0) Monocytes % 7% (0-10) Metamyelocytes % 3% (0-0) Nucleated Red Blood Cells 1 Platelet Estimate Adequate (ADEQUATE) Giant Platelets Few Polychromasia Slight Sodium Level 145mmol/L (136-145) Potassium Level 4.2mmol/L (3.5-5.1) Chloride Level 104mmol/L (98-107) Carbon Dioxide Level 35mmol/L (21-32) Anion Gap 6 (6-14) Blood Urea Nitrogen 19mg/dL (7-20) Creatinine 1.6mg/dL (0.6-1.0) Estimated GFR (Cockcroft-Gault) 39.1 Glucose Level 150mg/dL (70-99) Calcium Level 9.4mg/dL (8.5-10.1) Magnesium Level 1.9mg/dL (1.8-2.4) Test 08/18/16 07:58 08/18/16 11:09 08/18/16 14:00 08/18/16 16:00 Glucose (Fingerstick) 107mg/dL (70-99) 94mg/dL (70-99) Gastric Fluid Occult Blood Positive (NEG) Hemoglobin 8.9g/dL (12.0-15.5) Hematocrit 28.1% (36.0-47.0) Mean Corpuscular Hemoglobin Concent 32g/dL (31-37) Test 08/18/16 16:45 08/18/16 20:44 08/19/16 04:03 08/19/16 07:11 Glucose (Fingerstick) 129mg/dL (70-99) 138mg/dL (70-99) 68mg/dL (70-99) Hemoglobin 8.2g/dL (12.0-15.5) Hematocrit 25.6% (36.0-47.0) Mean Corpuscular Hemoglobin Concent 32g/dL (31-37) Test 08/19/16 07:51 08/19/16 10:07 Glucose (Fingerstick) 85mg/dL (70-99) 82mg/dL (70-99) Laboratory Tests Test 08/18/16 11:09 08/18/16 14:00 08/18/16 16:00 08/18/16 16:45 Glucose (Fingerstick) 94mg/dL (70-99) 129mg/dL (70-99) Gastric Fluid Occult Blood Positive (NEG) Hemoglobin 8.9g/dL (12.0-15.5) Hematocrit 28.1% (36.0-47.0) Mean Corpuscular Hemoglobin Concent 32g/dL (31-37) Test 08/18/16 20:44 08/19/16 04:03 08/19/16 07:11 08/19/16 07:51 Glucose (Fingerstick) 138mg/dL (70-99) 68mg/dL (70-99) 85mg/dL (70-99) Hemoglobin 8.2g/dL (12.0-15.5) Hematocrit 25.6% (36.0-47.0) Mean Corpuscular Hemoglobin Concent 32g/dL (31-37) Test 08/19/16 10:07 Glucose (Fingerstick) 82mg/dL (70-99) Medications Active Scripts Medications Dose Route/Sig Days Date Category Levemir Flextouch (Insulin Detemir) 100 Unit/1 Ml Insuln.pen 25 Units SQ QHS 30 08/14/16 Rx Novolog Flexpen (Insulin Aspart) 100 Unit/1 Ml Insuln.pen 0 Units SQ TIDWMEALS 30 08/14/16 Rx Senna-Time S Tablet (Sennosides/Docusate Sodium) 1 Each Tablet 1 Tab PO BID 08/14/16 Rx Oxycodone-Acetaminophen 5-325 (Oxycodone Hcl/Acetaminophen) 1 Each Tablet 1 Tab PO PRN Q4HRS PRN 08/14/16 Rx Furosemide 20 Mg Tablet 20 Mg PO BID92 30 08/14/16 Rx Colace (Docusate Sodium) 100 Mg Capsule 100 Mg PO BID 5 08/14/16 Rx Amox Tr-K Clv 875-125 Mg Tab (Amoxicillin/Potassium Clav) 1 Each Tablet 1 Tab PO BID 3 08/14/16 Rx Ventolin Hfa Inhaler (Albuterol Sulfate) 18 Gm Hfa.aer.ad 2 Puff INH QID 08/09/16 Reported Acetaminophen 160 Mg/5 Ml Solution 325 Mg PO QID 08/09/16 Reported Bactrim 400-80 Mg Tablet (Sulfamethoxazole/Trimethoprim) 1 Each Tablet 1 Tab PO BID 08/09/16 Reported Zantac (Ranitidine Hcl) 150 Mg Tablet 150 Mg PO DAILY 08/09/16 Reported Prednisone 20 Mg Tablet 20 Mg PO DAILY 08/09/16 Reported Cyclobenzaprine Hcl 10 Mg Tablet 10 Mg PO TID 08/09/16 Reported Klor-Con Sprinkle (Potassium Chloride) 10 Meq Capsule.er 20 Meq PO DAILY 04/06/16 Rx Lisinopril 20 Mg Tablet 1 Tab PO BID 04/06/16 Rx Ferrous Sulfate 325 Mg Tablet 325 Tab PO DAILY 04/06/16 Rx Gabapentin 300 Mg Capsule 600 Mg PO TID 04/06/16 Rx Hydralazine Hcl 25 Mg Tablet 1 Tab PO TID 04/06/16 Rx Lovastatin 20 Mg Tablet 20 Mg PO HS 03/28/16 Reported Comments cxr reviewed. ct of abd reviewed. 1. Mild to moderate bibasilar atelectasis and/or pneumonitis. 2. Postsurgical changes in the lower abdomen and pelvis without evidence of abscess. Impression . IMPRESSION: 1. Acute hypoxic respiratory failure requiring 4 liters of oxygen. I suspect secondary to underlying obesity hypoventilation syndrome and some mild atelectasis. There appears to be mild vascular congestion and it could be related to some diastolic heart failure as well. She does have increased leg edema. Cannot exclude the possibility of mild pneumonia. 2. Fever of 100.6. She has a cough with only white sputum production. The source could be the abdomen. She had a recent hysterectomy. We will obtain CT abdomen and pelvis for further evaluation. 3. History of abnormal CT chest in March with a right hilar mass/adenopathy and subcarinal adenopathy and tiny lung nodules. She subsequently followed up at and underwent biopsy, I assume via bronchoscopy, and she was told that she has sarcoidosis and has been on prednisone 20 mg daily. 4. No significant history of tobacco use. 5. Underlying obesity. 6. allergic rhinitis Plan . RECOMMENDATIONS: 1. 02 titration to keep sat 90% 2. Mild diuresis to see an improvement in chest x-ray and mild diastolic heart failure. monitor k, cr 3. fu noncontrast CT abdomen and pelvis to rule out any pockets of infection in the abdomen. 4. Continue broad-spectrum antibiotics. id on case 5. franki the importance do tx discussed. . 6. Continue prednisone 20 mg daily as initiated at Clinic for sarcoidosis and she can follow up over there. 7. Continue bronchodilators. 8. cont bipap prn during day, cont at night 9. add singulair Discussed with the pt and her son NOLANCHRIS MD Aug 19, 2016 11:08
--- NOTE | 2016-08-19 13:16 | PDOC ---
PROGRESS NOTES Chief Complaint Chief Complaint acute hypoxia w/ bronchitis, pickwickian, sepsis CHF, stable distolic CHF htn, metabolic encephalopathy, improved morbid obesity, BMI 47 anemia of acute blood loss, recent Total Hys, biopsy results are of no malignancy History of Present Illness History of Present Illness NO black emesis today, had 550cc black emesis saturday , gastro occult positive BUt pt also taking ferrous supplements for JOSE [facility] GI on board on PPI gtt Some abd pain, claims better with the PPI VS and hgb stable REsident of [facility] WIll need the CPAP/BIPAP at [facility] - she uses it qhs (SW consulted for this) PLAn: cont PPI gtt- folllow GI recs Monitor for any more black emesis Cherry fo GI cocktail prn if gets another attack, or maybe tums COnt ferrous sulfate SW for CPAP/BIPAP at [facility] Vitals Vitals Vital Signs Date Time Temp Pulse Resp B/P Pulse Ox O2 Delivery O2 Flow Rate FiO2 08/19/16 11:58 Room Air 08/19/16 10:58 18 2.0 08/19/16 10:31 97.8 88 167/87 93 97.8 Physical Exam General: Alert, Oriented X3, Cooperative Heart: Regular rate Lungs: Crackles Abdomen: Normal bowel sounds, Soft, No tenderness, Other (Incision Site: clean , dry and intact) Extremities: Other (edema +1 ольга.) Skin: No significant lesion Labs LABS Laboratory Tests Test 08/18/16 14:00 08/18/16 16:00 08/18/16 16:45 08/18/16 20:44 Gastric Fluid Occult Blood Positive (NEG) Hemoglobin 8.9g/dL (12.0-15.5) Hematocrit 28.1% (36.0-47.0) Mean Corpuscular Hemoglobin Concent 32g/dL (31-37) Glucose (Fingerstick) 129mg/dL (70-99) 138mg/dL (70-99) Test 08/19/16 04:03 08/19/16 07:11 08/19/16 07:51 08/19/16 10:07 Hemoglobin 8.2g/dL (12.0-15.5) Hematocrit 25.6% (36.0-47.0) Mean Corpuscular Hemoglobin Concent 32g/dL (31-37) Glucose (Fingerstick) 68mg/dL (70-99) 85mg/dL (70-99) 82mg/dL (70-99) Review of Systems Review of Systems some abd pain, no inc insoa, CP, no emesis Assessment and Plan Assessmemt and Plan Problems Medical Problems: (1) Altered mental status Status: Acute (2) Pneumonia Status: Acute Problems: Comment Review of Relevant I have reviewed the following items robert (where applicable) has been applied. Labs Laboratory Tests Test 08/17/16 16:58 08/17/16 21:49 08/18/16 00:35 08/18/16 04:00 Glucose (Fingerstick) 213mg/dL (70-99) 180mg/dL (70-99) Vancomycin Level Trough 18.3mcg/mL (10.0-20.0) Vancomycin Last Dose Date Vancomycin Last Dose Time White Blood Count 10.3x10^3/uL (4.0-11.0) Red Blood Count 2.86x10^6/uL (3.50-5.40) Hemoglobin 8.0g/dL (12.0-15.5) Hematocrit 25.5% (36.0-47.0) Mean Corpuscular Volume 89fL (79-100) Mean Corpuscular Hemoglobin 28pg (25-35) Mean Corpuscular Hemoglobin Concent 31g/dL (31-37) Red Cell Distribution Width 15.7% (11.5-14.5) Platelet Count 307x10^3/uL (140-400) Neutrophils (%) (Auto) 80% (31-73) Lymphocytes (%) (Auto) 12% (24-48) Monocytes (%) (Auto) 8% (0-9) Eosinophils (%) (Auto) 0% (0-3) Basophils (%) (Auto) 0% (0-3) Neutrophils # (Auto) 8.2x10^3uL (1.8-7.7) Lymphocytes # (Auto) 1.2x10^3/uL (1.0-4.8) Monocytes # (Auto) 0.8x10^3/uL (0.0-1.1) Eosinophils # (Auto) 0.0x10^3/uL (0.0-0.7) Basophils # (Auto) 0.0x10^3/uL (0.0-0.2) Segmented Neutrophils % 62% (35-66) Band Neutrophils % 8% (0-9) Lymphocytes % 18% (24-48) Atypical Lymphocytes % (Manual) 2% (0-0) Monocytes % 7% (0-10) Metamyelocytes % 3% (0-0) Nucleated Red Blood Cells 1 Platelet Estimate Adequate (ADEQUATE) Giant Platelets Few Polychromasia Slight Sodium Level 145mmol/L (136-145) Potassium Level 4.2mmol/L (3.5-5.1) Chloride Level 104mmol/L (98-107) Carbon Dioxide Level 35mmol/L (21-32) Anion Gap 6 (6-14) Blood Urea Nitrogen 19mg/dL (7-20) Creatinine 1.6mg/dL (0.6-1.0) Estimated GFR (Cockcroft-Gault) 39.1 Glucose Level 150mg/dL (70-99) Calcium Level 9.4mg/dL (8.5-10.1) Magnesium Level 1.9mg/dL (1.8-2.4) Test 08/18/16 07:58 08/18/16 11:09 08/18/16 14:00 08/18/16 16:00 Glucose (Fingerstick) 107mg/dL (70-99) 94mg/dL (70-99) Gastric Fluid Occult Blood Positive (NEG) Hemoglobin 8.9g/dL (12.0-15.5) Hematocrit 28.1% (36.0-47.0) Mean Corpuscular Hemoglobin Concent 32g/dL (31-37) Test 08/18/16 16:45 08/18/16 20:44 08/19/16 04:03 08/19/16 07:11 Glucose (Fingerstick) 129mg/dL (70-99) 138mg/dL (70-99) 68mg/dL (70-99) Hemoglobin 8.2g/dL (12.0-15.5) Hematocrit 25.6% (36.0-47.0) Mean Corpuscular Hemoglobin Concent 32g/dL (31-37) Test 08/19/16 07:51 08/19/16 10:07 Glucose (Fingerstick) 85mg/dL (70-99) 82mg/dL (70-99) Laboratory Tests Test 08/18/16 14:00 08/18/16 16:00 08/18/16 16:45 08/18/16 20:44 Gastric Fluid Occult Blood Positive (NEG) Hemoglobin 8.9g/dL (12.0-15.5) Hematocrit 28.1% (36.0-47.0) Mean Corpuscular Hemoglobin Concent 32g/dL (31-37) Glucose (Fingerstick) 129mg/dL (70-99) 138mg/dL (70-99) Test 08/19/16 04:03 08/19/16 07:11 08/19/16 07:51 08/19/16 10:07 Hemoglobin 8.2g/dL (12.0-15.5) Hematocrit 25.6% (36.0-47.0) Mean Corpuscular Hemoglobin Concent 32g/dL (31-37) Glucose (Fingerstick) 68mg/dL (70-99) 85mg/dL (70-99) 82mg/dL (70-99) Microbiology 08/16/16 Blood Culture - Preliminary, Resulted NO GROWTH AFTER 3 DAYS Medications Current Medications Hydralazine HCl (Apresoline) 10 mg 1X ONCE IVP Last administered on 08/16/16 00:44; Start 08/15/16 at 22:00; Stop 08/15/16 at 22:01; Status DC Vancomycin HCl (Vanco Per Pharmacy) 1 each PRN DAILY PRN MC SEE COMMENTS Last administered on 08/18/16 02:42; Start 08/15/16 at 23:00 Piperacillin Sod/ Tazobactam Sod 1 each 1 each PRN DAILY PRN MC SEE COMMENTS; Start 08/15/16 at 23:00 Piperacillin Sod/ Tazobactam Sod 4.5 gm/Sodium Chloride 100 ml @ 200 mls/hr 1X ONCE IV Last administered on 08/15/16 23:15; Start 08/15/16 at 23:15; Stop 08/15/16 at 23:44; Status DC Vancomycin HCl/ Sodium Chloride (Iv Sodium Chloride 0.9% 500ml Bag) 500 ml @ 250 mls/hr 1X ONCE IV Last administered on 08/16/16 00:44; Start 08/16/16 at 00:00; Stop 08/16/16 at 01:59; Status DC Ondansetron HCl (Zofran) 4 mg PRN Q8HRS PRN IV NAUSEA/VOMITING; Start 08/15/16 at 23:30; Stop 08/16/16 at 23:29; Status DC Morphine Sulfate 2 mg PRN Q2HR PRN IV PAIN Last administered on 08/16/16 08:13 ; Start 08/15/16 at 23:30; Stop 08/16/16 at 23:29; Status DC Acetaminophen (Tylenol) 650 mg PRN Q4HRS PRN PO FEVER Last administered on 08/16 21:08; Start 08/15/16 at 23:30; Stop 08/16/16 at 23:29; Status DC Insulin Aspart (Novolog) 0-7 UNITS TIDWMEALS SQ Last administered on 08/16/16 08:09; Start 08/16/16 at 08:00; Stop 08/16/16 at 14:36; Status DC Dextrose 12.5 gm 12.5 gm PRN Q15MIN PRN IV SEE COMMENTS; Start 08/15/16 at 23: 30 Piperacillin Sod/ Tazobactam Sod 4.5 gm/Sodium Chloride 100 ml @ 200 mls/hr Q8H IV Last administered on 08/16/16 05:41; Start 08/16/16 at 06:00; Stop at 12:30; Status DC Vancomycin HCl/ Sodium Chloride (Iv Sodium Chloride 0.9% 500ml Bag) 500 ml @ 250 mls/hr Q24H IV Last administered on 08/19/16 00:16; Start 08/17/16 at 01: 00 Vancomycin HCl 1 each 1X ONCE MC Last administered on 08/18/16 00:30; Start 08/18/16 at 00:30; Stop 08/18/16 at 00:31; Status DC Polyethylene Glycol (miraLAX PACKET) 17 gm 1X ONCE PO Last administered on 10:30; Start 08/16/16 at 10:15; Stop 08/16/16 at 10:22; Status DC Polyethylene Glycol (miraLAX PACKET) 17 gm PRN BID PRN PO CONSTIPATION; Start 08/16/16 at 10:15 Docusate Sodium (Colace) 100 mg PRN DAILY PRN PO CONSTIPATION; Start 08/16/16 at 10:15 Docusate Sodium (Colace) 100 mg DAILY PO ; Start 08/17/16 at 09:00; Stop at 09:00; Status DC Magnesium Hydroxide (Milk Of Magnesia) 2,400 mg 1X ONCE PO Last administered on 08/16/16 10:29; Start 08/16/16 at 10:15; Stop 08/16/16 at 10:22; Status DC Amoxicillin/ Clavulanate Potassium (Augmentin 875/ 125mg) 1 tab BID PO Last administered on 08/16/16 12:16; Start 08/16/16 at 11:00; Stop 08/16/16 at 12:24 ; Status DC Cyclobenzaprine HCl (Flexeril) 10 mg TID PO Last administered on 08/19/16 08: 19; Start 08/16/16 at 11:00 Docusate Sodium (Colace) 100 mg BID PO Last administered on 08/19/16 08:18; Start 08/16/16 at 11:00 Ferrous Sulfate (Feosol) 325 mg DAILYWBKFT PO Last administered on 08/19/16 08 :18; Start 08/16/16 at 11:30 Furosemide (Lasix) 20 mg BID92 PO Last administered on 08/19/16 09:08; Start 08/16/16 at 11:00 Hydralazine HCl (Apresoline) 25 mg TID PO Last administered on 08/19/16 08:20 ; Start 08/16/16 at 14:00 Insulin Aspart (Novolog) TIDWMEALS SQ ; Start 08/16/16 at 12:00; Stop 08/16/16 at 18:09; Status DC Insulin Detemir (Levemir) 25 units QHS SQ Last administered on 08/18/16 21:20 ; Start 08/16/16 at 21:00 Lisinopril (Prinivil) 20 mg BID PO Last administered on 08/19/16 08:19; Start 08/16/16 at 11:00 Oxycodone/ Acetaminophen (Percocet 5/325) 1 tab PRN Q4HRS PRN PO MODERATE PAIN , SEVERE PAIN Last administered on 08/17/16 10:41; Start 08/16/16 at 10:30; Stop 08/17/16 at 13:56; Status DC Prednisone (Prednisone) 20 mg DAILY PO Last administered on 08/19/16 08:19; Start 08/16/16 at 11:00 Senna/Docusate Sodium (Senna Plus) 1 tab BID PO Last administered on 08/19/16 08:19; Start 08/16/16 at 11:00 Trimethoprim/ Sulfamethoxazole (Bactrim Ss) 1 tab BID PO Last administered on 14:10; Start 08/16/16 at 11:00; Stop 08/16/16 at 14:37; Status DC Acetaminophen (Tylenol) 325 mg QID PO Last administered on 08/19/16 08:19; Start 08/16/16 at 13:00 Non-Formulary Medication 2 puff QID INH FOR ASTHMA; Start 08/16/16 at 13:00; Stop 08/16/16 at 13:00; Status DC Atorvastatin Calcium (Lipitor) 5 mg QHS PO Last administered on 08/18/16 21:11 ; Start 08/16/16 at 21:00 Famotidine (Pepcid) 20 mg DAILY PO Last administered on 08/18/16 08:42; Start 08/16/16 at 11:00; Stop 08/18/16 at 15:40; Status DC Albuterol/ Ipratropium (Duoneb) 3 ml RTQID NEB Last administered on 08/19/16 11:55; Start 08/16/16 at 12:00 Albuterol Sulfate 2.5 mg 2.5 mg RTQID NEB ; Start 08/16/16 at 12:00; Stop at 12:00; Status DC Piperacillin Sod/ Tazobactam Sod/ Sodium Chloride (Zosyn/Iv Sodium Chloride 0.9 % 50ml) 50 ml @ 100 mls/hr Q6HRS IV Last administered on 08/19/16 11:25; Start 08/16/16 at 13:00 Furosemide (Lasix) 20 mg 1X ONCE IVP Last administered on 08/16/16 14:09; Start 08/16/16 at 13:30; Stop 08/16/16 at 13:31; Status DC Iohexol (Omnipaque 240 Mg/ml) 30 ml 1X ONCE PO ; Start 08/16/16 at 14:45; Stop 08/16/16 at 14:46; Status DC Iohexol (Omnipaque 350 Mg/ml) 90 ml 1X ONCE IV ; Start 08/16/16 at 16:00; Stop 08/16/16 at 16:02; Status DC Iohexol (Omnipaque 350 Mg/ml) 90 ml 1X ONCE IV ; Start 08/16/16 at 16:00; Stop 08/16/16 at 16:02; Status DC Info (Do NOT chart on this entry -- for MONITORING) 1 each PRN DAILY PRN MC SEE COMMENTS; Start 08/16/16 at 16:15; Stop 08/18/16 at 16:14; Status DC Insulin Aspart (Novolog) 0-7 UNITS TIDWMEALS SQ Last administered on 08/17/16 17:17; Start 08/16/16 at 17:00 Morphine Sulfate 4 mg PRN Q2HR PRN IV PAIN SEVERE; Start 08/17/16 at 10:45 Amlodipine Besylate (Norvasc) 5 mg DAILYWLUN PO Last administered on 08/17/16 13:33; Start 08/17/16 at 12:45; Stop 08/18/16 at 10:43; Status DC Oxycodone/ Acetaminophen (Percocet 7.5/ 325) 1 tab PRN Q4HRS PRN PO PAIN Last administered on 08/19/16 10:02; Start 08/17/16 at 14:00 Guaifenesin (Robitussin Dm) 10 ml PRN Q6HRS PRN PO COUGH Last administered on 08:20; Start 08/17/16 at 15:15 Throat Lozenges (Cepacol Sore Throat Lozenge) 1 sandra PRN Q2HRS PRN PO SORE THROAT Last administered on 08/19/16 08:20; Start 08/17/16 at 15:15 Labetalol HCl (Normodyne) 10 mg PRN Q2HR PRN IVP HYPERTENSION, SEE COMMENTS Last administered on 08/19/16 00:06; Start 08/18/16 at 00:30 Ondansetron HCl (Zofran) 4 mg PRN Q6HRS PRN IV NAUSEA/VOMITING Last administered on 08/19/16 09:08; Start 08/18/16 at 03:30 Prochlorperazine Edisylate 10 mg 10 mg PRN Q6HRS PRN IM NAUSEA/VOMITING; Start 08/18/16 at 09:45 Promethazine HCl/ Sodium Chloride (Phenergan/Iv Sodium Chloride 0.9% 50ml) 50.5 ml @ 151.5 mls/ hr PRN Q6HRS PRN IV NAUSEA/VOMITING; Start 08/18/16 at 09:45 Amlodipine Besylate (Norvasc) 10 mg DAILYWLUN PO Last administered on 08:18; Start 08/18/16 at 12:00 Pantoprazole Sodium (Protonix Vial) 40 mg DAILYAC IVP Last administered on 08/18 15:01; Start 08/18/16 at 15:00; Stop 08/18/16 at 15:41; Status DC Pantoprazole Sodium 80 mg 80 mg 1X ONCE IVP Last administered on 08/18/16 15: 50; Start 08/18/16 at 15:45; Stop 08/18/16 at 15:46; Status DC Pantoprazole Sodium/Sodium Chloride (Protonix Iv/Iv Sodium Chloride 0.9% 100ml) 100 ml @ 10 mls/hr Q10H IV Last administered on 08/19/16 10:56; Start at 15:45 Active Scripts Active Levemir Flextouch (Insulin Detemir) 100 Unit/1 Ml Insuln.pen 25 Units SQ QHS 30 Days Novolog Flexpen (Insulin Aspart) 100 Unit/1 Ml Insuln.pen 0 Units SQ TIDWMEALS 30 Days Senna-Time S Tablet (Sennosides/Docusate Sodium) 1 Each Tablet 1 Tab PO BID Oxycodone-Acetaminophen 5-325 (Oxycodone Hcl/Acetaminophen) 1 Each Tablet 1 Tab PO PRN Q4HRS PRN Furosemide 20 Mg Tablet 20 Mg PO BID92 30 Days Colace (Docusate Sodium) 100 Mg Capsule 100 Mg PO BID 5 Days Amox Tr-K Clv 875-125 Mg Tab (Amoxicillin/Potassium Clav) 1 Each Tablet 1 Tab PO BID 3 Days Klor-Con Sprinkle (Potassium Chloride) 10 Meq Capsule.er 20 Meq PO DAILY Lisinopril 20 Mg Tablet 1 Tab PO BID Ferrous Sulfate 325 Mg Tablet 325 Tab PO DAILY Gabapentin 300 Mg Capsule 600 Mg PO TID Hydralazine Hcl 25 Mg Tablet 1 Tab PO TID Reported Ventolin Hfa Inhaler (Albuterol Sulfate) 18 Gm Hfa.aer.ad 2 Puff INH QID Acetaminophen 160 Mg/5 Ml Solution 325 Mg PO QID Bactrim 400-80 Mg Tablet (Sulfamethoxazole/Trimethoprim) 1 Each Tablet 1 Tab PO BID Zantac (Ranitidine Hcl) 150 Mg Tablet 150 Mg PO DAILY Prednisone 20 Mg Tablet 20 Mg PO DAILY Cyclobenzaprine Hcl 10 Mg Tablet 10 Mg PO TID Lovastatin 20 Mg Tablet 20 Mg PO HS Vitals/I & O Vital Sign - Last 24 Hours 08/18/16 08/18/16 08/18/16 08/18/16 13:40 13:52 15:17 16:29 Temp 97.9 97.9 Pulse 91 88 Resp 18 B/P 174/85 162/92 Pulse Ox 99 97 91 O2 Delivery Nasal Cannula Nasal Cannula O2 Flow Rate 3.0 2.0 08/18/16 08/18/16 08/18/16 08/18/16 19:00 19:06 20:11 21:00 Temp 97.5 97.5 Pulse 118 88 Resp B/P 145/93 149/92 Pulse Ox 92 97 O2 Delivery Nasal Cannula Room Air Room Air O2 Flow Rate 4.0 2.0 08/18/16 08/18/16 08/18/16 08/19/16 21:12 23:00 23:31 00:06 Temp 98.1 98.1 Pulse 88 98 98 Resp 18 B/P 149/92 173/92 173/92 Pulse Ox 97 O2 Delivery BiPAP/CPAP BiPAP/CPAP 08/19/16 08/19/16 08/19/16 08/19/16 01:46 01:50 03:00 03:38 Temp 98.6 98.6 Pulse 86 Resp 18 B/P 164/90 Pulse Ox 97 97 96 97 O2 Delivery BiPAP/CPAP BiPAP/CPAP BiPAP/CPAP BiPAP/CPAP 08/19/16 08/19/16 08/19/16 08/19/16 05:30 07:00 08:00 08:18 Temp 97.8 97.8 Pulse 83 83 Resp 18 B/P 177/90 177/90 Pulse Ox 97 94 O2 Delivery BiPAP/CPAP Nasal Cannula Room Air O2 Flow Rate 4.0 08/19/16 08/19/16 08/19/16 08/19/16 08:19 08:20 08:27 10:02 Pulse 83 83 Resp 8 B/P 177/90 177/90 Pulse Ox 91 91 O2 Delivery Room Air 08/19/16 08/19/16 08/19/16 10:31 10:58 11:58 Temp 97.8 97.8 Pulse 88 Resp 20 18 B/P 167/87 Pulse Ox 93 O2 Delivery Nasal Cannula Nasal Cannula Room Air O2 Flow Rate 4.0 2.0 Intake and Output 08/18/16 08/18/16 08/19/16 15:00 23:00 07:00 Intake Total 795 ml 930 ml Output Total 550 ml Balance 245 ml 930 ml NICOLAS CAMPA MD Aug 19, 2016 13:16
--- NOTE | 2016-08-19 14:08 | PDOC ---
SURGICAL PROGRESS NOTE Subjective Pt. feeling better. She reports less cough. She continues to have occasional sweats during day and at night. She is tolerating regular diet. She is ambulating with PT. Vital Signs Vital Signs Date Time Temp Pulse Resp B/P Pulse Ox O2 Delivery O2 Flow Rate FiO2 08/19/16 11:58 Room Air 08/19/16 10:58 18 2.0 08/19/16 10:31 97.8 88 167/87 93 97.8 I&O Intake and Output 08/19/16 07:00 Intake Total 1725 ml Output Total 550 ml Balance 1175 ml Intake Oral 1625 ml IV Total 100 ml Emesis 550 ml # Voids 6 # Bowel Movements 2 PATIENT HAS A HANSON: No General: Alert, Oriented X3, Cooperative HEENT: Atraumatic Lungs: Clear to auscultation, Normal air movement Heart: Regular rate Abdomen: Normal bowel sounds, Soft, No tenderness, No masses, Other (INcision site: clean, dry and intact) Extremities: No cyanosis Psych/Mental Status: Mental status NL Labs Laboratory Tests Test 08/17/16 16:58 08/17/16 21:49 08/18/16 00:35 08/18/16 04:00 Glucose (Fingerstick) 213mg/dL (70-99) 180mg/dL (70-99) Vancomycin Level Trough 18.3mcg/mL (10.0-20.0) Vancomycin Last Dose Date Vancomycin Last Dose Time White Blood Count 10.3x10^3/uL (4.0-11.0) Red Blood Count 2.86x10^6/uL (3.50-5.40) Hemoglobin 8.0g/dL (12.0-15.5) Hematocrit 25.5% (36.0-47.0) Mean Corpuscular Volume 89fL (79-100) Mean Corpuscular Hemoglobin 28pg (25-35) Mean Corpuscular Hemoglobin Concent 31g/dL (31-37) Red Cell Distribution Width 15.7% (11.5-14.5) Platelet Count 307x10^3/uL (140-400) Neutrophils (%) (Auto) 80% (31-73) Lymphocytes (%) (Auto) 12% (24-48) Monocytes (%) (Auto) 8% (0-9) Eosinophils (%) (Auto) 0% (0-3) Basophils (%) (Auto) 0% (0-3) Neutrophils # (Auto) 8.2x10^3uL (1.8-7.7) Lymphocytes # (Auto) 1.2x10^3/uL (1.0-4.8) Monocytes # (Auto) 0.8x10^3/uL (0.0-1.1) Eosinophils # (Auto) 0.0x10^3/uL (0.0-0.7) Basophils # (Auto) 0.0x10^3/uL (0.0-0.2) Segmented Neutrophils % 62% (35-66) Band Neutrophils % 8% (0-9) Lymphocytes % 18% (24-48) Atypical Lymphocytes % (Manual) 2% (0-0) Monocytes % 7% (0-10) Metamyelocytes % 3% (0-0) Nucleated Red Blood Cells 1 Platelet Estimate Adequate (ADEQUATE) Giant Platelets Few Polychromasia Slight Sodium Level 145mmol/L (136-145) Potassium Level 4.2mmol/L (3.5-5.1) Chloride Level 104mmol/L (98-107) Carbon Dioxide Level 35mmol/L (21-32) Anion Gap 6 (6-14) Blood Urea Nitrogen 19mg/dL (7-20) Creatinine 1.6mg/dL (0.6-1.0) Estimated GFR (Cockcroft-Gault) 39.1 Glucose Level 150mg/dL (70-99) Calcium Level 9.4mg/dL (8.5-10.1) Magnesium Level 1.9mg/dL (1.8-2.4) Test 08/18/16 07:58 08/18/16 11:09 08/18/16 14:00 08/18/16 16:00 Glucose (Fingerstick) 107mg/dL (70-99) 94mg/dL (70-99) Gastric Fluid Occult Blood Positive (NEG) Hemoglobin 8.9g/dL (12.0-15.5) Hematocrit 28.1% (36.0-47.0) Mean Corpuscular Hemoglobin Concent 32g/dL (31-37) Test 08/18/16 16:45 08/18/16 20:44 08/19/16 04:03 08/19/16 07:11 Glucose (Fingerstick) 129mg/dL (70-99) 138mg/dL (70-99) 68mg/dL (70-99) Hemoglobin 8.2g/dL (12.0-15.5) Hematocrit 25.6% (36.0-47.0) Mean Corpuscular Hemoglobin Concent 32g/dL (31-37) Test 08/19/16 07:51 08/19/16 10:07 Glucose (Fingerstick) 85mg/dL (70-99) 82mg/dL (70-99) Laboratory Tests Test 08/18/16 16:00 08/18/16 16:45 08/18/16 20:44 08/19/16 04:03 Hemoglobin 8.9g/dL (12.0-15.5) 8.2g/dL (12.0-15.5) Hematocrit 28.1% (36.0-47.0) 25.6% (36.0-47.0) Mean Corpuscular Hemoglobin Concent 32g/dL (31-37) 32g/dL (31-37) Glucose (Fingerstick) 129mg/dL (70-99) 138mg/dL (70-99) Test 08/19/16 07:11 08/19/16 07:51 08/19/16 10:07 Glucose (Fingerstick) 68mg/dL (70-99) 85mg/dL (70-99) 82mg/dL (70-99) Problem List Problems Medical Problems: (1) Altered mental status Status: Acute (2) Pneumonia Status: Acute Assessment/Plan s/p SANTHOSH & BSO CHTN DM Type 2 P: Continue current care. WIll follow while in hospital. Problems: ALEXANDRU NUNEZ Jr, MD Aug 19, 2016 14:08
[2016-08-19 15:00] VITALS: BP 165/85
[2016-08-19 19:00] VITALS: BP 133/85
--- NOTE | 2016-08-19 19:25 | CONS ---
DATE OF CONSULTATION: 08/19/2016 REQUESTING PHYSICIAN: Dr. Nelson. PRIMARY CARE PHYSICIAN: None. REASON FOR CONSULTATION: Coffee-ground emesis. HISTORY OF PRESENT ILLNESS: This is a 66-year-old female, with a past medical history of iron deficiency anemia, on iron, who recently underwent hysterectomy and was admitted to [facility] shortly after for pneumonia. Yesterday, she had an episode of coffee-ground emesis after she was given iron. The nurse reported that the emesis was black. Her hemoglobin has remained in the 8 range during this time. She has had no further emesis. I started her on a Protonix drip yesterday. PAST MEDICAL HISTORY: 1. She admits to colon resection 10 years ago for an episode of diverticulitis. She has never had a colonoscopy, but is set up for one at in September. 2. Hypertension. 3. Hyperlipidemia. 4. Hysterectomy. 5. Pneumonia. 6. CHF. FAMILY MEDICAL HISTORY: Significant for: 1. Colorectal cancer in her grandfather. 2. Coronary artery disease. SOCIAL HISTORY: No tobacco, alcohol, or IV drug abuse. MEDICATIONS: Currently, she is on: 1. Tylenol. 2. DuoNeb. 3. Norvasc. 4. Lipitor. 5. Flexeril. 6. Colace. 7. Iron. 8. Robitussin. 9. Hydralazine. 10. NovoLog. 11. Levemir. 12. Labetalol. 13. Prinivil. 14. Zofran. 15. Percocet. 16. Prednisone. 17. Compazine. 18. Senna. 19. Cepacol. 20. Vancomycin. ALLERGIES: No known drug allergies. REVIEW OF SYSTEMS: Thirteen-point review of systems was done. It is significant for malaise, abdominal pain, confusion. Otherwise, 13-point review of systems is positive as per HPI and otherwise negative. PHYSICAL EXAMINATION: VITAL SIGNS: Temperature is 97.8, blood pressure 157/87, heart rate is 88. GENERAL: She is an obese, female, who is sitting up in a chair. HEENT: Oropharynx is clear. CARDIOVASCULAR: Distant S1, S2. LUNGS: Have decreased breath sounds bilaterally. ABDOMEN: Has got normoactive bowel sounds, but is diffusely tender to palpation. EXTREMITIES: ____ edema. NEUROLOGIC: She is awake, alert, oriented x 3. LABORATORY VALUES: White blood cell count is 10, with a hemoglobin of 8.2, an MCV of 89, platelets are at 307. Chemistries initially showed normal liver functions. Her gastric occult from her emesis yesterday was negative. IMAGING: CT of the abdomen and pelvis on 08/16/2016 showed [id number] bilateral atelectasis and/or pneumonitis and post-surgical changes in the lower abdomen without evidence of abscess. ASSESSMENT AND PLAN: 1. Coffee-ground emesis: I suspect this is likely from her iron that she had ingested shortly before the episode of emesis. Her hemoglobin has remained stable on a Protonix drip. At this time, I will continue the Protonix drip, but not pursue upper endoscopy unless there is a drop in her hemoglobin. 2. Iron deficiency anemia: She has been on residential iron for quite a while. We will continue this at this time. I suspect this is the etiology again of her coffee-ground emesis. 3. Family history of colorectal cancer: She reports colon cancer in her grandfather. She is scheduled for colonoscopy at in September. If she does not undergo an upper endoscopy prior, this is likely a good idea at the time of her colonoscopy. Thank you for allowing me and Dr. Cortés to participate in the care of this patient. PEG CORTÉS MD DR: FÁTIMA/graciela JOB#: [id number] / [id number] OSCAR Camejo MD, SONYA HOGUE MD, MD
[2016-08-19] MEDS: ATORVASTATIN CALCIUM 10 MG TABLET. PO SCH (20:55)
[2016-08-19] MEDS: INSULIN DETEMIR 300 UNITS/3 ML INSULN.PEN. SQ SCH (20:59)
[2016-08-19 22:51] VITALS: BP 157/86
[2016-08-20] MEDS: VANCOMYCIN 1.75 GM in IV NORMAL SALINE 500ML BAG 500 ML IV SCH (00:56)
[2016-08-20 03:00] VITALS: BP 180/96
[2016-08-20] MEDS: LABETALOL 20 MG/4 ML DISP.SYRIN. IVP PRN (03:18)
[2016-08-20] MEDS: PIPERACILLIN/TAZOBACTAM 3.375 GM in IV NORMAL SALINE 50ML 50 ML IV SCH ×2 (04:53→11:48)
[2016-08-20 07:00] VITALS: BP 130/82
[2016-08-20] MEDS: IPRATRPIUM/ALBUTEROL 0.5/2.5MG 3 ML NEBU. NEB SCH ×3 (07:13→15:29)
[2016-08-20] MEDS: INSULIN ASPART 300 UNITS/3 ML INSULN.PEN SQ SCH ×2 (08:00→11:48)
[2016-08-20] MEDS: LISINOPRIL 20 MG TABLET PO SCH (08:06)
[2016-08-20] MEDS: FERROUS SULFATE 325 MG TABLET PO SCH (08:06)
[2016-08-20] MEDS: FUROSEMIDE 20 MG TABLET PO SCH ×2 (08:06→13:42)
[2016-08-20] MEDS: ACETAMINOPHEN 325 MG TABLET. PO SCH ×2 (08:06→12:59)
[2016-08-20] MEDS: SENNOSIDES/DOCUSATE 8.6/50MG TABLET. PO SCH (08:06)
[2016-08-20] MEDS: CYCLOBENZAPRINE 10 MG TABLET. PO SCH ×2 (08:06→13:41)
[2016-08-20] MEDS: DOCUSATE SODIUM 100 MG CAPSULE PO SCH (08:07)
[2016-08-20] MEDS: HYDRALAZINE 25 MG TABLET PO SCH ×2 (08:07→13:42)
[2016-08-20] MEDS: PREDNISONE 20 MG TABLET PO SCH (08:07)
[2016-08-20] MEDS: PANTOPRAZOLE SODIUM IV 80 MG in IV NORMAL SALINE 100ML 100 ML IV SCH (10:05)
--- NOTE | 2016-08-20 10:09 | PDOC ---
PROGRESS NOTES Chief Complaint Chief Complaint A/P acute hypoxia w/ bronchitis, pickwickian, CHF, stable diastolic CHF HTN Metabolic encephalopathy, improved morbid obesity, BMI 47 anemia of acute blood loss, recent Total hysterectomy, biopsy results are of no malignancy Plan abx stopped today, no signs of infection seen awaiting GI recommendation AMS resolved. on 2l oxygen, follow pulmonology recommendations SNU placement Monitor hemoglobin Protonix gtt. supportive care History of Present Illness History of Present Illness NO GI BLEEDING MILD SOB NO CHEST PAIN Vitals Vitals Vital Signs Date Time Temp Pulse Resp B/P Pulse Ox O2 Delivery O2 Flow Rate FiO2 08/20/16 08:07 84 130/82 08/20/16 08:00 Nasal Cannula 4.0 08/20/16 07:18 100 08/20/16 07:00 97.8 18 97.8 Physical Exam General: Alert, Oriented X3, Cooperative Heart: Regular rate Lungs: Clear, Other (anterior) Abdomen: Normal bowel sounds, Soft, No tenderness, No masses, Other (INcision site: clean, dry and intact) Extremities: No cyanosis Skin: No significant lesion Labs LABS Laboratory Tests Test 08/19/16 15:56 08/19/16 20:48 08/20/16 07:04 Glucose (Fingerstick) 112mg/dL (70-99) 92mg/dL (70-99) 73mg/dL (70-99) Assessment and Plan Assessmemt and Plan Problems Medical Problems: (1) Altered mental status Status: Acute (2) Pneumonia Status: Acute Problems: Comment Review of Relevant I have reviewed the following items robert (where applicable) has been applied. Labs Laboratory Tests Test 08/18/16 11:09 08/18/16 14:00 08/18/16 16:00 08/18/16 16:45 Glucose (Fingerstick) 94mg/dL (70-99) 129mg/dL (70-99) Gastric Fluid Occult Blood Positive (NEG) Hemoglobin 8.9g/dL (12.0-15.5) Hematocrit 28.1% (36.0-47.0) Mean Corpuscular Hemoglobin Concent 32g/dL (31-37) Test 08/18/16 20:44 08/19/16 04:03 08/19/16 07:11 08/19/16 07:51 Glucose (Fingerstick) 138mg/dL (70-99) 68mg/dL (70-99) 85mg/dL (70-99) Hemoglobin 8.2g/dL (12.0-15.5) Hematocrit 25.6% (36.0-47.0) Mean Corpuscular Hemoglobin Concent 32g/dL (31-37) Test 08/19/16 10:07 08/19/16 15:56 08/19/16 20:48 08/20/16 07:04 Glucose (Fingerstick) 82mg/dL (70-99) 112mg/dL (70-99) 92mg/dL (70-99) 73mg/dL (70-99) Laboratory Tests Test 08/19/16 15:56 08/19/16 20:48 08/20/16 07:04 Glucose (Fingerstick) 112mg/dL (70-99) 92mg/dL (70-99) 73mg/dL (70-99) Microbiology 08/16/16 Blood Culture - Preliminary, Resulted NO GROWTH AFTER 3 DAYS Medications Current Medications Hydralazine HCl (Apresoline) 10 mg 1X ONCE IVP Last administered on 08/16/16 00:44; Start 08/15/16 at 22:00; Stop 08/15/16 at 22:01; Status DC Vancomycin HCl (Vanco Per Pharmacy) 1 each PRN DAILY PRN MC SEE COMMENTS Last administered on 08/18/16 02:42; Start 08/15/16 at 23:00 Piperacillin Sod/ Tazobactam Sod 1 each 1 each PRN DAILY PRN MC SEE COMMENTS; Start 08/15/16 at 23:00 Piperacillin Sod/ Tazobactam Sod 4.5 gm/Sodium Chloride 100 ml @ 200 mls/hr 1X ONCE IV Last administered on 08/15/16 23:15; Start 08/15/16 at 23:15; Stop 08/15/16 at 23:44; Status DC Vancomycin HCl/ Sodium Chloride (Iv Sodium Chloride 0.9% 500ml Bag) 500 ml @ 250 mls/hr 1X ONCE IV Last administered on 08/16/16 00:44; Start 08/16/16 at 00:00; Stop 08/16/16 at 01:59; Status DC Ondansetron HCl (Zofran) 4 mg PRN Q8HRS PRN IV NAUSEA/VOMITING; Start 08/15/16 at 23:30; Stop 08/16/16 at 23:29; Status DC Morphine Sulfate 2 mg PRN Q2HR PRN IV PAIN Last administered on 08/16/16 08:13 ; Start 08/15/16 at 23:30; Stop 08/16/16 at 23:29; Status DC Acetaminophen (Tylenol) 650 mg PRN Q4HRS PRN PO FEVER Last administered on 08/16 21:08; Start 08/15/16 at 23:30; Stop 08/16/16 at 23:29; Status DC Insulin Aspart (Novolog) 0-7 UNITS TIDWMEALS SQ Last administered on 08/16/16 08:09; Start 08/16/16 at 08:00; Stop 08/16/16 at 14:36; Status DC Dextrose 12.5 gm 12.5 gm PRN Q15MIN PRN IV SEE COMMENTS; Start 08/15/16 at 23: 30 Piperacillin Sod/ Tazobactam Sod 4.5 gm/Sodium Chloride 100 ml @ 200 mls/hr Q8H IV Last administered on 08/16/16 05:41; Start 08/16/16 at 06:00; Stop at 12:30; Status DC Vancomycin HCl/ Sodium Chloride (Iv Sodium Chloride 0.9% 500ml Bag) 500 ml @ 250 mls/hr Q24H IV Last administered on 08/20/16 00:56; Start 08/17/16 at 01: 00 Vancomycin HCl 1 each 1X ONCE MC Last administered on 08/18/16 00:30; Start 08/18/16 at 00:30; Stop 08/18/16 at 00:31; Status DC Polyethylene Glycol (miraLAX PACKET) 17 gm 1X ONCE PO Last administered on 10:30; Start 08/16/16 at 10:15; Stop 08/16/16 at 10:22; Status DC Polyethylene Glycol (miraLAX PACKET) 17 gm PRN BID PRN PO CONSTIPATION; Start 08/16/16 at 10:15 Docusate Sodium (Colace) 100 mg PRN DAILY PRN PO CONSTIPATION; Start 08/16/16 at 10:15 Docusate Sodium (Colace) 100 mg DAILY PO ; Start 08/17/16 at 09:00; Stop at 09:00; Status DC Magnesium Hydroxide (Milk Of Magnesia) 2,400 mg 1X ONCE PO Last administered on 08/16/16 10:29; Start 08/16/16 at 10:15; Stop 08/16/16 at 10:22; Status DC Amoxicillin/ Clavulanate Potassium (Augmentin 875/ 125mg) 1 tab BID PO Last administered on 08/16/16 12:16; Start 08/16/16 at 11:00; Stop 08/16/16 at 12:24 ; Status DC Cyclobenzaprine HCl (Flexeril) 10 mg TID PO Last administered on 08/20/16 08: 06; Start 08/16/16 at 11:00 Docusate Sodium (Colace) 100 mg BID PO Last administered on 08/20/16 08:07; Start 08/16/16 at 11:00 Ferrous Sulfate (Feosol) 325 mg DAILYWBKFT PO Last administered on 08/20/16 08 :06; Start 08/16/16 at 11:30 Furosemide (Lasix) 20 mg BID92 PO Last administered on 08/20/16 08:06; Start 08/16/16 at 11:00 Hydralazine HCl (Apresoline) 25 mg TID PO Last administered on 08/20/16 08:07 ; Start 08/16/16 at 14:00 Insulin Aspart (Novolog) TIDWMEALS SQ ; Start 08/16/16 at 12:00; Stop 08/16/16 at 18:09; Status DC Insulin Detemir (Levemir) 25 units QHS SQ Last administered on 08/18/16 21:20 ; Start 08/16/16 at 21:00 Lisinopril (Prinivil) 20 mg BID PO Last administered on 08/20/16 08:06; Start 08/16/16 at 11:00 Oxycodone/ Acetaminophen (Percocet 5/325) 1 tab PRN Q4HRS PRN PO MODERATE PAIN , SEVERE PAIN Last administered on 08/17/16 10:41; Start 08/16/16 at 10:30; Stop 08/17/16 at 13:56; Status DC Prednisone (Prednisone) 20 mg DAILY PO Last administered on 08/20/16 08:07; Start 08/16/16 at 11:00 Senna/Docusate Sodium (Senna Plus) 1 tab BID PO Last administered on 08/20/16 08:06; Start 08/16/16 at 11:00 Trimethoprim/ Sulfamethoxazole (Bactrim Ss) 1 tab BID PO Last administered on 14:10; Start 08/16/16 at 11:00; Stop 08/16/16 at 14:37; Status DC Acetaminophen (Tylenol) 325 mg QID PO Last administered on 08/20/16 08:06; Start 08/16/16 at 13:00 Non-Formulary Medication 2 puff QID INH FOR ASTHMA; Start 08/16/16 at 13:00; Stop 08/16/16 at 13:00; Status DC Atorvastatin Calcium (Lipitor) 5 mg QHS PO Last administered on 08/19/16 20:55 ; Start 08/16/16 at 21:00 Famotidine (Pepcid) 20 mg DAILY PO Last administered on 08/18/16 08:42; Start 08/16/16 at 11:00; Stop 08/18/16 at 15:40; Status DC Albuterol/ Ipratropium (Duoneb) 3 ml RTQID NEB Last administered on 08/20/16 07:13; Start 08/16/16 at 12:00 Albuterol Sulfate 2.5 mg 2.5 mg RTQID NEB ; Start 08/16/16 at 12:00; Stop at 12:00; Status DC Piperacillin Sod/ Tazobactam Sod/ Sodium Chloride (Zosyn/Iv Sodium Chloride 0.9 % 50ml) 50 ml @ 100 mls/hr Q6HRS IV Last administered on 08/20/16 04:53; Start 08/16/16 at 13:00 Furosemide (Lasix) 20 mg 1X ONCE IVP Last administered on 08/16/16 14:09; Start 08/16/16 at 13:30; Stop 08/16/16 at 13:31; Status DC Iohexol (Omnipaque 240 Mg/ml) 30 ml 1X ONCE PO ; Start 08/16/16 at 14:45; Stop 08/16/16 at 14:46; Status DC Iohexol (Omnipaque 350 Mg/ml) 90 ml 1X ONCE IV ; Start 08/16/16 at 16:00; Stop 08/16/16 at 16:02; Status DC Iohexol (Omnipaque 350 Mg/ml) 90 ml 1X ONCE IV ; Start 08/16/16 at 16:00; Stop 08/16/16 at 16:02; Status DC Info (Do NOT chart on this entry -- for MONITORING) 1 each PRN DAILY PRN MC SEE COMMENTS; Start 08/16/16 at 16:15; Stop 08/18/16 at 16:14; Status DC Insulin Aspart (Novolog) 0-7 UNITS TIDWMEALS SQ Last administered on 08/17/16 17:17; Start 08/16/16 at 17:00 Morphine Sulfate 4 mg PRN Q2HR PRN IV PAIN SEVERE; Start 08/17/16 at 10:45 Amlodipine Besylate (Norvasc) 5 mg DAILYWLUN PO Last administered on 08/17/16 13:33; Start 08/17/16 at 12:45; Stop 08/18/16 at 10:43; Status DC Oxycodone/ Acetaminophen (Percocet 7.5/ 325) 1 tab PRN Q4HRS PRN PO PAIN Last administered on 08/19/16 20:55; Start 08/17/16 at 14:00 Guaifenesin (Robitussin Dm) 10 ml PRN Q6HRS PRN PO COUGH Last administered on 08:20; Start 08/17/16 at 15:15 Throat Lozenges (Cepacol Sore Throat Lozenge) 1 sandra PRN Q2HRS PRN PO SORE THROAT Last administered on 08/19/16 08:20; Start 08/17/16 at 15:15 Labetalol HCl (Normodyne) 10 mg PRN Q2HR PRN IVP HYPERTENSION, SEE COMMENTS Last administered on 08/20/16 03:18; Start 08/18/16 at 00:30 Ondansetron HCl (Zofran) 4 mg PRN Q6HRS PRN IV NAUSEA/VOMITING Last administered on 08/19/16 09:08; Start 08/18/16 at 03:30 Prochlorperazine Edisylate 10 mg 10 mg PRN Q6HRS PRN IM NAUSEA/VOMITING; Start 08/18/16 at 09:45 Promethazine HCl/ Sodium Chloride (Phenergan/Iv Sodium Chloride 0.9% 50ml) 50.5 ml @ 151.5 mls/ hr PRN Q6HRS PRN IV NAUSEA/VOMITING; Start 08/18/16 at 09:45 Amlodipine Besylate (Norvasc) 10 mg DAILYWLUN PO Last administered on 08:18; Start 08/18/16 at 12:00 Pantoprazole Sodium (Protonix Vial) 40 mg DAILYAC IVP Last administered on 08/18 15:01; Start 08/18/16 at 15:00; Stop 08/18/16 at 15:41; Status DC Pantoprazole Sodium 80 mg 80 mg 1X ONCE IVP Last administered on 08/18/16 15: 50; Start 08/18/16 at 15:45; Stop 08/18/16 at 15:46; Status DC Pantoprazole Sodium/Sodium Chloride (Protonix Iv/Iv Sodium Chloride 0.9% 100ml) 100 ml @ 10 mls/hr Q10H IV Last administered on 08/20/16 10:05; Start at 15:45 Active Scripts Active Levemir Flextouch (Insulin Detemir) 100 Unit/1 Ml Insuln.pen 25 Units SQ QHS 30 Days Novolog Flexpen (Insulin Aspart) 100 Unit/1 Ml Insuln.pen 0 Units SQ TIDWMEALS 30 Days Senna-Time S Tablet (Sennosides/Docusate Sodium) 1 Each Tablet 1 Tab PO BID Oxycodone-Acetaminophen 5-325 (Oxycodone Hcl/Acetaminophen) 1 Each Tablet 1 Tab PO PRN Q4HRS PRN Furosemide 20 Mg Tablet 20 Mg PO BID92 30 Days Colace (Docusate Sodium) 100 Mg Capsule 100 Mg PO BID 5 Days Amox Tr-K Clv 875-125 Mg Tab (Amoxicillin/Potassium Clav) 1 Each Tablet 1 Tab PO BID 3 Days Klor-Con Sprinkle (Potassium Chloride) 10 Meq Capsule.er 20 Meq PO DAILY Lisinopril 20 Mg Tablet 1 Tab PO BID Ferrous Sulfate 325 Mg Tablet 325 Tab PO DAILY Gabapentin 300 Mg Capsule 600 Mg PO TID Hydralazine Hcl 25 Mg Tablet 1 Tab PO TID Reported Ventolin Hfa Inhaler (Albuterol Sulfate) 18 Gm Hfa.aer.ad 2 Puff INH QID Acetaminophen 160 Mg/5 Ml Solution 325 Mg PO QID Bactrim 400-80 Mg Tablet (Sulfamethoxazole/Trimethoprim) 1 Each Tablet 1 Tab PO BID Zantac (Ranitidine Hcl) 150 Mg Tablet 150 Mg PO DAILY Prednisone 20 Mg Tablet 20 Mg PO DAILY Cyclobenzaprine Hcl 10 Mg Tablet 10 Mg PO TID Lovastatin 20 Mg Tablet 20 Mg PO HS Vitals/I & O Vital Sign - Last 24 Hours 08/19/16 08/19/16 08/19/16 08/19/16 10:31 10:58 11:58 14:06 Temp 97.8 97.8 Pulse 88 88 Resp 20 18 B/P 167/87 167/87 Pulse Ox 93 O2 Delivery Nasal Cannula Room Air O2 Flow Rate 4.0 08/19/16 08/19/16 08/19/16 08/19/16 15:00 15:52 19:00 19:10 Temp 97.8 96.1 97.8 96.1 Pulse 87 101 Resp 18 18 B/P 165/85 133/85 Pulse Ox 94 93 O2 Delivery Nasal Cannula Nasal Cannula Nasal Cannula Room Air O2 Flow Rate 4.0 2.0 4.0 08/19/16 08/19/16 08/19/16 08/19/16 20:01 20:55 20:55 20:56 Pulse 101 101 Resp 20 B/P 150/85 150/85 Pulse Ox 93 O2 Delivery Room Air Room Air O2 Flow Rate 2.0 2.0 08/19/16 08/19/16 08/19/16 08/20/16 21:55 22:51 23:36 01:34 Temp 97.9 97.9 Pulse 102 Resp 18 B/P 157/86 Pulse Ox 93 95 97 O2 Delivery Room Air BiPAP/CPAP BiPAP/CPAP BiPAP/CPAP O2 Flow Rate 2.0 08/20/16 08/20/16 08/20/16 08/20/16 03:00 03:18 03:31 07:00 Temp 96.6 97.8 96.6 97.8 Pulse 91 91 84 Resp 18 18 B/P 180/96 180/96 130/82 Pulse Ox 100 100 99 O2 Delivery BiPAP/CPAP BiPAP/CPAP Nasal Cannula O2 Flow Rate 4.0 08/20/16 08/20/16 08/20/16 08/20/16 07:18 08:00 08:06 08:07 Pulse 84 84 B/P 130/82 130/82 Pulse Ox 100 O2 Delivery Nasal Cannula Nasal Cannula O2 Flow Rate 4.0 4.0 Intake and Output 08/19/16 08/19/16 08/20/16 15:00 23:00 07:00 Intake Total 390 ml 900 ml 360 ml Output Total 800 ml 800 ml Balance 390 ml 100 ml -440 ml TIFFANI MATHEW MD Aug 20, 2016 10:08
[2016-08-20 11:00] VITALS: BP 156/80
[2016-08-20] MEDS: AMLODIPINE BESYLATE 10 MG TABLET PO SCH (11:48)
[2016-08-20] MEDS: OXYCODONE/APAP 7.5/325 TABLET. PO PRN (11:57)
--- NOTE | 2016-08-20 12:10 | PDOC ---
Subjective: Subjective: Feeling better. Some gassy lower abd pains. Tolerating diet. Objective: Objective: Per RN - possible DC today, no recurrent bleeding, tolerating PO. 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 Recommend tandem EGD. HILDA MATIAS Aug 20, 2016 12:10
--- NOTE | 2016-08-20 12:50 | PDOC ---
PULMONARY PROGRESS NOTES Subjective on 02 no dillan Vitals Vital Signs Date Time Temp Pulse Resp B/P Pulse Ox O2 Delivery O2 Flow Rate FiO2 08/20/16 11:57 Nasal Cannula 2.0 08/20/16 11:48 100 156/80 08/20/16 11:00 97.8 18 92 97.8 Comments ros as mentioned as above other sys otherwise neg ROS: No Nausea, No Chest Pain, No Increase Cough (nc at perrl. throat nose clear) General: Alert, No acute distress HEENT: Other Lungs: Clear Cardiovascular: S1, S2 Abdomen: Soft, Non-tender, Other Neuro Exam: Alert, Oriented Extremities: Other (edema) Skin: Warm Labs Laboratory Tests Test 08/18/16 14:00 08/18/16 16:00 08/18/16 16:45 08/18/16 20:44 Gastric Fluid Occult Blood Positive (NEG) Hemoglobin 8.9g/dL (12.0-15.5) Hematocrit 28.1% (36.0-47.0) Mean Corpuscular Hemoglobin Concent 32g/dL (31-37) Glucose (Fingerstick) 129mg/dL (70-99) 138mg/dL (70-99) Test 08/19/16 04:03 08/19/16 07:11 08/19/16 07:51 08/19/16 10:07 Hemoglobin 8.2g/dL (12.0-15.5) Hematocrit 25.6% (36.0-47.0) Mean Corpuscular Hemoglobin Concent 32g/dL (31-37) Glucose (Fingerstick) 68mg/dL (70-99) 85mg/dL (70-99) 82mg/dL (70-99) Test 08/19/16 15:56 08/19/16 20:48 08/20/16 07:04 08/20/16 10:23 Glucose (Fingerstick) 112mg/dL (70-99) 92mg/dL (70-99) 73mg/dL (70-99) 98mg/dL (70-99) Test 08/20/16 11:20 Vitamin B12 Level 1391pg/mL (247-911) Thyroid Stimulating Hormone (TSH) 3.433uIU/mL (0.358-3.74) Laboratory Tests Test 08/19/16 15:56 08/19/16 20:48 08/20/16 07:04 08/20/16 10:23 Glucose (Fingerstick) 112mg/dL (70-99) 92mg/dL (70-99) 73mg/dL (70-99) 98mg/dL (70-99) Test 08/20/16 11:20 Vitamin B12 Level 1391pg/mL (247-911) Thyroid Stimulating Hormone (TSH) 3.433uIU/mL (0.358-3.74) Medications Active Scripts Medications Dose Route/Sig Days Date Category Levemir Flextouch (Insulin Detemir) 100 Unit/1 Ml Insuln.pen 25 Units SQ QHS 30 08/14/16 Rx Novolog Flexpen (Insulin Aspart) 100 Unit/1 Ml Insuln.pen 0 Units SQ TIDWMEALS 30 08/14/16 Rx Senna-Time S Tablet (Sennosides/Docusate Sodium) 1 Each Tablet 1 Tab PO BID 08/14/16 Rx Oxycodone-Acetaminophen 5-325 (Oxycodone Hcl/Acetaminophen) 1 Each Tablet 1 Tab PO PRN Q4HRS PRN 08/14/16 Rx Furosemide 20 Mg Tablet 20 Mg PO BID92 30 08/14/16 Rx Colace (Docusate Sodium) 100 Mg Capsule 100 Mg PO BID 5 08/14/16 Rx Amox Tr-K Clv 875-125 Mg Tab (Amoxicillin/Potassium Clav) 1 Each Tablet 1 Tab PO BID 3 08/14/16 Rx Ventolin Hfa Inhaler (Albuterol Sulfate) 18 Gm Hfa.aer.ad 2 Puff INH QID 08/09/16 Reported Acetaminophen 160 Mg/5 Ml Solution 325 Mg PO QID 08/09/16 Reported Bactrim 400-80 Mg Tablet (Sulfamethoxazole/Trimethoprim) 1 Each Tablet 1 Tab PO BID 08/09/16 Reported Zantac (Ranitidine Hcl) 150 Mg Tablet 150 Mg PO DAILY 08/09/16 Reported Prednisone 20 Mg Tablet 20 Mg PO DAILY 08/09/16 Reported Cyclobenzaprine Hcl 10 Mg Tablet 10 Mg PO TID 08/09/16 Reported Klor-Con Sprinkle (Potassium Chloride) 10 Meq Capsule.er 20 Meq PO DAILY 04/06/16 Rx Lisinopril 20 Mg Tablet 1 Tab PO BID 04/06/16 Rx Ferrous Sulfate 325 Mg Tablet 325 Tab PO DAILY 04/06/16 Rx Gabapentin 300 Mg Capsule 600 Mg PO TID 04/06/16 Rx Hydralazine Hcl 25 Mg Tablet 1 Tab PO TID 04/06/16 Rx Lovastatin 20 Mg Tablet 20 Mg PO HS 03/28/16 Reported Comments cxr reviewed. ct of abd reviewed. 1. Mild to moderate bibasilar atelectasis and/or pneumonitis. 2. Postsurgical changes in the lower abdomen and pelvis without evidence of abscess. Impression . 1. Acute hypoxic respiratory failure requiring 4 liters of oxygen. I suspect secondary to underlying obesity hypoventilation syndrome and some mild atelectasis. There appears to be mild vascular congestion and it could be related to some diastolic heart failure as well. She does have increased leg edema. Cannot exclude the possibility of mild pneumonia. 2. Fever of 100.6. She has a cough with only white sputum production. The source could be the abdomen. She had a recent hysterectomy. CT abdomen and pelvis negative for any infection 3. History of abnormal CT chest in March with a right hilar mass/adenopathy and subcarinal adenopathy and tiny lung nodules. She subsequently followed up at and underwent biopsy, I assume via bronchoscopy, and she was told that she has sarcoidosis and has been on prednisone 20 mg daily. 4. No significant history of tobacco use. 5. Underlying obesity. 6. allergic rhinitis Plan . 1. 02 titration to keep sat 90% 2. Diuresis prn 3. IS 4. antibiotics per id 5. franki the importance do tx discussed. . 6. Continue prednisone 20 mg daily as initiated at Clinic for sarcoidosis and she can follow up over there. 7. Continue bronchodilators. 8. cont bipap prn ok with transfer to YAMILEX LOPEZ MD Aug 20, 2016 12:50
[2016-08-20] MEDS ORDERED: DOCUSATE SODIUM 100 MG CAPSULE. PO PRN (14:00)
[2016-08-20 14:48] VITALS: BP 146/82
--- NOTE | 2016-08-20 15:14 | PDOC ---
PROGRESS NOTES Assessment Assessment IMPRESSION: Metabolic encephalopathy. Hypoxia. Pneumonitis? Renal insufficiency/failure. Recent hysterectomy. CHF HTN DM Obesity. RECOMMENDATIONS/PLAN: Continue medical treatment. OT/PT. SUBJECTIVE: Stating doing better on 08/20/16. OBJECTIVE: No acute focalized motor or sensory deficits. PAST MEDICAL AND SURGICAL HISTORY: Please see H&P ALLERGY: Reviewed. MEDICATIONS: Refer to [facility] REVIEW OF SYSTEMS: Constitutional: Obesity. Head: No traumatic brain or head injury. Skin: No edema, or rash. Ear: No infection. Eyes: No vision loss, or diplopia. Nose: No bleeding or purulent discharges. Hearing: No hearing decrease. Neck: No injury. Breast: No history of cancer, masses, or discharges. Cardiac: CHF, HTN. Pulmonary: No CPOD. GI: No GI Ulcer, GI bleeding Urinary/genital: UTI. Endocrine: Diabetes Mellitus, morbid obesity. Skeletomuscular: No muscular atrophy, deformity. Neurological: see HP. Psychiatric: Denies drug use/abuse. Otherwise, not [id number] review of systems. PHYSICAL EXAMINATION: General appearance in no acute distress. HEENT: Normocephalic and nontraumatic. Eyes, nose, ears, and throat are unremarkable. Neck is supple. No lymphadenopathy. No bruits are heard over the carotid artery. No Crepitus. Cardiovascular: S1, S2, regular rate and rhythm. Pulmonary: Clear to auscultation bilaterally. Abdomen: Bowel sounds are positive. Extremities: No rash, lesions, or edema. No restriction of range of motion NEUROLOGICAL EXAMINATION: Awake. Sitting in chair. Oriented to time, place and person. PERRL. EOMI. CN: no focal findings. Muscle tone: within normal. Muscle strength: 5- DTR: 2 UE, 1- at knee due to obesity. Plantar reflex: Flexor response bilaterally Gait: not examined in chair. Sensory exam: no abnormal findings. No acute cerebellar signs elicited. F-T-N test fine. Objective Objective Vital Signs Date Time Temp Pulse Resp B/P Pulse Ox O2 Delivery O2 Flow Rate FiO2 08/20/16 14:48 97.8 107 18 146/82 93 Nasal Cannula 4.0 97.8 Intake and Output 08/20/16 07:00 Intake Total 1650 ml Output Total 1600 ml Balance 50 ml Intake Oral 1450 ml IV Total 200 ml Output Urine Total 1000 ml Urine/Stool Mix 600 ml # Voids 5 # Bowel Movements 2 Vitals Signs Vitals VS - Last 72 Hours, by Label Date Time Temp Pulse Resp B/P Pulse Ox O2 Delivery O2 Flow Rate FiO2 08/20/16 14:48 97.8 107 18 146/82 93 Nasal Cannula 4.0 97.8 08/20/16 13:42 103 145/79 08/20/16 11:57 Nasal Cannula 2.0 08/20/16 11:48 100 156/80 08/20/16 11:08 Nasal Cannula 2.0 08/20/16 11:00 97.8 100 18 156/80 92 Nasal Cannula 4.0 97.8 08/20/16 08:07 84 130/82 08/20/16 08:06 84 130/82 08/20/16 08:00 Nasal Cannula 4.0 08/20/16 07:18 100 Nasal Cannula 4.0 08/20/16 07:00 97.8 84 18 130/82 99 Nasal Cannula 4.0 97.8 08/20/16 03:31 100 BiPAP/CPAP 08/20/16 03:18 91 180/96 08/20/16 03:00 96.6 91 18 180/96 100 BiPAP/CPAP 96.6 08/20/16 01:34 BiPAP/CPAP 08/19/16 23:36 97 BiPAP/CPAP 08/19/16 22:51 97.9 102 18 157/86 95 BiPAP/CPAP 97.9 08/19/16 21:55 93 Room Air 2.0 08/19/16 20:56 101 150/85 08/19/16 20:55 20 93 Room Air 2.0 08/19/16 20:55 101 150/85 08/19/16 20:01 Room Air 2.0 08/19/16 19:10 Room Air 08/19/16 19:00 96.1 101 18 133/85 93 Nasal Cannula 4.0 96.1 08/19/16 15:52 Nasal Cannula 2.0 08/19/16 15:00 97.8 87 18 165/85 94 Nasal Cannula 4.0 97.8 08/19/16 14:06 88 167/87 08/19/16 11:58 Room Air 08/19/16 10:58 18 08/19/16 10:31 97.8 88 20 167/87 93 Nasal Cannula 4.0 97.8 08/19/16 10:02 8 91 08/19/16 08:27 91 Room Air 08/19/16 08:20 83 177/90 08/19/16 08:19 83 177/90 08/19/16 08:18 83 177/90 08/19/16 08:00 Room Air 08/19/16 07:00 97.8 83 18 177/90 94 Nasal Cannula 4.0 97.8 Laboratory Laboratory Laboratory Tests Test 08/19/16 15:56 08/19/16 20:48 08/20/16 07:04 08/20/16 10:23 Glucose (Fingerstick) 112mg/dL (70-99) 92mg/dL (70-99) 73mg/dL (70-99) 98mg/dL (70-99) Test 08/20/16 11:20 Vitamin B12 Level 1391pg/mL (247-911) Thyroid Stimulating Hormone (TSH) 3.433uIU/mL (0.358-3.74) Microbiology 08/16/16 Blood Culture - Preliminary, Resulted NO GROWTH AFTER 4 DAYS Medication Medications Current Medications Docusate Sodium (Colace) 100 mg BID PO ; Start 08/20/16 at 21:00 Docusate Sodium (Colace) 100 mg PRN DAILY PRN PO CONSTIPATION; Start 08/20/16 at 14:00 Pantoprazole Sodium (Protonix) 40 mg DAILYAC PO ; Start 08/21/16 at 07:30 Comment Review of Relevant I have reviewed the following items robert (where applicable) has been applied. PASTORA RAMÍREZ MD Aug 20, 2016 15:14
--- NOTE | 2016-08-20 16:34 | PDOC3 ---
Discharge Summary* Admitting Diagnosis Problems Medical Problems: (1) Altered mental status Status: Acute (2) Pneumonia Status: Acute Final Diagnosis Acute hypoxia w/ bronchitis, pickwickian, CHF, stable diastolic CHF Sable. HTN Metabolic encephalopathy, resolved. Morbid obesity, BMI 47 Anemia of acute blood loss, stable, Recent Total hysterectomy, Brief Hospital Course Ms. Ma is a 66 old Female who presented with confusion from , Pt was evaluated by cardiology, pulmonology and neurology. Her mental state improved, It was thought her hypoxia could be due to her Obesity, currently she is stable at 2L, d/w Dr Paul, recommend to transfer to . She is DC to in stable condition with oxygen, 2L. Abx has been DC as per ID recommendation, blood cx didn't grow any bacteria. exam see my progress notes. CONDITION AT DISCHARGE: Improved Scheduled Acetaminophen (Acetaminophen) 325 MG PO QID (Reported) Albuterol Sulfate (Ventolin Hfa Inhaler) 2 PUFF INH QID (Reported) Amoxicillin/Potassium Clav (Amox Tr-K Clv 875-125 Mg Tab) 1 TAB PO BID Cyclobenzaprine Hcl (Cyclobenzaprine Hcl) 10 MG PO TID (Reported) Docusate Sodium (Colace) 100 MG PO BID Ferrous Sulfate (Ferrous Sulfate) 325 TAB PO DAILY Furosemide (Furosemide) 20 MG PO [id number] Gabapentin (Gabapentin) 600 MG PO TID Hydralazine Hcl (Hydralazine Hcl) 1 TAB PO TID Insulin Aspart (Novolog Flexpen) 0 UNITS SQ TIDWMEALS Insulin Detemir (Levemir Flextouch) 25 UNITS SQ QHS Lisinopril (Lisinopril) 1 TAB PO BID Lovastatin (Lovastatin) 20 MG PO HS (Reported) Potassium Chloride (Klor-Con Sprinkle) 20 MEQ PO DAILY Prednisone (Prednisone) 20 MG PO DAILY (Reported) Ranitidine Hcl (Zantac) 150 MG PO DAILY (Reported) Sennosides/Docusate Sodium (Senna-Time S Tablet) 1 TAB PO BID Sulfamethoxazole/Trimethoprim (Bactrim 400-80 Mg Tablet) 1 TAB PO BID (Reported ) Scheduled PRN Oxycodone Hcl/Acetaminophen (Oxycodone-Acetaminophen 5-325) 1 TAB PO PRN Q4HRS PRN PRN MODERATE PAIN, SEVERE PAIN Discontinued Medications Amlodipine Besylate (Amlodipine Besylate) 10 MG PO DAILY (Reported) Furosemide (Lasix) 40 MG PO BID Ibuprofen (Ibuprofen) 800 MG PO PRN Q6HRS PRN PRN INFLAMMATION (Reported) Insulin Aspart (Novolog) 8 UNIT SQ TIDAC (Reported) Insulin Detemir (Levemir) 36 UNIT SQ HS (Reported) FOLLOW UP APPOINTMENT: with pcp and [facility] pulmonoogy Time Spent Total time spent with patient 33 minutes for coordination of care, counseling, and education. TIFFANI MATHEW MD Aug 20, 2016 16:34
[2016-08-20] MEDS ORDERED: DOCUSATE SODIUM 100 MG CAPSULE. PO SCH (21:00)
[2016-08-21] MEDS ORDERED: PANTOPRAZOLE 40 MG TABLET. PO SCH (07:30)
== END 2016-08-20 16:38 | DRG 682 ==
LOC: ER 21:24 → 5 NORTH 23:13
PROVIDERS: ADMIT Internal Medicine; ATTEND Internal Medicine
PROC: 5A09357 Assistance with Respiratory Ventilation, Less than 24 Consecutive Hours, Continuous Positive Airway Pressure (ICD-10-PCS; principal; 2016-08-20)
DX: N17.9 Acute kidney failure, unspecified (principal); G93.41 Metabolic encephalopathy; J18.9 Pneumonia, unspecified organism; J96.01 Acute respiratory failure with hypoxia; D62 Acute posthemorrhagic anemia; E66.2 Morbid (severe) obesity with alveolar hypoventilation; I13.0 Hypertensive heart and chronic kidney disease with heart failure and stage 1 through stage 4 chronic kidney disease, or unspecified chronic kidney disease; I47.1 Supraventricular tachycardia; I50.32 Chronic diastolic (congestive) heart failure; J98.11 Atelectasis; Z68.42 Body mass index [BMI] 45.0-49.9, adult; J44.9 Chronic obstructive pulmonary disease, unspecified; E11.22 Type 2 diabetes mellitus with diabetic chronic kidney disease; E78.00 Pure hypercholesterolemia, unspecified; E78.5 Hyperlipidemia, unspecified; I25.10 Atherosclerotic heart disease of native coronary artery without angina pectoris; J30.9 Allergic rhinitis, unspecified; M19.90 Unspecified osteoarthritis, unspecified site; J40 Bronchitis, not specified as acute or chronic; N18.9 Chronic kidney disease, unspecified; Z79.4 Long term (current) use of insulin; Z79.52 Long term (current) use of systemic steroids; Z79.899 Other long term (current) drug therapy; Z80.0 Family history of malignant neoplasm of digestive organs; Z80.3 Family history of malignant neoplasm of breast; Z82.49 Family history of ischemic heart disease and other diseases of the circulatory system; Z97.5 Presence of (intrauterine) contraceptive device; Z90.710 Acquired absence of both cervix and uterus
CPT/HCPCS: 36415; 70450; 71010; 74176; 80048; 80053; 80202; 82271; 82607; 82947; 83605; 83735; 83880; 84145; 84443; 84484; 85007; 85014; 85018; 85027; 87040; 93005; 94250; 94640; 94660; 94760; 96365; C9113; J0360; J1815; J2270; J2405; J2543; J3370; J3490; J7040; J7512; J7620; 97110; 97116; 97530; 99285-25